=== PATIENT | female | born 1985 | race Caucasian/White ===

== ENCOUNTER 2020-03-18 08:54 | Outpatient (CLI) | payer BC, MEDICAID, SELFPAY ==
--- NOTE | 2020-03-18 09:03 | XR_ITS ---
WS: [id number] LATERAL CERVICAL SPINE: 3 view. Lateral radiographs are performed in upright neutral, flexion and extension to the patient's toleranc e. HISTORY: SPONDYLOLISTHESIS CERVICAL REGION COMPARISON: None available. Slight increase in the focal lordosis centered at the C2-3 level. Disc spaces and vertebral body heig hts are normal. There is marked mobility or flexion and extension. 2 mm retrolisthesis of C2, C3 and C4 is probably due to the marked mobility. No significant instability. XR/XR cervical spine fl/ex [id number] IMPRESSION: 1. There is marked increased mobility during flexion and extension of the cerv ical spine. 2. C2, C3 and C4 2 millimeters retrolisthesis during extension.
== END 2020-03-18 08:55 | disposition home or self-care (01) ==
LOC: RADWPI 09:02
PROVIDERS: PCP Internal Medicine; Visit Provider Nurse Practitioner
DX: M43.12 Spondylolisthesis, cervical region (principal)
CPT/HCPCS: 72040

== ENCOUNTER 2020-03-18 10:40 | Outpatient (RCR) | payer BC, MEDICAID, SELFPAY | END 2020-03-23 23:59 | disposition home or self-care (01) | LOC: SPT 10:40 | PROVIDERS: PCP Internal Medicine; Referring Provider Anesthesiology Pain Medicine; Visit Provider Anesthesiology Pain Medicine | DX: G89.4 Chronic pain syndrome (principal); M54.2 Cervicalgia | CPT/HCPCS: 97161 ==

== ENCOUNTER 2020-09-18 10:07 | Emergency (ER) | payer BC, MEDICAID, SELFPAY ==
[2020-09-18] VITALS (7 sets, daily range): BP systolic 120–141; BP diastolic 82–97; PULSE 84–94; RESP 14–18; TEMP 36.6; O2SAT 92–100; BMI 25.3
[2020-09-18 12:29] LABS: Basophils % 0.5 %; Eosinophils # 0.1 10^3/uL (0.0-0.8); Eosinophils % 1.5 %; Hematocrit 45.1 % (37.0-47.0); Hemoglobin 14.6 g/dL (11.5-15.3); Lymphocytes # 1.7 10^3/uL (0.8-4.8); Lymphocytes % 41.4 %; Mean Corpuscular HGB Conc 32.4 g/dL (30.0-36.0); Mean Corpuscular Hemoglobin 31.2 pg (28.0-34.0); Mean Corpuscular Volume 96.4 fL (81-99); Mean Platelet Volume 9.7 fL (7.4-10.4); Monocytes # 0.4 10^3/uL (0.2-0.9); Monocytes % 9.8 %; Neutrophils # 1.89 10^3/uL (1.8-7.7); Neutrophils % 46.3 %; Nucleated Red Blood Cells % 0 %; Platelet Count 204 10^3/cmm (130-400); Red Blood Count 4.68 10^6/uL (4.1-5.3); White Blood Count 4.1 10^3/uL (4.0-10.0)
[2020-09-18 12:42] LABS: HCG, Serum Qual Negative (Negative)
[2020-09-18 12:46] LABS: Alanine Aminotransferase 10 U/L (0-33); Albumin Level 4.4 g/dL (3.5-5.2); Alkaline Phosphatase 75 IU/L (35-105); Anion Gap 13.5 (5-19); Aspartate Amino Transferase 14 U/L (0-32); Blood Urea Nitrogen 13 mg/dL (6-20); Calcium 9.5 mg/dL (8.5-10.5); Carbon Dioxide 31 mmol/L (22-29); Chloride 98 mmol/L (98-107); Globulin 2.8 g/dL (1.3-4.6); Glomerular Filtration Rate 138.8 mL/min (90-130); Glucose 82 mg/dL (65-115); Lipase 22 U/L (13-60); Osmolality Calculated 285 mOsm/kg (285-295); Potassium 4.5 mmol/L (3.5-5.1); Sodium 138 mmol/L (136-145); Total Bilirubin 0.2 mg/dL (0.15-1.2); Total Protein 7.2 g/dL (6.6-8.7)
--- NOTE | 2020-09-18 12:47 | CTR_ITS ---
PROCEDURE INFORMATION: Exam: CT Chest Without Contrast; Diagnostic Exam date and time: 09/18/2020 12:47 PM Age: 35 years old Clinical indication: Abdominal pain; Generalized; Other: Heartburn; Prior surgery; Surgery type: Double mastectomy; Patient HX: Breast cancer, lymphoma; Additional info: Dyspnea. H/o breast cancer, abd pain TECHNIQUE: Imaging protocol: Diagnostic computed tomography of the chest without contrast. Radiation optimization: All CT scans at this facility use at least one of these dose optimization techniques: automated exposure control; mA and/or kV adjustment per patient size (includes targeted exams where dose is matched to clinical indication); or iterative reconstruction. COMPARISON: No relevant prior studies available. RADIATION DOSE METRICS: Total DLP (mGy-cm): 1173.59 FINDINGS: Lungs: Mild biapical scarring is noted. The lungs are otherwise clear. No airspace consolidation or mass is detected. Pleural spaces: Unremarkable. No pneumothorax. No pleural effusion. Heart: The heart is normal in size. Aorta: Unremarkable. No aortic aneurysm. Lymph nodes: Unremarkable. No enlarged lymph nodes. Bones/joints: Tiny 6 mm calcific focus in the T1 vertebral body may be a bone island. No skeletal mass or acute fracture is detected. Soft tissues: Bilateral breast implants are noted. Right axillary dissection clips are appreciated. IMPRESSION: No acute cardiopulmonary abnormality. Mild biapical scarring is noted. PROCEDURE INFORMATION: Exam: CT Abdomen And Pelvis Without Contrast Exam date and time: 09/18/2020 12:47 PM Age: 35 years old Clinical indication: Abdominal pain; Generalized; Other: Heartburn; Prior surgery; Surgery type: Double mastectomy; Patient HX: Breast cancer, lymphoma; Additional info: Dyspnea. H/o breast cancer, abd pain TECHNIQUE: Imaging protocol: Computed tomography of the abdomen and pelvis without contrast. Radiation optimization: All CT scans at this facility use at least one of these dose optimization techniques: automated exposure control; mA and/or kV adjustment per patient size (includes targeted exams where dose is matched to clinical indication); or iterative reconstruction. COMPARISON: No relevant prior studies available. RADIATION DOSE METRICS: Total DLP (mGy-cm): 1173.59 FINDINGS: Liver: Normal. No mass. Gallbladder and bile ducts: Normal. No calcified stones. No ductal dilation. Pancreas: Normal. No ductal dilation. Spleen: Normal. No splenomegaly. Adrenal glands: Normal. No mass. Kidneys and ureters: Normal. No renal stone or hydronephrosis. Stomach and bowel: No intestinal obstruction. A large amount of stool is present in the colon. Appendix: The appendix is normal. Intraperitoneal space: Unremarkable. No free air. No significant fluid collection. Vasculature: Unremarkable. No abdominal aortic aneurysm. Lymph nodes: Unremarkable. No enlarged lymph nodes. Urinary bladder: Unremarkable as visualized. Reproductive: The uterus and ovaries appear normal. Bones/joints: Unremarkable. No acute fracture. Soft tissues: Unremarkable. CT/CT chest abd pel wo con IMPRESSION: 1. No acute abnormality is seen in the abdomen or pelvis. 2. Constipation. Radiation Dose CTDIVOL = (mGy): DLP = 1173.59~1173.59 (mGy-cm)
--- NOTE | 2020-09-18 12:54 | W.ED.ABDPA2 ---
HPI - Abdominal Pain General: Chief Complaint: Abdominal Pain Stated Complaint: ABD GETTING BIGGER DAILY Time Seen by Provider: 09/18/20 12:32 History of Present Illness: HPI narrative: The patient is a 35-year-old female with past medical history migraines and chronic pain who comes to the ER complaining of abdominal fullness. She notes she has been gaining 2 pounds a week with no change in her dietary habits for the past several months and her belly is becoming tender and it is making her short of breath. She had a history of breast cancer and has been clear since 2019. She also says she is constipated. She complains of intermittent shortness of breath as well. She also says she has vaginal spotting blood which is unusual for her. I asked why she thought this was unusual and she says her periods are irregular. I asked if this could be a normal menstrual period for her and she says it is unusual that she is bleeding. She used to be on hormone control several months ago but was taken off it for bleeding. Associated Symptoms: Reports other (Abdominal swelling); Denies GI cramping and diarrhea Related Data: Date of Last Menstrual Period: 09/18/20 Review of Systems General: Reports: 10 or more systems reviewed and unremarkable except in HPI and below Const: Denies: fatigue Eyes: Denies: change in vision, blurry vision or eye redness ENMT: Denies: throat pain, swelling of lips/tongue, ear or mastoid pain or nasal congestion Card: Denies: chest pain, palpitations, irregular heart rhythm, edema, dyspnea on exertion or orthopnea Resp: Denies: dyspnea, productive cough or non-productive cough GI: Reports: abdominal pain and other (Abdominal swelling); Denies: diarrhea or GI cramping : Reports: vaginal bleeding; Denies: flank pain, difficulty voiding, urinary frequency or urinary urgency Musc: Denies: neck pain, back pain, extremity pain, joint pain, joint redness, limited range of motion or muscle weakness Skin/Breast: Denies: rash, pruritus, erythema, skin pain or skin tenderness Neuro: Denies: headache(s), numbness in extremities, weakness in extremities, sensory changes, difficulty walking, dizziness, confusion or Slurred speech present Psych: Denies: anxiety or depression Endo: Denies: polyuria All/Imm: Denies: urticaria, throat swelling or tongue swelling [facility] Female Reproductive History: Date of last menstrual period: 09/18/20 : 1 Physical Exam Const: COMMON NORMALS: no acute distress, average body habitus, patient oriented x3, no limitations, healthy appearing, alert and well nourished GENERAL APPEARANCE: cooperative, comfortable, well kempt and well developed ORIENTATION/CONSCIOUSNESS: Yes awake, Yes oriented to person, Yes oriented to place and Yes oriented to time HENMT: COMMON NORMALS: normocephalic, external ears normal and Normal external nose present HEAD & SCALP: normal to inspection and normocephalic NOSE: Normal external nose present EXTERNAL EAR: Yes external ears normal MOUTH: Normal oral and palatal mucosa present THROAT: posterior oropharynx normal Eye: COMMON NORMALS: Equal, round and reactive pupils present and EOMs intact bilaterally GENERAL EYE: appearance normal, both eyes and all related structures PUPIL: Yes Equal, round and reactive pupils present Neck/C-Spine: COMMON NORMALS: full ROM, no lymphadenopathy, no meningeal signs and no JVD GENERAL: Yes normal visual inspection Lymph: LYMPHATIC: no lymphadenopathy noted Chest: COMMONS NORMALS: normal inspection of the chest and normal palpation of entire chest wall Resp: COMMON NORMALS: normal respiratory effort, No retractions, No use of accessory muscles, clear to auscultation bilaterally and percussion normal EFFORT & INSPECTION: Yes able to speak in complete sentences AUSCULTATION: clear to auscultation bilaterally PERCUSSION: percussion normal Cardio: COMMON NORMALS: no JVD, regular rate, regular rhythm, S1 normal heart sound present, S2 normal heart sound present and Peripheral pulses 2+ throughout RATE: regular rate RHYTHM: regular rhythm HEART SOUNDS: S1 normal heart sound present and S2 normal heart sound present PERIPHERAL PULSES: Peripheral pulses 2+ throughout GI: COMMON NORMALS: Normal to inspection, nondistended, normoactive bowel sounds present, Soft to palpation, non-tender and no masses INSPECTION: Yes normal to inspection PALPATION: Yes Soft to palpation : COMMON NORMALS: Yes no CVA tenderness BLADDER/KIDNEY EXAM: Yes no CVA tenderness Back/Pelvis: COMMON NORMALS: no CVA tenderness, thoracic and lumbar spine normal to inspection, no thoracic nor lumbar tenderness and thoraco-lumbar ROM normal Extremity: COMMON NORMALS: normal to inspection, full ROM, capillary refill normal, no joint enlargement and no pedal edema GENERAL: Yes normal exam except as noted Neuro: COMMON NORMALS: patient oriented x3, CN's II-XII intact bilaterally, moves all extremities, no focal motor deficits, no sensory deficits noted and gait normal SENSORIUM/ORIENTATION: Yes alert, Yes oriented to person, Yes oriented to place and Yes oriented to time MENINGEAL SIGNS: Yes no meningeal signs Psych: COMMON NORMALS: mental status grossly normal, Normal thought process present, cooperative, normal affect and speech normal APPEARANCE: Yes well kempt ATTITUDE: Yes calm SPEECH: Yes normal speech MOOD & AFFECT: Yes anxious THOUGHT PROCESS: Normal thought process present Skin: COMMON NORMALS: no rashes or lesions noted GENERAL SKIN EXAM: no rashes or lesions noted Course Vital Signs: Vital signs: Vital Signs Temperature 97.9 F 09/18/20 11:57 Pulse Rate 87 09/18/20 17:00 Respiratory Rate 18 09/18/20 17:00 Blood Pressure 135/97 09/18/20 15:56 Pulse Oximetry 100 09/18/20 17:00 MDM - Abdominal Pain MDM Narrative: Medical decision making narrative: The patient comes to the ER complaining of abdominal swelling. Labs were mostly normal however she does have a concerning history of previous breast cancer. She did pass a bowel movement in the ER and says her abdominal swelling is greatly reduced but she is worried that she could have some kind of liver failure causing her belly to swell or other pathology. CT chest abdomen pelvis was negative for anything acute except possibly constipation. I discussed this with the patient and she says she will try to take a stool softener to help with her symptoms. I also recommended she follow-up with her primary care physician next week and set up with GI specialist as she has been trying to do as an outpatient. Return to the ER at anytime with worsening symptoms. Lab Data: Labs: Lab Results 09/18/20 09/18/20 09/18/20 Range/Units 12:21 12:21 12:21 WBC 4.1 (4.0-10.0) 10^3/ uL RBC 4.68 (4.1-5.3) 10^6/u L Hgb 14.6 (11.5-15.3) g/dL Hct 45.1 (37.0-47.0) % MCV 96.4 (81-99) fL MCH 31.2 (28.0-34.0) pg MCHC 32.4 (30.0-36.0) g/dL RDW 13.0 (12.1-15.1) % Plt Count 204 (130-400) 10^3/c mm MPV 9.7 (7.4-10.4) fL Neut % (Auto) 46.3 % Lymph % (Auto) 41.4 % [place] % (Auto) 9.8 % Eos % (Auto) 1.5 % Baso % (Auto) 0.5 % Neut # (Auto) 1.89 (1.8-7.7) 10^3/u L Lymph # (Auto) 1.7 (0.8-4.8) 10^3/u L [place] # (Auto) 0.4 (0.2-0.9) 10^3/u L Eos # (Auto) 0.1 (0.0-0.8) 10^3/u L Baso # (Auto) 0.0 (0.0-0.1) 10^3/u L Nucleated RBC % (a uto) 0 % Nucleated RBCs # 0.0 /100WBC Sodium 138 (136-145) mmol/L Potassium 4.5 (3.5-5.1) mmol/L Chloride 98 (98-107) mmol/L Carbon Dioxide 31 H (22-29) mmol/L Anion Gap 13.5 (5-19) BUN 13 (6-20) mg/dL Creatinine 0.5 (0.5-0.9) mg/dL GFR Calculation 138.8 H (90-130) mL/min Glucose 82 (65-115) mg/dL Calculated Osmolal ity 285 (285-295) mOsm/k g Calcium 9.5 (8.5-10.5) mg/dL Total Bilirubin 0.2 (0.15-1.2) mg/dL AST 14 (0-32) U/L ALT 10 (0-33) U/L Alkaline Phosphata se 75 (35-105) IU/L Total Protein 7.2 (6.6-8.7) g/dL Albumin 4.4 (3.5-5.2) g/dL Globulin 2.8 (1.3-4.6) g/dL Lipase 22 (13-60) U/L HCG, Qual Negative (Negative) Blood Type Rho(D) Type 09/18/20 Range/Units 12:21 WBC (4.0-10.0) 10^3/ uL RBC (4.1-5.3) 10^6/u L Hgb (11.5-15.3) g/dL Hct (37.0-47.0) % MCV (81-99) fL MCH (28.0-34.0) pg MCHC (30.0-36.0) g/dL RDW (12.1-15.1) % Plt Count (130-400) 10^3/c mm MPV (7.4-10.4) fL Neut % (Auto) % Lymph % (Auto) % [place] % (Auto) % Eos % (Auto) % Baso % (Auto) % Neut # (Auto) (1.8-7.7) 10^3/u L Lymph # (Auto) (0.8-4.8) 10^3/u L [place] # (Auto) (0.2-0.9) 10^3/u L Eos # (Auto) (0.0-0.8) 10^3/u L Baso # (Auto) (0.0-0.1) 10^3/u L Nucleated RBC % (a uto) % Nucleated RBCs # /100WBC Sodium (136-145) mmol/L Potassium (3.5-5.1) mmol/L Chloride (98-107) mmol/L Carbon Dioxide (22-29) mmol/L Anion Gap (5-19) BUN (6-20) mg/dL Creatinine (0.5-0.9) mg/dL GFR Calculation (90-130) mL/min Glucose (65-115) mg/dL Calculated Osmolal ity (285-295) mOsm/k g Calcium (8.5-10.5) mg/dL Total Bilirubin (0.15-1.2) mg/dL AST (0-32) U/L ALT (0-33) U/L Alkaline Phosphata se (35-105) IU/L Total Protein (6.6-8.7) g/dL Albumin (3.5-5.2) g/dL Globulin (1.3-4.6) g/dL Lipase (13-60) U/L HCG, Qual (Negative) Blood Type B Positive Rho(D) Type Positive / 4+ Discharge Plan Discharge Patient Disposition: Home Clinical Impression: Constipation Condition: Stable Prescriptions: No Action divalproex 250 mg tablet,delayed release (DR/EC) 500 mg PO BEDTIME RF: 0 doxepin 10 mg capsule 20 mg PO BEDTIME RF: 0 Aspir-81 81 mg Tablet,Delayed Release (Dr/Ec) 81 mg PO PRN RF: 0 levothyroxine 75 mcg tablet 75 mcg PO QAM RF: 0 iron 325 mg (65 mg iron) Tablet 325 mg PO BEDTIME RF: 0 gabapentin 300 mg capsule 300 mg PO TID RF: 0 Claritin 10 mg Tablet 10 mg PO DAILY RF: 0 spironolactone 50 mg tablet 50 mg PO QAM RF: 0 minocycline 50 mg tablet 50 mg PO DAILY RF: 0 cholecalciferol (vitamin D3) 1,250 mcg (50,000 unit) capsule 50,000 unit PO Q7D RF: 0 fluoxetine 60 mg tablet 60 mg PO QAM PRN (Reason: Anxiety) RF: 0 Multivitamin Gummies 200 mcg Tablet,Chewable 1 tab PO QAM RF: 0 Metamucil 3.4 gram/5.4 gram Powder 1 tbsp PO DAILY RF: 0 Discharge Orders: Discharge ED (Routine); Ordered 09/18/20 Ordered By: Cheng Villalta Referrals: Vandana Victoria [Primary Care Provider] - Discharge Diet: Advance as tolerated Discharge Activity: Resume usual activity Patient Instructions: Constipation (ED), Opioid Safety Activity Restrictions/Additional Instructions: Your belly pain is most likely caused by constipation. Please take stool softeners to help keep your bowels regular and return to the ER with worsening symptoms at any time otherwise drink lots of fluids and follow-up with your primary care physician next week to discuss further and follow-up with the GI specialist you had planned already. Coding Level of Care Code ED [employer] In[employer] for Nancie Guzman
[2020-09-18] MEDS: acetaminophen 325 mg Tablet 650 MG PO (13:16)
[2020-09-18] MEDS: alum-mag-hydroxide-sime 30 mL UDC PO (13:18)
[2020-09-18] MEDS: morphine 4 mg/mL SDV 1 mL 2 MG IVP (16:04)
[2020-09-18 18:16] LABS: Add Urine Microscopic? NO; Charge for UA Resulting for Rev
[2020-09-18 18:39] LABS: Bilirubin Urine Neg (Negative); Blood Urine Neg (Negative); Glucose Urine UA Norm (Normal); Ketones Urine Negative (Negative); Leukocyte Esterase Urine Negative (Negative); Nitrate Urine Negative (Negative); Protein Urine Neg (Negative); Sulfosalicylic Acid Urine Negative (Negative); Urine Appearance Clear (CLEAR); Urine Color Straw (Yellow); Urobilinogen Urine Norm (Negative); pH Urine 8 (5-7)
== END 2020-09-18 18:25 | disposition home or self-care (01) ==
PROVIDERS: Physician Assistant; Emergency Provider Family Medicine; PCP Internal Medicine
DX: K59.00 Constipation, unspecified (principal)
CPT/HCPCS: 36415; 71250; 74176; 80053; 81003; 83690; 84703; 85025; 86900; 96374; 99284; J2270

== ENCOUNTER → 2020-10-28 13:32 | Outpatient (BNVA) | payer BC, MEDICAID, SELFPAY | PROVIDERS: PCP Internal Medicine; Visit Provider Psychiatry & Neurology Psychiatry | DX: Z79.899 Other long term (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 (principal); Z03.89 Encounter for observation for other suspected diseases and conditions ruled out; F31.81 Bipolar II disorder; Z87.898 Personal history of other specified conditions | CPT/HCPCS: 90792 ==

== ENCOUNTER → 2020-11-04 08:55 | Outpatient (BNVA) | payer BC, SELFPAY | PROVIDERS: PCP Internal Medicine; Visit Provider Psychiatry & Neurology Psychiatry | DX: Z79.899 Other long term (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 (principal) | CPT/HCPCS: 80053; 80061; 80164; 83036; 84443; 85025 ==

== ENCOUNTER 2020-11-14 13:54 | Outpatient (CLI) | payer BC, MEDICAID, SELFPAY ==
--- NOTE | 2020-11-14 14:27 | MR_ITS ---
WS: [id number] MRI LUMBAR SPINE NONCONTRAST HISTORY: LOW BACK PAIN COMPARISON: None available. TECHNIQUE: Sagittal and axial multisequence imaging is submitted. T2 hemangioma. Normal lumbar alignment with no compression fractures or marrow edema. Minimal disc desiccation at L5-S1 without disc space narrowing. Conus terminates normally at L1. L1-L2: Normal. L2-L3: Normal. L3-L4: Very mild annular disc bulging with mild ligamentum flavum hypertrophy and facet arthritis. No stenosis. L4-L5: Diffuse annular disc bulging and osteophytic ridging. Very slight encroachment into the latera l recesses bilaterally but the disc bulging. No significant stenosis. L5-S1: Mild annular disc bulge with a central disc protrusion and annular fissures. Disc abuts but do es not displace the S1 nerve roots bilaterally. Paravertebral soft tissues are normal. MR/MR lumbar spine wo con* [id number] IMPRESSION: 1. No high-grade central or foraminal stenosis. 2. Central disc protrusion with annular fissure L5-S1 abutting but not displac ing the S1 nerve roots. 3. Minimal encroachment into the lateral recesses at L4-5. Disc contacts but d oes not displace the traversing L5 nerve roots.
--- NOTE | 2020-11-14 14:30 | XR_ITS ---
WS: [id number] LATERAL LUMBAR SPINE: 3 view. Lateral radiographs are performed in upright neutral, flexion and extension to the patient's toleranc e. HISTORY: LOW BACK PAIN COMPARISON: None available. Slight increase in lumbar lordosis. Posterior alignment is normal. Disc spaces and vertebral body hei ghts are normal. Very minimal narrowing of the L4-5 and L5-S1 facet joints. No instability. XR/XR lumbar spine f/e only [id number] IMPRESSION: No lumbar spine instability. Very minimal facet joint arthritis at L4-5 and L5-S1.
== END 2020-11-14 13:55 | disposition home or self-care (01) ==
PROVIDERS: PCP Internal Medicine; Visit Provider Anesthesiology Pain Medicine
DX: M51.27 Other intervertebral disc displacement, lumbosacral region (principal)
CPT/HCPCS: 72120; 72148

== ENCOUNTER → 2020-12-09 08:45 | Outpatient (BNVA) | payer BC, MEDICAID, SELFPAY | PROVIDERS: PCP Internal Medicine; Visit Provider Psychiatry & Neurology Psychiatry | DX: F31.81 Bipolar II disorder (principal); Z87.898 Personal history of other specified conditions | CPT/HCPCS: 99214 ==

== ENCOUNTER → 2021-01-20 10:40 | Outpatient (BNVA) | payer BC, MEDICAID, SELFPAY | PROVIDERS: PCP Internal Medicine; Visit Provider Psychiatry & Neurology Psychiatry | DX: F31.81 Bipolar II disorder (principal); Z87.898 Personal history of other specified conditions | CPT/HCPCS: 99214 ==

== ENCOUNTER → 2021-03-24 08:54 | Outpatient (BNVA) | payer BC, MEDICAID, SELFPAY | PROVIDERS: PCP Internal Medicine; Visit Provider Psychiatry & Neurology Psychiatry | DX: Z79.899 Other long term (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 (principal); Z87.898 Personal history of other specified conditions; F31.81 Bipolar II disorder | CPT/HCPCS: 80164; 99214 ==

== ENCOUNTER 2021-05-26 15:59 | Emergency (ER) | payer BC, MEDICAID, SELFPAY ==
[2021-05-26 16:13] VITALS: BP 132/91; PULSE 85; RESP 16; TEMP 36.6; O2SAT 98; BMI 26.2
--- NOTE | 2021-05-26 16:18 | XRR_ITS ---
PROCEDURE INFORMATION: Exam: XR Abdomen Exam date and time: 05/26/2021 5:06 PM Age: 35 years old Clinical indication: Abdominal pain; Acute; Additional info: Constipation TECHNIQUE: Imaging protocol: XR of the abdomen. Views: Frontal supine view of the abdomen. 1 View. COMPARISON: CT chest abd pel wo con 09/18/2020 5:11 PM FINDINGS: Gastrointestinal tract: Constipation without bowel dilation to indicate obstruction. Bones/joints: Unremarkable. XR/XR KUB portable [id number] IMPRESSION: Constipation without bowel dilation to indicate obstruction.
--- NOTE | 2021-05-26 16:35 | ED_ITS ---
HPI - Abdominal Pain General: Chief Complaint: Abdominal Pain Stated Complaint: severe abd pain/constipation Time Seen by Provider: 05/26/21 16:16 Source: patient Mode of arrival: ambulatory Limitations: no limitations History of Present Illness: 35-year-old female who comes in with complaints of abdominal pain and cramping decreased appetite. Patient has history of problems with chronic constipation. She recently did which she called a bowel cleanse which involved suppositories GoLYTELY mag citrate and MiraLAX essentially multiple medications and attempted to precipitate relief of her constipation. She felt like she had significant resolved but now is having a lot of cramping. She not had any hematochezia or melena she not had any vomiting or diarrhea. Abdominal pain is relieved by flexing at the waist and exacerbated by standing upright or laying completely flat supine. She denies any dysuria urgency or frequency no fever sweats or chills MD elicited complaint: abdominal pain Pertinent past history: none Onset (ago): minute(s) Pain Consistency: constant Location: None Severity: mild Quality: cramping Radiation: none Exacerbating factors: eating and movement Relieving factors: nothing Associated Symptoms: Reports constipation and GI cramping; Denies anorexia, belching, bloating, change in bowel habits, change in stool character, chills, coffee ground emesis, diarrhea, dyspepsia, dysuria, excessive flatus, fever(s), heartburn, hematochezia, hematuria, hematemesis, fecal incontinence, loose stools, melena, nausea, poor appetite, syncope and vomiting Related Data: Date of Last Menstrual Period: 03/28/21 Review of Systems Const: Denies: fever(s) or chills ENMT: Denies: throat pain, ear or mastoid pain, nasal discharge or nasal congestion Card: Denies: syncope Resp: Denies: dyspnea, productive cough or non-productive cough GI: Reports: abdominal pain, constipation and GI cramping; Denies: nausea, vomiting, hematemesis, coffee ground emesis, heartburn, diarrhea, bloating, belching, excessive flatus, fecal incontinence, change in bowel habits, change in stool character, hematochezia or melena : Denies: flank pain, difficulty voiding, dysuria, urinary frequency, urinary urgency or hematuria Skin/Breast: Denies: rash or pruritus PFSH ED PFSH: Medical History Bipolar 2 disorder History of substance use 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 Psychiatric care Social History Smoking and tobacco status: former smoker Female Reproductive History: Date of last menstrual period: 03/28/21 Physical Exam Const: COMMON NORMALS: no acute distress GENERAL APPEARANCE: cooperative and comfortable ORIENTATION/CONSCIOUSNESS: Yes awake, Yes oriented to person, Yes oriented to place and Yes oriented to time HENMT: COMMON NORMALS: normocephalic, atraumatic and hearing grossly normal bilaterally HEAD & SCALP: normocephalic and atraumatic Neck/C-Spine: COMMON NORMALS: no JVD Resp: COMMON NORMALS: normal respiratory effort, No retractions, No use of accessory muscles and clear to auscultation bilaterally AUSCULTATION: clear to auscultation bilaterally Cardio: COMMON NORMALS: no JVD, regular rate, regular rhythm and No murmurs present (Cardio) RATE: regular rate RHYTHM: regular rhythm GI: COMMON NORMALS: Soft to palpation and No hepatosplenomegaly present AUSCULTATION: Yes normoactive bowel sounds PALPATION: Yes Soft to palpation, No Tenderness to palpation present (GI), No Guarding due to palpation present (GI) and Yes No hepatosplenomegaly present PERCUSSION: tympanic to percussion Extremity: COMMON NORMALS: normal to inspection, capillary refill normal, no clubbing, cyanosis or edema, no calf tenderness and no pedal edema Neuro: SENSORIUM/ORIENTATION: Yes oriented to person, Yes oriented to place and Yes oriented to time Skin: COMMON NORMALS: no rashes or lesions noted GENERAL SKIN EXAM: no rashes or lesions noted Course Vital Signs: Vital signs: Vital Signs Temperature 97.9 F 05/26/21 16:13 Pulse Rate 80 05/26/21 17:56 Respiratory Rate 16 05/26/21 17:56 Blood Pressure 136/88 05/26/21 16:39 Pulse Oximetry 99 05/26/21 17:56 MDM - Abdominal Pain Medical Decision Making Large amount of retained stool with some air in the colon as well consistent with exam. She does have good bowel sounds. Think she had some relief of her constipation with the various [id number] medicine she took however now it seems to be stimulating her colon without precipitating a bowel movement. She has had no acute distress does not appear to septic. Recommend that she try enemas or suppositories to stimulate GI tract distally. She has a follow-up appointment for evaluation with a superintendent construction because is been a longstanding issue. Also in reviewing her medicine list she is on several medications that could precipitate constipation including iron supplementation fluoxetine gabapentin olanzapine and topiramate. Encouraged her to discuss these at her GI consultation. Continue to use MiraLAX regularly. Recommend that she consider stopping the fiber as that just adds bulk to her stools at this point and probably may add to her problem. Return if she has worsening pain develops fever or signs of GI blood loss. Medical Records I reviewed the patient's medical records. Lab Data I reviewed the patient's lab results. : 05/26/21 16:38 05/26/21 16:38 Labs/Radiology: Radiology Impressions KUB X-Ray 05/26/21 16:18 IMPRESSION: Constipation without bowel dilation to indicate obstruction. Laboratory Results WBC 5.4 10^3/uL (4.0-10.0) 05/26/21 16:38 RBC 4.18 10^6/uL (4.1-5.3) 05/26/21 16:38 Hgb 13.8 g/dL (11.5-15.3) 05/26/21 16:38 Hct 41.3 % (37.0-47.0) 05/26/21 16:38 MCV 98.8 fl (81-99) 05/26/21 16:38 MCH 33.0 pg (28.0-34.0) 05/26/21 16:38 MCHC 33.4 g/dL (30.0-36.0) 05/26/21 16:38 RDW 12.2 % (12.1-15.1) 05/26/21 16:38 Plt Count 225 10^3/cmm (130-400) 05/26/21 16:38 MPV 9.7 fL (7.4-10.4) 05/26/21 16:38 Neut % (Auto) 54.0 % 05/26/21 16:38 Lymph % (Auto) 37.9 % 05/26/21 16:38 [place] % (Auto) 6.9 % 05/26/21 16:38 Eos % (Auto) 0.6 % 05/26/21 16:38 Baso % (Auto) 0.4 % 05/26/21 16:38 Neut # (Auto) 2.91 10^3/uL (1.8-7.7) 05/26/21 16:38 Lymph # (Auto) 2.0 10^3/uL (0.8-4.8) 05/26/21 16:38 [place] # (Auto) 0.4 10^3/uL (0.2-0.9) 05/26/21 16:38 Eos # (Auto) 0.0 10^3/uL (0.0-0.8) 05/26/21 16:38 Baso # (Auto) 0.0 10^3/uL (0.0-0.1) 05/26/21 16:38 Nucleated RBC % (auto) 0 % 05/26/21 16:38 Nucleated RBCs # 0.0 /100WBC 05/26/21 16:38 Sodium 136 mmol/L (136-145) 05/26/21 16:38 Potassium 4.2 mmol/L (3.5-5.1) 05/26/21 16:38 Chloride 105 mmol/L (98-107) 05/26/21 16:38 Carbon Dioxide 19 mmol/L (22-29) L 05/26/21 16:38 Anion Gap 16.2 (5-19) 05/26/21 16:38 BUN 24 mg/dL (6-20) H 05/26/21 16:38 Creatinine 0.6 mg/dL (0.5-0.9) 05/26/21 16:38 GFR Calculation 112.5 mL/min (90-130) 05/26/21 16:38 Glucose 115 mg/dL (65-115) 05/26/21 16:38 Calculated Osmolality 287 mOsm/kg (285-295) 05/26/21 16:38 Calcium 9.3 mg/dL (8.5-10.5) 05/26/21 16:38 Total Bilirubin 0.2 mg/dL (0.15-1.2) 05/26/21 16:38 AST 13 U/L (0-32) 05/26/21 16:38 ALT 13 U/L (0-33) 05/26/21 16:38 Alkaline Phosphatase 109 IU/L (35-105) H 05/26/21 16:38 Total Protein 6.6 g/dL (6.6-8.7) 05/26/21 16:38 Albumin 4.4 g/dL (3.5-5.2) 05/26/21 16:38 Globulin 2.2 g/dL (1.3-4.6) 05/26/21 16:38 Discharge Plan Discharge Patient Disposition: Home Clinical Impression: Constipation Condition: Stable Prescriptions: No Action topiramate 100 mg tablet See Rx Instructions .ROUTE .COMPLEX 0RF Rx Instructions: 100mg q am and 200mg q HS cholecalciferol (vitamin D3) [Vitamin D3] 25 mcg (1,000 unit) capsule 3,000 unit PO DAILY 0RF polyethylene glycol 3350 [Miralax] 17 gram/dose powder 17 g PO EVERY OTHER DAY 0RF pantoprazole 20 mg tablet,delayed release (DR/EC) 20 mg PO QAM 0RF (DME) Custom molded orthotics See Rx Instructions .Route .MEDSUPPLY Qty: 1 0RF Rx Instructions: As directed aspirin [Aspir-81] 81 mg Tablet,Delayed Release (Dr/Ec) 81 mg PO DAILY PRN (Reason: Headache) 0RF ferrous sulfate [iron] 325 mg (65 mg iron) Tablet 325 mg PO QAM 0RF spironolactone 50 mg tablet 50 mg PO QAM 0RF minocycline 50 mg tablet 50 mg PO BEDTIME 0RF Multivitamin Gummies 200 mcg Tablet,Chewable 1 tab PO QAM 0RF levothyroxine 100 mcg Tablet 100 mcg PO QAM 0RF gabapentin 300 mg Capsule 600 mg PO BID 0RF fiber Tablet 5 tab PO TID 0RF Trulance 3 mg Tablet 3 mg PO QAM 0RF Daily Enzyme 1 tab PO DAILY 0RF Probiotic 1 cap PO DAILY 0RF olanzapine 10 mg tablet 10 mg PO BEDTIME 0RF fluoxetine 60 mg tablet 60 mg PO QAM 0RF Discharge Orders: Discharge ED (Routine); Ordered 05/26/21 Ordered By: Mario Chamberlain Referrals: Vandana Victoria [Primary Care Provider] - Patient Instructions: Opioid Safety Activity Restrictions/Additional Instructions: Use duccosate suppositories and enemas as needed to achieve adequate bowel movement. 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
[2021-05-26 16:39] VITALS: BP 136/88; PULSE 82; RESP 16; O2SAT 98
[2021-05-26 16:48] LABS: Basophils % 0.4 %; Eosinophils % 0.6 %; Hematocrit 41.3 % (37.0-47.0); Hemoglobin 13.8 g/dL (11.5-15.3); Lymphocytes % 37.9 %; Mean Corpuscular HGB Conc 33.4 g/dL (30.0-36.0); Mean Corpuscular Volume 98.8 fl (81-99); Mean Platelet Volume 9.7 fL (7.4-10.4); Monocytes # 0.4 10^3/uL (0.2-0.9); Monocytes % 6.9 %; Neutrophils # 2.91 10^3/uL (1.8-7.7); Nucleated Red Blood Cells % 0 %; Platelet Count 225 10^3/cmm (130-400); Red Blood Count 4.18 10^6/uL (4.1-5.3); Red Cell Distribution Width 12.2 % (12.1-15.1); White Blood Count 5.4 10^3/uL (4.0-10.0)
--- NOTE | 2021-05-26 16:57 | PC.PHAR ---
pt states she takes care of her own medications-pt states she is still taking minocycline 50mg hs rx last filled jan 2021 30d/s with no refills-pt states she hasnt taken depakote dr 500mg 1000mg hs for months rx last filled 04/18/21 and picked up on 04/22/21-notes are made in the pharmacy comments
[2021-05-26 17:14] LABS: Alanine Aminotransferase 13 U/L (0-33); Albumin Level 4.4 g/dL (3.5-5.2); Alkaline Phosphatase 109 IU/L (35-105); Anion Gap 16.2 (5-19); Aspartate Amino Transferase 13 U/L (0-32); Blood Urea Nitrogen 24 mg/dL (6-20); Calcium 9.3 mg/dL (8.5-10.5); Carbon Dioxide 19 mmol/L (22-29); Chloride 105 mmol/L (98-107); Globulin 2.2 g/dL (1.3-4.6); Glomerular Filtration Rate 112.5 mL/min (90-130); Glucose 115 mg/dL (65-115); Osmolality Calculated 287 mOsm/kg (285-295); Potassium 4.2 mmol/L (3.5-5.1); Sodium 136 mmol/L (136-145); Total Bilirubin 0.2 mg/dL (0.15-1.2); Total Protein 6.6 g/dL (6.6-8.7)
[2021-05-26 17:56] VITALS: PULSE 80; RESP 16; O2SAT 99
== END 2021-05-26 17:56 | disposition home or self-care (01) ==
PROVIDERS: Emergency Provider Family Medicine; PCP Internal Medicine
DX: K59.00 Constipation, unspecified (principal)
CPT/HCPCS: 74018; 80053; 85025; 99282

== ENCOUNTER → 2021-07-17 09:02 | Outpatient (BNVA) | payer BC, MEDICAID, SELFPAY | PROVIDERS: PCP Internal Medicine; Visit Provider Psychiatry & Neurology Psychiatry | DX: Z87.898 Personal history of other specified conditions (principal); F31.81 Bipolar II disorder; Z79.899 Other long term (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 | CPT/HCPCS: 99214 ==

== ENCOUNTER → 2021-07-29 08:00 | Outpatient (BNVA) | payer BC, MEDICAID, SELFPAY | PROVIDERS: PCP Internal Medicine; Visit Provider Podiatrist Foot & Ankle Surgery | DX: L84 Corns and callosities (principal); M21.629 Bunionette of unspecified foot; F31.81 Bipolar II disorder; Z79.899 Other long term (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; Z87.898 Personal history of other specified conditions | CPT/HCPCS: 11056 ==

== ENCOUNTER 2021-09-08 07:28 | Inpatient (IN) | payer BC, SELFPAY ==
[2021-09-08] VITALS (29 sets, daily range): BP systolic 98–186; BP diastolic 64–102; PULSE 82–119; RESP 11–22; TEMP 36.3–37; O2SAT 92–100; BMI 23.6
--- NOTE | 2021-09-08 07:50 | CT_ITS ---
WS: [id number] CT ABDOMEN PELVIS TECHNIQUE: Noncontrast CT of the abdomen and pelvis with coronal and sagittal reformatted images. CLINICAL INFORMATION: RLQ ab pain; distal ureter stone/appy/ovarian etiology? COMPARISON: None. DLP: 1067.[address] scans at [facility] use at least one of these dose optimization techniques: automated e xposure control; mA and/or kV adjustment per patient size (includes targeted exams where dose is matc hed to clinical indication); or iterative reconstruction. FINDINGS: Enhancing distended appendix in the RIGHT lower quadrant with proximal appendicolith measuring 6 mm. Distended fluid-filled appendix with inflammatory stranding and edema in the RIGHT lower quadrant and surrounding fluid. Appendix measures 14 mm in maximum dimension compatible with acute appendicitis. Tortuous appendix extends towards the midline distally. No drainable abscess or fluid collection. No extraluminal air. Postoperative changes bilateral breast prosthesis. Lung bases are well aerated. Noncontrast liver is normal. Normal noncontrast spleen. Adrenal glands are normal. No hydronephrosis in the kidney. Hydrop ic fluid distended gallbladder. No gallbladder wall thickening or pericholecystic fluid. Small small amount of free fluid in the pelvis. 16 mm RIGHT ovarian cyst. Low-lying transverse colon. No evidence of small bowel obstruction. CT/CT kidney stone [id number] IMPRESSION: 1. Above-described findings compatible with acute appendicitis with proximal a ppendicolith. Fluid and edema in the RIGHT lower quadrant. No abscess or draina ble fluid collection. No extraluminal or free air. 2. No hydronephrosis in either kidney. 3. Fluid distended hydropic gallbladder. No gallbladder wall thickening or per icholecystic fluid. This is likely incidental. 4. Small amount of free fluid in the pelvis. 5. Physiologic RIGHT ovarian cyst measuring 16 mm. Notified JOSEFA Aguilar at 09/08/2021 9:00 AM.
--- NOTE | 2021-09-08 07:51 | W.ED.ABDPA2 ---
Documented by User: JOSEFA Aguilar 09/08/21 09:57 HPI - Abdominal Pain General: Chief Complaint: Abdominal Pain Stated Complaint: av suero Time Seen by Provider: 09/08/21 07:30 Source: patient and family Mode of arrival: ambulatory Limitations: no limitations History of Present Illness: Patient is a 36-year-old female who presents to ED today with a complaint of right lower abdominal pain that began yesterday morning and has steadily and progressively worsened since onset. She is complaining of nausea and vomiting secondary to the pain. Bowel movements have been normal. She has not been running fevers. She does state urination seems to make her pain worse. Overall she feels like she cannot get comfortable. Patient does not complain of hematuria, frequency, urgency. She does have a history of kidney/ureter stones. Patient still has her appendix and ovaries. She has no history of ovarian cysts. PMH is significant for chronic constipation, hypothyroidism, migraines, depression, bipolar, herpes simplex. MD elicited complaint: abdominal pain Pertinent past history: constipation Onset (ago): day(s) (yesterday) Pain Consistency: constant Location: RLQ Severity: severe Quality: sharp Radiation: none Migration to: no migration Exacerbating factors: movement Relieving factors: nothing Associated Symptoms: Reports nausea and vomiting; Denies change in bowel habits, chills, diarrhea, dysuria, fever(s), hematochezia, hematemesis and melena Related Data: Date of Last Menstrual Period: 03/28/21 Patient : No Review of Systems Const: Denies: fever(s), chills, body aches, fatigue or malaise Card: Denies: chest pain Resp: Denies: dyspnea GI: Reports: abdominal pain, nausea and vomiting; Denies: hematemesis, diarrhea, change in bowel habits, hematochezia or melena : Denies: flank pain, difficulty voiding, dysuria, urinary frequency, urinary urgency, urinary hesitancy, vaginal bleeding or vaginal discharge Musc: Denies: neck pain, back pain, extremity pain or joint pain Skin/Breast: Denies: rash Neuro: Denies: headache(s), numbness in extremities, weakness in extremities or sensory changes PFS ED PFSH: Medical History Bipolar 2 disorder History of substance use 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 Psychiatric care Social History Smoking and tobacco status: former smoker Female Reproductive History: Date of last menstrual period: 03/28/21 Physical Exam Const: COMMON NORMALS: patient oriented x3, no limitations, alert and well nourished GENERAL APPEARANCE: cooperative and in distress (appears significantly uncomfortable) HENMT: COMMON NORMALS: normocephalic and atraumatic HEAD & SCALP: normal to inspection, normocephalic and atraumatic Resp: COMMON NORMALS: normal respiratory effort and clear to auscultation bilaterally AUSCULTATION: clear to auscultation bilaterally Cardio: COMMON NORMALS: regular rhythm RATE: tachycardic RHYTHM: regular rhythm GI: COMMON NORMALS: Normal to inspection, nondistended, normoactive bowel sounds present, Soft to palpation, No hepatosplenomegaly present and no masses INSPECTION: Yes normal to inspection AUSCULTATION: Yes normoactive bowel sounds PALPATION: Yes Soft to palpation, Yes Tenderness to palpation present (GI) (R pelvis/RLQ) Details: RLQ, Yes Guarding due to palpation present (GI), No Rigid due to palpation and Yes No hepatosplenomegaly present OTHER: exam difficult as patient is unable to tolerate much of an exam : COMMON NORMALS: Yes no CVA tenderness BLADDER/KIDNEY EXAM: Yes no CVA tenderness Back/Pelvis: COMMON NORMALS: no CVA tenderness, thoracic and lumbar spine normal to inspection, no thoracic nor lumbar tenderness and thoraco-lumbar ROM normal Extremity: COMMON NORMALS: normal to inspection GENERAL: Yes normal exam except as noted Neuro: PEDRO COMA SCALE: document GCS findings Collins coma scale eye opening: Spontaneous Pedro coma scale verbal response: Orientated Collins coma scale motor response: Obey commands Pedro coma scale total score: 15 COMMON NORMALS: patient oriented x3, moves all extremities, no focal motor deficits and no sensory deficits noted SENSORIUM/ORIENTATION: Yes alert Skin: COMMON NORMALS: no rashes or lesions noted GENERAL SKIN EXAM: no rashes or lesions noted Course Consultations: Consultation #1: Dr. Cruz-accepts admission Vital Signs: Vital signs: Vital Signs Temperature 97.4 F L 09/08/21 15:04 Pulse Rate 100 09/08/21 15:48 Respiratory Rate 16 09/08/21 16:03 Blood Pressure 122/82 09/08/21 15:48 Pulse Oximetry 96 09/08/21 16:03 MDM - Abdominal Pain Medical Decision Making Patient is a 36-year-old female here for right lower quadrant pain starting yesterday morning. Pain has progressively worsened since onset. She is having nausea and vomiting. On exam she is exquisitely tender to her right lower quadrant/pelvis. She is tachycardic upon arrival. White count is 17.5. She has a normal lactate. CT scan compatible with an acute appendicitis with proximal appendicolith. No abscess or drainable fluid collection. No free air. I spoke to Dr. Cruz who will admit patient. Lab Data : 09/08/21 08:10 09/08/21 08:10 Labs/Radiology: Radiology Impressions Abdomen/Pelvis CT 09/08/21 07:50 IMPRESSION: 1. Above-described findings compatible with acute appendicitis with proximal appendicolith. Fluid and edema in the RIGHT lower quadrant. No abscess or drainable fluid collection. No extraluminal or free air. 2. No hydronephrosis in either kidney. 3. Fluid distended hydropic gallbladder. No gallbladder wall thickening or pericholecystic fluid. This is likely incidental. 4. Small amount of free fluid in the pelvis. 5. Physiologic RIGHT ovarian cyst measuring 16 mm. Notified JOSEFA Aguilar at 09/08/2021 9:00 AM. Laboratory Results WBC 17.5 10^3/uL (4.0-10.0) H 09/08/21 08:10 RBC 4.61 10^6/uL (4.1-5.3) 09/08/21 08:10 Hgb 14.2 g/dL (11.5-15.3) 09/08/21 08:10 Hct 41.6 % (37.0-47.0) 09/08/21 08:10 MCV 90.2 fl (81-99) 09/08/21 08:10 MCH 30.8 pg (28.0-34.0) 09/08/21 08:10 MCHC 34.1 g/dL (30.0-36.0) 09/08/21 08:10 RDW 12.5 % (12.1-15.1) 09/08/21 08:10 Plt Count 241 10^3/cmm (130-400) 09/08/21 08:10 MPV 9.5 fL (7.4-10.4) 09/08/21 08:10 Neut % (Auto) 87.3 % 09/08/21 08:10 Lymph % (Auto) 5.1 % 09/08/21 08:10 [place] % (Auto) 6.7 % 09/08/21 08:10 Eos % (Auto) 0.1 % 09/08/21 08:10 Baso % (Auto) 0.2 % 09/08/21 08:10 Neut # (Auto) 15.28 10^3/uL (1.8-7.7) H 09/08/21 08:10 Lymph # (Auto) 0.9 10^3/uL (0.8-4.8) 09/08/21 08:10 [place] # (Auto) 1.2 10^3/uL (0.2-0.9) H 09/08/21 08:10 Eos # (Auto) 0.0 10^3/uL (0.0-0.8) 09/08/21 08:10 Baso # (Auto) 0.0 10^3/uL (0.0-0.1) 09/08/21 08:10 Nucleated RBC % (auto) 0 % 09/08/21 08:10 Nucleated RBCs # 0.0 /100WBC 09/08/21 08:10 Sodium 136 mmol/L (136-145) 09/08/21 08:10 Potassium 3.8 mmol/L (3.5-5.1) 09/08/21 08:10 Chloride 98 mmol/L (98-107) 09/08/21 08:10 Carbon Dioxide 24 mmol/L (22-29) 09/08/21 08:10 Anion Gap 17.8 (5-19) 09/08/21 08:10 BUN 18 mg/dL (6-20) 09/08/21 08:10 Creatinine 0.5 mg/dL (0.5-0.9) 09/08/21 08:10 GFR Calculation 138.1 mL/min (90-130) H 09/08/21 08:10 Glucose 158 mg/dL (65-115) H 09/08/21 08:10 Calculated Osmolality 287 mOsm/kg (285-295) 09/08/21 08:10 Lactic Acid 2.1 mmol/L (0.5-2.2) 09/08/21 08:43 Lactic Acid (Sepsis) 0.8 mmol/L (0.5-2.2) 09/08/21 12:02 Calcium 8.9 mg/dL (8.5-10.5) 09/08/21 08:10 Total Bilirubin 0.6 mg/dL (0.15-1.2) 09/08/21 08:10 AST 13 U/L (0-32) 09/08/21 08:10 ALT 11 U/L (0-33) 09/08/21 08:10 Alkaline Phosphatase 128 IU/L (35-105) H 09/08/21 08:10 Total Protein 7.1 g/dL (6.6-8.7) 09/08/21 08:10 Albumin 4.3 g/dL (3.5-5.2) 09/08/21 08:10 Globulin 2.8 g/dL (1.3-4.6) 09/08/21 08:10 Lipase 12 U/L (13-60) L 09/08/21 08:10 HCG, Qual Negative (Negative) 09/08/21 08:10 Discharge Plan Discharge Patient Disposition: Admitted As Inpatient Admit Provider: Richard Cruz Clinical Impression: Acute appendicitis Qualifiers: Acute appendicitis type: with localized peritonitis Appendicitis gangrene presence: without gangrene Appendicitis perforation presence: without perforation Appendicitis abscess presence: without abscess Qualified Code(s): K35.30 - Acute appendicitis with localized peritonitis, without perforation or gangrene Condition: Stable Coding Level of Care Code ED Front End Application Developer for Chg Fwd Exam Comprehensive Documented by User: Mario Chamberlain DO 09/08/21 16:12 HPI - Abdominal Pain General: Chief Complaint: Abdominal Pain Stated Complaint: abd pian Time Seen by Provider: 09/08/21 07:30 [facility] ED PFSH: Medical History Bipolar 2 disorder History of substance use 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 Pain has progressively worsened since onset. She is having nausea and vomiting. On exam she is exquisitely tender to her right lower quadrant/pelvis. She is tachycardic upon arrival. White count is 17.5. She has a normal lactate. CT scan compatible with an acute appendicitis with proximal appendicolith. No abscess or drainable fluid collection. No free air. I spoke to Dr. Cruz who will admit patient. Chart reviewed and patient discussed with midlevel. Agree with assessment and plan. Lab Data : 09/08/21 08:10 09/08/21 08:10 Labs/Radiology: Radiology Impressions Abdomen/Pelvis CT 09/08/21 07:50
[2021-09-08] MEDS: sodium chloride 0.9% 1,000 ML 999 ML IV (08:15)
[2021-09-08] MEDS: metoclopramide 5 mg/mL SDV 2 mL 10 MG IVP (08:17)
[2021-09-08] MEDS: morphine 4 mg/mL SDV 1 mL IVP ×3 (08:17→21:33)
[2021-09-08 08:25] LABS: Basophils % 0.2 %; Eosinophils % 0.1 %; Hematocrit 41.6 % (37.0-47.0); Hemoglobin 14.2 g/dL (11.5-15.3); Lymphocytes # 0.9 10^3/uL (0.8-4.8); Lymphocytes % 5.1 %; Mean Corpuscular HGB Conc 34.1 g/dL (30.0-36.0); Mean Corpuscular Hemoglobin 30.8 pg (28.0-34.0); Mean Corpuscular Volume 90.2 fl (81-99); Mean Platelet Volume 9.5 fL (7.4-10.4); Monocytes # 1.2 10^3/uL (0.2-0.9); Monocytes % 6.7 %; Neutrophils # 15.28 10^3/uL (1.8-7.7); Neutrophils % 87.3 %; Nucleated Red Blood Cells % 0 %; Platelet Count 241 10^3/cmm (130-400); Red Blood Count 4.61 10^6/uL (4.1-5.3); Red Cell Distribution Width 12.5 % (12.1-15.1); White Blood Count 17.5 10^3/uL (4.0-10.0)
[2021-09-08 08:39] LABS: HCG, Serum Qual Negative (Negative)
[2021-09-08 08:55] LABS: Alanine Aminotransferase 11 U/L (0-33); Albumin Level 4.3 g/dL (3.5-5.2); Alkaline Phosphatase 128 IU/L (35-105); Blood Urea Nitrogen 18 mg/dL (6-20); Calcium 8.9 mg/dL (8.5-10.5); Carbon Dioxide 24 mmol/L (22-29); Chloride 98 mmol/L (98-107); Globulin 2.8 g/dL (1.3-4.6); Glomerular Filtration Rate 138.1 mL/min (90-130); Glucose 158 mg/dL (65-115); Lipase 12 U/L (13-60); Osmolality Calculated 287 mOsm/kg (285-295); Sodium 136 mmol/L (136-145); Total Bilirubin 0.6 mg/dL (0.15-1.2); Total Protein 7.1 g/dL (6.6-8.7)
[2021-09-08] MEDS: HYDROmorphone 1 mg/mL INJ 1 mL IVP (09:01)
[2021-09-08 09:02] LABS: Anion Gap 17.8 (5-19); Potassium 3.8 mmol/L (3.5-5.1)
[2021-09-08 09:03] LABS: Aspartate Amino Transferase 13 U/L (0-32)
[2021-09-08 09:11] LABS: Lactic Sepsis W/Reflex 2.1 mmol/L (0.5-2.2)
[2021-09-08] MEDS: piperacillin-tazobactam 3.375 GM in sodium chloride 0.9% (plus) 50 ML IV ×3 (09:39→23:31)
[2021-09-08 10:32] LABS: Reflex Lactate Order REFLEX LACTIC ORDERD
--- NOTE | 2021-09-08 10:37 | P.HP_ITS ---
Providers/Chief Complaint Primary Care Provider: Vandana Victoria Chief Complaint: av suero History of Present Illness Viki Roach is a 36 year old female who presents to the hospital with 1 day history of right lower quadrant abdominal pain. She reports that her pain began yesterday and is sharp and severe, located in the right lower quadrant. The pain does not radiate. Palpation makes pain worse. Narcotics make the pain better. She does report bilious emesis. Denies hematemesis. Denies fever or chills. Denies diarrhea or constipation. Her last oral intake was last night. Review of Systems General: Reports: 10 or more systems reviewed and unremarkable except in HPI and below Medications/Allergies Home Medications Medication Instructions Recorded Confirmed Last Taken Type aspirin 81 mg tablet,delayed 81 mg PO DAILY PRN 09/18/20 09/08/21 Unknown History release ferrous sulfate 325 mg (65 mg 325 mg PO .THREE TIMES A WEEK 09/18/20 09/08/21 05/26/21 History iron) tablet (iron) minocycline 50 mg tablet 50 mg PO BEDTIME 09/18/20 09/08/21 09/07/21 History multivitamin with minerals-folic 1 tab PO QAM 09/18/20 09/08/21 09/17/20 History acid 200 mcg chewable tablet (Multivitamin Gummies) spironolactone 50 mg tablet 50 mg PO QAM 09/18/20 09/08/21 09/08/21 06:30 History cholecalciferol (vitamin D3) 25 3,000 unit PO DAILY 10/28/20 09/08/21 Unknown History mcg (1,000 unit) capsule (Vitamin D3) pantoprazole 20 mg tablet,delayed 20 mg PO QAM 10/28/20 09/08/21 09/08/21 History release Custom molded orthotics #1 ea 02/02/21 09/08/21 Unknown Rx topiramate 100 mg tablet See Rx Instructions .ROUTE .COMPLEX 03/24/21 09/08/21 09/08/21 06:30 History 100 mg Daily Enzyme 1 tab PO QAM 05/26/21 09/08/21 09/08/21 History levothyroxine 100 mcg tablet 100 mcg PO QAM 05/26/21 09/08/21 09/08/21 History olanzapine 10 mg tablet 10 mg PO BEDTIME 30 Days #30 tab 07/17/21 09/08/21 09/07/21 Rx L.acidophil-L.casei-B.bifid-B.longum-FOS 1 cap PO DAILY 09/08/21 09/08/21 Unknown History 2 billion cell-50 mg capsule (Probiotic Blend) cetirizine 10 mg tablet (Zyrtec) 10 mg PO QAM 09/08/21 09/08/21 09/08/21 History fluoxetine 60 mg tablet 60 mg PO QAM 09/08/21 09/08/21 09/08/21 History magnesium citrate 100 mg capsule 200 mg PO BEDTIME 09/08/21 09/08/21 Unknown History metoclopramide HCl 10 mg tablet 10 mg PO Q8H PRN 09/08/21 09/08/21 Unknown History prucalopride 1 mg tablet 1 mg PO QAM 09/08/21 09/08/21 09/08/21 History (Motegrity) valacyclovir 500 mg tablet See Rx Instructions .ROUTE .COMPLEX 09/08/21 09/08/21 Unknown History Allergies Allergy/AdvReac Type Severity Reaction Status Date / Time onabotulinumtoxinA Allergy Severe botulism Verified 07/17/21 09:29 [From Botox] diphenhydramine Allergy ADR-Anxiety Verified 07/17/21 09:29 hydroxyzine [From Vistaril] Allergy ADR-Anxiety Verified 07/17/21 09:29 ondansetron [From Zofran] Allergy ADR-Anxiety Verified 07/17/21 09:29 promethazine [From Phenergan] Allergy ADR-Anxiety Verified 07/17/21 09:29 SCHELLAC Allergy Unknown Uncoded 07/17/21 09:29 PFSH Acute PFSH: Medical History Bipolar 2 disorder History of substance use Other [facility] (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 Ears : Pinnae and external canal are normal. Hearing is normal. Eyes : PERRLA, Sclera and injection are normal. No conjunctival discharge. Nose : Mucous membranes are without erythema. Throat : buccal mucosa is normal, gums are without significant recession or hypertrophy. Lungs : Equal chest rise bilaterally, no use of accessory muscles, trachea is midline. Cor : Rate and rhythm are normal. Abdomen : Soft, ND, tender to palpation right lower quadrant, negative Rovsing's no g/r/m Extremities : No edema, no cyanosis or clubbing, dorsalis pedis pulses are pres ent bilaterally, non-tender to palpation of calves. Upper extremities are normal bilaterally. Back : non-tender to palpation, no CVA tenderness. Neuro : CN II - XII intact, Upper and lower extremities have equal and full strength Data : 09/08/21 08:10 09/08/21 08:10 Micro: Microbiology 09/08/21 09:39 Blood Culture - Preliminary Blood SPECIMEN COLLECTED 09/08/21 09:35 Blood Culture - Preliminary Blood SPECIMEN COLLECTED A&P Assessment and plan (1) Acute appendicitis: Status: Acute Qualifiers: Acute appendicitis type: with localized peritonitis Appendicitis abscess presence: without abscess Appendicitis gangrene presence: without gangrene Appendicitis perforation presence: without perforation Qualified Code(s): K35.30 - Acute appendicitis with localized peritonitis, without perforation or gangrene Plan Laparoscopic Appendectomy The risks and benefits of the procedure, including but not limited to, bleeding, infection, scar, numbness, pain, damage to surrounding structures, conversion to an open procedure, were explained to the patient. He is understanding of the risks and wishes to proceed. 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
[2021-09-08] MEDS: sodium chloride 0.9% 1,000 ML 30 ML IV (12:21)
[2021-09-08 12:28] LABS: Lactic Acid level (Lactate) 0.8 mmol/L (0.5-2.2)
[2021-09-08] MEDS: scopolamine 1.5 Patch 1 PATCH TRANSDERMA (13:21)
[2021-09-08] MEDS: HYDROmorphone 1 mg/mL INJ 1 mL 0.5 MG IVP ×3 (13:28→16:03)
--- NOTE | 2021-09-08 14:39 | ANES.PREANE2 ---
Pre-Anesthetic Assessment Height/Weight: Height 1.75 m Weight 72.575 kg Temp Pulse Resp BP Pulse Ox 98.6 F 99 18 138/93 96 09/08/21 12:18 09/08/21 12:18 09/08/21 12:18 09/08/21 12:18 09/08/21 12:18 Operation Date: 09/08/21 12:35 Proposed Procedures p Laparoscopic Appendectomy(Not Applicable) - Richard Cruz DO Familial anesthetic complications: none Was Beta Guy taken within 24 hours: N/A Was Clonidine taken within 24 hours: N/A Last intake: Intake Last Liquid Date 09/08/21 Last Liquid Time 06:45 Last Solid Date 09/06/21 Last Solid Time 18:50 Social No alcohol and No tobacco Exam alert, oriented x 3, clear to auscultation bilaterally and regular rate & rhythm Airway Submandibular: within normal limits Cervical ROM: within normal limits Mallampati: Class II Dentition: full CV/HEM Anemia GI Gastroesophageal Reflux Disease Metabolic Thyroid Disease Neuropsych Bipolar and Neuropathy Schizoaffective Anesthetic Plan ASA status: 2 Anesthesia: General Medications/Allergies Home Medications Medication Instructions Recorded Confirmed Last Taken Type aspirin 81 mg tablet,delayed 81 mg PO DAILY PRN 09/18/20 09/08/21 Unknown History release ferrous sulfate 325 mg (65 mg 325 mg PO .THREE TIMES A WEEK 09/18/20 09/08/21 05/26/21 History iron) tablet (iron) minocycline 50 mg tablet 50 mg PO BEDTIME 09/18/20 09/08/21 09/07/21 History multivitamin with minerals-folic 1 tab PO QAM 09/18/20 09/08/21 09/17/20 History acid 200 mcg chewable tablet (Multivitamin Gummies) spironolactone 50 mg tablet 50 mg PO QAM 09/18/20 09/08/21 09/08/21 06:30 History cholecalciferol (vitamin D3) 25 3,000 unit PO DAILY 10/28/20 09/08/21 Unknown History mcg (1,000 unit) capsule (Vitamin D3) pantoprazole 20 mg tablet,delayed 20 mg PO QAM 10/28/20 09/08/21 09/08/21 History release Custom molded orthotics #1 ea 02/02/21 09/08/21 Unknown Rx topiramate 100 mg tablet See Rx Instructions .ROUTE .COMPLEX 03/24/21 09/08/21 09/08/21 06:30 History 100 mg Daily Enzyme 1 tab PO QAM 05/26/21 09/08/21 09/08/21 History levothyroxine 100 mcg tablet 100 mcg PO QAM 05/26/21 09/08/21 09/08/21 History olanzapine 10 mg tablet 10 mg PO BEDTIME 30 Days #30 tab 07/17/21 09/08/21 09/07/21 Rx L.acidophil-L.casei-B.bifid-B.longum-FOS 1 cap PO DAILY 09/08/21 09/08/21 Unknown History 2 billion cell-50 mg capsule (Probiotic Blend) cetirizine 10 mg tablet (Zyrtec) 10 mg PO QAM 09/08/21 09/08/21 09/08/21 History fluoxetine 60 mg tablet 60 mg PO QAM 09/08/21 09/08/21 09/08/21 History magnesium citrate 100 mg capsule 200 mg PO BEDTIME 09/08/21 09/08/21 Unknown History metoclopramide HCl 10 mg tablet 10 mg PO Q8H PRN 09/08/21 09/08/21 Unknown History prucalopride 1 mg tablet 1 mg PO QAM 09/08/21 09/08/21 09/08/21 History (Motegrity) valacyclovir 500 mg tablet See Rx Instructions .ROUTE .COMPLEX 09/08/21 09/08/21 Unknown History Allergies Allergy/AdvReac Type Severity Reaction Status Date / Time onabotulinumtoxinA Allergy Severe botulism Verified 07/17/21 09:29 [From Botox] diphenhydramine Allergy ADR-Anxiety Verified 07/17/21 09:29 hydroxyzine [From Vistaril] Allergy ADR-Anxiety Verified 07/17/21 09:29 ondansetron [From Zofran] Allergy ADR-Anxiety Verified 07/17/21 09:29 promethazine [From Phenergan] Allergy ADR-Anxiety Verified 07/17/21 09:29 SCHELLAC Allergy Unknown Uncoded 07/17/21 09:29 Current Medications Generic Name Dose Route Start Last Admin Trade Name Freq PRN Reason Stop Dose Admin Sodium Chloride 1,000 mls @ 30 mls/hr 09/08/21 12:15 09/08/21 12:21 Sodium Chloride 0.9% IV 09/09/21 12:14 30 mls/hr .Q24H LAKISHA Administration PFSH Anesthesia Medical History Bipolar 2 disorder History of substance use 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 Other [facility] (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 Psychiatric care Social History Smoking and tobacco status: former smoker Female Reproductive History Date of last menstrual period: 03/28/21 Data Anesthesia : 09/08/21 08:10 09/08/21 08:10 Short CBC 09/08/21 Range/Units 08:10 WBC 17.5 H (4.0-10.0) 10^3/uL Hgb 14.2 (11.5-15.3) g/dL Hct 41.6 (37.0-47.0) % MCV 90.2 (81-99) fl Plt Count 241 (130-400) 10^3/cmm Neut % (Auto) 87.3 % Neut # (Auto) 15.28 H (1.8-7.7) 10^3/uL BMP 09/08/21 08:10 Sodium 136 Potassium 3.8 Chloride 98 Carbon Dioxide 24 BUN 18 Creatinine 0.5 Glucose 158 H Calcium 8.9 Liver Function 09/08/21 Range/Units 08:10 Total Bilirubin 0.6 (0.15-1.2) mg/dL AST 13 (0-32) U/L ALT 11 (0-33) U/L Alkaline Phosphatase 128 H (35-105) IU/L Albumin 4.3 (3.5-5.2) g/dL Microbiology 09/08/21 09:39 Blood Culture - Preliminary Blood SPECIMEN COLLECTED 09/08/21 09:35 Blood Culture - Preliminary Blood SPECIMEN COLLECTED Cardiac Studies: No Data to Display
--- NOTE | 2021-09-08 14:53 | P.OP_ITS ---
Operative Report Date of procedure: September 08, 2021 Pre-op diagnosis: Acute appendicitis Post-op diagnosis: other Post-op diagnosis: Perforated appendicitis Procedure done: Laparoscopic appendectomy Specimens removed/disposition: Appendix Surgeon: Dr. Richard Cruz DO Anesthesia: General Complications: None apparent Brief History: Patient with abdominal pain was diagnosed with acute appendicitis. Laparoscopic appendectomy was indicated. The risks and benefits were explained and documented. Procedure: Patient was wheeled into the operative room and placed on the OR table in a supine position. Abdomen was inspected prepped and draped in usual sterile fashion. Time-out was performed and all present were in agreement. A 15 blade scalp was used to make a stab incision in the left upper quadrant and intra- abdominal insufflation was achieved using a Veress needle. After localizing the tissue incisions were made and a 12 millimeter trocar was placed into the umbilicus as well as a 5mm in the right lower quadrant and a 5 mm in the left lower quadrant . The appendix was identified and was very inflamed and perforated at the base. Stool and purulence were leaking from the base. I used the Voyant to ligate the mesoappendix at the base. I then used 2 PDS endo-loops to snare the base of the appendix. I then used the Voyant to ligate the appendix distally. The appendix was removed from the abdomen using an Endo- Catch bag through the umbilical incision. I examined the abdomen and no further pathology was identified. Hemostasis was noted. A 19 [place] Fort[place] drain was put into the right colic gutter going into the pelvis and coming out of the right lower quadrant. The drain was sutured in place with 3-0 nylon. I then closed the umbilical site with a Rene-Tono and 0 Vicryl suture in a figure of 8 fashion. All ports removed. Skin was washed and dried. Incisions were closed with 3-0 nylon in a simple interrupted fashion. Sterile bandages were applied. Patient tolerated the procedure well.
[2021-09-08] MEDS: fentaNYL 50 mcg/mL INJ 2mL IVP ×2 (15:20→15:35)
--- NOTE | 2021-09-08 16:26 | ANE.PACU2 ---
Inpatient post-anesthesia follow up: Airway intact: Yes Vital signs: Temperature 98.3 F Pulse Rate 95 Respiratory Rate 18 Blood Pressure 120/86 Pulse Oximetry 97 Oxygen Delivery Me thod Nasal Cannula Oxygen Flow Rate 2 Fraction of Inspir ed Oxygen Hydration adequate: Yes Nausea and vomiting: No Pain level: 3 Mental status: Baseline
[2021-09-08] MEDS: pantoprazole 40 mg SDV IVP (16:44)
[2021-09-08] MEDS: lactated ringers 1,000 ML 125 ML IV ×2 (16:44→23:31)
[2021-09-08] MEDS: heparin 5,000 unit/mL INJ 1 mL 5000 UNIT SUBCUT ×2 (16:45→23:31)
[2021-09-08] MEDS: ondansetron 2 mg/ML SDV 2 mL 4 MG IVP (17:33)
[2021-09-08] MEDS: HYDROcodone-acetaminophen 5-325 mg Tablet 1 TAB PO ×2 (19:47→23:32)
[2021-09-08] MEDS: OLANZapine 10 mg TABLET PO (19:47)
[2021-09-09] VITALS (15 sets, daily range): BP systolic 104–118; BP diastolic 66–78; PULSE 81–98; RESP 14–18; TEMP 36.1–36.9; O2SAT 91–98
[2021-09-09] MEDS: morphine 4 mg/mL SDV 1 mL IVP ×4 (01:44→21:56)
[2021-09-09] MEDS: HYDROcodone-acetaminophen 5-325 mg Tablet 1 TAB PO ×5 (03:05→21:05)
[2021-09-09 04:41] LABS: Basophils % 0.1 %; Hematocrit 36.6 % (37.0-47.0); Hemoglobin 11.4 g/dL (11.5-15.3); Lymphocytes # 0.4 10^3/uL (0.8-4.8); Lymphocytes % 2.3 %; Mean Corpuscular HGB Conc 31.1 g/dL (30.0-36.0); Mean Corpuscular Hemoglobin 31.1 pg (28.0-34.0); Mean Corpuscular Volume 99.7 fl (81-99); Mean Platelet Volume 9.7 fL (7.4-10.4); Monocytes # 0.7 10^3/uL (0.2-0.9); Monocytes % 4.6 %; Neutrophils # 14.42 10^3/uL (1.8-7.7); Neutrophils % 92.5 %; Nucleated Red Blood Cells % 0 %; Platelet Count 173 10^3/cmm (130-400); Red Blood Count 3.67 10^6/uL (4.1-5.3); White Blood Count 15.6 10^3/uL (4.0-10.0)
[2021-09-09 05:00] LABS: Anion Gap 12.8 (5-19); Blood Urea Nitrogen 11 mg/dL (6-20); Carbon Dioxide 24 mmol/L (22-29); Chloride 105 mmol/L (98-107); Glomerular Filtration Rate 178.6 mL/min (90-130); Glucose 221 mg/dL (65-115); Magnesium 2.1 mg/dL (1.7-2.3); Osmolality Calculated 292 mOsm/kg (285-295); Phosphorus 2.3 mg/dL (2.5-4.5); Potassium 3.8 mmol/L (3.5-5.1); Sodium 138 mmol/L (136-145)
[2021-09-09] MEDS: spironolactone 25 mg Tablet 50 MG PO (05:39)
[2021-09-09] MEDS: fluoxetine 20 mg Capsule 60 MG PO (05:39)
[2021-09-09] MEDS: levothyroxine 100 mcg Tablet PO (05:39)
[2021-09-09] MEDS: heparin 5,000 unit/mL INJ 1 mL 5000 UNIT SUBCUT ×2 (07:44→16:27)
[2021-09-09] MEDS: piperacillin-tazobactam 3.375 GM in sodium chloride 0.9% (plus) 50 ML IV ×2 (07:45→16:27)
[2021-09-09] MEDS: lactated ringers 1,000 ML 125 ML IV ×2 (07:45→16:27)
--- NOTE | 2021-09-09 07:54 | PM.PN ---
Subjective Subjective: Late entry: This is a progress note for 09/09/2021. Patient was seen and examined on that date. She is still reporting significant pain. Denies any nausea or vomiting Vitals/I&O/Wt Last Vital Signs Temp 98.9 F 09/11/21 17:31 Pulse 97 09/11/21 17:31 Resp 18 09/11/21 17:31 BP 119/81 09/11/21 16:00 Pulse Ox 98 09/11/21 17:31 O2 Del Method 09/11/21 04:00 O2 Flow Rate 1 09/11/21 04:00 Physical Exam Narrative: General: No acute distress, awake alert and oriented x3 Abdomen: Soft, mild distention, appropriately tender to palpation, no guarding rebound or masses Incisions intact without erythema or exudate Drain serosanguineous Data : 09/11/21 01:33 09/11/21 01:33 A&P Assessment and plan (1) Acute appendicitis: Status: Resolved Qualifiers: Acute appendicitis type: with localized peritonitis Appendicitis abscess presence: without abscess Appendicitis gangrene presence: without gangrene Appendicitis perforation presence: with perforation Qualified Code(s): K35.32 - Acute appendicitis with perforation and localized peritonitis, without abscess (2) Sepsis: Status: Acute Plan s/p lap appy patient remains tachycardic with leukocytosis IV abx IVF Regular diet likely DC home in the next couple of days on abx Attestations Medical Necessity Statement*: Patient requires at least 1-2 more nights in the hospital for IV antibiotics and IV fluids to treat her ongoing sepsis after laparoscopic appendectomy for perforated appendicitis Other Attestations: Late entry: This is a progress note for 09/09/2021. Patient was seen and examined on that date. 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
[2021-09-09] MEDS: pantoprazole 40 mg SDV IVP (16:27)
[2021-09-09] MEDS: OLANZapine 10 mg TABLET PO (21:06)
[2021-09-10] VITALS (12 sets, daily range): BP systolic 109–131; BP diastolic 68–83; PULSE 71–106; RESP 12–20; TEMP 36.3–37.2; O2SAT 84–96
[2021-09-10] MEDS: lactated ringers 1,000 ML 125 ML IV ×3 (02:07→21:51)
[2021-09-10] MEDS: piperacillin-tazobactam 3.375 GM in sodium chloride 0.9% (plus) 50 ML IV ×4 (02:08→23:49)
[2021-09-10] MEDS: heparin 5,000 unit/mL INJ 1 mL 5000 UNIT SUBCUT ×4 (02:09→23:49)
[2021-09-10] MEDS: HYDROcodone-acetaminophen 5-325 mg Tablet 1 TAB PO ×5 (02:10→21:59)
[2021-09-10] MEDS: morphine 4 mg/mL SDV 1 mL IVP ×2 (03:39→13:41)
[2021-09-10] MEDS: fluoxetine 20 mg Capsule 60 MG PO (05:27)
[2021-09-10] MEDS: levothyroxine 100 mcg Tablet PO (05:27)
[2021-09-10] MEDS: spironolactone 25 mg Tablet 50 MG PO (05:27)
[2021-09-10 05:59] LABS: Basophils % 0.2 %; Eosinophils # 0.1 10^3/uL (0.0-0.8); Eosinophils % 0.6 %; Hematocrit 36.1 % (37.0-47.0); Hemoglobin 11.1 g/dL (11.5-15.3); Lymphocytes # 1.3 10^3/uL (0.8-4.8); Lymphocytes % 12.2 %; Mean Corpuscular HGB Conc 30.7 g/dL (30.0-36.0); Mean Corpuscular Hemoglobin 30.8 pg (28.0-34.0); Mean Corpuscular Volume 100.3 fl (81-99); Mean Platelet Volume 10.2 fL (7.4-10.4); Monocytes # 0.6 10^3/uL (0.2-0.9); Monocytes % 5.1 %; Neutrophils # 8.81 10^3/uL (1.8-7.7); Neutrophils % 81.6 %; Nucleated Red Blood Cells % 0 %; Platelet Count 191 10^3/cmm (130-400); Red Cell Distribution Width 13.2 % (12.1-15.1); White Blood Count 10.8 10^3/uL (4.0-10.0)
[2021-09-10 06:26] LABS: Anion Gap 9.2 (5-19); Blood Urea Nitrogen 9 mg/dL (6-20); Calcium 8.2 mg/dL (8.5-10.5); Carbon Dioxide 27 mmol/L (22-29); Chloride 105 mmol/L (98-107); Glomerular Filtration Rate 178.6 mL/min (90-130); Glucose 91 mg/dL (65-115); Magnesium 1.9 mg/dL (1.7-2.3); Osmolality Calculated 284 mOsm/kg (285-295); Phosphorus 1.4 mg/dL (2.5-4.5); Potassium 3.2 mmol/L (3.5-5.1); Sodium 138 mmol/L (136-145)
[2021-09-10] MEDS: pantoprazole 40 mg SDV IVP (15:58)
[2021-09-10] MEDS: OLANZapine 10 mg TABLET PO (21:51)
[2021-09-10] MEDS: metoclopramide 10 mg Tablet PO (21:51)
--- NOTE | 2021-09-10 22:36 | P.PN_ITS ---
Subjective Subjective: Pain controlled. Tolerating diet. No new complaints Vitals/I&O/Wt Last Vital Signs Temp 97.3 F L 09/10/21 20:00 Pulse 91 09/10/21 20:00 Resp 12 09/10/21 20:00 BP 120/79 09/10/21 20:00 Pulse Ox 84 L 09/10/21 20:00 09/10/21 09/10/21 09/10/21 06:59 14:59 22:59 Intake Total 1050 / 3630 1290 / 1290 1290 / 2580 Output Total 45 / 45 Balance 1005 / 3585 1275 / 1275 1275 / 2550 Physical Exam Narrative: Gen: NAD, AAOx3 Abd: S, mild D, appropriate TTP, no g/r/m Incisions intact without erythema/exudate Drain: SS Data : 09/10/21 05:25 09/10/21 05:25 A&P Assessment and plan (1) Acute appendicitis: Status: Acute Qualifiers: Acute appendicitis type: with localized peritonitis Appendicitis abscess presence: without abscess Appendicitis gangrene presence: without gangrene Appendicitis perforation presence: without perforation Qualified Code(s): K35.30 - Acute appendicitis with localized peritonitis, without perforation or gangrene Plan s/p lap appy patient remains tachycardic with leukocytosis IV abx Regular diet likely DC home tomorrow on abx Attestations Medical Necessity Statement*: Needs at least one more night of IV abx after perforated appendicitis before discharge home Coding Level of Care Code 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
[2021-09-11] VITALS (9 sets, daily range): BP systolic 118–134; BP diastolic 78–88; PULSE 83–97; RESP 12–20; TEMP 36.8–37.6; O2SAT 90–98
[2021-09-11 02:34] LABS: Basophils % 0.2 %; Eosinophils # 0.1 10^3/uL (0.0-0.8); Eosinophils % 1.2 %; Hematocrit 33.1 % (37.0-47.0); Hemoglobin 10.7 g/dL (11.5-15.3); Lymphocytes # 1.1 10^3/uL (0.8-4.8); Mean Corpuscular HGB Conc 32.3 g/dL (30.0-36.0); Mean Corpuscular Hemoglobin 31.5 pg (28.0-34.0); Mean Corpuscular Volume 97.4 fl (81-99); Mean Platelet Volume 10.5 fL (7.4-10.4); Monocytes # 0.6 10^3/uL (0.2-0.9); Monocytes % 5.9 %; Neutrophils # 7.66 10^3/uL (1.8-7.7); Neutrophils % 80.3 %; Nucleated Red Blood Cells % 0 %; Platelet Count 205 10^3/cmm (130-400); Red Cell Distribution Width 13.2 % (12.1-15.1); White Blood Count 9.5 10^3/uL (4.0-10.0)
[2021-09-11 02:58] LABS: Blood Urea Nitrogen 9 mg/dL (6-20); Calcium 8.6 mg/dL (8.5-10.5); Carbon Dioxide 28 mmol/L (22-29); Chloride 104 mmol/L (98-107); Glomerular Filtration Rate 178.6 mL/min (90-130); Glucose 106 mg/dL (65-115); Magnesium 1.6 mg/dL (1.7-2.3); Osmolality Calculated 287 mOsm/kg (285-295); Phosphorus 2.2 mg/dL (2.5-4.5); Sodium 139 mmol/L (136-145)
[2021-09-11 03:15] LABS: Anion Gap 10.6 (5-19); Potassium 3.6 mmol/L (3.5-5.1)
[2021-09-11] MEDS: HYDROcodone-acetaminophen 5-325 mg Tablet 1 TAB PO ×3 (04:13→16:02)
[2021-09-11] MEDS: lactated ringers 1,000 ML 125 ML IV (04:13)
[2021-09-11] MEDS: fluoxetine 20 mg Capsule 60 MG PO (04:57)
[2021-09-11] MEDS: spironolactone 25 mg Tablet 50 MG PO (04:58)
[2021-09-11] MEDS: levothyroxine 100 mcg Tablet PO (04:58)
[2021-09-11] MEDS: morphine 4 mg/mL SDV 1 mL IVP ×2 (06:04→16:14)
--- NOTE | 2021-09-11 10:18 | P.DS_ITS ---
Discharge Providers Date of Admission: 09/08/21 16:02 Date of Discharge: September 11, 2021 Attending Provider at Admission: Richard Cruz DO Attending Provider at Discharge: Richard Cruz DO Primary Care Provider: Vandana Victoria Diagnoses at Discharge Discharge Diagnosis (1) Acute appendicitis: Status: Acute Qualifiers: Acute appendicitis type: with localized peritonitis Appendicitis abscess presence: without abscess Appendicitis gangrene presence: without gangrene Appendicitis perforation presence: without perforation Qualified Code(s): K35.30 - Acute appendicitis with localized peritonitis, without perforation or gangrene Reason for Visit Reason for Visit: [facility] Hospital Course This is a 36-year-old female who came in with diagnosis of acute mastitis. She underwent laparoscopic appendectomy and was found to be perforated with some sto ol in her. A AMBER drain was left. She stayed in the hospital for 3 days for IV antibiotics. She is discharged home with antibiotics and follow-up, in good condition Physical Exam Narrative: General : Patient is well developed , no acute distress, oriented x3 Head : Normal cephalic, a-traumatic. Ears : Pinnae and external canal are normal. Hearing is normal. Eyes : PERRLA, Sclera and injection are normal. No conjunctival discharge. Nose : Mucous membranes are without erythema. Throat : buccal mucosa is normal, gums are without significant recession or hypertrophy. Lungs : Equal chest rise bilaterally, no use of accessory muscles, trachea is midline. Cor : Rate and rhythm are normal. Abdomen : Soft, ND, appropriately tender to palpation, no g/r/m Incisions intact without erythema or exudate Drain serosanguineous Extremities : No edema, no cyanosis or clubbing, dorsalis pedis pulses are p resent bilaterally, non-tender to palpation of calves. Upper extremities are normal bilaterally. Back : non-tender to palpation, no CVA tenderness. Neuro : CN II - XII intact, Upper and lower extremities have equal and full strength Discharge Data Studies Completed and Pending Completed Studies During Hospitalization Category Date Time Status CT abdomen renal stone [CT kidney stone [id number]] Urgent Cat Scan 09/08/21 07:50 Completed Pathology: Surgical [PTH] Routine Pth 09/08/21 14:43 Completed Pending at discharge Category Date Time Status Blood Culture Stat Lab 09/08/21 09:39 Results Urinalysis Stat Lab 09/08/21 08:57 Ordered Radiology Impressions Abdomen/Pelvis CT 09/08/21 07:50 IMPRESSION: 1. Above-described findings compatible with acute appendicitis with proximal appendicolith. Fluid and edema in the RIGHT lower quadrant. No abscess or drainable fluid collection. No extraluminal or free air. 2. No hydronephrosis in either kidney. 3. Fluid distended hydropic gallbladder. No gallbladder wall thickening or pericholecystic fluid. This is likely incidental. 4. Small amount of free fluid in the pelvis. 5. Physiologic RIGHT ovarian cyst measuring 16 mm. Notified JOSEFA Aguilar at 09/08/2021 9:00 AM. Laboratory Results WBC 9.5 10^3/uL (4.0-10.0) 09/11/21 01:33 RBC 3.40 10^6/uL (4.1-5.3) L 09/11/21 01:33 Hgb 10.7 g/dL (11.5-15.3) L 09/11/21 01:33 Hct 33.1 % (37.0-47.0) L 09/11/21 01:33 MCV 97.4 fl (81-99) 09/11/21 01:33 MCH 31.5 pg (28.0-34.0) 09/11/21 01:33 MCHC 32.3 g/dL (30.0-36.0) D 09/11/21 01:33 RDW 13.2 % (12.1-15.1) 09/11/21 01:33 Plt Count 205 10^3/cmm (130-400) 09/11/21 01:33 MPV 10.5 fL (7.4-10.4) H 09/11/21 01:33 Neut % (Auto) 80.3 % 09/11/21 01:33 Lymph % (Auto) 12.0 % 09/11/21 01:33 [place] % (Auto) 5.9 % 09/11/21 01:33 Eos % (Auto) 1.2 % 09/11/21 01:33 Baso % (Auto) 0.2 % 09/11/21 01:33 Neut # (Auto) 7.66 10^3/uL (1.8-7.7) 09/11/21 01:33 Lymph # (Auto) 1.1 10^3/uL (0.8-4.8) 09/11/21 01:33 [place] # (Auto) 0.6 10^3/uL (0.2-0.9) 09/11/21 01:33 Eos # (Auto) 0.1 10^3/uL (0.0-0.8) 09/11/21 01:33 Baso # (Auto) 0.0 10^3/uL (0.0-0.1) 09/11/21 01:33 Nucleated RBC % (auto) 0 % 09/11/21 01:33 Nucleated RBCs # 0.0 /100WBC 09/11/21 01:33 Sodium 139 mmol/L (136-145) 09/11/21 01:33 Potassium 3.6 mmol/L (3.5-5.1) 09/11/21 01:33 Chloride 104 mmol/L (98-107) 09/11/21 01:33 Carbon Dioxide 28 mmol/L (22-29) 09/11/21 01:33 Anion Gap 10.6 (5-19) 09/11/21 01:33 BUN 9 mg/dL (6-20) 09/11/21 01:33 Creatinine 0.4 mg/dL (0.5-0.9) L 09/11/21 01:33 GFR Calculation 178.6 mL/min (90-130) H 09/11/21 01:33 Glucose 106 mg/dL (65-115) 09/11/21 01:33 Calculated Osmolality 287 mOsm/kg (285-295) 09/11/21 01:33 Lactic Acid 2.1 mmol/L (0.5-2.2) 09/08/21 08:43 Lactic Acid (Sepsis) 0.8 mmol/L (0.5-2.2) 09/08/21 12:02 Calcium 8.6 mg/dL (8.5-10.5) 09/11/21 01:33 Phosphorus 2.2 mg/dL (2.5-4.5) L D 09/11/21 01:33 Magnesium 1.6 mg/dL (1.7-2.3) L 09/11/21 01:33 Total Bilirubin 0.6 mg/dL (0.15-1.2) 09/08/21 08:10 AST 13 U/L (0-32) 09/08/21 08:10 ALT 11 U/L (0-33) 09/08/21 08:10 Alkaline Phosphatase 128 IU/L (35-105) H 09/08/21 08:10 Total Protein 7.1 g/dL (6.6-8.7) 09/08/21 08:10 Albumin 4.3 g/dL (3.5-5.2) 09/08/21 08:10 Globulin 2.8 g/dL (1.3-4.6) 09/08/21 08:10 Lipase 12 U/L (13-60) L 09/08/21 08:10 HCG, Qual Negative (Negative) 09/08/21 08:10 Procedures Performed Laparoscopic appendectomy Vitals Last Vital Signs Temp 98.3 F 09/11/21 08:00 Pulse 89 09/11/21 08:00 Resp 16 09/11/21 08:00 BP 132/88 09/11/21 08:00 Pulse Ox 97 09/11/21 08:00 Discharge Plan Discharge Patient Disposition: Home Condition: Stable Prescriptions: New amoxicillin-pot clavulanate 875-125 mg tablet 1 tab PO Q12H 10 Days Qty: 20 0RF hydrocodone-acetaminophen 5-325 mg tablet 1 tab PO Q4H PRN (Reason: pain) Qty: 30 0RF Continued topiramate 100 mg tablet See Rx Instructions .ROUTE .COMPLEX 0RF Rx Instructions: 100mg q am and 200mg q pm olanzapine 10 mg tablet 10 mg PO BEDTIME 30 Days Qty: 30 3RF cholecalciferol (vitamin D3) [Vitamin D3] 25 mcg (1,000 unit) capsule 3,000 unit PO DAILY 0RF pantoprazole 20 mg tablet,delayed release (DR/EC) 20 mg PO QAM 0RF (DME) Custom molded orthotics See Rx Instructions .Route .MEDSUPPLY Qty: 1 0RF Rx Instructions: As directed aspirin 81 mg Tablet,Delayed Release (Dr/Ec) 81 mg PO DAILY PRN (Reason: Headache) 0RF ferrous sulfate [iron] 325 mg (65 mg iron) Tablet 325 mg PO .THREE TIMES A WEEK 0RF spironolactone 50 mg tablet 50 mg PO QAM 0RF minocycline 50 mg tablet 50 mg PO BEDTIME 0RF Multivitamin Gummies 200 mcg Tablet,Chewable 1 tab PO QAM 0RF Zyrtec 10 mg Tablet 10 mg PO QAM 0RF valacyclovir 500 mg tablet See Rx Instructions .ROUTE .COMPLEX 0RF Rx Instructions: FOR OUTBREAKS TAKE ONE TAB EVERY 12 HOURS FOR 3 DAYS FOR MAINTENACNE TAKE ONE TAB DAILY metoclopramide HCl 10 mg tablet 10 mg PO Q8H PRN (Reason: with baby aspirin as need for migrainee headache) 0RF Probiotic Blend 2 billion cell-50 mg Capsule 1 cap PO DAILY 0RF Rx Instructions: give with meal/snack Motegrity 1 mg Tablet 1 mg PO QAM 0RF magnesium citrate 100 mg Capsule 200 mg PO BEDTIME 0RF fluoxetine 60 mg tablet 60 mg PO QAM 0RF levothyroxine 100 mcg Tablet 100 mcg PO QAM 0RF Daily Enzyme 1 tab PO QAM 0RF Discharge Orders: Discharge Order (Routine); Ordered 09/11/21 Ordered By: Richard Cruz Referrals: Richard Cruz DO [Physician] - 2 weeks Vandana Victoria [Primary Care Provider] - Discharge Diet: Advance as tolerated Discharge Activity: Resume usual activity Patient Instructions: Opioid Safety Activity Restrictions/Additional Instructions: Do not soak incisions underwater for 2 weeks. May shower daily. No activity restrictions. Discharge Attestations Time Spent in Discharge Care*: less than 30 min Quality Metrics Clinical Quality Measures [ No reported AMI, CVA or VTE this stay] Coding Level of Care Code Acute g FW DC note Diagnoses Acute appendicitis K35.30 Acute appendicitis type: with localized peritonitis Appendicitis abscess presence: without abscess Appendicitis gangrene presence: without gangrene Appendicitis perforation presence: without perforation
[2021-09-11] MEDS: piperacillin-tazobactam 3.375 GM in sodium chloride 0.9% (plus) 50 ML IV (10:43)
[2021-09-11] MEDS: heparin 5,000 unit/mL INJ 1 mL 5000 UNIT SUBCUT (10:47)
--- NOTE | 2021-09-11 17:32 | PC.NURSE ---
AMBER Drain pulled. Dressing applied. Patient given pain medication for toleration of pain and ride home. IV Discontinued. Intact.
== END 2021-09-11 16:30 | disposition home or self-care (01) | DRG 339 ==
LOC: ER 10:16 → OPS 10:56 → MEDSURG 09-09 10:19
PROVIDERS: Admitting Provider Surgery; Emergency Provider Physician Assistant; PCP Internal Medicine; Visit Provider Surgery
PROC: 0DTJ4ZZ Resection of Appendix, Percutaneous Endoscopic Approach (ICD-10-PCS; CPT 44970; principal; 2021-09-08 12:35)
DX: K35.32 Acute appendicitis with perforation, localized peritonitis, and gangrene, without abscess (principal); F31.81 Bipolar II disorder; K59.09 Other constipation; E03.9 Hypothyroidism, unspecified; Z79.82 Long term (current) use of aspirin
CPT/HCPCS: 36415; 74176; 80048; 80053; 83605; 83690; 83735; 84100; 84703; 85025; 87040; 88304; 94760; 96365; 96372; 96375; 99285; C9113; G0378; J1100; J1170; J1644; J2250; J2270; J2405; J2543; J2704; J2710; J2765; J3010; J3490; J7030; J8597

== ENCOUNTER 2021-09-19 17:44 | Observation (INO) | payer BC, MEDICAID, SELFPAY ==
[2021-09-19 17:58] VITALS: BP 139/85; PULSE 98; RESP 18; TEMP 36.2; O2SAT 96; BMI 23.6
--- NOTE | 2021-09-19 19:20 | ED_ITS ---
HPI - Skin/Abscess/Foreign Bdy 2 General: Chief complaint: Skin/Abscess/Foreign Body Stated complaint: post surgery/inflammed Time Seen by Provider: 09/19/21 19:20 History of Present Illness: Ms. Roach is a 36-year-old lady who presents to the emergency department due to concern over postoperative infection. She underwent laparoscopic appendectomy on 09/08 and was discharged on the . She had been doing fair in the postoperative setting and was at decreased p.o. intake. 3 days ago she noticed increased redness discomfort and induration around the umbilical port site and today she had purulent drainage which she thought was foul-smelling. Aside from the generalized malaise she has not had specific infectious symptoms. She is having bowel movements. She is currently on Augmentin. Pain is moderate in intensity and worse with palpation and movement. No other specific changes in health, exacerbating, or alleviating factors identified. Onset (ago): day(s) Tetanus up to date: yes Severity: moderate Pain Consistency: constant Exacerbating factors: palpation and movement Context: other Associated symptoms: Reports other Review of Systems 2 General: Reports: 10 or more systems reviewed and unremarkable except in HPI and below PFSH ED 2 PFSH: Medical History Bipolar 2 disorder History of substance use Other detention (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 Other detention (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 Psychiatric care Surgical History H/O mastectomy History of appendectomy S/P cholecystectomy Social History Smoking and tobacco status: never smoked Alcohol intake: never Female Reproductive History: Date of last menstrual period: 08/20/21 Physical Exam 2 Const: COMMON NORMALS: alert GENERAL APPEARANCE: cooperative, well developed and ill appearing (somewhat) HENMT: COMMON NORMALS: normocephalic and atraumatic HEAD & SCALP: n ormocephalic and atraumatic THROAT: posterior oropharynx normal Eye: COMMON NORMALS: conjunctivae normal CONJUNCTIVA: Yes conjunctivae normal SCLERA: sclerae normal Neck/C-Spine: COMMON NORMALS: supple GENERAL: Yes trachea midline Resp: COMMON NORMALS: normal respiratory effort EFFORT & INSPECTION: Yes able to speak in complete sentences Cardio: COMMON NORMALS: regular rate and regular rhythm RATE: regular rate RHYTHM: regular rhythm GI: COMMON NORMALS: Soft to palpation PALPATION: Yes Soft to palpation, Yes Tenderness to palpation present (GI), No Guarding due to palpation present (GI) and No Rigid due to palpation OTHER: ttp and drainage/induration/redness from umbilical port site Extremity: GENERAL: Yes normal exam except as noted and No edema Neuro: COMMON NORMALS: moves all extremities SENSORIUM/ORIENTATION: Yes alert and No Orientation impaired Psych: COMMON NORMALS: mental status grossly normal and Normal thought process present THOUGHT PROCESS: Normal thought process present Course 2 ED course: - Patient was seen and evaluated by me at bedside - Patient placed on cardiac monitors, IV access obtained - Initial evaluation notable for exam as above. Concerning for postoperative infection. Patient is on antibiotics. - Labs and xrays personally interpreted by me. - Fluids, analgesia given - Labs notable for mild leukocytosis, normal hemoglobin. Metabolic panel with some evidence of metabolic stress/dehydration. D-dimer elevated. - Imaging notable for no PE, groundglass opacities, need for CT follow-up discussed with patient. CT abdomen pelvis notable for small abscess adjacent to the cecum with inflammatory signs as well as subcutaneous soft tissue and abdominal inflammatory response with small abscess. -Discussed with general surgery and antibiotics ordered. Patient to be admitted to general surgery service under Dr. Cruz. - Upon serial reexamination after treatment the patient was improved with repeat pain medication - Based on patient history, evaluation, and testing as interpreted the most likely cause of the patient's condition is postoperative infection with intra- abdominal and skin fluid collections. - The results of ED evaluation were discussed with the patient including plan for admission due to requirement for level of care not available if discharged to prevent significant worsening/deterioration. - Patient was admitted without further deterioration or significant events. Note: Click bubbles or prepopulated maurer in note writing are used for assistance with data collection and billing and are inherently more limited than narrative and other text portions of this note. Please use narrative for additional clinical history and defer to narrative/free test for any case of contradictory information. If information appears in only free text or click bubble it should be considered present or absent as reported. Please contact note ghost writer for clarifications of clinical information or contradictory information. MDM is a brief summary, contradictory or erroneous seeming information should be clarified and full note should be reviewed. Vital Signs: Vital signs: Vital Signs Temperature 97.6 F 09/21/21 16:00 Pulse Rate 91 09/21/21 16:00 Respiratory Rate 18 09/21/21 16:00 Blood Pressure 103/69 09/21/21 16:00 Pulse Oximetry 95 09/21/21 16:00 Oxygen Delivery Me thod Room Air 09/21/21 16:00 Oxygen Flow Rate 2 09/21/21 08:00 MDM - Skin/Abscess/Foreign Bdy Medicial Decision Making 36-year-old lady with complicated appendicitis presenting postoperatively for wound concern. Patient mildly tachycardic with mild leukocytosis though nontoxic in appearance. Found to have postoperative infection and admitted for definitive management with IV antibiotics. Medical Records I reviewed the patient's medical records. Lab Data I reviewed the patient's lab results. 09/21/21 05:10 09/21/21 05:10 Radiology Impressions Chest/Abdomen/Pelvis CT 09/19/21 20:56 IMPRESSION: 1. No acute PE. 2. New trace right pleural effusion with minimal adjacent compressive atelectasis. 3. Ill-defined small subcentimeter patchy ground-glass opacity in the right upper lobe as described measuring 7-8 mm. Otherwise no acute lung consolidation, large ground-glass opacities or suspicious solid nodule. Given clinical history of malignancy, interval imaging follow-up may be considered. IMPRESSION: 1. Recent appendectomy. 2. Small abscess adjacent to the cecum with surrounding inflammatory response as described above. No bowel obstruction. 3. Subcutaneous soft tissue and abdominal wall inflammatory response in the infraumbilical region with a small abscess along the medial margin of left rectus abdominus muscle as described above. A tiny focus of extraluminal air is noted near the abdominal wall abscess which may be related to recent surgery. However clinical correlation should be obtained. No other suspicious bowel wall thickening or bowel obstruction. 4. Gallbladder findings as above. COMMENTS: Consistent with the [employer]'s Incidental Findings Committee white paper (J Am Javed Radiol 2018): Any incidental renal lesion less than 1 cm or classified as too small to characterize, or any incidental cystic renal lesion characterized as simple-appearing, is likely benign. No follow-up imaging is recommended for these lesions per consensus recommendations based on imaging criteria. Laboratory Results WBC 11.2 10^3/uL (4.0-10.0) H 09/19/21: RBC 4.74 10^6/uL (4.1-5.3) 09/19/21: Hgb 14.4 g/dL (11.5-15.3) 09/19/21: Hct 45.9 % (37.0-47.0) 09/19/21: MCV 96.8 fl (81-99) 09/19/21: MCH 30.4 pg (28.0-34.0) 09/19/21: MCHC 31.4 g/dL (30.0-36.0) 09/19/21: RDW 12.9 % (12.1-15.1) 09/19/21: Plt Count 483 10^3/cmm (130-400) H 09/19/21: MPV 9.1 fL (7.4-10.4) 09/19/21: Neut % (Auto) 74.8 % 09/19/21: Lymph % (Auto) 17.0 % 09/19/21: [place] % (Auto) 5.3 % 09/19/21: Eos % (Auto) 0.4 % 09/19/21: Baso % (Auto) 0.5 % 09/19/21: Neut # (Auto) 8.40 10^3/uL (1.8-7.7) H 09/19/21: Lymph # (Auto) 1.9 10^3/uL (0.8-4.8) 09/19/21: [place] # (Auto) 0.6 10^3/uL (0.2-0.9) 09/19/21: Eos # (Auto) 0.1 10^3/uL (0.0-0.8) 09/19/21: Baso # (Auto) 0.1 10^3/uL (0.0-0.1) 09/19/21: Nucleated RBC % (auto) 0 % 09/19/21: Nucleated RBCs # 0.0 /100WBC 07/30/22 20:27 D-Dimer 3.52 ug/mIFEU (0-0.59) H 09/19/21 20:27 Sodium 134 mmol/L (136-145) L 09/19/21 20: Potassium 4.1 mmol/L (3.5-5.1) 09/19/21 20:27 Chloride 100 mmol/L (98-107) 09/19/21 20:27 Carbon Dioxide 18 mmol/L (22-29) L 09/19/21 20: Anion Gap 20.1 (5-19) H 09/19/21 20:27 BUN 19 mg/dL (6-20) 09/19/21 20: Creatinine 0.5 mg/dL (0.5-0.9) 09/19/21 20: GFR Calculation 138.1 mL/min (90-130) H 09/19/21 20:27 Glucose 84 mg/dL (65-115) 09/19/21 20: Calculated Osmolality 279 mOsm/kg (285-295) L 09/19/21 20: Lactate 1.2 mmol/L (0.5-2.2) 09/19/21 20: Calcium 9.5 mg/dL (8.5-10.5) 09/19/21 20: Total Bilirubin 0.3 mg/dL (0.15-1.2) 09/19/21 20: AST 13 U/L (0-32) 09/19/21 20:27 ALT 11 U/L (0-33) 09/19/21 20: Alkaline Phosphatase 133 IU/L (35-105) H 09/19/21 20:27 Total Protein 8.1 g/dL (6.6-8.7) 09/19/21 20: Albumin 3.8 g/dL (3.5-5.2) 09/19/21 20: Globulin 4.3 g/dL (1.3-4.6) 09/19/21 20:27 Discharge Plan Discharge Patient Disposition: Admitted As Inpatient Admit Provider: Richard Cruz Clinical Impression: Cellulitis, Abscess of skin or subcutaneous tissue, Pericecal abscess Condition: Stable Discharge Diet: Advance as tolerated Discharge Activity: Resume usual activity Coding Level of Care Code ED Jacquard Loom Card Changer for Chg Thomas
[2021-09-19 20:25] VITALS: RESP 16
[2021-09-19] MEDS: sodium chloride 0.9% 1,000 ML 999 ML IV (20:25)
[2021-09-19] MEDS: morphine 4 mg/mL SDV 1 mL IVP (20:25)
[2021-09-19 20:38] LABS: Basophils # 0.1 10^3/uL (0.0-0.1); Basophils % 0.5 %; Eosinophils # 0.1 10^3/uL (0.0-0.8); Eosinophils % 0.4 %; Hematocrit 45.9 % (37.0-47.0); Hemoglobin 14.4 g/dL (11.5-15.3); Lymphocytes # 1.9 10^3/uL (0.8-4.8); Mean Corpuscular HGB Conc 31.4 g/dL (30.0-36.0); Mean Corpuscular Hemoglobin 30.4 pg (28.0-34.0); Mean Corpuscular Volume 96.8 fl (81-99); Mean Platelet Volume 9.1 fL (7.4-10.4); Monocytes # 0.6 10^3/uL (0.2-0.9); Monocytes % 5.3 %; Neutrophils % 74.8 %; Nucleated Red Blood Cells % 0 %; Platelet Count 483 10^3/cmm (130-400); Red Blood Count 4.74 10^6/uL (4.1-5.3); Red Cell Distribution Width 12.9 % (12.1-15.1); White Blood Count 11.2 10^3/uL (4.0-10.0)
[2021-09-19 20:51] LABS: D Dimer 3.52 ug/mIFEU (0-0.59)
[2021-09-19 20:55] LABS: Lactate (Lactic Acid level) 1.2 mmol/L (0.5-2.2)
--- NOTE | 2021-09-19 20:56 | CTR_ITS ---
PROCEDURE INFORMATION: Exam: CTA Chest With Contrast Exam date and time: 09/19/2021 10:40 PM Age: 36 years old Clinical indication: Other: Wound drainage with redness at the site; Fever; Prior surgery; Surgery date: 1-6 months; Surgery type: Appx; Patient HX: Bilateral mastectomy; Additional info: Rl chest pain, elevated ddimer, post op drainage umbilical TECHNIQUE: Imaging protocol: Computed tomographic angiography of the chest with contrast. 3D rendering (Not supervised by radiologist): MIP and/or 3D reconstructed images were created by the technologist. Radiation optimization: All CT scans at this facility use at least one of these dose optimization techniques: automated exposure control; mA and/or kV adjustment per patient size (includes targeted exams where dose is matched to clinical indication); or iterative reconstruction. Contrast material: OMNIPAQUE 350; Contrast volume: 95 ml; Contrast route: INTRAVENOUS (IV); COMPARISON: [place] [id number] 09/18/2020 5:11 PM RADIATION DOSE METRICS: Total DLP (mGy-cm): 951.82 FINDINGS: Pulmonary arteries: There is no pulmonary embolism in the central-proximal segmental branches. Assessment of the peripheral subsegmental small branches is limited. Aorta: No aortic aneurysm. No aortic dissection. Lungs: Biapical pleuroparenchymal scarring. Ill-defined patchy ground-glass opacity in the lateral right upper lobe adjacent the fissure, measuring about 7-8 mm, series 4, image 34. Otherwise no lung consolidation or large round ground-glass opacity. No suspicious solid nodules otherwise. Pleural spaces: New trace right pleural effusion with minimal adjacent compressive atelectasis. Heart: No cardiomegaly. No pericardial effusion. Lymph nodes: Unremarkable. No enlarged lymph nodes. Bones/joints: No acute fracture. Soft tissues: Bilateral breast implants are noted. PROCEDURE INFORMATION: Exam: CT Abdomen And Pelvis With Contrast Exam date and time: 09/19/2021 10:40 PM Age: 36 years old Clinical indication: Other: Wound drainage with redness at the site; Fever; Prior surgery; Surgery date: 1-6 months; Surgery type: Appx; Patient HX: Bilateral mastectomy; Additional info: Rl chest pain, elevated ddimer, post op drainage umbilical TECHNIQUE: Imaging protocol: Computed tomography of the abdomen and pelvis with contrast. Radiation optimization: All CT scans at this facility use at least one of these dose optimization techniques: automated exposure control; mA and/or kV adjustment per patient size (includes targeted exams where dose is matched to clinical indication); or iterative reconstruction. Contrast material: OMNIPAQUE 350; Contrast volume: 95 ml; Contrast route: INTRAVENOUS (IV); COMPARISON: 1. CT kidney stone [id number] 09/08/2021 8:[address] [place] [id number] 09/18/2020 5:11 PM RADIATION DOSE METRICS: Total DLP (mGy-cm): 951.82 FINDINGS: Liver: Normal. No mass. Gallbladder and bile ducts: Gallbladder is somewhat distended which may be related to prolonged fasting versus cholestasis. No obvious imaging signs of acute cholecystitis or bile duct dilatation. Clinical correlation should be obtained. Sonographic follow-up may also be considered if clinically indicated. Pancreas: Normal. No ductal dilation. Spleen: Normal. No splenomegaly. Adrenal glands: Normal. No mass. Kidneys and ureters: Right lower pole simple renal cyst measuring 6 mm. No suspicious mass or hydronephrosis. Stomach and bowel: Moderate stool burden with no bowel obstruction, pneumatosis or suspicious bowel wall thickening. There is another discrete low-density collection with enhancing rim and surrounding soft tissue stranding along the lateral aspect of the cecum, measuring 12 x 11 mm, series 6, image 61 and coronal series 15, image 18 consistent with a small peritoneal/pericolic abscess. It does not appears to be related to acute diverticulitis. Appendix: No evidence of appendicitis. Intraperitoneal space: See Stomach and bowel finding. Vasculature: No abdominal aortic aneurysm. Lymph nodes: No enlarged lymph nodes. Urinary bladder: Unremarkable as visualized. Reproductive: Unremarkable as visualized. Bones/joints: No acute fracture. Soft tissues: Ill-defined area of subcutaneous soft tissue stranding and skin thickening in the infraumbilical region suggesting nonspecific edema/cellulitis. An ill-defined low-density collection with partially enhancing rim is also noted in the left paramedian infraumbilical aspect along the medial margin of left rectus abdominus muscle, measuring about 15 by 17 by 34 mm, best seen on sagittal series 16, image 33 and may represent a small soft tissue abscess. A tiny focus of extraluminal air is noted in the anterior aspect just below the described abdominal wall abscess which could be related to recent surgical procedure. CT/CT angio chest w abd pel w con IMPRESSION: 1. No acute PE. 2. New trace right pleural effusion with minimal adjacent compressive atelectasis. 3. Ill-defined small subcentimeter patchy ground-glass opacity in the right upper lobe as described measuring 7-8 mm. Otherwise no acute lung consolidation, large ground-glass opacities or suspicious solid nodule. Given clinical history of malignancy, interval imaging follow-up may be considered. IMPRESSION: 1. Recent appendectomy. 2. Small abscess adjacent to the cecum with surrounding inflammatory response as described above. No bowel obstruction. 3. Subcutaneous soft tissue and abdominal wall inflammatory response in the infraumbilical region with a small abscess along the medial margin of left rectus abdominus muscle as described above. A tiny focus of extraluminal air is noted near the abdominal wall abscess which may be related to recent surgery. However clinical correlation should be obtained. No other suspicious bowel wall thickening or bowel obstruction. 4. Gallbladder findings as above. COMMENTS: Consistent with the [employer]'s Incidental Findings Committee white paper (J Am Javed Radiol 2018): Any incidental renal lesion less than 1 cm or classified as too small to characterize, or any incidental cystic renal lesion characterized as simple-appearing, is likely benign. No follow-up imaging is recommended for these lesions per consensus recommendations based on imaging criteria.
[2021-09-19 21:01] LABS: Alanine Aminotransferase 11 U/L (0-33); Albumin Level 3.8 g/dL (3.5-5.2); Alkaline Phosphatase 133 IU/L (35-105); Blood Urea Nitrogen 19 mg/dL (6-20); Calcium 9.5 mg/dL (8.5-10.5); Carbon Dioxide 18 mmol/L (22-29); Chloride 100 mmol/L (98-107); Globulin 4.3 g/dL (1.3-4.6); Glomerular Filtration Rate 138.1 mL/min (90-130); Glucose 84 mg/dL (65-115); Osmolality Calculated 279 mOsm/kg (285-295); Sodium 134 mmol/L (136-145); Total Bilirubin 0.3 mg/dL (0.15-1.2); Total Protein 8.1 g/dL (6.6-8.7)
[2021-09-19 21:02] LABS: Anion Gap 20.1 (5-19); Potassium 4.1 mmol/L (3.5-5.1)
[2021-09-19 21:03] LABS: Aspartate Amino Transferase 13 U/L (0-32)
[2021-09-19 21:30] VITALS: RESP 17
[2021-09-19] MEDS: fentaNYL 50 mcg/mL INJ 2mL IVP (21:30)
[2021-09-19 22:05] VITALS: BP 123/83; PULSE 86; RESP 16; O2SAT 98
[2021-09-19] MEDS: iohexol 350 mg/mL 100 mL Btl IV (23:23)
[2021-09-20] VITALS (12 sets, daily range): BP systolic 94–113; BP diastolic 62–78; PULSE 62–86; RESP 14–20; TEMP 36.4–36.8; O2SAT 96–98
[2021-09-20] MEDS: fentaNYL 50 mcg/mL INJ 2mL IVP (00:50)
[2021-09-20] MEDS: sodium chloride 0.9% 1,000 ML 125 ML IV ×3 (00:51→16:44)
[2021-09-20] MEDS: acetaminophen 1,000 MG/100 ML PIGGYBACK 400 MG IV (00:52)
[2021-09-20] MEDS: piperacillin-tazobactam 4.5 GM in sodium chloride 0.9% (plus) 50 ML IV ×3 (00:52→17:50)
--- NOTE | 2021-09-20 02:23 | PC.NURSE ---
Called and spoke with Dr Cruz regarding patients admission. ordered to keep on clear liquid diet until he see her, order for prn Tylenol for pain or fever. Made Dr Cruz aware that patient was receiving IV fentynal in ED for pain and was sent to floor with a PRN fentynal order but nursing can not give fentynal on med surg floor. Dr Cruz d/c fentanyl order and ordered PRN Dilaudid for sever pain.
[2021-09-20] MEDS: HYDROmorphone 1 mg/mL INJ 1 mL IVP ×4 (08:38→20:27)
[2021-09-20] MEDS: vancomycin 1,000 MG in sodium chloride 0.9% 250 ML 250 MG IV ×2 (08:51→16:39)
--- NOTE | 2021-09-20 13:09 | P.HP_ITS ---
Providers/Chief Complaint Admitting Physician: Richard Cruz DO Primary Care Provider: Vandana Victoria Chief Complaint: post surgery/inflammed History of Present Illness Viki Roach is a 36 year old female who underwent laparoscopic appendectomy for a perforated appendicitis on 09/08/2021. Yesterday she began having increased abdominal pain and some drainage from her umbilicus. She had 1 day left of her Augmentin. Denies any fever or chills. Denies any diarrhea or constipation Review of Systems General: Reports: 10 or more systems reviewed and unremarkable except in HPI and below Medications/Allergies Home Medications Medication Instructions Recorded Confirmed Last Taken Type aspirin 81 mg tablet,delayed 81 mg PO DAILY PRN Headache 09/18/20 09/20/21 Unknown History release ferrous sulfate 325 mg (65 mg 325 mg PO .THREE TIMES A WEEK 09/18/20 09/20/21 05/26/21 History iron) tablet (iron) minocycline 50 mg tablet 50 mg PO BEDTIME 09/18/20 09/20/21 09/07/21 History multivitamin with minerals-folic 1 tab PO QAM 09/18/20 09/20/21 09/17/20 History acid 200 mcg chewable tablet (Multivitamin Gummies) spironolactone 50 mg tablet 50 mg PO QAM 09/18/20 09/20/21 09/08/21 06:30 History cholecalciferol (vitamin D3) 25 3,000 unit PO DAILY 10/28/20 09/20/21 Unknown History mcg (1,000 unit) capsule (Vitamin D3) pantoprazole 20 mg tablet,delayed 20 mg PO QAM 10/28/20 09/20/21 09/08/21 History release Custom molded orthotics #1 ea 02/02/21 09/20/21 Unknown Rx topiramate 100 mg tablet See Rx Instructions .Route .COMPLEX 03/24/21 09/20/21 09/08/21 06:30 History 100 mg levothyroxine 100 mcg tablet 100 mcg PO QAM 05/26/21 09/20/21 09/08/21 History L.acidophil-L.casei-B.bifid-B.longum-FOS 1 cap PO DAILY 09/08/21 09/20/21 Unknown History 2 billion cell-50 mg capsule (Probiotic Blend) cetirizine 10 mg tablet (Zyrtec) 10 mg PO QAM 09/08/21 09/20/21 09/08/21 History magnesium citrate 100 mg capsule 200 mg PO BEDTIME 09/08/21 09/20/21 Unknown History metoclopramide HCl 10 mg tablet 10 mg PO Q8H PRN with baby aspirin 09/08/21 09/20/21 Unknown History as need for migrainee headache valacyclovir 500 mg tablet See Rx Instructions .Route .COMPLEX 09/08/21 09/20/21 Unknown History amoxicillin 875 mg-potassium 1 tab PO Q12H 10 days #20 tabs 09/11/21 09/20/21 Unknown Rx clavulanate 125 mg tablet fluoxetine 60 mg tablet 60 mg PO DAILY 30 days #30 tabs 09/14/21 09/20/21 Unknown Rx olanzapine 10 mg tablet 10 mg PO BEDTIME 30 days #30 tabs 09/14/21 09/20/21 Unknown Rx Allergies Allergy/AdvReac Type Severity Reaction Status Date / Time onabotulinumtoxinA Allergy Severe botulism Verified 07/17/21 09:29 [From Botox] diphenhydramine Allergy ADR-Anxiety Verified 07/17/21 09:29 hydroxyzine [From Vistaril] Allergy ADR-Anxiety Verified 07/17/21 09:29 ondansetron [From Zofran] Allergy ADR-Anxiety Verified 07/17/21 09:29 promethazine [From Phenergan] Allergy ADR-Anxiety Verified 07/17/21 09:29 SCHELLAC Allergy Unknown Uncoded 07/17/21 09:29 PFSH Acute PFSH: Medical History Bipolar 2 disorder History of substance use Other assisted (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 Psychiatric care Social History Smoking and tobacco status: former smoker Female Reproductive History: Date of last menstrual period: 08/20/21 Vitals/I&O/Wt Last Vital Signs Temp 98.3 F 09/20/21 11:43 Pulse 62 09/20/21 11:43 Resp 18 09/20/21 12:40 BP 100/62 09/20/21 11:43 Pulse Ox 97 09/20/21 11:43 O2 Del Method 09/20/21 11:43 09/19/21 09/20/21 09/20/21 22:59 06:59 14:59 Intake Total 1000 / 1000 600 / 1600 1510.833 / 1510.833 Output Total 0 / 0 Balance 1000 / 1000 600 / 1600 1510.833 / 1510.833 Weight last 48 hrs Weight 160 lb Physical Exam Narrative: General : Patient is well developed , no acute distress, oriented x3 Head : Normal cephalic, a-traumatic. Ears : Pinnae and external canal are normal. Hearing is normal. Eyes : PERRLA, Sclera and injection are normal. No conjunctival discharge. Nose : Mucous membranes are without erythema. Throat : buccal mucosa is normal, gums are without significant recession or hypertrophy. Lungs : Equal chest rise bilaterally, no use of accessory muscles, trachea is midline. Cor : Rate and rhythm are normal. Abdomen : Soft, ND mild periumbilical tenderness with some erythema. I remove the 2 sutures at the umbilicus and a hematoma was drained, no g/r/m Extremities : No edema, no cyanosis or clubbing, dorsalis pedis pulses are present bilaterally, non-tender to palpation of calves. Upper extremities are normal bilaterally. Back : non-tender to palpation, no CVA tenderness. Neuro : CN II - XII intact, Upper and lower extremities have equal and full strength Data : 09/19/21 20:27 09/19/21 20:27 Micro: Microbiology 09/19/21 20:20 Blood Culture - Preliminary Blood SPECIMEN COLLECTED 09/19/21 20:27 Blood Culture - Preliminary Blood SPECIMEN COLLECTED A&P Assessment and plan (1) Pericecal abscess: Status: Acute Plan Patient is status post laparoscopic appendectomy for perforated appendicitis on 09/08/2021. She now has a very small pericecal abscess, which is not unexpected given that there was stool in the area. I opened her umbilical incision and drained a hematoma. No purulence was seen. Wound is packed. Continue IV antibiotics. Daily labs. Likely home tomorrow or the next day Attestations Medical Necessity Statement*: Patient requires at least 1 night in the hospital for IV antibiotics for her intra-abdominal abscess Coding Level of Care Code Acute Press Catcher for Nancie Guzman Diagnoses Pericecal abscess K35.33
[2021-09-20] MEDS: HYDROcodone-acetaminophen 7.5-325 mg Tablet 1 TAB PO (15:27)
[2021-09-20] MEDS: topiramate 100 mg Tablet 200 MG PO (20:27)
[2021-09-20] MEDS: OLANZapine 10 mg TABLET PO (20:27)
[2021-09-21] VITALS (9 sets, daily range): BP systolic 99–118; BP diastolic 67–79; PULSE 90–91; RESP 14–18; TEMP 36.1–36.6; O2SAT 95–97
[2021-09-21] MEDS: piperacillin-tazobactam 4.5 GM in sodium chloride 0.9% (plus) 50 ML IV ×2 (00:15→08:54)
[2021-09-21] MEDS: HYDROmorphone 1 mg/mL INJ 1 mL IVP ×4 (00:18→12:32)
[2021-09-21] MEDS: sodium chloride 0.9% 1,000 ML 125 ML IV ×2 (00:18→10:43)
[2021-09-21] MEDS: vancomycin 1,000 MG in sodium chloride 0.9% 250 ML 250 MG IV (01:28)
[2021-09-21] MEDS: levothyroxine 100 mcg Tablet PO (04:48)
[2021-09-21 05:28] LABS: Basophils % 0.3 %; Eosinophils # 0.2 10^3/uL (0.0-0.8); Eosinophils % 2.9 %; Hematocrit 37.5 % (37.0-47.0); Hemoglobin 12.4 g/dL (11.5-15.3); Lymphocytes # 1.8 10^3/uL (0.8-4.8); Lymphocytes % 28.3 %; Mean Corpuscular HGB Conc 33.1 g/dL (30.0-36.0); Mean Corpuscular Hemoglobin 30.7 pg (28.0-34.0); Mean Corpuscular Volume 92.8 fl (81-99); Mean Platelet Volume 9.1 fL (7.4-10.4); Monocytes # 0.4 10^3/uL (0.2-0.9); Neutrophils # 3.77 10^3/uL (1.8-7.7); Neutrophils % 60.1 %; Nucleated Red Blood Cells % 0 %; Platelet Count 403 10^3/cmm (130-400); Red Blood Count 4.04 10^6/uL (4.1-5.3); Red Cell Distribution Width 13.2 % (12.1-15.1); White Blood Count 6.3 10^3/uL (4.0-10.0)
[2021-09-21 05:52] LABS: Anion Gap 11.7 (5-19); Blood Urea Nitrogen 7 mg/dL (6-20); Carbon Dioxide 20 mmol/L (22-29); Chloride 113 mmol/L (98-107); Glomerular Filtration Rate 138.1 mL/min (90-130); Glucose 82 mg/dL (65-115); Osmolality Calculated 289 mOsm/kg (285-295); Potassium 3.7 mmol/L (3.5-5.1); Sodium 141 mmol/L (136-145)
[2021-09-21] MEDS: HYDROcodone-acetaminophen 7.5-325 mg Tablet 1 TAB PO ×3 (06:18→14:36)
[2021-09-21 08:33] LABS: Vancomycin Trough 23.2 ug/mL (10-15)
[2021-09-21] MEDS: fluoxetine 20 mg Capsule 60 MG PO (08:48)
[2021-09-21] MEDS: spironolactone 25 mg Tablet 50 MG PO (08:48)
[2021-09-21] MEDS: cholecalciferol (vitamin D3) 1,000 unit Tablet 3000 UNIT PO (08:48)
[2021-09-21] MEDS: pantoprazole DR 40 mg Tablet PO (08:48)
[2021-09-21] MEDS: topiramate 100 mg Tablet PO (08:49)
--- NOTE | 2021-09-21 14:58 | PM.DCS ---
Discharge Providers Date of Admission: 09/20/21 00:20 Date of Discharge: September 21, 2021 Attending Provider at Admission: Richard Cruz DO Attending Provider at Discharge: Richard Cruz DO Primary Care Provider: Vandana Victoria Diagnoses at Discharge Discharge Diagnosis (1) Pericecal abscess: Status: Acute Reason for Visit Reason for Visit: post surgery/inflammed Hospital Course Hospital Course This very pleasant 36-year-old female who comes in following laparoscopic appendectomy for perforated appendicitis. There was a tiny pericecal abscess seen as well as a subcutaneous hematoma. The hematoma was drained by opening her sutures. She was treated with IV antibiotics. Her white count normalized and she was discharged home in good condition Physical Exam Narrative: General : Patient is well developed , no acute distress, oriented x3 Head : Normal cephalic, a-traumatic. Ears : Pinnae and external canal are normal. Hearing is normal. Eyes : PERRLA, Sclera and injection are normal. No conjunctival discharge. Nose : Mucous membranes are without erythema. Throat : buccal mucosa is normal, gums are without significant recession or hypertrophy. Lungs : Equal chest rise bilaterally, no use of accessory muscles, trachea is midline. Cor : Rate and rhythm are normal. Abdomen : Soft, ND, mild tenderness to palpation along right abdomen, no g/r/m. Umbilical incision open and draining hematoma. Sutures were removed Extremities : No edema, no cyanosis or clubbing, dorsalis pedis pulses are present bilaterally, non-tender to palpation of calves. Upper extremities are normal bilaterally. Back : non-tender to palpation, no CVA tenderness. Neuro : CN II - XII intact, Upper and lower extremities have equal and full strength Discharge Data Studies Completed and Pending Completed Studies During Hospitalization Category Date Time Status CTA chest CT abdomen pelvis [CT angio chest w abd pel w Cat Scan 09/19/21 20:56 Completed con] Stat Pending at discharge Category Date Time Status Blood Culture Stat Lab 09/19/21 20:20 Results Radiology Impressions Chest/Abdomen/Pelvis CT 09/19/21 20:56 IMPRESSION: 1. No acute PE. 2. New trace right pleural effusion with minimal adjacent compressive atelectasis. 3. Ill-defined small subcentimeter patchy ground-glass opacity in the right upper lobe as described measuring 7-8 mm. Otherwise no acute lung consolidation, large ground-glass opacities or suspicious solid nodule. Given clinical history of malignancy, interval imaging follow-up may be considered. IMPRESSION: 1. Recent appendectomy. 2. Small abscess adjacent to the cecum with surrounding inflammatory response as described above. No bowel obstruction. 3. Subcutaneous soft tissue and abdominal wall inflammatory response in the infraumbilical region with a small abscess along the medial margin of left rectus abdominus muscle as described above. A tiny focus of extraluminal air is noted near the abdominal wall abscess which may be related to recent surgery. However clinical correlation should be obtained. No other suspicious bowel wall thickening or bowel obstruction. 4. Gallbladder findings as above. COMMENTS: Consistent with the [employer]'s Incidental Findings Committee white paper (J Am Javed Radiol 2018): Any incidental renal lesion less than 1 cm or classified as too small to characterize, or any incidental cystic renal lesion characterized as simple-appearing, is likely benign. No follow-up imaging is recommended for these lesions per consensus recommendations based on imaging criteria. Laboratory Results WBC 6.3 10^3/uL (4.0-10.0) 09/21/21 05:10 RBC 4.04 10^6/uL (4.1-5.3) L 09/21/21 05:10 Hgb 12.4 g/dL (11.5-15.3) 09/21/21 05:10 Hct 37.5 % (37.0-47.0) 09/21/21 05:10 MCV 92.8 fl (81-99) 09/21/21 05:10 MCH 30.7 pg (28.0-34.0) 09/21/21 05:10 MCHC 33.1 g/dL (30.0-36.0) 09/21/21 05:10 RDW 13.2 % (12.1-15.1) 09/21/21 05:10 Plt Count 403 10^3/cmm (130-400) H 09/21/21 05:10 MPV 9.1 fL (7.4-10.4) 09/21/21 05:10 Neut % (Auto) 60.1 % 09/21/21 05:10 Lymph % (Auto) 28.3 % 09/21/21 05:10 Peach % (Auto) 7.0 % 09/21/21 05:10 Eos % (Auto) 2.9 % 09/21/21 05:10 Baso % (Auto) 0.3 % 09/21/21 05:10 Neut # (Auto) 3.77 10^3/uL (1.8-7.7) 09/21/21 05:10 Lymph # (Auto) 1.8 10^3/uL (0.8-4.8) 09/21/21 05:10 Peach # (Auto) 0.4 10^3/uL (0.2-0.9) 09/21/21 05:10 Eos # (Auto) 0.2 10^3/uL (0.0-0.8) 09/21/21 05:10 Baso # (Auto) 0.0 10^3/uL (0.0-0.1) 09/21/21 05:10 Nucleated RBC % (auto) 0 % 09/21/21 05:10 Nucleated RBCs # 0.0 /100WBC 09/21/21 05:10 D-Dimer 3.52 ug/mIFEU (0-0.59) H 09/19/21 20:27 Sodium 141 mmol/L (136-145) 09/21/21 05:10 Potassium 3.7 mmol/L (3.5-5.1) 09/21/21 05:10 Chloride 113 mmol/L (98-107) H 09/21/21 05:10 Carbon Dioxide 20 mmol/L (22-29) L 09/21/21 05:10 Anion Gap 11.7 (5-19) 09/21/21 05:10 BUN 7 mg/dL (6-20) 09/21/21 05:10 Creatinine 0.5 mg/dL (0.5-0.9) 09/21/21 05:10 GFR Calculation 138.1 mL/min (90-130) H 09/21/21 05:10 Glucose 82 mg/dL (65-115) 09/21/21 05:10 Calculated Osmolality 289 mOsm/kg (285-295) 09/21/21 05:10 Lactate 1.2 mmol/L (0.5-2.2) 09/19/21 20:27 Calcium 8.0 mg/dL (8.5-10.5) L 09/21/21 05:10 Total Bilirubin 0.3 mg/dL (0.15-1.2) 09/19/21 20:27 AST 13 U/L (0-32) 09/19/21 20:27 ALT 11 U/L (0-33) 09/19/21 20:27 Alkaline Phosphatase 133 IU/L (35-105) H 09/19/21 20:27 Total Protein 8.1 g/dL (6.6-8.7) 09/19/21 20:27 Albumin 3.8 g/dL (3.5-5.2) 09/19/21 20:27 Globulin 4.3 g/dL (1.3-4.6) 09/19/21 20:27 Vancomycin Trough 23.2 ug/mL (10-15) H 09/21/21 07:57 Vitals Last Vital Signs Temp 97.6 F 09/21/21 12:00 Pulse 91 09/21/21 12:00 Resp 18 09/21/21 12:32 BP 118/79 09/21/21 12:00 Pulse Ox 97 09/21/21 12:00 O2 Del Method 09/21/21 08:00 O2 Flow Rate 2 09/21/21 08:00 Discharge Plan Discharge Patient Disposition: Home Condition: Stable Prescriptions: New amoxicillin-pot clavulanate 875-125 mg tablet 1 tab PO Q12H 7 Days Qty: 14 0RF Continued topiramate 100 mg tablet See Rx Instructions .ROUTE .COMPLEX Rx Instructions: 100mg po in the morning and 200mg po in the evening cholecalciferol (vitamin D3) [Vitamin D3] 25 mcg (1,000 unit) capsule 3,000 unit PO DAILY pantoprazole 20 mg tablet,delayed release (DR/EC) 20 mg PO QAM (DME) Custom molded orthotics See Rx Instructions .Route .MEDSUPPLY Qty: 1 0RF Rx Instructions: As directed fluoxetine 60 mg tablet 60 mg PO DAILY 30 Days Qty: 30 3RF olanzapine 10 mg tablet 10 mg PO BEDTIME 30 Days Qty: 30 3RF aspirin 81 mg Tablet,Delayed Release (Dr/Ec) 81 mg PO DAILY PRN (Reason: Headache) ferrous sulfate [iron] 325 mg (65 mg iron) Tablet 325 mg PO .THREE TIMES A WEEK spironolactone 50 mg tablet 50 mg PO QAM minocycline 50 mg tablet 50 mg PO BEDTIME Multivitamin Gummies 200 mcg Tablet,Chewable 1 tab PO QAM cetirizine [Zyrtec] 10 mg Tablet 10 mg PO QAM valacyclovir 500 mg tablet See Rx Instructions .ROUTE .COMPLEX Rx Instructions: FOR OUTBREAKS TAKE ONE TAB EVERY 12 HOURS FOR 3 DAYS FOR MAINTENACNE TAKE ONE TAB DAILY metoclopramide HCl 10 mg tablet 10 mg PO Q8H PRN (Reason: with baby aspirin as need for migrainee headache) Probiotic Blend 2 billion cell-50 mg Capsule 1 cap PO DAILY Rx Instructions: give with meal/snack magnesium citrate 100 mg Capsule 200 mg PO BEDTIME levothyroxine 100 mcg Tablet 100 mcg PO QAM Discontinued amoxicillin-pot clavulanate 875-125 mg tablet 1 tab PO Q12H 10 Days Qty: 20 0RF Discharge Orders: Discharge Order (Routine); Ordered 09/21/21 Ordered By: Richard Cruz Referrals: Vandana Victoria [Primary Care Provider] - 4-7 days Discharge Diet: Advance as tolerated Discharge Activity: Resume usual activity Patient Instructions: Opioid Safety Activity Restrictions/Additional Instructions: Pack wound lightly with packing gauze once a day and cover with 4 x 4 gauze and tape until healed Discharge Attestations Time Spent in Discharge Care*: less than 30 min Quality Metrics Clinical Quality Measures [ No reported AMI, CVA or VTE this stay] Coding Level of Care Code Acute g FW DC note Diagnoses Pericecal abscess K35.33
== END 2021-09-21 16:40 | disposition home or self-care (01) ==
LOC: ER 09-20 00:16 → MEDSURG 09-20 13:17
PROVIDERS: Admitting Provider Surgery; Emergency Provider Emergency Medicine; PCP Internal Medicine; Visit Provider Surgery
DX: K35.33 Acute appendicitis with perforation, localized peritonitis, and gangrene, with abscess (principal); Z87.891 Personal history of nicotine dependence
CPT/HCPCS: 36415; 71275; 74177; 80048; 80053; 80202; 83605; 85025; 85378; 87040; 96365; 96366; 96367; 96375; 96376; 99285; G0378; J1170; J2270; J2543; J3010; J3370; J7030; J7050; Q9967

== ENCOUNTER 2021-09-28 13:12 | Emergency (ER) | payer BC, MEDICAID, SELFPAY ==
[2021-09-28 13:45] VITALS: BP 107/74; PULSE 91; RESP 15; TEMP 36.6; O2SAT 97; BMI 24.7
--- NOTE | 2021-09-28 14:57 | ED_ITS ---
Documented by User: Mario Chamberlain DO 10/10/21 14:03 HPI - Abdominal Pain General: Chief Complaint: Abdominal Pain Stated Complaint: ABD pains Time Seen by Provider: 09/28/21 14:48 Source: patient Mode of arrival: ambulatory Limitations: no limitations History of Present Illness: 36-year-old female presents emergency room for lateral lower quadrant pain for the last 2 days progressively worsening. Patient had a appendectomy on 09/08/2021 did have to have a drain because of abscess at the stump of the appendectomy. She is reporting continued pain and discomfort no fever no vomiting MD elicited complaint: abdominal pain Pertinent past history: other (Recent appendectomy) Onset (ago): day(s) (2) Pain Consistency: constant Location: RLQ Severity: moderate Quality: cramping Radiation: none Migration to: no migration Exacerbating factors: rest Relieving factors: nothing Associated Symptoms: Reports bloating, GI cramping, nausea and poor appetite; Denies anorexia, belching, change in bowel habits, change in stool character, ch ills, coffee ground emesis, constipation, diarrhea, dyspepsia, dysuria, excessive flatus, fever(s), heartburn, hematochezia, hematuria, fecal incontinence, loose stools, melena, syncope and vomiting Related Data: Date of Last Menstrual Period: 08/20/21 Review of Systems Const: Denies: fever(s), chills, fatigue or malaise ENMT: Denies: throat pain, ear or mastoid pain, nasal discharge or nasal congestion Card: Denies: syncope Resp: Denies: dyspnea, productive cough or non-productive cough GI: Reports: abdominal pain, nausea, bloating and GI cramping; Denies: vomiting, coffee ground emesis, heartburn, diarrhea, constipation, belching, excessive flatus, fecal incontinence, change in bowel habits, change in stool character, hematochezia or melena : Denies: flank pain, difficulty voiding, dysuria, urinary frequency, urinary urgency or hematuria Musc: Denies: back pain Skin/Breast: Denies: rash or pruritus PFSH ED PFSH: Medical History Bipolar 2 disorder History of substance use Other long term care phlebotomist (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 Other long term care phlebotomist (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 Psychiatric care Surgical History History of appendectomy Social History Smoking and tobacco status: former smoker Alcohol intake: never Female Reproductive History: Date of last menstrual period: 08/20/21 Physical Exam Const: COMMON NORMALS: no acute distress GENERAL APPEARANCE: cooperative and comfortable ORIENTATION/CONSCIOUSNESS: Yes awake, Yes oriented to person, Yes oriented to place and Yes oriented to time HENMT: COMMON NORMALS: normocephalic, atraumatic and hearing grossly normal bilaterally HEAD & SCALP: normocephalic and atraumatic Resp: COMMON NORMALS: normal respiratory effort, No retractions, No use of accessory muscles and clear to auscultation bilaterally AUSCULTATION: clear to auscultation bilaterally Cardio: COMMON NORMALS: regular rate, regular rhythm and No murmurs present (Cardio) RATE: regular rate RHYTHM: regular rhythm GI: COMMON NORMALS: No hepatosplenomegaly present AUSCULTATION: Yes normoactive bowel sounds PALPATION: Yes Tenderness to palpation present (GI) Details: RLQ (Moderate tenderness no guarding no peritoneal signs), No Guarding due to palpation present (GI) and Yes No hepatosplenomegaly present Extremity: COMMON NORMALS: normal to inspection, capillary refill normal, no clubbing, cyanosis or edema, no calf tenderness and no pedal edema Neuro: SENSORIUM/ORIENTATION: Yes oriented to person, Yes oriented to place and Yes oriented to time Skin: COMMON NORMALS: no rashes or lesions noted GENERAL SKIN EXAM: no rashes or lesions noted Course Vital Signs: Vital signs: Vital Signs Temperature 98.4 F 09/28/21 22:06 Pulse Rate 76 09/28/21 22:06 Respiratory Rate 14 09/28/21 22:06 Blood Pressure 130/94 09/28/21 22:06 Pulse Oximetry 100 09/28/21 22:06 Oxygen Delivery Me thod 09/28/21 18:31 MDM - Abdominal Pain Medical Decision Making Care signed out to Dr. Manzano at change of shift. See final notes for diagnosis and disposition. Patient care handoff received from Dr. Chamberlain pending completion of ED evaluation including CT scan. No leukocytosis, metabolic panel with perhaps mild evidence of dehydration. CT without evidence of acute pathology to explain symptoms, gallbladder is fluid-filled and enlarged. I discussed results of ED evaluation with the patient, she provides a somewhat challenging clinical history which may include right upper quadrant tenderness and right upper quadrant is tenderness on exam though negative Cross. Given these findings I do feel that ultrasound is warranted. Ultrasound without evidence of cholecystitis, common bile duct upper limits of normal, 2 gallstones present without evidence of obstruction on either imaging or laboratory studies. Patient improved with pain control and satisfactory for outpatient management. I will message case management for follow-up with general surgery. Patient agreeable with plan. Harpreet Manzano MD Emergency Medicine Lab Data : 09/28/21 15:22 09/28/21 16:21 Labs/Radiology: Radiology Impressions Abdomen/Pelvis CT 09/28/21 15:55 IMPRESSION: 1. Interval minimal biliary ductal dilatation. Continued gallbladder distension but no calcified gallstones. No acute finding elsewhere in the peritoneal cavity. 2. Interval decrease in size of the small left infraumbilical anterior abdominal wall mass and disappearance of the gas bubbles from within it. Interval disappearance of the right pleural fluid and right lower lobe atelectasis. Other findings detailed above. COMMENTS: Consistent with the [employer]'s Incidental Findings Committee white paper (J Am Javed Radiol 2018): Any incidental renal lesion less than 1 cm or classified as too small to characterize, or any incidental cystic renal lesion characterized as simple-appearing, is likely benign. No follow-up imaging is recommended for these lesions per consensus recommendations based on imaging criteria. Abdomen Ultrasound 09/28/21 19:28 IMPRESSION: 1. Cholelithiasis. Positive sonographic Cross's sign, but no wall thickening to suggest acute cholecystitis. CBD at the upper limits of normal. 2. Other visualized structures within normal limits. Laboratory Results WBC 5.4 10^3/uL (4.0-10.0) 09/28/21 15:22 RBC 4.57 10^6/uL (4.1-5.3) 09/28/21 15:22 Hgb 14.3 g/dL (11.5-15.3) 09/28/21 15:22 Hct 42.3 % (37.0-47.0) 09/28/21 15:22 MCV 92.6 fl (81-99) 09/28/21 15:22 MCH 31.3 pg (28.0-34.0) 09/28/21 15: MCHC 33.8 g/dL (30.0-36.0) 09/28/21 15: RDW 13.1 % (12.1-15.1) 09/28/21 15:22 Plt Count 264 10^3/cmm (130-400) 09/28/21 15:22 MPV 10.0 fL (7.4-10.4) 09/28/21 15: Neut % (Auto) 51.7 % 09/28/21 15:22 Lymph % (Auto) 35.6 % 09/28/21 15:22 Walsh % (Auto) 8.4 % 09/28/21 15: Eos % (Auto) 1.9 % 09/28/21 15: Baso % (Auto) 0.7 % 09/28/21 15: Neut # (Auto) 2.77 10^3/uL (1.8-7.7) 09/28/21 15: Lymph # (Auto) 1.9 10^3/uL (0.8-4.8) 09/28/21 15:22 Walsh # (Auto) 0.5 10^3/uL (0.2-0.9) 09/28/21 15:22 Eos # (Auto) 0.1 10^3/uL (0.0-0.8) 09/28/21 15:22 Baso # (Auto) 0.0 10^3/uL (0.0-0.1) 09/28/21 15: Nucleated RBC % (auto) 0 % 09/28/21 15: Nucleated RBCs # 0.0 /100WBC 09/28/21 15:22 Sodium 136 mmol/L (136-145) 09/28/21 16:21 Potassium 3.9 mmol/L (3.5-5.1) 09/28/21 16:21 Chloride 103 mmol/L (98-107) 09/28/21 16:21 Carbon Dioxide 20 mmol/L (22-29) L 09/28/21 16:21 Anion Gap 16.9 (5-19) 09/28/21 16:21 BUN 13 mg/dL (6-20) 09/28/21 16:21 Creatinine 0.5 mg/dL (0.5-0.9) 09/28/21 16:21 GFR Calculation 138.1 mL/min (90-130) H 09/28/21 16:21 Glucose 85 mg/dL (65-115) 09/28/21 16:21 Calculated Osmolality 281 mOsm/kg (285-295) L 09/28/21 16:21 Calcium 9.3 mg/dL (8.5-10.5) 09/28/21 16:21 Total Bilirubin 0.3 mg/dL (0.15-1.2) 09/28/21 16:21 AST 12 U/L (0-32) 09/28/21 16:21 ALT 10 U/L (0-33) 09/28/21 16:21 Alkaline Phosphatase 108 IU/L (35-105) H 09/28/21 16:21 Total Protein 7.1 g/dL (6.6-8.7) 09/28/21 16:21 Albumin 4.2 g/dL (3.5-5.2) 09/28/21 16:21 Globulin 2.9 g/dL (1.3-4.6) 09/28/21 16:21 Lipase 22 U/L (13-60) 09/28/21 16:21 Urine Color Yellow (Yellow) 09/28/21 15:40 Urine Appearance Clear (CLEAR) 09/28/21 15:40 Urine pH 7 (5-7) 09/28/21 15:40 Ur Specific Magnolia 1.010 (1.005-1.030) 09/28/21 15:40 Urine Protein Neg (Negative) 09/28/21 15:40 Urine Glucose (UA) Norm (Normal) 09/28/21 15:40 Urine Ketones Negative (Negative) 09/28/21 15:40 Urine Blood Neg (Negative) 09/28/21 15:40 Urine Nitrate Negative (Negative) 09/28/21 15:40 Urine Bilirubin Neg (Negative) 09/28/21 15:40 Urine Urobilinogen Norm mg/dL (Negative) 09/28/21 15:40 Ur Leukocyte Esterase Negative (Negative) 09/28/21 15:40 Urine HCG, Qual Negative (Negative) 09/28/21 15:40 Discharge Plan Discharge Patient Disposition: Home Clinical Impression: Abdominal pain, Constipation, Gallstones Condition: Stable Prescriptions: New oxycodone 5 mg tablet 5 mg PO Q6H PRN (Reason: pain) Qty: 10 0RF No Action topiramate 100 mg tablet See Rx Instructions .ROUTE .COMPLEX Rx Instructions: 100mg po in the morning and 200mg po in the evening cholecalciferol (vitamin D3) [Vitamin D3] 25 mcg (1,000 unit) capsule 3,000 unit PO DAILY pantoprazole 20 mg tablet,delayed release (DR/EC) 20 mg PO QAM (DME) Custom molded orthotics See Rx Instructions .Route .MEDSUPPLY Qty: 1 0RF Rx Instructions: As directed fluoxetine 60 mg tablet 60 mg PO DAILY 30 Days Qty: 30 3RF olanzapine 10 mg tablet 10 mg PO BEDTIME 30 Days Qty: 30 3RF aspirin 81 mg Tablet,Delayed Release (Dr/Ec) 81 mg PO DAILY PRN (Reason: Headache) ferrous sulfate [iron] 325 mg (65 mg iron) Tablet 325 mg PO .THREE TIMES A WEEK spironolactone 50 mg tablet 50 mg PO QAM minocycline 50 mg tablet 50 mg PO BEDTIME Multivitamin Gummies 200 mcg Tablet,Chewable 1 tab PO QAM cetirizine [Zyrtec] 10 mg Tablet 10 mg PO QAM valacyclovir 500 mg tablet See Rx Instructions .ROUTE .COMPLEX Rx Instructions: FOR OUTBREAKS TAKE ONE TAB EVERY 12 HOURS FOR 3 DAYS FOR MAINTENACNE TAKE ONE TAB DAILY metoclopramide HCl 10 mg tablet 10 mg PO Q8H PRN (Reason: with baby aspirin as need for migrainee headache) Probiotic Blend 2 billion cell-50 mg Capsule 1 cap PO DAILY Rx Instructions: give with meal/snack magnesium citrate 100 mg Capsule 200 mg PO BEDTIME levothyroxine 100 mcg Tablet 100 mcg PO QAM Percocet 5-325 mg tablet 1 tab PO Q8H PRN (Reason: abdominal pain) Qty: 9 0RF Discharge Orders: Discharge ED (Routine); Ordered 09/28/21 Ordered By: Harpreet Manzano Referrals: Vandana Victoria [Primary Care Provider] - Discharge Diet: Advance as tolerated and Clear Liquid Discharge Activity: Increase activity as tolerated Patient Instructions: Constipation (ED), Gallstones (ED), Abdominal Pain (ED), Opioid Safety Activity Restrictions/Additional Instructions: Thank you for visiting the emergency department. You were seen and evaluated f or abdominal pain. The exact cause of your symptoms is unclear though may be related to normal postoperative pain, constipation, or other causes. This does not require hospitalization at this time. Please follow-up with your operating surgeon. You do have constipation and I recommend [id number] stool softeners. You may use your typical regimen or MiraLAX 3 times per day with goals of having multiple soft stools per day. As discussed you do have fluid in your gallbladder as well as to gallstones though no evidence of infection of your gallbladder. Please return to the emergency department for uncontrolled pain, fevers, recurrent nausea vomiting, severe right upper quadrant pain, or anything else that you are concerned about a feel needs emergency department evaluation. Sign Out Sign Out Data: Patient Sign Out occurred on 09/28/21 at 18:20. Patient's care was discussed, and care was transferred from to Harpreet Manzano MD. Coding Level of Care Code ED Tool Room Gear Machine Operator for Chg Fwd Exam Detailed Documented by User: Harpreet Manzano MD 10/13/21 21:33 HPI - Abdominal Pain General: Chief Complaint: Abdominal Pain Stated Complaint: ABD pains Time Seen by Provider: 09/28/21 14:48 [facility] ED PFSH: Medical History Bipolar 2 disorder History of substance use Other long term care phlebotomist (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 Other long term care phlebotomist (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 Psychiatric care Surgical History History of appendectomy Social History Smoking and tobacco status: former smoker Alcohol intake: never Course Vital Signs: Vital signs: Vital Signs Temperature 98.4 F 09/28/21 22:06 Pulse Rate 76 09/28/21 22:06 Respiratory Rate 14 09/28/21 22:06 Blood Pressure 130/94 09/28/21 22:06 Pulse Oximetry 100 09/28/21 22:06 Oxygen Delivery Me thod 09/28/21 18:31 MDM - Abdominal Pain Medical Decision Making Patient care handoff received from Dr. Chamberlain pending completion of ED evaluation including CT scan. No leukocytosis, metabolic panel with perhaps mild evidence of dehydration. CT without evidence of acute pathology to explain symptoms, gallbladder is fluid-filled and enlarged. I discussed results of ED evaluation with the patient, she provides a somewhat challenging clinical history which may include right upper quadrant tenderness and right upper quadrant is tenderness on exam though negative Cross. Given these findings I do feel that ultrasound is warranted. Ultrasound without evidence of cholecystitis, common bile duct upper limits of normal, 2 gallstones present without evidence of obstruction on either imaging or laboratory studies. Patient improved with pain control and satisfactory for outpatient management. I will message case management for follow-up with general surgery. Patient agreeable with plan. Harpreet Manzano MD Emergency Medicine Lab Data : 09/28/21 15:22 09/28/21 16:21 Labs/Radiology: Radiology Impressions Abdomen/Pelvis CT 09/28/21 15:55 IMPRESSION: 1. Interval minimal biliary ductal dilatation. Continued gallbladder distension but no calcified gallstones. No acute finding elsewhere in the peritoneal cavity. 2. Interval decrease in size of the small left infraumbilical anterior abdominal wall mass and disappearance of the gas bubbles from within it. Interval disappearance of the right pleural fluid and right lower lobe atelectasis. Other findings detailed above. COMMENTS: Consistent with the [employer]'s Incidental Findings Committee white paper (J Am Javed Radiol 2018): Any incidental renal lesion less than 1 cm or classified as too small to characterize, or any incidental cystic renal lesion characterized as simple-appearing, is likely benign. No follow-up imaging is recommended for these lesions per consensus recommendations based on imaging criteria. Abdomen Ultrasound 09/28/21 19:28 IMPRESSION: 1. Cholelithiasis. Positive sonographic Cross's sign, but no wall thickening to suggest acute cholecystitis. CBD at the upper limits of normal. 2. Other visualized structures within normal limits. Laboratory Results WBC 5.4 10^3/uL (4.0-10.0) 09/28/21 15:22 RBC 4.57 10^6/uL (4.1-5.3) 09/28/21 15:22 Hgb 14.3 g/dL (11.5-15.3) 09/28/21 15:22 Hct 42.3 % (37.0-47.0) 09/28/21 15: MCV 92.6 fl (81-99) 09/28/21 15:22 MCH 31.3 pg (28.0-34.0) 09/28/21 15: MCHC 33.8 g/dL (30.0-36.0) 09/28/21 15: RDW 13.1 % (12.1-15.1) 09/28/21 15:22 Plt Count 264 10^3/cmm (130-400) 09/28/21 15: MPV 10.0 fL (7.4-10.4) 09/28/21 15: Neut % (Auto) 51.7 % 09/28/21 15:22 Lymph % (Auto) 35.6 % 09/28/21 15: Walsh % (Auto) 8.4 % 09/28/21 15:22 Eos % (Auto) 1.9 % 09/28/21 15:22 Baso % (Auto) 0.7 % 09/28/21 15: Neut # (Auto) 2.77 10^3/uL (1.8-7.7) 09/28/21 15: Lymph # (Auto) 1.9 10^3/uL (0.8-4.8) 09/28/21 15:22 Walsh # (Auto) 0.5 10^3/uL (0.2-0.9) 09/28/21 15: Eos # (Auto) 0.1 10^3/uL (0.0-0.8) 09/28/21 15:22 Baso # (Auto) 0.0 10^3/uL (0.0-0.1) 09/28/21: Nucleated RBC % (auto) 0 % 09/28/21: Nucleated RBCs # 0.0 /100WBC 09/28/21 15:22 Sodium 136 mmol/L (136-145) 09/28/21 16:21 Potassium 3.9 mmol/L (3.5-5.1) 09/28/21 16:21 Chloride 103 mmol/L (98-107) 09/28/21 16:21 Carbon Dioxide 20 mmol/L (22-29) L 09/28/21 16:21 Anion Gap 16.9 (5-19) 09/28/21 16:21 BUN 13 mg/dL (6-20) 09/28/21 16:21 Creatinine 0.5 mg/dL (0.5-0.9) 09/28/21 16:21 GFR Calculation 138.1 mL/min (90-130) H 09/28/21 16:21 Glucose 85 mg/dL (65-115) 09/28/21 16:21 Calculated Osmolality 281 mOsm/kg (285-295) L 09/28/21 16:21 Calcium 9.3 mg/dL (8.5-10.5) 09/28/21 16:21 Total Bilirubin 0.3 mg/dL (0.15-1.2) 09/28/21 16:21 AST 12 U/L (0-32) 09/28/21 16:21 ALT 10 U/L (0-33) 09/28/21 16:21 Alkaline Phosphatase 108 IU/L (35-105) H 09/28/21 16:21 Total Protein 7.1 g/dL (6.6-8.7) 09/28/21 16:21 Albumin 4.2 g/dL (3.5-5.2) 09/28/21 16:21 Globulin 2.9 g/dL (1.3-4.6) 09/28/21 16:21 Lipase 22 U/L (13-60) 09/28/21 16:21 Urine Color Yellow (Yellow) 09/28/21 15:40 Urine Appearance Clear (CLEAR) 09/28/21 15:40 Urine pH 7 (5-7) 09/28/21 15:40 Ur Specific Magnolia 1.010 (1.005-1.030) 09/28/21 15:40 Urine Protein Neg (Negative) 09/28/21 15:40 Urine Glucose (UA) Norm (Normal) 09/28/21 15:40 Urine Ketones Negative (Negative) 09/28/21 15:40 Urine Blood Neg (Negative) 09/28/21 15:40 Urine Nitrate Negative (Negative) 09/28/21 15:40 Urine Bilirubin Neg (Negative) 09/28/21 15:40 Urine Urobilinogen Norm mg/dL (Negative) 09/28/21 15:40 Ur Leukocyte Esterase Negative (Negative) 09/28/21 15:40 Urine HCG, Qual Negative (Negative) 09/28/21 15:40 Discharge Plan Discharge Patient Disposition: Home Clinical Impression: Abdominal pain, Constipation, Gallstones Condition: Stable Prescriptions: New oxycodone 5 mg tablet 5 mg PO Q6H PRN (Reason: pain) Qty: 10 0RF No Action topiramate 100 mg tablet See Rx Instructions .ROUTE .COMPLEX Rx Instructions: 100mg po in the morning and 200mg po in the evening cholecalciferol (vitamin D3) [Vitamin D3] 25 mcg (1,000 unit) capsule 3,000 unit PO DAILY pantoprazole 20 mg tablet,delayed release (DR/EC) 20 mg PO QAM (DME) Custom molded orthotics See Rx Instructions .Route .MEDSUPPLY Qty: 1 0RF Rx Instructions: As directed fluoxetine 60 mg tablet 60 mg PO DAILY 30 Days Qty: 30 3RF olanzapine 10 mg tablet 10 mg PO BEDTIME 30 Days Qty: 30 3RF aspirin 81 mg Tablet,Delayed Release (Dr/Ec) 81 mg PO DAILY PRN (Reason: Headache) ferrous sulfate [iron] 325 mg (65 mg iron) Tablet 325 mg PO .THREE TIMES A WEEK spironolactone 50 mg tablet 50 mg PO QAM minocycline 50 mg tablet 50 mg PO BEDTIME Multivitamin Gummies 200 mcg Tablet,Chewable 1 tab PO QAM cetirizine [Zyrtec] 10 mg Tablet 10 mg PO QAM valacyclovir 500 mg tablet See Rx Instructions .ROUTE .COMPLEX Rx Instructions: FOR OUTBREAKS TAKE ONE TAB EVERY 12 HOURS FOR 3 DAYS FOR MAINTENACNE TAKE ONE TAB DAILY metoclopramide HCl 10 mg tablet 10 mg PO Q8H PRN (Reason: with baby aspirin as need for migrainee headache) Probiotic Blend 2 billion cell-50 mg Capsule 1 cap PO DAILY Rx Instructions: give with meal/snack magnesium citrate 100 mg Capsule 200 mg PO BEDTIME levothyroxine 100 mcg Tablet 100 mcg PO QAM Percocet 5-325 mg tablet 1 tab PO Q8H PRN (Reason: abdominal pain) Qty: 9 0RF Discharge Orders: Discharge ED (Routine); Ordered 09/28/21 Ordered By: Harpreet Manzano Referrals: Vandana Victoria [Primary Care Provider] - Discharge Diet: Advance as tolerated and Clear Liquid Discharge Activity: Increase activity as tolerated Patient Instructions: Constipation (ED), Gallstones (ED), Abdominal Pain (ED), Opioid Safety Activity Restrictions/Additional Instructions: Thank you for visiting the emergency department. You were seen and evaluated for abdominal pain. The exact cause of your symptoms is unclear though may be related to normal postoperative pain, constipation, or other causes. This does not require hospitalization at this time. Please follow-up with your operating surgeon. You do have constipation and I recommend [id number] stool softeners. You may use your typical regimen or MiraLAX 3 times per day with goals of having multiple soft stools per day. As discussed you do have fluid in your gallbladder as well as to gallstones though no evidence of infection of your gallbladder. Please return to the emergency department for uncontrolled pain, fevers, recurrent nausea vomiting, severe right upper quadrant pain, or anything else that you are concerned about a feel needs emergency department evaluation. Sign Out Sign Out Data: Patient Sign Out occurred on 09/28/21 at 18:20. Patient's care was discussed, and care was transferred from to Harpreet Manzano MD. Coding Level of Care Code ED Tool Room Gear Machine Operator for Chg Fwd Exam Detailed
[2021-09-28 15:44] LABS: Basophils % 0.7 %; Eosinophils # 0.1 10^3/uL (0.0-0.8); Eosinophils % 1.9 %; Hematocrit 42.3 % (37.0-47.0); Hemoglobin 14.3 g/dL (11.5-15.3); Lymphocytes # 1.9 10^3/uL (0.8-4.8); Lymphocytes % 35.6 %; Mean Corpuscular HGB Conc 33.8 g/dL (30.0-36.0); Mean Corpuscular Hemoglobin 31.3 pg (28.0-34.0); Mean Corpuscular Volume 92.6 fl (81-99); Monocytes # 0.5 10^3/uL (0.2-0.9); Monocytes % 8.4 %; Neutrophils # 2.77 10^3/uL (1.8-7.7); Neutrophils % 51.7 %; Nucleated Red Blood Cells % 0 %; Platelet Count 264 10^3/cmm (130-400); Red Blood Count 4.57 10^6/uL (4.1-5.3); Red Cell Distribution Width 13.1 % (12.1-15.1); White Blood Count 5.4 10^3/uL (4.0-10.0)
[2021-09-28 15:50] VITALS: RESP 15
[2021-09-28] MEDS: morphine 4 mg/mL SDV 1 mL IVP (15:50)
--- NOTE | 2021-09-28 15:55 | CTR_ITS ---
PROCEDURE INFORMATION: Exam: CT Abdomen And Pelvis With Contrast Exam date and time: 09/28/2021 6:05 PM Age: 36 years old Clinical indication: Abdominal pain; Localized; Right lower quadrant (rlq); Prior surgery; Surgery date: 1-6 months; Patient HX: Patient stated that 2 days ago she started having rlq pain and has got worse since. Patient reported that on 09-08-21 she had her appendix removed and later was treated due to an infection of surgical site. ; Additional info: Abd pain TECHNIQUE: Imaging protocol: Computed tomography of the abdomen and pelvis with contrast. Radiation optimization: All CT scans at this facility use at least one of these dose optimization techniques: automated exposure control; mA and/or kV adjustment per patient size (includes targeted exams where dose is matched to clinical indication); or iterative reconstruction. Contrast material: OMNIPAQUE 350; Contrast volume: 90 ml; Contrast route: INTRAVENOUS (IV); COMPARISON: CT angio chest w abd pel w con 09/19/2021 10:40 PM RADIATION DOSE METRICS: Total DLP (mGy-cm): 594.06 FINDINGS: Lungs: Interval disappearance of the right lower lobe atelectasis. Pleural spaces: Interval disappearance of the minimal right pleural fluid. Liver: Liver still unremarkable. Gallbladder and bile ducts: Continued gallbladder distension with a Phrygian cap configuration. Still no calcified gallstones. Interval minimal biliary ductal dilatation. Pancreas: Pancreas still unremarkable. Spleen: Still no splenomegaly. Adrenal glands: Still no adrenal mass. Kidneys and ureters: Continued 8 mm intracortical mass in the lower right kidney, too small to characterize. Still no hydronephrosis. Stomach and bowel: Medium-sized diverticulum of the 3rd portion of the duodenum still likely. Still no gastric distension. Still no bowel obstruction. Continued mild elongation of the sigmoid colon and elongation of the transverse colon into the pelvis. Appendix: History of an appendectomy. Intraperitoneal space: Still no free air. No suggestion of an intra-abdominal abscess. Vasculature: Still unremarkable. No abdominal aortic aneurysm. Lymph nodes: No interval suspicious lymph nodes. Urinary bladder: Unremarkable as visualized. Reproductive: Unremarkable as visualized. Bones/joints: Unremarkable. No acute fracture. Soft tissues: Bilateral breast implants again evident. Interval decrease in size of the small mass in the left parasagittal infraumbilical anterior abdominal wall and disappearance of the gas bubbles from within it. Interval clearance of the haziness from the subcutaneous fat in this area and around the umbilicus, also. Continued suggestion of prior injections in the anterior abdominal wall. CT/CT abdomen pelvis w con* [id number] IMPRESSION: 1. Interval minimal biliary ductal dilatation. Continued gallbladder distension but no calcified gallstones. No acute finding elsewhere in the peritoneal cavity. 2. Interval decrease in size of the small left infraumbilical anterior abdominal wall mass and disappearance of the gas bubbles from within it. Interval disappearance of the right pleural fluid and right lower lobe atelectasis. Other findings detailed above. COMMENTS: Consistent with the [employer]'s Incidental Findings Committee white paper (J Am Javed Radiol 2018): Any incidental renal lesion less than 1 cm or classified as too small to characterize, or any incidental cystic renal lesion characterized as simple-appearing, is likely benign. No follow-up imaging is recommended for these lesions per consensus recommendations based on imaging criteria.
[2021-09-28 15:57] LABS: Add Urine Microscopic? NO; Charge for UA Resulting for Rev
[2021-09-28 16:27] LABS: Bilirubin Urine Neg (Negative); Blood Urine Neg (Negative); Glucose Urine UA Norm (Normal); Ketones Urine Negative (Negative); Leukocyte Esterase Urine Negative (Negative); Nitrate Urine Negative (Negative); Protein Urine Neg (Negative); Urine Appearance Clear (CLEAR); Urine Color Yellow (Yellow); Urobilinogen Urine Norm (Negative); pH Urine 7 (5-7)
[2021-09-28 16:56] LABS: Alanine Aminotransferase 10 U/L (0-33); Albumin Level 4.2 g/dL (3.5-5.2); Alkaline Phosphatase 108 IU/L (35-105); Aspartate Amino Transferase 12 U/L (0-32); Blood Urea Nitrogen 13 mg/dL (6-20); Calcium 9.3 mg/dL (8.5-10.5); Carbon Dioxide 20 mmol/L (22-29); Chloride 103 mmol/L (98-107); Globulin 2.9 g/dL (1.3-4.6); Glomerular Filtration Rate 138.1 mL/min (90-130); Glucose 85 mg/dL (65-115); Lipase 22 U/L (13-60); Osmolality Calculated 281 mOsm/kg (285-295); Sodium 136 mmol/L (136-145); Total Bilirubin 0.3 mg/dL (0.15-1.2); Total Protein 7.1 g/dL (6.6-8.7)
[2021-09-28 16:58] LABS: Anion Gap 16.9 (5-19); Potassium 3.9 mmol/L (3.5-5.1)
[2021-09-28] MEDS: iohexol 350 mg/mL 100 mL Btl IV (18:16)
[2021-09-28] MEDS: sodium chloride 0.9% 1,000 ML 999 ML IV (18:27)
[2021-09-28] MEDS: ketorolac 30 mg/mL INJ IVP (18:28)
[2021-09-28 18:31] VITALS: BP 130/94; PULSE 76; RESP 14; TEMP 36.9; O2SAT 100
--- NOTE | 2021-09-28 19:28 | USR_ITS ---
PROCEDURE INFORMATION: Exam: US Abdomen, Limited; Right Upper Quadrant Exam date and time: 09/28/2021 7:40 PM Age: 36 years old Clinical indication: Abdominal pain; Other: RT flank, ruq, rlq; Prior surgery; Surgery date: <1 month; Patient HX: Aleksander 09/08/21; Additional info: Ruq, enlarged gb and cbd TECHNIQUE: Imaging protocol: Real time ultrasound of the abdomen with image documentation. Limited exam focused on the right upper quadrant. COMPARISON: CT abdomen pelvis w con* [id number] 09/28/2021 6:05 PM FINDINGS: Liver: No liver enlargement or apparent mass. Normal blood flow in the main portal vein. Unremarkable hepatic veins. Gallbladder: Mobility of the 2 shadowing stones in the folded and distended gallbladder, 1 measuring about 1.4 cm and the other about 1.3 cm in maximal diameter. Anterior gallbladder wall thickness about 2.2 mm. Positive sonographic Cross's sign. Biliary ducts: Proximal CBD 6.2 mm. Middle to distal CBD 5.9 mm. Distal end of the CBD not visible due to bowel gas. Pancreas: Normal size and echogenicity of the pancreatic neck and adjacent head and body. Obscuration of the rest of the pancreas by bowel gas. Right kidney: Right kidney approximately 9.2 x 4.3 x 5.7 cm with no hydronephrosis or apparent mass or shadowing stone. Aorta: No aortic aneurysm. Intraperitoneal space: No apparent free fluid. US/US abdomen limited [id number] IMPRESSION: 1. Cholelithiasis. Positive sonographic Cross's sign, but no wall thickening to suggest acute cholecystitis. CBD at the upper limits of normal. 2. Other visualized structures within normal limits.
[2021-09-28] MEDS: fentaNYL 50 mcg/mL INJ 2mL IVP ×2 (19:41→21:13)
[2021-09-28 22:06] VITALS: BP 130/94; PULSE 76; RESP 14; TEMP 36.9; O2SAT 100
--- NOTE | 2021-09-30 14:11 | DCPLANNER ---
Addendum entered by Janine Mcallister 10/16/21 16:28: Patient had a follow up appointment scheduled with general surgery - patient did attend appointment. Addendum entered by Janine Mcallister 10/01/21 13:51: Patient has a follow up appointment scheduled for Saturday, October 09, 2021 at 8:[address] Cruz at general surgery. Clinic will call patient with appointment information. Original Note: manager call center had message to schedule a follow up appointment for patient with general surgery. manager call center sent patients information to the front office staff at general surgery. Patients information will be printed and reviewed. Clinic will call patient with appointment information.
== END 2021-09-28 21:30 | disposition home or self-care (01) ==
PROVIDERS: Emergency Medicine; Family Medicine; Emergency Provider Emergency Medicine; PCP Internal Medicine
DX: K59.00 Constipation, unspecified (principal); K80.80 Other cholelithiasis without obstruction; Z79.82 Long term (current) use of aspirin; Z87.891 Personal history of nicotine dependence
CPT/HCPCS: 36415; 74177; 76705; 80053; 81003; 81025; 83690; 85025; 96361; 96374; 96375; 96376; 99285; J1885; J2270; J3010; J7030; Q9967

== ENCOUNTER 2021-10-08 19:38 | Emergency (ER) | payer BC, MEDICAID, SELFPAY ==
--- NOTE | 2021-10-08 19:44 | USR_ITS ---
PROCEDURE INFORMATION: Exam: US Abdomen, Limited; Right Upper Quadrant Exam date and time: 10/08/2021 8:25 PM Age: 36 years old Clinical indication: Abdominal pain; Other: Rlq; Prior surgery; Surgery date: <1 month; Surgery type: Patient had appendicitis in August 2021, appendectomy September 08, 2021, subsequent abscess in area of appendectomy. ; Additional info: Abd pain TECHNIQUE: Imaging protocol: Real time ultrasound of the abdomen with image documentation. Limited exam focused on the right upper quadrant. COMPARISON: US abdomen limited [id number] 09/28/2021 7:40 PM FINDINGS: Liver: Unremarkable. Gallbladder: Contracted (patient not NPO) with stones. No gallbladder wall thickening or pericholecystic fluid. Negative sonographic Cross's sign, as per the performing vp information technology. Biliary ducts: Normal. No stones. No dilation. Pancreas: Unremarkable as visualized. Right kidney: No mass. No definite stones. No hydronephrosis. US/US gall bladder [id number] IMPRESSION: Cholelithiasis without gallbladder wall thickening or pericholecystic fluid. Negative sonographic Cross's sign, as per the vp information technology.
[2021-10-08 19:46] VITALS: BMI 25.4
[2021-10-08 19:50] VITALS: BP 126/72; PULSE 97; RESP 16; TEMP 36.8; O2SAT 98
[2021-10-08 20:15] VITALS: RESP 16; O2SAT 99
[2021-10-08] MEDS: morphine 4 mg/mL SDV 1 mL IVP (20:15)
[2021-10-08] MEDS: sodium chloride 0.9% 1,000 ML 999 ML IV (20:16)
[2021-10-08 20:19] LABS: Add Urine Microscopic? NO; Charge for UA Resulting for Rev
[2021-10-08 20:20] LABS: Basophils % 0.4 %; Eosinophils # 0.1 10^3/uL (0.0-0.8); Eosinophils % 1.8 %; Hematocrit 40.8 % (37.0-47.0); Hemoglobin 13.4 g/dL (11.5-15.3); Lymphocytes # 2.4 10^3/uL (0.8-4.8); Mean Corpuscular HGB Conc 32.8 g/dL (30.0-36.0); Mean Corpuscular Hemoglobin 31.2 pg (28.0-34.0); Mean Corpuscular Volume 95.1 fl (81-99); Mean Platelet Volume 10.2 fL (7.4-10.4); Monocytes # 0.6 10^3/uL (0.2-0.9); Monocytes % 10.1 %; Neutrophils # 2.39 10^3/uL (1.8-7.7); Neutrophils % 43.3 %; Nucleated Red Blood Cells % 0 %; Platelet Count 192 10^3/cmm (130-400); Red Blood Count 4.29 10^6/uL (4.1-5.3); Red Cell Distribution Width 13.4 % (12.1-15.1); White Blood Count 5.5 10^3/uL (4.0-10.0)
--- NOTE | 2021-10-08 20:25 | ED_ITS ---
HPI - General Adult General: Chief complaint: Abdominal Pain Stated complaint: gallbladder attack Time Seen by Provider: 10/08/21 19:43 History of Present Illness: Patient is a 36-year-old female with with a history of cholelithiasis, recent laparoscopic appendectomy complicated by cecum abscess presenting to the emergency with complaints of right-sided abdominal pain. Patient tells me on 09/08/2021, patient underwent laparoscopic appendectomy with Dr. Cruz. Shortly after undergoing appendectomy, patient has had right lower quadrant abdominal pain. On 08/23/2021, patient was diagnosed with cecal abscess. Patient was admitted to hospital for IV antibiotics. Patient was seen again on 09/28/2021 with improvement of lesion. Patient then presents the emergency room today with complaints of right sided abdominal pain. Patient complains of right lower quadrant and right flank abdominal pain. Patient tells me that she has not been able to tolerate anything by mouth. Sondra ent reports nausea but denies vomiting. Patient denies any fever or chills, diarrhea/melena/hematochezia. Patient has no prior history renal colic. Denies any any urinary complaints. Patient has no new vaginal discharge. Patient denies any cough, runny nose, sore throat, chest pain or shortness of breath Onset: today Duration:ongoing Location:home Severity:moderate Associated symptoms: Reports nausea; Deny chest pain, dyspnea, rash, palpitations or vomiting Review of Systems Const: Denies: fever(s) or chills Eyes: Denies: change in vision ENMT: Denies: mouth pain Card: Denies: chest pain or palpitations Resp: Denies: dyspnea or non-productive cough GI: Reports: abdominal pain (+R sided abdominal pain) and nausea; Denies: vomiting or diarrhea : Denies: dysuria Musc: Denies: extremity pain Skin/Breast: Denies: rash or new lesions Neuro: Denies: weakness in extremities Psych: Reports: other (Normal mood) Abraham/Lymph: Denies: easy bruising PFSH ED PFSH: Medical History Bipolar 2 disorder History of substance use Other supervisor intermediates (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 Other shelter (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 Psychiatric care Surgical History History of appendectomy Social History (Updated 10/08/21 @ 20:53 by Prakash Milan MD) Smoking and tobacco status: former smoker Alcohol intake: never Substance/Drug Use: never Female Reproductive History: Date of last menstrual period: 08/20/21 Physical Exam Const: COMMON NORMALS: alert HENMT: COMMON NORMALS: atraumatic HEAD & SCALP: atraumatic MOUTH: moist mucous membranes not abnormal Eye: COMMON NORMALS: EOMs intact bilaterally and conjunctivae normal CONJUNCTIVA: Yes conjunctivae normal Neck/C-Spine: COMMON NORMALS: full ROM and supple Resp: COMMON NORMALS: normal respiratory effort and clear to auscultation bilaterally AUSCULTATION: clear to auscultation bilaterally Cardio: COMMON NORMALS: regular rate RATE: regular rate GI: COMMON NORMALS: Soft to palpation PALPATION: Yes Soft to palpation OTHER: +Moderate RLQ/R flank TTP. NO guarding rebound, guarding, rigidity. No CVA tenderness to percussion. Neg Cross/Neg McBurney's point tenderness, no suprabupic tenderness to palpation. Extremity: COMMON NORMALS: full ROM Neuro: SENSORIUM/ORIENTATION: Yes alert MOTOR EXAM: No Abnormal motor strength present and Other motor observations present (no focal motor deficits) Psych: COMMON NORMALS: speech normal SPEECH: Yes normal speech MOOD & AFFECT: Yes euthymic mood Course Vital Signs: Vital signs: Vital Signs Temperature 98.2 F 10/08/21 19:50 Pulse Rate 87 10/08/21 21:34 Respiratory Rate 16 10/08/21 21:34 Blood Pressure 117/82 10/08/21 21:34 Pulse Oximetry 99 10/08/21 21:34 Oxygen Delivery Me thod 10/08/21 21:34 MDM - General Adult Medical Decision Making 36-year-old female with a history of cholelithiasis recent laparoscopic appendectomy complicated by cecal abscess presenting to the emergency with complaints of new onset of right lower quadrant abdominal pain since earlier today. Exam, patient is hemodynamically stable. Patient is in moderate distress with moderate amount of tenderness palpation of right lower quadrant. Patient has no guarding or rebound tenderness. Patient has no Cross sign. Lab work-up showed white count 5.5 today. Patient received NS/morphine and Dilaudid with improvement of pain. Presented not showing signs of pericholecystic changes to suggest cholecystitis. CT showed no focal findings. Patient reports pain improved today after IVF and pain medication. No suspicion for other acute intra-abdominal pathology including SBO, biliary pathology, appendicitis, diverticulitis, or other emergent condition requiring surgery. I have given patient follow up with our leather case finisher to be seen by our outpatient by Dr. Campoverde as patient requests for a different surgeon. Patient aware of a call from our leather case finisher to schedule for appointment(s) and verb alizes understanding of the importance of following up. Rx tylenol PRN abd pain, maalox/pepcid PRN dyspepsia, and zofran PRN nausea/vomiting, percocet PRN pain Disposition: Discharge. Patient counseled regarding diagnostic impression, treatment plan. Patient given ED strict return precautions to return for continuation, worsening, or development of new symptoms. Instructed to f/u w/ Dr. Campoverde regarding symptoms today. Patient verbalized understanding. Lab Data : 10/08/21 20:10 10/08/21 20:10 Radiology Impressions Gallbladder Ultrasound 10/08/21 19:44 IMPRESSION: Cholelithiasis without gallbladder wall thickening or pericholecystic fluid. Negative sonographic Cross's sign, as per the carriage feeder. Abdomen/Pelvis CT 10/08/21 20:[address]: [address] evidence of acute intra-abdominal or pelvic pathology. 2. Additional findings, as above. COMMENTS: Consistent with the [employer] [place] [employer]'s Incidental Findings Committee white paper (J Am Javed Radiol 2018): Any incidental renal lesion less than 1 cm or classified as too small to characterize, or any incidental cystic renal lesion characterized as simple-appearing, is likely benign. No follow-up imaging is recommended for these lesions per consensus recommendations based on imaging criteria. Laboratory Results WBC 5.5 10^3/uL (4.0-10.0) 10/08/21 20:10 RBC 4.29 10^6/uL (4.1-5.3) 10/08/21 20:10 Hgb 13.4 g/dL (11.5-15.3) 10/08/21 20:10 Hct 40.8 % (37.0-47.0) 10/08/21 20:10 MCV 95.1 fl (81-99) 10/08/21 20:10 MCH 31.2 pg (28.0-34.0) 10/08/21 20:10 MCHC 32.8 g/dL (30.0-36.0) 10/08/21 20:10 RDW 13.4 % (12.1-15.1) 10/08/21 20:10 Plt Count 192 10^3/cmm (130-400) 10/08/21 20:10 MPV 10.2 fL (7.4-10.4) 10/08/21 20:10 Neut % (Auto) 43.3 % 10/08/21 20:10 Lymph % (Auto) 44.0 % 10/08/21 20:10 Wheeler % (Auto) 10.1 % 10/08/21 20:10 Eos % (Auto) 1.8 % 10/08/21 20:10 Baso % (Auto) 0.4 % 10/08/21 20:10 Neut # (Auto) 2.39 10^3/uL (1.8-7.7) 10/08/21 20:10 Lymph # (Auto) 2.4 10^3/uL (0.8-4.8) 10/08/21 20:10 Wheeler # (Auto) 0.6 10^3/uL (0.2-0.9) 10/08/21 20:10 Eos # (Auto) 0.1 10^3/uL (0.0-0.8) 10/08/21 20:10 Baso # (Auto) 0.0 10^3/uL (0.0-0.1) 10/08/21 20:10 Nucleated RBC % (auto) 0 % 10/08/21 20:10 Nucleated RBCs # 0.0 /100WBC 10/08/21 20:10 Sodium 139 mmol/L (136-145) 10/08/21 20:10 Potassium 4.0 mmol/L (3.5-5.1) 10/08/21 20:10 Chloride 104 mmol/L (98-107) 10/08/21 20:10 Carbon Dioxide 21 mmol/L (22-29) L 10/08/21 20:10 Anion Gap 18.0 (5-19) 10/08/21 20:10 BUN 17 mg/dL (6-20) 10/08/21 20:10 Creatinine 0.6 mg/dL (0.5-0.9) 10/08/21 20:10 GFR Calculation 111.9 mL/min (90-130) 10/08/21 20:10 Glucose 90 mg/dL (65-115) 10/08/21 20:10 Calculated Osmolality 289 mOsm/kg (285-295) 10/08/21 20:10 Calcium 9.2 mg/dL (8.5-10.5) 10/08/21 20:10 Total Bilirubin 0.2 mg/dL (0.15-1.2) 10/08/21 20:10 AST 15 U/L (0-32) 10/08/21 20:10 ALT 16 U/L (0-33) 10/08/21 20:10 Alkaline Phosphatase 123 U/L (35-105) H 10/08/21 20:10 Total Protein 7.1 g/dL (6.6-8.7) 10/08/21 20:10 Albumin 4.4 g/dL (3.5-5.2) 10/08/21 20:10 Globulin 2.7 g/dL (1.3-4.6) 10/08/21 20:10 Lipase 30 U/L (13-60) 10/08/21 20:10 Urine Color Yellow (Yellow) 10/08/21 20:10 Urine Appearance Cloudy (CLEAR) 10/08/21 20:10 Urine pH 7 (5-7) 10/08/21 20:10 Ur Specific [place] 1.010 (1.005-1.030) 10/08/21 20:10 Urine Protein Neg (Negative) 10/08/21 20:10 Urine Glucose (UA) Norm (Normal) 10/08/21 20:10 Urine Ketones Negative (Negative) 10/08/21 20:10 Urine Blood Neg (Negative) 10/08/21 20:10 Urine Nitrate Negative (Negative) 10/08/21 20:10 Urine Bilirubin Neg (Negative) 10/08/21 20:10 Urine Urobilinogen Norm mg/dL (Negative) 10/08/21 20:10 Ur Leukocyte Esterase Negative (Negative) 10/08/21 20:10 Urine HCG, Qual Negative (Negative) 10/08/21 20:10 Imaging Data Other Imaging: Radiologist's impression: [address] [address] [address] Scan Report Signed Patient: Viki Roach Unit #: [id number] : 1985 Age/Sex: 36 / F ADM Date: 10/08/21 Loc: ER Room/Bed: Attending Dr: Ordering Provider/Ordering MD: Prakash Milan MD Date of Service: 10/08/21 Procedure(s): CT abdomen pelvis w con* [id number] Accession Number(s): [id number] Report Number: [id number] PROCEDURE INFORMATION: Exam: CT Abdomen And Pelvis With Contrast Exam date and time: 10/08/2021 9:05 PM Age: 36 years old Clinical indication: Abdominal pain; Localized; Right; Prior surgery; Surgery type: Appy. Breast Patient HX: C/O RT sided abd pain. TECHNIQUE: Imaging protocol: Computed tomography of the abdomen and pelvis with contrast. Axial, coronal and sagittal reformatted images were created and reviewed. Radiation optimization: All CT scans at this facility use at least one of these dose optimization techniques: automated exposure control; mA and/or kV adjustment per patient size (includes targeted exams where dose is matched to clinical indication); or iterative reconstruction. Contrast material: OMNI 350; Contrast volume: 80 ml; Contrast route: INTRAVENOUS (IV);? COMPARISON: CT abdomen pelvis w con* [id number] 09/28/2021 6:05 PM RADIATION DOSE METRICS: Total DLP (mGy-cm): 618.88 FINDINGS: Liver: Unremarkable. Gallbladder and bile ducts: No radiodense gallstones. No biliary ductal dilatation. Pancreas: Unremarkable. Spleen: Unremarkable. Adrenal glands: Normal. No mass. Kidneys and ureters: 7 mm low-density right renal lesion, too small to characterize. Stomach and bowel: Moderate amount of retained stool in the colon. No obstruction. No bowel wall thickening. No pneumatosis. Appendix: Status post appendectomy by history. Intraperitoneal space: No free fluid. No organized fluid collection. No free air. Vasculature: Unremarkable. No aneurysm. Lymph nodes: No pathologically enlarged lymph nodes. Urinary bladder: Unremarkable as visualized. Reproductive: Right ovarian follicles. Bones/joints: No acute osseous abnormality. Soft tissues: Breast implants in place. CT/CT abdomen pelvis w con* [id number]: 1[address] No CT evidence of acute intra-abdominal or pelvic pathology. 2. Additional findings, as above. ? COMMENTS: Consistent with the [employer] [place] [employer]'s Incidental Findings Committee white paper (J Am Javed Radiol 2018): Any incidental renal lesion less than 1 cm or classified as too small to characterize, or any incidental cystic renal lesion characterized as simple-appearing, is likely benign. No follow-up imaging is recommended for these lesions per consensus recommendations based on imaging criteria. ? Dictated By: Ron Matamoros MD Signed By: Ron Matamoros MD Signed Date/Time: 10/08/212154 DD/ 04 [employer] [address] Ultrasound Report Signed Patient: Viki Roach Unit #: [id number] : 1985 Age/Sex: 36 / F ADM Date: 10/08/21 Loc: ER Room/Bed: Attending Dr: Ordering Provider/Ordering MD: Prakash Milan MD Date of Service: 10/08/21 Procedure(s): US gall bladder [id number] Accession Number(s): [id number] Report Number: [id number] PROCEDURE INFORMATION: Exam: US Abdomen, Limited; Right Upper Quadrant Exam date and time: 10/08/2021 8:25 PM Age: 36 years old Clinical indication: Abdominal pain; Other: Rlq; Prior surgery; Surgery date: <1 month; Surgery type: Patient had appendicitis in August 2021, appendectomy September 08, 2021, subsequent abscess in area of appendectomy. ; Additional info: Abd pain TECHNIQUE: Imaging protocol: Real time ultrasound of the abdomen with image documentation. Limited exam focused on the right upper quadrant. COMPARISON: US abdomen limited [id number] 09/28/2021 7:40 PM FINDINGS: Liver: Unremarkable. Gallbladder:? Contracted (patient not NPO) with stones. No gallbladder wall thickening or pericholecystic fluid. Negative sonographic Cross's sign, as per the performing carriage feeder. Biliary ducts: Normal. No stones. No dilation. Pancreas: Unremarkable as visualized. Right kidney: No mass. No definite stones. No hydronephrosis. US/US gall bladder [id number] IMPRESSION: Cholelithiasis without gallbladder wall thickening or pericholecystic fluid. ?Negative sonographic Cross's sign, as per the carriage feeder. ? Dictated By: Ron Matamoros MD Signed By: Ron Matamoros MD Signed Date/Time: 10/08/212147 DD/ 24 Discharge Plan Discharge Patient Disposition: Home Clinical Impression: Abdominal pain Condition: Stable Prescriptions: New Percocet 5-325 mg tablet 1 tab PO Q8H PRN (Reason: abdominal pain) Qty: 9 0RF No Action topiramate 100 mg tablet See Rx Instructions .ROUTE .COMPLEX Rx Instructions: 100mg po in the morning and 200mg po in the evening cholecalciferol (vitamin D3) [Vitamin D3] 25 mcg (1,000 unit) capsule 3,000 unit PO DAILY pantoprazole 20 mg tablet,delayed release (DR/EC) 20 mg PO QAM (DME) Custom molded orthotics See Rx Instructions .Route .MEDSUPPLY Qty: 1 0RF Rx Instructions: As directed fluoxetine 60 mg tablet 60 mg PO DAILY 30 Days Qty: 30 3RF olanzapine 10 mg tablet 10 mg PO BEDTIME 30 Days Qty: 30 3RF aspirin 81 mg Tablet,Delayed Release (Dr/Ec) 81 mg PO DAILY PRN (Reason: Headache) ferrous sulfate [iron] 325 mg (65 mg iron) Tablet 325 mg PO .THREE TIMES A WEEK spironolactone 50 mg tablet 50 mg PO QAM minocycline 50 mg tablet 50 mg PO BEDTIME Multivitamin Gummies 200 mcg Tablet,Chewable 1 tab PO QAM cetirizine [Zyrtec] 10 mg Tablet 10 mg PO QAM valacyclovir 500 mg tablet See Rx Instructions .ROUTE .COMPLEX Rx Instructions: FOR OUTBREAKS TAKE ONE TAB EVERY 12 HOURS FOR 3 DAYS FOR MAINTENACNE TAKE ONE TAB DAILY metoclopramide HCl 10 mg tablet 10 mg PO Q8H PRN (Reason: with baby aspirin as need for migrainee headache) Probiotic Blend 2 billion cell-50 mg Capsule 1 cap PO DAILY Rx Instructions: give with meal/snack magnesium citrate 100 mg Capsule 200 mg PO BEDTIME oxycodone 5 mg tablet 5 mg PO Q6H PRN (Reason: pain) Qty: 10 0RF levothyroxine 100 mcg Tablet 100 mcg PO QAM Discharge Orders: Discharge ED (Routine); Ordered 10/08/21 Ordered By: Prakash Milan Referrals: Vandana Victoria [Primary Care Provider] - Discharge Diet: Advance as tolerated Discharge Activity: Increase activity as tolerated Patient Instructions: Abdominal Pain (ED) Activity Restrictions/Additional Instructions: Our leather case finisher will have you follow-up with Dr. Campoverde in the next few days. You would be expected to have a phone call with our leather case finisher who will put you on the schedule. You can expect a call from us in the next 2-3 days. If you don't hear from us, call us back in the emergency room at [phone]. Please come back if you have any worsening abdominal pain, fever or chills, nausea or vomiting, diarrhea, blood in the stool, inability hold down liquid or solids, or any new concerning complaints. Stand Alone Forms: Work/School Release Coding Level of Care Code ED Rolling Machine Tender for Anag Fwd Exam Comprehensive
[2021-10-08 20:35] LABS: Bilirubin Urine Neg (Negative); Blood Urine Neg (Negative); Glucose Urine UA Norm (Normal); Ketones Urine Negative (Negative); Leukocyte Esterase Urine Negative (Negative); Nitrate Urine Negative (Negative); Protein Urine Neg (Negative); Urine Appearance Cloudy (CLEAR); Urine Color Yellow (Yellow); Urobilinogen Urine Norm (Negative); pH Urine 7 (5-7)
[2021-10-08 20:42] LABS: Alanine Aminotransferase 16 U/L (0-33); Albumin Level 4.4 g/dL (3.5-5.2); Alkaline Phosphatase 123 U/L (35-105); Aspartate Amino Transferase 15 U/L (0-32); Blood Urea Nitrogen 17 mg/dL (6-20); Calcium 9.2 mg/dL (8.5-10.5); Carbon Dioxide 21 mmol/L (22-29); Chloride 104 mmol/L (98-107); Globulin 2.7 g/dL (1.3-4.6); Glomerular Filtration Rate 111.9 mL/min (90-130); Glucose 90 mg/dL (65-115); Lipase 30 U/L (13-60); Osmolality Calculated 289 mOsm/kg (285-295); Sodium 139 mmol/L (136-145); Total Bilirubin 0.2 mg/dL (0.15-1.2); Total Protein 7.1 g/dL (6.6-8.7)
--- NOTE | 2021-10-08 20:48 | CTR_ITS ---
PROCEDURE INFORMATION: Exam: CT Abdomen And Pelvis With Contrast Exam date and time: 10/08/2021 9:05 PM Age: 36 years old Clinical indication: Abdominal pain; Localized; Right; Prior surgery; Surgery type: Appy. Breast aug. Patient HX: C/O RT sided abd pain. TECHNIQUE: Imaging protocol: Computed tomography of the abdomen and pelvis with contrast. Axial, coronal and sagittal reformatted images were created and reviewed. Radiation optimization: All CT scans at this facility use at least one of these dose optimization techniques: automated exposure control; mA and/or kV adjustment per patient size (includes targeted exams where dose is matched to clinical indication); or iterative reconstruction. Contrast material: OMNI 350; Contrast volume: 80 ml; Contrast route: INTRAVENOUS (IV); COMPARISON: CT abdomen pelvis w con* [id number] 09/28/2021 6:05 PM RADIATION DOSE METRICS: Total DLP (mGy-cm): 618.88 FINDINGS: Liver: Unremarkable. Gallbladder and bile ducts: No radiodense gallstones. No biliary ductal dilatation. Pancreas: Unremarkable. Spleen: Unremarkable. Adrenal glands: Normal. No mass. Kidneys and ureters: 7 mm low-density right renal lesion, too small to characterize. Stomach and bowel: Moderate amount of retained stool in the colon. No obstruction. No bowel wall thickening. No pneumatosis. Appendix: Status post appendectomy by history. Intraperitoneal space: No free fluid. No organized fluid collection. No free air. Vasculature: Unremarkable. No aneurysm. Lymph nodes: No pathologically enlarged lymph nodes. Urinary bladder: Unremarkable as visualized. Reproductive: Right ovarian follicles. Bones/joints: No acute osseous abnormality. Soft tissues: Breast implants in place. CT/CT abdomen pelvis w con* [id number]: 1. No CT evidence of acute intra-abdominal or pelvic pathology. 2. Additional findings, as above. COMMENTS: Consistent with the [place] [employer]'s Incidental Findings Committee white paper (J Am Javed Radiol 2018): Any incidental renal lesion less than 1 cm or classified as too small to characterize, or any incidental cystic renal lesion characterized as simple-appearing, is likely benign. No follow-up imaging is recommended for these lesions per consensus recommendations based on imaging criteria.
[2021-10-08 21:01] VITALS: RESP 16; O2SAT 97
[2021-10-08] MEDS: HYDROmorphone 1 mg/mL INJ 1 mL 0.5 MG IVP (21:01)
[2021-10-08] MEDS: iohexol 350 mg/mL 100 mL Btl IV (21:06)
[2021-10-08 21:34] VITALS: BP 117/82; PULSE 87; RESP 16; O2SAT 99
[2021-10-08 22:41] VITALS: RESP 14; O2SAT 98
[2021-10-08] MEDS: oxyCODONE-APAP 5-325 mg Tablet 1 TAB PO (22:41)
[2021-10-08 22:43] VITALS: PULSE 94; RESP 16; O2SAT 97
== END 2021-10-08 22:45 | disposition home or self-care (01) ==
PROVIDERS: Emergency Provider Emergency Medicine; PCP Internal Medicine
DX: R10.9 Unspecified abdominal pain (principal); Z79.82 Long term (current) use of aspirin; Z87.891 Personal history of nicotine dependence
CPT/HCPCS: 74177; 76705; 80053; 81003; 81025; 83690; 85025; 96361; 96374; 96375; 99285; J1170; J2270; J7030; Q9967

== ENCOUNTER → 2021-10-12 08:19 | Outpatient (BNVA) | payer BC, MEDICAID, SELFPAY | PROVIDERS: PCP Internal Medicine; Visit Provider Surgery | DX: R10.9 Unspecified abdominal pain (principal); K80.20 Calculus of gallbladder without cholecystitis without obstruction | CPT/HCPCS: 99213 ==

== ENCOUNTER 2021-10-18 16:07 | Emergency (ER) | payer BC, MEDICAID, SELFPAY ==
[2021-10-18 16:18] VITALS: BP 119/83; PULSE 100; RESP 18; TEMP 36.6; O2SAT 98; BMI 23.6
--- NOTE | 2021-10-18 18:13 | ED_ITS ---
HPI - Abdominal Pain General: Chief Complaint: Abdominal Pain Stated Complaint: abd pains Time Seen by Provider: 10/18/21 18:13 Source: patient Mode of arrival: ambulatory Limitations: no limitations History of Present Illness: Patient is a nice 36-year-old female presents to ED today with complaint of right upper quadrant abdominal pain. Patient tells me she was told she has cholelithiasis and is scheduled for cholecystectomy November 02. She states her pain had been fairly well controlled with diet however earlier today she had chicken strips, irish fries, ice cream, and a soda and states since then her pain has been severe and she has had some diarrhea. No fevers. MD elicited complaint: abdominal pain Onset (ago): hour(s) Pain Consistency: constant Location: RUQ Severity: severe Quality: sharp Radiation: none Migration to: no migration Exacerbating factors: eating Relieving factors: nothing Associated Symptoms: Reports diarrhea; Denies chills, dysuria, fever(s), hematuria, nausea and vomiting Related Data: Date of Last Menstrual Period: 10/18/21 Patient : No Review of Systems Const: Denies: fever(s), chills, body aches, fatigue or malaise Card: Denies: chest pain Resp: Denies: dyspnea GI: Reports: abdominal pain and diarrhea; Denies: nausea or vomiting : Denies: flank pain, dysuria or hematuria Musc: Denies: neck pain, back pain, extremity pain or joint pain Skin/Breast: Denies: rash Neuro: Denies: headache(s), numbness in extremities, weakness in extremities or sensory changes [facility] ED PFSH: Medical History Bipolar 2 disorder History of substance use 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 Other nursing home (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 Psychiatric care Surgical History History of appendectomy Social History Smoking and tobacco status: former smoker Alcohol intake: never Female Reproductive History: Date of last menstrual period: 10/18/21 Physical Exam Const: COMMON NORMALS: no acute distress, average body habitus, patient orie nted x3, no limitations, healthy appearing, alert and well nourished GENERAL APPEARANCE: cooperative ORIENTATION/CONSCIOUSNESS: Yes awake, Yes oriented to person, Yes oriented to place and Yes oriented to time HENMT: COMMON NORMALS: normocephalic and atraumatic HEAD & SCALP: normal to inspection, normocephalic and atraumatic Resp: COMMON NORMALS: normal respiratory effort and clear to auscultation bilaterally AUSCULTATION: clear to auscultation bilaterally Cardio: COMMON NORMALS: regular rate and regular rhythm RATE: regular rate RHYTHM: regular rhythm GI: COMMON NORMALS: Normal to inspection, nondistended, normoactive bowel sounds present, Soft to palpation, No hepatosplenomegaly present and no masses INSPECTION: Yes normal to inspection AUSCULTATION: Yes normoactive bowel sounds PALPATION: Yes Soft to palpation, Yes Tenderness to palpation present (GI) Details: RUQ, No Guarding due to palpation present (GI), No Rigid due to p alpation and Yes No hepatosplenomegaly present : COMMON NORMALS: Yes no CVA tenderness BLADDER/KIDNEY EXAM: Yes no CVA tenderness Back/Pelvis: COMMON NORMALS: no CVA tenderness Extremity: COMMON NORMALS: normal to inspection GENERAL: Yes normal exam except as noted Neuro: PEDRO COMA SCALE: document GCS findings [place] coma scale eye opening: Spontaneous [place] coma scale verbal response: Orientated [place] coma scale motor response: Obey commands [place] coma scale total score: 15 COMMON NORMALS: patient oriented x3 SENSORIUM/ORIENTATION: Yes alert, Yes oriented t o person, Yes oriented to place and Yes oriented to time Skin: COMMON NORMALS: no rashes or lesions noted GENERAL SKIN EXAM: no rashes or lesions noted Course Vital Signs: Vital signs: Vital Signs Temperature 97.8 F 10/18/21 16:18 Pulse Rate 82 10/18/21 18:40 Respiratory Rate 19 H 10/18/21 20:52 Blood Pressure 124/81 10/18/21 18:40 Pulse Oximetry 98 10/18/21 19:27 Oxygen Delivery Me thod 10/18/21 18:40 MDM - Abdominal Pain Medical Decision Making Patient here with RUQ abdominal pain following eating chicken strips, irish fries, ice cream, and a soda. Patient states she has known cholecystitis and is scheduled for an elective cholecystectomy with Dr. Cruz on 11/02. Patient's vital signs are normal. Blood work shows a normal white count. AST/ALT and total bili are normal. She has a normal lipase. Ultrasound showing choleli thiasis with no evidence for cholecystitis. At this time I do not see any indication for emergent cholecystectomy. We will prescribe a small amount of pain/nausea medications and recommend she follow-up with Dr. Cruz (possibly sooner than scheduled if pain persists). Return to ED precautions given. Lab Data : 10/18/21 18:19 10/18/21 18:19 Labs/Radiology: Radiology Impressions Gallbladder Ultrasound 10/18/21 18:30 IMPRESSION: 1. Cholelithiasis, negative for definite ultrasonographic evidence of cholecystitis. Nuclear medicine HIDA scan could be performed if concern for cholecystitis remains. 2. Common bile duct is somewhat prominent at 5.8 mm without obstructing lesion, MRCP could potentially further evaluate this. Laboratory Results WBC 5.9 10^3/uL (4.0-10.0) 10/18/21 18:19 RBC 4.52 10^6/uL (4.1-5.3) 10/18/21 18:19 Hgb 13.8 g/dL (11.5-15.3) 10/18/21 18:19 Hct 43.6 % (37.0-47.0) 10/18/21 18:19 MCV 96.5 fl (81-99) 10/18/21 18:19 MCH 30.5 pg (28.0-34.0) 10/18/21 18:19 MCHC 31.7 g/dL (30.0-36.0) 10/18/21 18:19 RDW 13.5 % (12.1-15.1) 10/18/21 18:19 Plt Count 213 10^3/cmm (130-400) 10/18/21 18:19 MPV 10.0 fL (7.4-10.4) 10/18/21 18:19 Neut % (Auto) 55.9 % 10/18/21 18:19 Lymph % (Auto) 35.4 % 10/18/21 18:19 [place] % (Auto) 7.1 % 10/18/21 18:19 Eos % (Auto) 1.2 % 10/18/21 18:19 Baso % (Auto) 0.2 % 10/18/21 18:19 Neut # (Auto) 3.32 10^3/uL (1.8-7.7) 10/18/21 18:19 Lymph # (Auto) 2.1 10^3/uL (0.8-4.8) 10/18/21 18:19 [place] # (Auto) 0.4 10^3/uL (0.2-0.9) 10/18/21 18:19 Eos # (Auto) 0.1 10^3/uL (0.0-0.8) 10/18/21 18:19 Baso # (Auto) 0.0 10^3/uL (0.0-0.1) 10/18/21 18:19 Nucleated RBC % (auto) 0 % 10/18/21 18:19 Nucleated RBCs # 0.0 /100WBC 10/18/21 18:19 Sodium 137 mmol/L (136-145) 10/18/21 18:19 Potassium 4.3 mmol/L (3.5-5.1) 10/18/21 18:19 Chloride 107 mmol/L (98-107) 10/18/21 18:19 Carbon Dioxide 20 mmol/L (22-29) L 10/18/21 18:19 Anion Gap 14.3 (5-19) 10/18/21 18:19 BUN 16 mg/dL (6-20) 10/18/21 18:19 Creatinine 0.5 mg/dL (0.5-0.9) 10/18/21 18:19 GFR Calculation 138.1 mL/min (90-130) H 10/18/21 18:19 Glucose 81 mg/dL (65-115) 10/18/21 18:19 Calculated Osmolality 284 mOsm/kg (285-295) L 10/18/21 18:19 Lactic Acid 1.1 mmol/L (0.5-2.2) 10/18/21 19:02 Calcium 9.0 mg/dL (8.5-10.5) 10/18/21 18:19 Total Bilirubin 0.2 mg/dL (0.15-1.2) 10/18/21 18:19 AST 17 U/L (0-32) 10/18/21 18:19 ALT 14 U/L (0-33) 10/18/21 18:19 Alkaline Phosphatase 118 U/L (35-105) H 10/18/21 18:19 Total Protein 7.6 g/dL (6.6-8.7) 10/18/21 18:19 Albumin 4.7 g/dL (3.5-5.2) 10/18/21 18:19 Globulin 2.9 g/dL (1.3-4.6) 10/18/21 18:19 Lipase 30 U/L (13-60) 10/18/21 18:19 Discharge Plan Discharge Patient Disposition: Home Clinical Impression: Cholelithiasis Qualifiers: Cholelithiasis location: gallbladder Cholecystitis presence: without cholecystitis Biliary obstruction: without biliary obstruction Qualified Code(s): K80.20 - Calculus of gallbladder without cholecystitis without obstruction Condition: Stable Prescriptions: New hydrocodone-acetaminophen 5-325 mg tablet 1 tab PO Q6H PRN (Reason: pain) Qty: 10 0RF Reglan 10 mg tablet 10 mg PO Q6H PRN (Reason: nausea and vomiting) Qty: 10 0RF Discontinued metoclopramide HCl 10 mg tablet 10 mg PO Q8H PRN (Reason: with baby aspirin as need for migrainee headache) oxycodone 5 mg tablet 5 mg PO Q6H PRN (Reason: pain) Qty: 10 0RF oxycodone-acetaminophen [Percocet] 5-325 mg tablet 1 tab PO Q8H PRN (Reason: abdominal pain) Qty: 9 0RF No Action topiramate 100 mg tablet See Rx Instructions .ROUTE .COMPLEX Rx Instructions: 100mg po in the morning and 200mg po in the evening cholecalciferol (vitamin D3) [Vitamin D3] 25 mcg (1,000 unit) capsule 3,000 unit PO DAILY pantoprazole 20 mg tablet,delayed release (DR/EC) 20 mg PO QAM (DME) Custom molded orthotics See Rx Instructions .Route .MEDSUPPLY Qty: 1 0RF Rx Instructions: As directed fluoxetine 60 mg tablet 60 mg PO DAILY 30 Days Qty: 30 3RF olanzapine 10 mg tablet 10 mg PO BEDTIME 30 Days Qty: 30 3RF aspirin 81 mg Tablet,Delayed Release (Dr/Ec) 81 mg PO DAILY PRN (Reason: Headache) ferrous sulfate [iron] 325 mg (65 mg iron) Tablet 325 mg PO .THREE TIMES A WEEK spironolactone 50 mg tablet 50 mg PO QAM minocycline 50 mg tablet 50 mg PO BEDTIME Multivitamin Gummies 200 mcg Tablet,Chewable 1 tab PO QAM cetirizine [Zyrtec] 10 mg Tablet 10 mg PO QAM valacyclovir 500 mg tablet See Rx Instructions .ROUTE .COMPLEX Rx Instructions: FOR OUTBREAKS TAKE ONE TAB EVERY 12 HOURS FOR 3 DAYS FOR MAINTENACNE TAKE ONE TAB DAILY Probiotic Blend 2 billion cell-50 mg Capsule 1 cap PO DAILY Rx Instructions: give with meal/snack magnesium citrate 100 mg Capsule 200 mg PO BEDTIME levothyroxine 100 mcg Tablet 100 mcg PO QAM Discharge Orders: Discharge ED (Routine); Ordered 10/18/21 Ordered By: Jena Montelongo Referrals: Vandana Victoria [Primary Care Provider] - Coding Level of Care Code ED Rail Switch Operator for Chg Fwd Exam Comprehensive
[2021-10-18 18:30] LABS: Basophils % 0.2 %; Eosinophils # 0.1 10^3/uL (0.0-0.8); Eosinophils % 1.2 %; Hematocrit 43.6 % (37.0-47.0); Hemoglobin 13.8 g/dL (11.5-15.3); Lymphocytes # 2.1 10^3/uL (0.8-4.8); Lymphocytes % 35.4 %; Mean Corpuscular HGB Conc 31.7 g/dL (30.0-36.0); Mean Corpuscular Hemoglobin 30.5 pg (28.0-34.0); Mean Corpuscular Volume 96.5 fl (81-99); Monocytes # 0.4 10^3/uL (0.2-0.9); Monocytes % 7.1 %; Neutrophils # 3.32 10^3/uL (1.8-7.7); Neutrophils % 55.9 %; Nucleated Red Blood Cells % 0 %; Platelet Count 213 10^3/cmm (130-400); Red Blood Count 4.52 10^6/uL (4.1-5.3); Red Cell Distribution Width 13.5 % (12.1-15.1); White Blood Count 5.9 10^3/uL (4.0-10.0)
--- NOTE | 2021-10-18 18:30 | USR_ITS ---
PROCEDURE INFORMATION: Exam: US Abdomen, Limited; Right Upper Quadrant Exam date and time: 10/18/2021 7:27 PM Age: 36 years old Clinical indication: Abdominal pain; Additional info: Ruq pain; Known cholelithiasis, patient asked to wait for pain meds @1911 TECHNIQUE: Imaging protocol: Real time ultrasound of the abdomen with image documentation. Limited exam focused on the right upper quadrant. COMPARISON: US gall bladder [id number] 10/08/2021 8:25 PM FINDINGS: Liver: Normal. No masses. Gallbladder: Cholelithiasis, negative for definite ultrasonographic evidence of cholecystitis. Nuclear medicine HIDA scan could be performed if concern for cholecystitis remains. Biliary ducts: Common bile duct is somewhat prominent at 5.8 mm without obstructing lesion, MRCP could potentially further evaluate this. Pancreas: Visualized pancreas is unremarkable. Right kidney: Normal. No mass. No hydronephrosis. US/US gall bladder [id number] IMPRESSION: 1. Cholelithiasis, negative for definite ultrasonographic evidence of cholecystitis. Nuclear medicine HIDA scan could be performed if concern for cholecystitis remains. 2. Common bile duct is somewhat prominent at 5.8 mm without obstructing lesion, MRCP could potentially further evaluate this.
[2021-10-18] MEDS: metoclopramide 5 mg/mL SDV 2 mL IVP (18:37)
[2021-10-18 18:38] VITALS: RESP 14
[2021-10-18] MEDS: HYDROmorphone 1 mg/mL INJ 1 mL IVP (18:38)
[2021-10-18 18:40] VITALS: BP 124/81; PULSE 82; RESP 14; O2SAT 99
[2021-10-18 18:52] LABS: Alanine Aminotransferase 14 U/L (0-33); Albumin Level 4.7 g/dL (3.5-5.2); Alkaline Phosphatase 118 U/L (35-105); Blood Urea Nitrogen 16 mg/dL (6-20); Carbon Dioxide 20 mmol/L (22-29); Chloride 107 mmol/L (98-107); Globulin 2.9 g/dL (1.3-4.6); Glomerular Filtration Rate 138.1 mL/min (90-130); Glucose 81 mg/dL (65-115); Lipase 30 U/L (13-60); Osmolality Calculated 284 mOsm/kg (285-295); Sodium 137 mmol/L (136-145); Total Bilirubin 0.2 mg/dL (0.15-1.2); Total Protein 7.6 g/dL (6.6-8.7)
[2021-10-18 18:56] LABS: Anion Gap 14.3 (5-19); Aspartate Amino Transferase 17 U/L (0-32); Potassium 4.3 mmol/L (3.5-5.1)
[2021-10-18 19:27] VITALS: RESP 18; O2SAT 98
[2021-10-18] MEDS: fentaNYL 50 mcg/mL INJ 2mL IVP (19:27)
[2021-10-18 19:42] LABS: Lactic Sepsis W/Reflex 1.1 mmol/L (0.5-2.2)
[2021-10-18 20:52] VITALS: RESP 19
[2021-10-18] MEDS: oxyCODONE-APAP 5-325 mg Tablet 1 TAB PO (20:52)
[2021-10-18 20:58] LABS: Add Urine Microscopic? YES; Bilirubin Urine Neg (Negative); Blood Urine Trace (Negative); Glucose Urine UA Norm (Normal); Ketones Urine Negative (Negative); Leukocyte Esterase Urine Trace (Negative); Nitrate Urine Negative (Negative); Protein Urine Neg (Negative); Specific Gravity, Urine 1.005 (1.005-1.030); Urine Appearance Cloudy (CLEAR); Urine Color Yellow (Yellow); Urobilinogen Urine Norm (Negative); pH Urine 7 (5-7)
[2021-10-18 20:59] LABS: Bacteria Urine 1+ /hpf; RBC Urine 0-4 /hpf (0-2); Squamous Epithelial Cell Urine 25-40 /hpf (0-5)
[2021-10-18 21:00] LABS: Add Urine Culture? No; Amorphous Sediment Urine 2+ /hpf
--- NOTE | 2021-10-19 15:52 | DCPLANNER ---
Addendum entered by Janine Mcallister 10/21/21 15:06: Patient had a follow up appointment scheduled for 10.21.21 at general surgery - patient did attend appointment. Original Note: district manager in training had message to schedule a follow up appointment for patient with general surgery. district manager in training sent patients information to the front office staff at general surgery. Patients information will be printed and reviewed. Clinic will call patient with appointment information.
== END 2021-10-18 20:52 | disposition home or self-care (01) ==
PROVIDERS: Physician Assistant; Emergency Provider Physician Assistant; PCP Internal Medicine
DX: K80.20 Calculus of gallbladder without cholecystitis without obstruction (principal); Z79.82 Long term (current) use of aspirin; Z87.891 Personal history of nicotine dependence
CPT/HCPCS: 76705; 80053; 81001; 83605; 83690; 85025; 96374; 96375; 99285; J1170; J2765; J3010

== ENCOUNTER → 2021-10-21 14:10 | Outpatient (BNVA) | payer BC, MEDICAID, SELFPAY | PROVIDERS: PCP Internal Medicine; Visit Provider Surgery | DX: K80.20 Calculus of gallbladder without cholecystitis without obstruction (principal) | CPT/HCPCS: 99213 ==

== ENCOUNTER 2021-10-31 17:49 | Emergency (ER) | payer BC, MEDICAID, SELFPAY ==
[2021-10-31 18:00] VITALS: BP 130/81; PULSE 105; RESP 18; TEMP 37.1; O2SAT 97; BMI 25.0
[2021-10-31 19:18] VITALS: RESP 18
[2021-10-31] MEDS: ketorolac 30 mg/mL INJ 15 MG IVP (19:18)
[2021-10-31] MEDS: HYDROmorphone 1 mg/mL INJ 1 mL IVP (19:18)
[2021-10-31] MEDS: sodium chloride 0.9% 1,000 ML 999 ML IV (19:20)
[2021-10-31 19:51] LABS: Basophils % 0.2 %; Eosinophils % 0.7 %; Hematocrit 30.6 % (37.0-47.0); Hemoglobin 9.9 g/dL (11.5-15.3); Lymphocytes # 1.4 10^3/uL (0.8-4.8); Lymphocytes % 31.3 %; Mean Corpuscular HGB Conc 32.4 g/dL (30.0-36.0); Mean Corpuscular Hemoglobin 31.3 pg (28.0-34.0); Mean Corpuscular Volume 96.8 fl (81-99); Mean Platelet Volume 9.7 fL (7.4-10.4); Monocytes # 0.4 10^3/uL (0.2-0.9); Monocytes % 9.5 %; Neutrophils # 2.62 10^3/uL (1.8-7.7); Neutrophils % 57.9 %; Nucleated Red Blood Cells % 0 %; Platelet Count 154 10^3/cmm (130-400); Red Blood Count 3.16 10^6/uL (4.1-5.3); Red Cell Distribution Width 12.9 % (12.1-15.1); White Blood Count 4.5 10^3/uL (4.0-10.0)
[2021-10-31 20:06] LABS: Alanine Aminotransferase 11 U/L (0-33); Albumin Level 3.1 g/dL (3.5-5.2); Alkaline Phosphatase 80 U/L (35-105); Aspartate Amino Transferase 10 U/L (0-32); Blood Urea Nitrogen 15 mg/dL (6-20); Calcium 6.6 mg/dL (8.5-10.5); Carbon Dioxide 15 mmol/L (22-29); Chloride 114 mmol/L (98-107); Globulin 2.2 g/dL (1.3-4.6); Glomerular Filtration Rate 178.6 mL/min (90-130); Glucose 78 mg/dL (65-115); Lipase 20 U/L (13-60); Osmolality Calculated 288 mOsm/kg (285-295); Sodium 139 mmol/L (136-145); Total Bilirubin 0.2 mg/dL (0.15-1.2); Total Protein 5.3 g/dL (6.6-8.7)
--- NOTE | 2021-10-31 20:50 | W.ED.ABDPA2 ---
HPI - Abdominal Pain General: Chief Complaint: Abdominal Pain Stated Complaint: abdomen pain Time Seen by Provider: 10/31/21 18:43 Source: patient History of Present Illness: 36-year-old female with a history of multiple visits for abdominal pain. She has cholelithiasis, and is supposed to get her gallbladder out on Tuesday. She ate spaghetti this evening, as well as a bowl of cucumbers, and noticed her pain was much worse. She is nauseated. She has not vomited. She does not have fever. She has had some diarrhea. MD elicited complaint: abdominal pain Pertinent past history: other Onset (ago): hour(s) Pain Consistency: constant Location: Epigastric and RUQ Quality: stabbing Migration to: no migration Exacerbating factors: nothing Associated Symptoms: Reports diarrhea, fever(s) and nausea; Denies fecal incontinence and vomiting Related Data: Date of Last Menstrual Period: 10/11/21 Review of Systems Const: Reports: fever(s) Card: Denies: chest pain or palpitations Resp: Denies: dyspnea or productive cough GI: Reports: nausea and diarrhea; Denies: vomiting or fecal incontinence Neuro: Denies: headache(s) PFSH ED PFSH: Medical History Bipolar 2 disorder History of substance use 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 Psychiatric care Surgical History History of appendectomy Social History Smoking and tobacco status: never smoked Alcohol intake: never Female Reproductive History: Date of last menstrual period: 10/11/21 Physical Exam Const: COMMON NORMALS: no acute distress GENERAL APPEARANCE: cooperative; not ill appearing and not frail appearing HENMT: COMMON NORMALS: normocephalic, atraumatic and Normal external nose present HEAD & SCALP: normocephalic and atraumatic NOSE: Normal external nose present Eye: COMMON NORMALS: Equal, round and reactive pupils present, EOMs intact bilaterally, conjunctivae normal and no scleral icterus CONJUNCTIVA: Yes conjunctivae normal PUPIL: Yes Equal, round and reactive pupils present Chest: CHEST: Yes Symmetrical chest wall rise Resp: COMMON NORMALS: normal respiratory effort, No use of accessory muscles and clear to auscultation bilaterally AUSCULTATION: clear to auscultation bilaterally Cardio: COMMON NORMALS: regular rate and regular rhythm RATE: regular rate RHYTHM: regular rhythm GI: COMMON NORMALS: Soft to palpation INSPECTION: Yes abdominal distension PALPATION: Yes Soft to palpation and Yes Tenderness to palpation present (GI) (Epigastric) Details: RUQ : BLADDER/KIDNEY EXAM: Yes CVA tenderness on the right Back/Pelvis: GENERAL BACK: Yes CVA tenderness Extremity: COMMON NORMALS: normal to inspection Neuro: A[place] COMA SCALE: document GCS findings [place] coma scale eye opening: Spontaneous [place] coma scale verbal response: Orientated [place] coma scale motor response: Obey commands [place] coma scale total score: 15 Course Vital Signs: Vital signs: Vital Signs Temperature 98.8 F 10/31/21 18:00 Pulse Rate 92 10/31/21 21:20 Respiratory Rate 16 10/31/21 21:20 Blood Pressure 140/92 10/31/21 21:20 Pulse Oximetry 99 10/31/21 21:20 Oxygen Delivery Me thod 10/31/21 18:00 MDM - Abdominal Pain Medical Decision Making Hemoglobin is 10. White blood cell count is 4.5. Potassium is 3. Bicarbonate is 15 CRP is only 3. Liver enzymes are normal. She will be allowed discharged to continue with the plan of cholecystectomy on Tuesday. She is given fluid, pain medication, and antiemetic here. Lab Data : 10/31/21 19:40 10/31/21 19:40 Labs/Radiology: Laboratory Results WBC 4.5 10^3/uL (4.0-10.0) 10/31/21 19:40 RBC 3.16 10^6/uL (4.1-5.3) L 10/31/21 19:40 Hgb 9.9 g/dL (11.5-15.3) L 10/31/21 19:40 Hct 30.6 % (37.0-47.0) L 10/31/21 19:40 MCV 96.8 fl (81-99) 10/31/21 19:40 MCH 31.3 pg (28.0-34.0) 10/31/21 19:40 MCHC 32.4 g/dL (30.0-36.0) 10/31/21 19:40 RDW 12.9 % (12.1-15.1) 10/31/21 19:40 Plt Count 154 10^3/cmm (130-400) 10/31/21 19:40 MPV 9.7 fL (7.4-10.4) 10/31/21 19:40 Neut % (Auto) 57.9 % 10/31/21 19:40 Lymph % (Auto) 31.3 % 10/31/21 19:40 [place] % (Auto) 9.5 % 10/31/21 19:40 Eos % (Auto) 0.7 % 10/31/21 19:40 Baso % (Auto) 0.2 % 10/31/21 19:40 Neut # (Auto) 2.62 10^3/uL (1.8-7.7) 10/31/21 19:40 Lymph # (Auto) 1.4 10^3/uL (0.8-4.8) 10/31/21 19:40 [place] # (Auto) 0.4 10^3/uL (0.2-0.9) 10/31/21 19:40 Eos # (Auto) 0.0 10^3/uL (0.0-0.8) 10/31/21 19:40 Baso # (Auto) 0.0 10^3/uL (0.0-0.1) 10/31/21 19:40 Nucleated RBC % (auto) 0 % 10/31/21 19:40 Nucleated RBCs # 0.0 /100WBC 10/31/21 19:40 Sodium 139 mmol/L (136-145) 10/31/21 19:40 Potassium 3.0 mmol/L (3.5-5.1) L 10/31/21 19:40 Chloride 114 mmol/L (98-107) H 10/31/21 19:40 Carbon Dioxide 15 mmol/L (22-29) L 10/31/21 19:40 Anion Gap 13.0 (5-19) 10/31/21 19:40 BUN 15 mg/dL (6-20) 10/31/21 19:40 Creatinine 0.4 mg/dL (0.5-0.9) L 10/31/21 19:40 GFR Calculation 178.6 mL/min (90-130) H 10/31/21 19:40 Glucose 78 mg/dL (65-115) 10/31/21 19:40 Calculated Osmolality 288 mOsm/kg (285-295) 10/31/21 19:40 Calcium 6.6 mg/dL (8.5-10.5) L 10/31/21 19:40 Total Bilirubin 0.2 mg/dL (0.15-1.2) 10/31/21 19:40 AST 10 U/L (0-32) 10/31/21 19:40 ALT 11 U/L (0-33) 10/31/21 19:40 Alkaline Phosphatase 80 U/L (35-105) 10/31/21 19:40 C-Reactive Protein 3.0 mg/L (0.0-4.9) 10/31/21:40 Total Protein 5.3 g/dL (6.6-8.7) L 10/31/21 19:40 Albumin 3.1 g/dL (3.5-5.2) L 10/31/21:40 Globulin 2.2 g/dL (1.3-4.6) 10/31/21 19:40 Lipase 20 U/L (13-60) 10/31/21 19:40 Discharge Plan Discharge Patient Disposition: Home Clinical Impression: Symptomatic cholelithiasis, Hypokalemia Condition: Stable Prescriptions: No Action topiramate 100 mg tablet See Rx Instructions .ROUTE .COMPLEX Rx Instructions: 100mg po in the morning and 200mg po in the evening cholecalciferol (vitamin D3) [Vitamin D3] 25 mcg (1,000 unit) capsule 3,000 unit PO DAILY pantoprazole 20 mg tablet,delayed release (DR/EC) 20 mg PO QAM (DME) Custom molded orthotics See Rx Instructions .Route .MEDSUPPLY Qty: 1 0RF Rx Instructions: As directed fluoxetine 60 mg tablet 60 mg PO DAILY 30 Days Qty: 30 3RF olanzapine 10 mg tablet 10 mg PO BEDTIME 30 Days Qty: 30 3RF aspirin 81 mg Tablet,Delayed Release (Dr/Ec) 81 mg PO DAILY PRN (Reason: Headache) spironolactone 50 mg tablet 50 mg PO QAM minocycline 50 mg tablet 50 mg PO BEDTIME Multivitamin Gummies 200 mcg Tablet,Chewable 1 tab PO QAM cetirizine [Zyrtec] 10 mg Tablet 10 mg PO QAM valacyclovir 500 mg tablet See Rx Instructions .ROUTE .COMPLEX PRN (Reason: fever blister) Rx Instructions: FOR OUTBREAKS TAKE ONE TAB EVERY 12 HOURS FOR 3 DAYS FOR MAINTENACNE TAKE ONE TAB DAILY Probiotic Blend 2 billion cell-50 mg Capsule 1 cap PO DAILY Rx Instructions: give with meal/snack magnesium citrate 100 mg Capsule 200 mg PO BEDTIME metoclopramide HCl [Reglan] 10 mg tablet 10 mg PO Q6H PRN (Reason: Migraine Headache) levothyroxine 100 mcg Tablet 100 mcg PO QAM Discharge Orders: Discharge ED (Routine); Ordered 10/31/21 Ordered By: Rahul Poe Referrals: Vandana Victoria [Primary Care Provider] - Activity Restrictions/Additional Instructions: Proceed with your scheduled cholecystectomy on Tuesday. Your blood count was mildly low here, and required repeat blood count early next week. See your doctor regarding this if it is not performed prior to your surgery. Return for vomiting liquids, fever greater than 100, other concerning symptoms. Your potassium was mildly low as well. This should be checked as well Coding Level of Care Code ED Drafter Directional Survey for Chg Fwd Exam Comprehensive
[2021-10-31] MEDS: potassium chloride ER 20 mEq Tablet 40 MEQ PO (20:51)
[2021-10-31 20:52] VITALS: RESP 18
[2021-10-31] MEDS: morphine 4 mg/mL SDV 1 mL IVP (20:52)
[2021-10-31 21:20] VITALS: BP 140/92; PULSE 92; RESP 16; O2SAT 99
== END 2021-10-31 21:23 | disposition home or self-care (01) ==
PROVIDERS: Emergency Provider Emergency Medicine; PCP Internal Medicine
DX: K80.20 Calculus of gallbladder without cholecystitis without obstruction (principal); E87.6 Hypokalemia; Z79.82 Long term (current) use of aspirin; Z79.899 Other long term (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
CPT/HCPCS: 36415; 80053; 83690; 85025; 86140; 96361; 96374; 96375; 99285; J1170; J1885; J2270; J7030

== ENCOUNTER 2021-11-02 07:57 | Day surgery (SDC) | payer BC, MEDICAID, SELFPAY ==
[2021-10-30 13:43] VITALS: BMI 24.6
[2021-11-02] VITALS (12 sets, daily range): BP systolic 117–130; BP diastolic 77–99; PULSE 80–90; RESP 12–19; TEMP 36.3–36.7; O2SAT 94–100
--- NOTE | 2021-11-02 08:14 | P.ANESASSM_ITS ---
Pre-Anesthetic Assessment Height/Weight: Height 1.73 m Weight 75.75 kg Preop Diagnosis: symptomatic choleltihiasis Operation Date: 11/02/21 09:50 Proposed Procedures p Laparoscopic Cholecystectomy 409903,R10.9(Not Applicable) - Richard Cruz DO Familial anesthetic complications: None Was Beta Guy taken within 24 hours: N/A Was Clonidine taken within 24 hours: N/A Last intake: 11/01/21 Social No alcohol and No tobacco Exam alert, oriented x 3, clear to auscultation bilaterally and regular rate & rhythm Airway Submandibular: within normal limits Cervical ROM: within normal limits Mallampati: Class I Dentition: full History/ROS No significant complaints Pulmonary None reported CV/HEM Anemia METS > 4 Hypokalemia Hepatic None reported GI Cholelithiasis Metabolic None reported Musc/skel None reported Neuropsych Bipolar and Neuropathy Anesthetic Plan ASA status: 2 Anesthesia: Anesthesia Evaluation and General Other: We discussed risk and benefits of general anesthesia including PONV, sore throat (sometimes severe), corneal abrasion, positioning and peripheral nerve injuries, life threatening allergic reaction, post operative ICU admission requiring prolonged intubation, stroke, heart attack, , and rare incidences of recall. Patient consents to proceed with general anesthesia. Risk of > 500 ml blood loss (7ml/kg in children): No Medications/Allergies Home Medications Medication Instructions Recorded Confirmed Last Taken Type aspirin 81 mg tablet,delayed 81 mg PO DAILY PRN Headache 09/18/20 10/30/21 Unknown History release minocycline 50 mg tablet 50 mg PO BEDTIME 09/18/20 10/30/21 09/07/21 History multivitamin with minerals-folic 1 tab PO QAM 09/18/20 10/30/21 09/17/20 History acid 200 mcg chewable tablet (Multivitamin Gummies) spironolactone 50 mg tablet 50 mg PO QAM 09/18/20 10/30/21 09/08/21 06:30 History cholecalciferol (vitamin D3) 25 3,000 unit PO DAILY 10/28/20 10/30/21 Unknown History mcg (1,000 unit) capsule (Vitamin D3) pantoprazole 20 mg tablet,delayed 20 mg PO QAM 10/28/20 10/30/21 09/08/21 History release Custom molded orthotics #1 ea 02/02/21 10/21/21 Unknown Rx topiramate 100 mg tablet See Rx Instructions .Route .COMPLEX 03/24/21 10/30/21 09/08/21 06:30 History 100 mg levothyroxine 100 mcg tablet 100 mcg PO QAM 05/26/21 10/30/21 09/08/21 History L.acidophil-L.casei-B.bifid-B.longum-FOS 1 cap PO DAILY 09/08/21 10/30/21 Unknown History 2 billion cell-50 mg capsule (Probiotic Blend) cetirizine 10 mg tablet (Zyrtec) 10 mg PO QAM 09/08/21 10/30/21 09/08/21 History magnesium citrate 100 mg capsule 200 mg PO BEDTIME 09/08/21 10/30/21 Unknown History valacyclovir 500 mg tablet See Rx Instructions .Route 09/08/21 10/30/21 Unknown History .COMPLEX PRN fever blister fluoxetine 60 mg tablet 60 mg PO DAILY 30 days #30 tabs 09/14/21 10/30/21 Unknown Rx olanzapine 10 mg tablet 10 mg PO BEDTIME 30 days #30 tabs 09/14/21 10/30/21 Unknown Rx metoclopramide HCl 10 mg tablet 10 mg PO Q6H PRN Migraine Headache 10/30/21 10/30/21 Unknown History (Reglan) Allergies Allergy/AdvReac Type Severity Reaction Status Date / Time onabotulinumtoxinA Allergy Severe botulism Verified 10/30/21 13:23 [From Botox] diphenhydramine Allergy ADR-Anxiety Verified 10/30/21 13:23 hydroxyzine [From Vistaril] Allergy ADR-Anxiety Verified 10/30/21 13:23 ondansetron [From Zofran] Allergy ADR-Anxiety Verified 10/30/21 13:23 promethazine [From Phenergan] Allergy ADR-Anxiety Verified 10/30/21 13:23 SCHELLAC Allergy Unknown Uncoded 10/30/21 13:23 [facility] Anesthesia Medical History Bipolar 2 disorder History of substance use Other [facility] (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 Other [facility] (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 Psychiatric care Surgical History History of appendectomy Social History Smoking and tobacco status: never smoked Alcohol intake: never Female Reproductive History Date of last menstrual period: 10/11/21 Data Anesthesia : 11/02/21 08:29 Cardiac Studies: No Data to Display
[2021-11-02 08:17] LABS: OR HCG Qualitative Urine Negative (Negative)
--- NOTE | 2021-11-02 08:23 | W.PM.OPSUD ---
Surgery/Procedure H&P Update DATE OF PROCEDURE: November 02, 2021 DATE H&P PERFORMED: 10/21/21 PREOP DIAGNOSIS: symptomatic choleltihiasis PLANNED PROCEDURE: Operation Date: 11/02/21 09:50 Proposed Procedures p Laparoscopic Cholecystectomy [id number],R10.9(Not Applicable) - Richard Cruz DO
[2021-11-02] MEDS: sodium chloride 0.9% 1,000 ML 30 ML IV (08:42)
[2021-11-02] MEDS: scopolamine 1.5 Patch 1 PATCH TRANSDERMA (08:42)
[2021-11-02] MEDS: metoclopramide 5 mg/mL SDV 2 mL 10 MG IVP (08:47)
[2021-11-02] MEDS: ceFAZolin 2,000 MG in sodium chloride 0.9% (plus) 50 ML 100 MG IV (09:17)
--- NOTE | 2021-11-02 09:59 | P.OP_ITS ---
Operative Report Date of procedure: November 02, 2021 Pre-op diagnosis: Preop Diagnosis symptomatic choleltihiasis Post-op diagnosis: same Procedure done: Laparoscopic cholecystectomy Implants: Surgicel Specimens removed/disposition: Gallbladder Surgeon: Dr. Richard Cruz DO Anesthesia: General Estimated blood loss (mL): 20 Complications: None apparent Brief History: Is a very pleasant 36-year-old female who had symptomatic cholelithiasis. Laparoscopic cholecystectomy was indicated. The risks and benefits of the procedure were explained and documented Procedure: Patient was wheeled into the operative room and placed on the OR table in a supine position. Abdomen was inspected prepped and draped in usual sterile fashion. Time-out was performed and all present were in agreement. A 15 blade scalp was used to make a stab incision in the left upper quadrant and intra- abdominal insufflation was achieved using a Veress needle. After localizing the tissue incisions were made and a 5 millimeter trocar was placed into the umbilicus as well as 2 in the right upper quadrant. A 12 millimeter trocar was placed in the epigastrium. Gallbladder was grasped and elevated. The triangle of Calot was carefully dissected using blunt dissection and electrocautery until the triangle of Calot clearly identified. The cystic duct was clipped proximally and double clipped distally. The duct was then ligated proximally. The cystic artery was doubly clipped and ligated. The gallbladder was then removed from the liver bed using electrocautery. The gallbladder was removed from the abdomen using an Endo-Catch bag through the epigastric incision. The liver bed was inspected and bleeding from the liver bed was stopped with electrocautery and a piece of Surgicel. The abdomen was irrigated and suctioned. All ports removed. Skin was washed and dried. Incisions were closed with 3-0 and 4-O Vicryl in a subcuticular interrupted fashion. Skin glue was applied. Patient tolerated the procedure well.
[2021-11-02] MEDS: fentaNYL 50 mcg/mL INJ 2mL IVP (10:28)
[2021-11-02 10:39] LABS: Blood Urea Nitrogen 17 mg/dL (6-20); Calcium 7.8 mg/dL (8.5-10.5); Carbon Dioxide 19 mmol/L (22-29); Chloride 112 mmol/L (98-107); Glomerular Filtration Rate 138.1 mL/min (90-130); Glucose 145 mg/dL (65-115); Osmolality Calculated 292 mOsm/kg (285-295); Sodium 139 mmol/L (136-145)
[2021-11-02 10:41] LABS: Anion Gap 12.3 (5-19); Potassium 4.3 mmol/L (3.5-5.1)
[2021-11-02] MEDS: HYDROcodone-acetaminophen 7.5-325 mg Tablet 1 TAB PO (11:04)
[2021-11-02] MEDS: HYDROmorphone 1 mg/mL INJ 1 mL 0.5 MG IVP (11:41)
--- NOTE | 2021-11-02 11:46 | SUR.PHASEII ---
patient given pain pill at 1104. on reassessment patient states her pain is still at a 9 and requests something in the IV for pain. Patient medicated with IV dilaudid. patient smiling and talking with family at bedside.
--- NOTE | 2021-11-02 12:11 | SUR.PHASEII ---
1207 patient states ready to go home
--- NOTE | 2021-11-02 12:40 | ANE.PACU2 ---
Inpatient post-anesthesia follow up: Airway intact: Yes Vital signs: Temperature 97.4 F Pulse Rate 86 Respiratory Rate 18 Blood Pressure 123/79 Pulse Oximetry 98 Oxygen Delivery Me thod Room Air Oxygen Flow Rate 5 Fraction of Inspir ed Oxygen Hydration adequate: Yes Nausea and vomiting: No Pain level: 7 (Patient wishes discharge despite pain level) Mental status: Baseline
== END 2021-11-02 12:11 | disposition home or self-care (01) ==
PROVIDERS: Anesthesiology; PCP Internal Medicine; Visit Provider Surgery
PROC: 0FT44ZZ Resection of Gallbladder, Percutaneous Endoscopic Approach (ICD-10-PCS; CPT 47562; principal; 2021-11-02 09:40)
DX: K80.10 Calculus of gallbladder with chronic cholecystitis without obstruction (principal); D64.9 Anemia, unspecified; E87.6 Hypokalemia; Z79.82 Long term (current) use of aspirin
CPT/HCPCS: 47562; 36415; 80048; 81025; 84703; 88304; J1100; J1170; J1885; J2250; J2370; J2405; J2704; J2710; J2765; J3010; J3490; J7030

== ENCOUNTER → 2022-09-08 13:36 | Outpatient (BNVA) | payer BC, SELFPAY | PROVIDERS: PCP Nurse Practitioner; Visit Provider Nurse Practitioner | DX: R55 Syncope and collapse (principal) | CPT/HCPCS: 71046 ==

== ENCOUNTER 2022-09-08 14:59 | Outpatient (CLI) | payer BC, SELFPAY ==
[2022-09-08 15:41] LABS: Basophils % 0.6 %; Eosinophils # 0.1 10^3/uL (0.0-0.8); Eosinophils % 1.3 %; Hematocrit 40.6 % (37.0-47.0); Hemoglobin 13.5 g/dL (11.5-15.3); Lymphocytes # 1.7 10^3/uL (0.8-4.8); Lymphocytes % 30.8 %; Mean Corpuscular HGB Conc 33.3 g/dL (30.0-36.0); Mean Corpuscular Hemoglobin 31.8 pg (28.0-34.0); Mean Corpuscular Volume 95.5 fl (81-99); Mean Platelet Volume 9.8 fL (7.4-10.4); Monocytes # 0.4 10^3/uL (0.2-0.9); Monocytes % 6.9 %; Neutrophils # 3.17 10^3/uL (1.8-7.7); Neutrophils % 59.3 %; Nucleated Red Blood Cells % 0 %; Platelet Count 244 10^3/cmm (130-400); Red Blood Count 4.25 10^6/uL (4.1-5.3); Red Cell Distribution Width 12.5 % (12.1-15.1); White Blood Count 5.4 10^3/uL (4.0-10.0)
[2022-09-08 15:56] LABS: Alanine Aminotransferase 15 U/L (0-33); Alkaline Phosphatase 92 U/L (35-105); Anion Gap 14.4 (5-19); Aspartate Amino Transferase 13 U/L (0-32); Blood Urea Nitrogen 15 mg/dL (6-20); Calcium 8.8 mg/dL (8.5-10.5); Carbon Dioxide 24 mmol/L (22-29); Chloride 104 mmol/L (98-107); Free T4 Free Thyroxine 0.85 ng/dL (0.82-1.77); Globulin 2.8 g/dL (1.3-4.6); Glomerular Filtration Rate 93.2 mL/min (90-130); Glucose 138 mg/dL (65-115); Osmolality Calculated 289 mOsm/kg (285-295); Potassium 4.4 mmol/L (3.5-5.1); Sodium 138 mmol/L (136-145); Total Bilirubin 0.2 mg/dL (0.15-1.2); Total Protein 6.8 g/dL (6.6-8.7)
== END 2022-09-08 15:00 | disposition home or self-care (01) ==
PROVIDERS: PCP Nurse Practitioner; Visit Provider Nurse Practitioner
DX: R55 Syncope and collapse (principal)
CPT/HCPCS: 80053; 84439; 84443; 85025

== ENCOUNTER 2022-09-23 09:55 | Outpatient (CLI) | payer BC, SELFPAY ==
--- NOTE | 2022-09-23 10:10 | MR_ITS ---
WS: [id number] MRI HEAD WITHOUT CONTRAST TECHNIQUE: Sagittal T1, T2 axial, T2 axial FLAIR, axial and coronal T1 images, axial susceptibility w eighted imaging, axial diffusion weighted images, and coronal T2 images were obtained. CLINICAL INFORMATION: SYNCOPE/HX OF HODGKIN'S LYMPHOMA/HX OF BREAST CA COMPARISON: None. FINDINGS: No evidence of restricted diffusion to suggest acute ischemia. Ventricular system and basal cisterns are patent. Normal posterior fossa. Normal vascular flow voids at the skull base. No extra-axial flui d collections. No evidence of mass or mass effect. Paranasal sinuses and mastoid air cells are well a erated. No hemosiderin on susceptibly weighted images. Normal optic chiasm and pituitary infundibulum. Temporal lobes and hippocampal formations are normal in appearance. MR/MR head wo con* [id number] IMPRESSION: 1. No evidence of restricted diffusion to suggest acute ischemia. 2. No suspicious intracranial signal abnormalities. 3. No hydrocephalus. No evidence of mass or mass effect. 4. No hemosiderin on the susceptibility weighted images. 5. No suspicious findings.
== END 2022-09-23 09:56 | disposition home or self-care (01) ==
PROVIDERS: PCP Nurse Practitioner; Visit Provider Nurse Practitioner
DX: R55 Syncope and collapse (principal); Z85.72 Personal history of non-Hodgkin lymphomas; Z85.3 Personal history of malignant neoplasm of breast
CPT/HCPCS: 70551

== ENCOUNTER → 2022-10-06 11:43 | Outpatient (BNVA) | payer BC, MEDICAID, SELFPAY | PROVIDERS: PCP Nurse Practitioner; Visit Provider Psychiatry & Neurology Psychiatry | DX: Z79.899 Other long term (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 (principal) | CPT/HCPCS: 80053; 80061; 80306; 83036; 84443; 85025 ==

== ENCOUNTER 2022-10-18 11:05 | Emergency (ER) | payer BC, MEDICAID, SELFPAY ==
[2022-10-18 11:50] VITALS: PULSE 98; RESP 16; TEMP 36.8; O2SAT 98; BMI 30.4
--- NOTE | 2022-10-18 12:39 | XR_ITS ---
WS: [id number] Exam: XR chest 1V portable [id number] Date/Time of Exam: 10/18/2022 12:43 PM Reason For Exam: swelling Comparison 09/08/2022. The lungs are fully expanded and clear. Normal cardiomediastinal silhouette. Postoperative changes no fabio along the heart and both axilla. Bony structures are intact. IMPRESSION: 1. No acute cardiopulmonary finding.
--- NOTE | 2022-10-18 13:20 | US_ITS ---
WS: [id number] RIGHT UPPER QUADRANT ULTRASOUND HISTORY: unexplained LE edema, COMPARISON: 10/18/2021 Liver: 15.5 cm in length. Normal size liver and echogenicity. No bile duct dilatation or mass. Portal Vein: Normal hepatopetal flow with monophasic waveform. Gallbladder: Prior cholecystectomy. CBD: 0.4 cm Pancreas: Normal size and echogenicity. Right kidney: 9.9 cm in length. Normal size and echogenicity. No hydronephrosis or mass. Aorta and IVC: Unremarkable abdominal aorta and IVC. No ascites. IMPRESSION: Prior cholecystectomy. Otherwise normal.
--- NOTE | 2022-10-18 13:22 | ED_ITS ---
HPI - Extremity Problem General: Chief complaint: Extremity Problem,Nontraumatic Stated complaint: swelling in feet and face Time Seen by Provider: 10/18/22 12:47 History of Present Illness: 37-year-old female presents to the emergency department for bilateral lower extremity swelling for several months. She reports it does not seem to improve with anything. She does endorse excessive thirst. She has seen her doctor back on 06 October and had blood work drawn. Her TSH was in the normal limits and she did not seem to have any significant liver dysfunction or electrolyte or gl ycemic abnormalities. She is not known to have any congestive heart failure. No known DVT or PE. The cause of her swelling was unclear. She does have a history of lymphoma as well as breast cancer in the past. She finished treatment in 2019. Patient reports the only new medication she started is Linzess for IBS with constipation. Denies using alcohol. Not complaining of dyspnea/orthopnea. Her mother says her face looked a little puffy. Based on patient's memory, she's gained about 30 lbs this summer. LMP one month ago. BP 168/88 shortly after my interview with her. Associated symptoms: Deny chest pain or fever(s) Review of Systems General: Reports: 10 or more systems reviewed and unremarkable except in HPI and below Narrative: Patient does explain that she has chronic intermittent folliculitis. She gets small little wounds on her extremities chronically. Const: Denies: fever(s), chills or body aches Eyes: Denies: change in vision ENMT: Denies: throat pain Card: Denies: chest pain, edema or syncope Resp: Denies: dyspnea or productive cough GI: Denies: abdominal pain, nausea, vomiting or diarrhea : Denies: flank pain, dysuria or urinary frequency Musc: Denies: neck pain or back pain Neuro: Denies: headache(s), numbness in extremities, weakness in extremities, lack of coordination or difficulty walking PFSH ED PFSH: Medical History Bipolar 2 disorder Bipolar 2 disorder, major depressive episode History of substance use Other fdc (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 engineer (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 Psychiatric care Surgical History H/O mastectomy History of appendectomy S/P cholecystectomy Social History (Updated 10/14/22 @ 21:57 by Colleen Izaguirre MD) Smoking and tobacco status: current some day smoker Alcohol intake: never Substance/Drug Use: current Substance/Drug use frequency: few times a month Female Reproductive History: Date of last menstrual period: 09/13/22 Physical Exam Narrative: EXAM NARRATIVE: Speech is slightly slurred Const: COMMON NORMALS: no limitations, alert and well nourished EXAM LIMITATIONS: no altered mental status GENERAL APPEARANCE: cooperative, well kempt and well developed ORIENTATION/CONSCIOUSNESS: Yes awake; not confused HENMT: COMMON NORMALS: normocephalic, atraumatic, external ears normal and Normal external nose present HEAD & SCALP: normal to inspection, normocephalic and atraumatic FACE & SINUS: face symmetric NOSE: Normal external nose present EXTERNAL EAR: Yes external ears normal MOUTH: lip normal; no muffled voice Eye: COMMON NORMALS: EOMs intact bilaterally OTHER: Mild bilateral conjunctival injection Neck/C-Spine: COMMON NORMALS: no JVD GENERAL: Yes normal visual inspection and Yes trachea midline Resp: COMMON NORMALS: normal respiratory effort, No use of accessory muscles and clear to auscultation bilaterally EFFORT & INSPECTION: Yes able to speak in complete sentences and Yes symmetric chest movement AUSCULTATION: clear to auscultation bilaterally Cardio: COMMON NORMALS: no JVD, regular rate and regular rhythm RATE: regular rate RHYTHM: regular rhythm PERIPHERAL PULSES: radial pulses present GI: COMMON NORMALS: Soft to palpation INSPECTION: Yes normal to inspection PALPATION: Yes Soft to palpation, No Tenderness to palpation present (GI) and No Guarding due to palpation present (GI) Back/Pelvis: COMMON NORMALS: thoraco-lumbar ROM normal Extremity: COMMON NORMALS: full ROM, capillary refill normal, no joint enlargement and no calf tenderness NARRATIVE EXTREMITY EXAM: Bilateral lower extremity edema through the foot ankles and lower legs below the knees. Mild pitting. Bilateral upper extremities unremarkable. Patient does have small erythematous macules some of which are scabbed. Neuro: COMMON NORMALS: moves all extremities, no focal motor deficits and no sensory deficits noted SENSORIUM/ORIENTATION: Yes alert OTHER: Neurovascularly intact. As noted above her speech is slightly slurred. Psych: COMMON NORMALS: mental status grossly normal, Normal thought process present, cooperative, normal affect and speech normal APPEARANCE: Yes well kempt SPEECH: Yes normal speech THOUGHT PROCESS: Normal thought process present Skin: COMMON NORMALS: no rashes or lesions noted, turgor normal and no jaundice GENERAL SKIN EXAM: no rashes or lesions noted and turgor normal Course Vital Signs: Vital signs: Vital Signs Temperature 98.2 F 10/18/22 11:50 Pulse Rate 98 10/18/22 11:50 Respiratory Rate 16 10/18/22 11:50 Pulse Oximetry 98 10/18/22 11:50 Oxygen Delivery Me thod Room Air 10/18/22 11:50 MDM - Extremity (Nontraumatic) Medical Decision Making Differential diagnosis includes venous insufficiency, portal venous hypertension, cirrhosis, low albumin, dependent edema, CHF, portal vein thrombosis, fluid overload, preeclampsia (we will check hCG),autoimmune disease, other TSH recently normal.. I do not see any swelling to the neck face or upper extremities. This does not appear consistent with superior vena cava syndrome. Patient explains that the lower extremity swelling is chronic for months; given its chronicity and the fact that it is bilateral, it is less likely to be a DVT. Update No signs of cirrhosis, portal venous thrombosis, ascites, renal failure, low albumin, low hemoglobin. The BNP is mildly elevated. There is no cardiomegaly on chest x-ray. This appears to be a subacute problem but with an elevated BNP I have advised low-salt diet, lower extremity elevation, compression stockings, follow-up with PCP for an echocardiogram. With a history of drug abuse in the past that it would not be unreasonable to have nonischemic cardiomyopathy. I am going to trial her on 5 days of Lasix. She does take spironolactone so I am not going to add any potassium. She is going to record her weight each day for the next 5 days and also record the degree of her lower extremity swelling. We will see if diuretics are helpful or not. Lab Data 10/18/22 14:15 10/18/22 14:15 Laboratory Results WBC 6.77 10^3/uL (3.29-11.43) 10/18/22 14:15 RBC 4.26 10^6/uL (3.85-5.65) 10/18/22 14:15 Hgb 13.40 g/dL (11.27-16.99) 10/18/22 14:15 Hct 41.4 % (36-47) 10/18/22 14:15 MCV 97.2 fl (85-98) 10/18/22 14:15 MCH 31.5 pg (27-33) 10/18/22 14:15 MCHC 32.4 g/dL (30-55) 10/18/22 14:15 RDW 13.4 % (12.1-15.1) 10/18/22 14:15 Plt Count 216 10^3/cmm (157-399) 10/18/22 14:15 MPV 10.1 fL (7.4-10.4) 10/18/22 14:15 Neut % (Auto) 59.8 % 10/18/22 14:15 Lymph % (Auto) 30.3 % 10/18/22 14:15 [place] % (Auto) 7.1 % 10/18/22 14:15 Eos % (Auto) 2.1 % 10/18/22 14:15 Baso % (Auto) 0.3 % 10/18/22 14:15 Neut # (Auto) 4.05 10^3/uL (1.8-7.7) 10/18/22 14:15 Lymph # (Auto) 2.1 10^3/uL (0.8-4.8) 10/18/22 14:15 [place] # (Auto) 0.5 10^3/uL (0.2-0.9) 10/18/22 14:15 Eos # (Auto) 0.1 10^3/uL (0.0-0.8) 10/18/22 14:15 Baso # (Auto) 0.0 10^3/uL (0.0-0.1) 10/18/22 14:15 Nucleated RBC % (auto) 0 % 10/18/22 14:15 Nucleated RBCs # 0.0 /100WBC 10/18/22 14:15 Sodium 139 mmol/L (136-145) 10/18/22 14:15 Potassium 4.0 mmol/L (3.5-5.1) 10/18/22 14:15 Chloride 105 mmol/L (98-107) 10/18/22 14:15 Carbon Dioxide 25 mmol/L (22-29) 10/18/22 14:15 Anion Gap 13.0 (5-19) 10/18/22 14:15 BUN 19 mg/dL (6-20) 10/18/22 14:15 Creatinine 0.7 mg/dL (0.5-0.9) 10/18/22 14:15 GFR Calculation 93.2 mL/min (90-130) 10/18/22 14:15 Glucose 82 mg/dL (65-115) 10/18/22 14:15 Calculated Osmolality 289 mOsm/kg (285-295) 10/18/22 14:15 Calcium 8.5 mg/dL (8.5-10.5) 10/18/22 14:15 Total Bilirubin 0.2 mg/dL (0.15-1.2) 10/18/22 14:15 AST 14 U/L (0-32) 10/18/22 14:15 ALT 11 U/L (0-33) 10/18/22 14:15 Alkaline Phosphatase 101 U/L (35-105) 10/18/22 14:15 NT-Pro-B Natriuret Pep 774 pg/mL (0-125) H 10/18/22 14:15 Total Protein 7.0 g/dL (6.6-8.7) 10/18/22 14:15 Albumin 4.2 g/dL (3.5-5.2) 10/18/22 14:15 Globulin 2.8 g/dL (1.3-4.6) 10/18/22 14:15 HCG, Qual Negative (Negative) 10/18/22 14:15 Ethyl Alcohol < 10 mg/dL (0-10) 10/18/22 14:15 Discharge Plan Discharge Patient Disposition: Home Clinical Impression: Lower extremity edema, Elevated brain natriuretic peptide (BNP) level Condition: Stable Prescriptions: New furosemide 20 mg tablet 20 mg PO DAILY Qty: 5 0RF No Action topiramate 100 mg tablet See Rx Instructions .ROUTE .COMPLEX Rx Instructions: 100mg po in the morning and 200mg po in the evening cholecalciferol (vitamin D3) [Vitamin D3] 25 mcg (1,000 unit) capsule 3,000 unit PO DAILY (DME) Custom molded orthotics See Rx Instructions .Route .MEDSUPPLY Qty: 1 0RF Rx Instructions: As directed Linzess 290 mcg capsule 290 mcg PO QAM olanzapine 15 mg tablet 15 mg PO BEDTIME 30 Days Qty: 30 3RF clonazepam 0.5 mg tablet 0.5 mg PO BID 30 Days Qty: 60 1RF aspirin 81 mg Tablet,Delayed Release (Dr/Ec) 81 mg PO DAILY PRN (Reason: Headache) spironolactone 50 mg tablet 50 mg PO QAM minocycline 50 mg tablet 50 mg PO BEDTIME Multivitamin Gummies 200 mcg Tablet,Chewable 1 tab PO DAILY PRN (Reason: unknown) cetirizine [Zyrtec] 10 mg Tablet 10 mg PO QAM valacyclovir 500 mg tablet See Rx Instructions .ROUTE .COMPLEX PRN (Reason: fever blister) Rx Instructions: FOR OUTBREAKS TAKE ONE TAB EVERY 12 HOURS FOR 3 DAYS FOR MAINTENACNE TAKE ONE TAB DAILY magnesium citrate 100 mg Capsule 200 mg PO BEDTIME metoclopramide HCl [Reglan] 10 mg tablet 10 mg PO Q6H PRN (Reason: Migraine Headache) escitalopram oxalate 20 mg tablet 20 mg PO BEDTIME Caplyta 10.5 mg capsule 10.5 mg PO BEDTIME pantoprazole 40 mg tablet,delayed release (DR/EC) 40 mg PO BEDTIME pregabalin 75 mg capsule 75 mg PO BID levothyroxine 100 mcg Tablet 100 mcg PO QAM Discharge Orders: Discharge ED (Routine); Ordered 10/18/22 Ordered By: Ivan Elizabeth Referrals: Tereza Dolan, SEISMIC PROSPECTING SUPERVISOR [Primary Care Provider] - 4-7 days (Consider echocardiogram. Follow-up trial of 5 days of lasix and b/l LE edema) Discharge Diet: Low Salt Discharge Activity: Increase activity as tolerated Patient Instructions: Edema (ED), Pain Management Activity Restrictions/Additional Instructions: You did not have any signs of liver dysfunction or any blood clot in the portal vein. He did not have low albumin protein levels, low hemoglobin, renal dysfunction, or other common causes of bilateral lower extremity swelling. You did have an elevated BNP. This is called a brain natruretic peptide . Yours was mildly elevated which can be a sign of some congestive heart failure. This is a preliminary finding and needs follow-up with an echocardiogram, which is an ultrasound of your heart. In the meantime, wear compression stockings, elevate your feet for 20 minutes at least 4 times a day above the level of the heart, and eat a low-salt diet. Take your furosemide diuretic in the morning for the next 5 days. Record your weight and the degree of your lower extremity swelling each day. Follow-up with your primary care provider in approximately 5 to 7 days. Coding Level of Care Code ED Water Plumber for Nancie Guzman
[2022-10-18 14:37] LABS: Basophils % 0.3 %; Eosinophils # 0.1 10^3/uL (0.0-0.8); Eosinophils % 2.1 %; Hematocrit 41.4 % (36-47); Lymphocytes # 2.1 10^3/uL (0.8-4.8); Lymphocytes % 30.3 %; Mean Corpuscular HGB Conc 32.4 g/dL (30-55); Mean Corpuscular Hemoglobin 31.5 pg (27-33); Mean Corpuscular Volume 97.2 fl (85-98); Mean Platelet Volume 10.1 fL (7.4-10.4); Monocytes # 0.5 10^3/uL (0.2-0.9); Monocytes % 7.1 %; Neutrophils # 4.05 10^3/uL (1.8-7.7); Neutrophils % 59.8 %; Nucleated Red Blood Cells % 0 %; Platelet Count 216 10^3/cmm (157-399); Red Blood Count 4.26 10^6/uL (3.85-5.65); Red Cell Distribution Width 13.4 % (12.1-15.1); White Blood Count 6.77 10^3/uL (3.29-11.43)
[2022-10-18 14:46] LABS: HCG, Serum Qual Negative (Negative)
[2022-10-18] MEDS: acetaminophen 500 mg Tablet 1000 MG PO (14:57)
[2022-10-18] MEDS: FUROsemide 40 mg Tablet PO (14:57)
[2022-10-18 15:03] LABS: Alanine Aminotransferase 11 U/L (0-33); Albumin Level 4.2 g/dL (3.5-5.2); Alkaline Phosphatase 101 U/L (35-105); Aspartate Amino Transferase 14 U/L (0-32); Blood Urea Nitrogen 19 mg/dL (6-20); Calcium 8.5 mg/dL (8.5-10.5); Carbon Dioxide 25 mmol/L (22-29); Chloride 105 mmol/L (98-107); Globulin 2.8 g/dL (1.3-4.6); Glomerular Filtration Rate 93.2 mL/min (90-130); Glucose 82 mg/dL (65-115); NT Pro B Type Natriuretic Pept 774 pg/mL (0-125); Osmolality Calculated 289 mOsm/kg (285-295); Sodium 139 mmol/L (136-145); Total Bilirubin 0.2 mg/dL (0.15-1.2)
[2022-10-18 15:04] LABS: Alcohol Level < 10 mg/dL (0-10)
--- NOTE | 2022-10-19 11:34 | DCPLANNER ---
Addendum entered by Janine Mcallister 10/20/22 11:41: Patient has an outpatient echo cardiogram scheduled for October at 12:00 Original Note: development manager had message to schedule an outpatient echocardiogram for patient. development manager faxed signed order to centralized scheduling who will call patient with appointment information.
--- NOTE | 2022-10-19 11:38 | DCPLANNER ---
Addendum entered by Janine Mcallister 10/21/22 13:10: Patient has a follow up appointment scheduled for October at 2;15 with Yumiko Lopez at [facility]. Addendum entered by Janine Mcallister 10/20/22 11:40: applications project manager received the following message from the [facility] regarding follow up appointment: Attempted to call patient, lvm On Tue 3:01p Oct 19, 2022 Calista Farmer (Covering For: [facility]) Wrote To: [facility] Attempted to call patient, lvm Original Note: applications project manager was asked to schedule a follow up appointment for patient with cardiology. applications project manager sent patients information to the front office staff at [facility]. Patients information will be printed and reviewed. Clinic will call patient with appointment information.
== END 2022-10-18 15:44 | disposition home or self-care (01) ==
PROVIDERS: Emergency Provider Emergency Medicine; PCP Nurse Practitioner
DX: R60.0 Localized edema (principal); R79.89 Other specified abnormal findings of blood chemistry; Z79.82 Long term (current) use of aspirin; F17.210 Nicotine dependence, cigarettes, uncomplicated
CPT/HCPCS: 36415; 71045; 76705; 80053; 80307; 83880; 84703; 85025; 99285

== ENCOUNTER → 2022-11-11 14:43 | Outpatient (BNVA) | payer BC, MEDICAID, SELFPAY | PROVIDERS: PCP Nurse Practitioner; Visit Provider Nurse Practitioner Family | DX: R60.0 Localized edema (principal) | CPT/HCPCS: 36415; 80048; 83880 ==

== ENCOUNTER 2022-11-15 09:10 | Emergency (ER) | payer BC, MEDICAID, SELFPAY ==
--- NOTE | 2022-11-15 09:13 | XRR_ITS ---
PROCEDURE INFORMATION: Exam: XR Right Knee Exam date and time: 11/15/2022 9:24 AM Age: 37 years old Clinical indication: Injury or trauma; Blunt trauma; Right; Patient HX: RT knee pain/bruising post fall; Swelling; Limited rom; Additional info: Pain/injury TECHNIQUE: Imaging protocol: Radiologic exam of the right knee. Views: 3 views. COMPARISON: No relevant prior studies available. FINDINGS: Bones/joints: No acute fracture or dislocation. Mineralization is normal. Joint spacing and alignment are maintained. No joint effusion. Soft tissues: Prepatellar soft tissue swelling. XR/XR knee RT 3V* [id number] IMPRESSION: Prepatellar soft tissue swelling without acute fracture or dislocation.
[2022-11-15 09:51] VITALS: BP 110/74; PULSE 102; RESP 16; TEMP 36.4; O2SAT 96; BMI 30.9
--- NOTE | 2022-11-15 10:49 | W.ED.LOWEXIN ---
HPI - Extremity Injury (Lower) General: Chief Complaint: Extremity Injury, Lower Stated Complaint: rt knee inj Time Seen by Provider: 11/15/22 09:13 Source: patient Mode of arrival: ambulatory (crutches) Limitations: no limitations History of Present Illness: Patient is a 37-year-old female presents to ED today with a complaint of a right knee injury. [place] and states she fell directly onto the knee. She states her patella dislocated. She states it did reduce spontaneously but states since then she has noticed ecchymosis, pain, and swelling. She states she is not able to bear weight on the knee. She has been using crutches to help her ambulate. No other injuries or complaints at this time. MD complaint: knee injury Onset (ago): day(s) Injury: Right: knee Type of Injury: blunt Place: street/outdoors (river) Severity: severe Relieving factors: immobilization Exacerbating factors: weight bearing, movement and palpation Context: fall and direct blow Associated symptoms: Reports inability to bear weight Other symptoms: none Treatments prior to arrival: bandage (knee sleeve) Review of Systems Card: Denies: chest pain Resp: Denies: dyspnea Musc: Reports: joint pain (R knee) and joint swelling (R knee); Denies: neck pain, back pain, extremity pain or extremity swelling Neuro: Denies: numbness in extremities, weakness in extremities or sensory changes [facility] ED PFSH: Medical History Bipolar 2 disorder Bipolar 2 disorder, major depressive episode History of substance use Other retirement (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 Other retirement (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 Psychiatric care Surgical History H/O mastectomy History of appendectomy S/P cholecystectomy Social History Smoking and tobacco status: current some day smoker Alcohol intake: never Substance/Drug Use: current Substance/Drug use frequency: few times a month Physical Exam Const: COMMON NORMALS: no acute distress, patient oriented x3, no limitations, alert and well nourished Extremity: COMMON NORMALS: capillary refill normal and no calf tenderness GENERAL: Yes normal exam except as noted RIGHT LOWER EXTREMITY: Yes knee joint (effusion/swelling and ecchymosis noted) Right knee: Yes ROM (limited due to pain/swelling), Yes neurovascular exam (normal) and Yes other (no bony abnormality noted; no patellar dislocation) Neuro: COMMON NORMALS: patient oriented x3, moves all extremities, no focal motor deficits and no sensory deficits noted SENSORIUM/ORIENTATION: Yes alert Course Vital Signs: Vital signs: Vital Signs Temperature 97.5 F L 11/15/22 09:51 Pulse Rate 102 H 11/15/22 09:51 Respiratory Rate 16 11/15/22 09:51 Blood Pressure 110/74 11/15/22 09:51 Pulse Oximetry 96 11/15/22 09:51 Oxygen Delivery Me thod Room Air 11/15/22 09:51 MDM - Extremity Injury (Lower) Medical Decision Making XR showing no fracture/dislocation. At this time recommend she continue her knee sleeve, crutches for weightbearing as tolerated, ice/elevation. She is requesting something for pain. We will place referral to get her set up with orthopedics. Lab Data Radiology Impressions Knee X-Ray 11/15/22 09:13 IMPRESSION: Prepatellar soft tissue swelling without acute fracture or dislocation. All radiology interpretation(s) finalized by discharge Discharge Plan Discharge Patient Disposition: Home Clinical Impression: Dislocation of right patella Qualifiers: Encounter type: initial encounter Qualified Code(s): S83.004A - Unspecified dislocation of right patella, initial encounter Condition: Stable Prescriptions: New tramadol 50 mg tablet 50 mg PO Q6H PRN (Reason: pain) Qty: 10 0RF No Action topiramate 100 mg tablet See Rx Instructions .ROUTE .COMPLEX Rx Instructions: 100mg po in the morning and 200mg po in the evening cholecalciferol (vitamin D3) [Vitamin D3] 25 mcg (1,000 unit) capsule 3,000 unit PO DAILY (DME) Custom molded orthotics See Rx Instructions .Route .MEDSUPPLY Qty: 1 0RF Rx Instructions: As directed Linzess 290 mcg capsule 290 mcg PO QAM olanzapine 15 mg tablet 15 mg PO BEDTIME 30 Days Qty: 30 3RF clonazepam 0.5 mg tablet 0.5 mg PO BID 30 Days Qty: 60 1RF aspirin 81 mg Tablet,Delayed Release (Dr/Ec) 81 mg PO DAILY PRN (Reason: Headache) spironolactone 50 mg tablet 50 mg PO QAM minocycline 50 mg tablet 50 mg PO BEDTIME Rx Instructions: MAY INCREASE TO TWICE DAILY FOR FLARE UPS Multivitamin Gummies 200 mcg Tablet,Chewable 1 tab PO DAILY cetirizine [Zyrtec] 10 mg Tablet 10 mg PO QAM valacyclovir 500 mg tablet See Rx Instructions .ROUTE .COMPLEX PRN (Reason: fever blister) Rx Instructions: FOR OUTBREAKS TAKE ONE TAB EVERY 12 HOURS FOR 3 DAYS FOR MAINTENACNE TAKE ONE TAB DAILY magnesium citrate 100 mg Capsule 200 mg PO BEDTIME metoclopramide HCl [Reglan] 10 mg tablet 10 mg PO Q6H PRN (Reason: Migraine Headache) escitalopram oxalate 20 mg tablet 20 mg PO BEDTIME Caplyta 10.5 mg capsule 10.5 mg PO BEDTIME pantoprazole 40 mg tablet,delayed release (DR/EC) 40 mg PO BEDTIME pregabalin 75 mg capsule 75 mg PO BID levothyroxine 112 mcg tablet 112 mcg PO DAILY Discharge Orders: Discharge ED (Routine); Ordered 11/15/22 Ordered By: Jena Montelongo Referrals: Tereza Dolan FNP [Primary Care Provider] - Patient Instructions: Opioid Safety, Pain Management Activity Restrictions/Additional Instructions: As we discussed you need to continue wearing your tight fitting knee sleeve. You need to ice and elevate the knee as much as possible to help with swelling. You have crutches to be weightbearing as tolerated. Case management should reach out to you shortly to help set you up with your follow-up orthopedic appointment. Coding Level of Care Code ED Adjunct Mathematics Instructor for Nancie Guzman
--- NOTE | 2022-11-15 11:22 | PC.SOCIAL ---
Ortho Referral Referral message to clinic at this time. Clinic to contact patient with appt date/time.
== END 2022-11-15 11:24 | disposition home or self-care (01) ==
PROVIDERS: Emergency Provider Physician Assistant; PCP Nurse Practitioner
DX: S83.004A Unspecified dislocation of right patella, initial encounter (principal); Z79.82 Long term (current) use of aspirin; F17.210 Nicotine dependence, cigarettes, uncomplicated; W01.0XXA Fall on same level from slipping, tripping and stumbling without subsequent striking against object, initial encounter; Y92.828 Other wilderness area as the place of occurrence of the external cause
CPT/HCPCS: 73562; 99283

== ENCOUNTER → 2022-11-19 07:56 | Outpatient (BNVA) | payer BC, MEDICAID, SELFPAY | PROVIDERS: PCP Nurse Practitioner; Referring Provider Physician Assistant; Visit Provider Student in an Organized Health Care Education/Training Program | DX: S89.91XA Unspecified injury of right lower leg, initial encounter; W01.0XXA Fall on same level from slipping, tripping and stumbling without subsequent striking against object, initial encounter; Y92.828 Other wilderness area as the place of occurrence of the external cause | CPT/HCPCS: 73560; 73565 ==

== ENCOUNTER 2022-11-22 07:46 | Outpatient (CLI) | payer BC, MEDICAID, SELFPAY ==
--- NOTE | 2022-11-22 08:00 | USCV_ITS ---
Viki Roach Age: 37 Gender: F : 1985 Exam Date: 11/22/2022 08:09 Ordering Phys: Yumiko Lopez Technologist: Ofelia Alba [place] [facility] [place] Indication: MIGUEL BP: 110 / 74 HR: 95 Rhythm: Sinus Technical Quality: Technically difficult study MEASUREMENTS (Male / Female) Normal Values 2D ECHO LV Diastolic Diameter PLAX 3.9 cm 4.2 - 5.9 / 3.9 - 5.3 cm LV Systolic Diameter PLAX 3.0 cm IVS Diastolic Thickness 0.8 cm 0.6 - 1.0 / 0.6 - 0.9 cm IVS Systolic Thickness 1.1 cm LVPW Diastolic Thickness 1.2 cm 0.6 - 1.0 / 0.6 - 0.9 cm LVPW Systolic Thickness 1.3 cm LVOT Diameter 2.0 cm LV Ejection Fraction 2D Teich 47.7 % LA Diameter 2.0 cm Aorta at Sinotubular Diameter 3.0 cm IVC Diameter 1.0 cm M-MODE Aortic Annulus Diameter 2.7 cm LA Ao Ratio MM 0.8 MV E Point Septal Separation 1.0 cm DOPPLER TR Peak Velocity 57.0 cm/s TR Peak Gradient 1.3 mmHg Right Atrial Pressure 5.0 mmHg Pulmonary Artery Systolic Pressu 6.3 mmHg PV Peak Velocity 110.0 cm/s RV Acceleration Time 0.1 s RV Ejection Time 0.2 s RV AcT/ET 0.5 FINDINGS Left Ventricle Mild diffuse hypokinesis of the septum and the anteroseptal segments. LV ejection fraction of 48%. No apical windows due to breast implant. Study is of suboptimal quality Right Ventricle Possibly of normal size and ejection fraction Right Atrium Right atrium not well visualized. Left Atrium Possibly of normal size Mitral Valve Thickened anterior mitral leaflet Aortic Valve No gross abnormalities noted Tricuspid Valve Could not be visualized Pulmonic Valve Moderate pulmonic regurgitation. 2 pulmonic regurgitant jets Pericardium No pericardial effusion. Aorta Normal aortic annulus size. IVC Not visualized well CONCLUSIONS Study is a suboptimal quality. No apical windows because of breast implant. Possibly normal LV size with an ejection fraction of 48%. Mild diffuse hypokinesia of the septum and the anteroseptal segments. Possibly normal RV size and ejection fraction Moderate pulmonary regurgitation with the 2 pulmonic regurgitatant jets. Normal left atrial size. Right atrium could not visualized well. Thickened anterior mitral leaflet There is no pericardial effusion. Technically limited study Dr Colleen Izaguirre MD [facility] (Electronically Signed) Final Date: 25 November 2022 08:52 S
== END 2022-11-22 07:47 | disposition home or self-care (01) ==
PROVIDERS: PCP Nurse Practitioner; Visit Provider Internal Medicine Cardiovascular Disease
DX: R55 Syncope and collapse (principal); R06.00 Dyspnea, unspecified; I37.1 Nonrheumatic pulmonary valve insufficiency
CPT/HCPCS: 93306

== ENCOUNTER 2022-12-21 06:41 | Outpatient (CLI) | payer OTHER, BC, MEDICAID, SELFPAY ==
--- NOTE | 2022-12-21 07:15 | MR_ITS ---
WS: [id number] MRI RIGHT KNEE HISTORY: right knee dislocation COMPARISON: Radiographs 11/19/2022 and 11/15/2022 Anterior cruciate ligament: Intact. Small amount of fluid within the bands of the ACL but no tear. Posterior cruciate ligament: Intact. Medial collateral ligament: Intact. Posterior lateral corner structures: Intact. Medial menisci: There is a small amount of increased T2 signal and soft tissue thickening involving t he posterior horn of the medial meniscus. This is towards the meniscal root of the meniscus. Anterior horn is normal. Lateral meniscus: Intact. Normal signal, size and shape. Extensor mechanism: Distal quadriceps tendon and patellar tendons are intact. Fluid and soft tissue: No significant joint effusion. There is a very small amount of prepatellar tabitha ma. No Prabhakar's cyst. Osseous and articular structures: Patellofemoral compartment: Normal position of the patella. No marrow edema. Patellar retinaculum are normal. Cartilage remains normal. Medial compartment: Negative. Lateral compartment: Negative Well rounded nodule measuring 7 mm adjacent to the lateral femoral condyle surrounded by small amount of fluid. This is probably a loose body. This is not within the joint space and the donor site is no t evident. IMPRESSION: 1. No marrow edema or acute fractures. 2. Very mild thickening and increased T2 signal involving the posterior horn of the medial meniscus t owards the meniscal root. Thickening involves the superior articular surface. Suspicious for tear. 3. No significant joint effusion. 4. Suspicious for 7 mm loose body adjacent to the lateral femoral condyle. The donor site is not evid ent.
== END 2022-12-21 06:42 | disposition home or self-care (01) ==
LOC: RAD 06:43
PROVIDERS: PCP Nurse Practitioner; Visit Provider Student in an Organized Health Care Education/Training Program
DX: S83.004A Unspecified dislocation of right patella, initial encounter (principal); X58.XXXA Exposure to other specified factors, initial encounter; R93.6 Abnormal findings on diagnostic imaging of limbs
CPT/HCPCS: 73721

== ENCOUNTER 2022-12-21 09:37 | Emergency (ER) | payer OTHER, BC, MEDICAID, SELFPAY ==
[2022-12-21 09:43] VITALS: BP 127/94; PULSE 103; TEMP 36.7; O2SAT 98; BMI 31.3
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
[2022-12-21 10:23] VITALS: BP 127/94; RESP 18; O2SAT 100
[2022-12-21 10:28] VITALS: RESP 18
[2022-12-21] MEDS: morphine 4 mg/mL SDV 1 mL IVP (10:28)
[2022-12-21 10:30] VITALS: BP 128/88
[2022-12-21 11:25] LABS: Add Urine Microscopic? YES; Bilirubin Urine Neg (Negative); Blood Urine Neg (Negative); Glucose Urine UA Norm (Normal); Ketones Urine Negative (Negative); Leukocyte Esterase Urine Negative (Negative); Nitrate Urine Negative (Negative); Protein Urine Neg (Negative); Sulfosalicylic Acid Urine Negative (Negative); Urine Appearance SL Hazy (CLEAR); Urine Color Yellow (Yellow); Urobilinogen Urine Norm (Negative); pH Urine 8 (5-7)
[2022-12-21 11:29] LABS: Bacteria Urine TRACE /hpf; Mucus Urine 1+ /hpf; RBC Urine RARE /hpf (0-2); WBC Urine RARE /hpf (0-5)
[2022-12-21 11:30] LABS: Add Urine Culture? No; Amorphous Sediment Urine 1+ /hpf
[2022-12-21] MEDS: iohexol 350 mg/mL 500 mL Btl (per mL) IV (11:50)
[2022-12-21] MEDS: ketorolac 30 mg/mL INJ IVP (11:51)
[2022-12-21 12:11] VITALS: BP 106/80; PULSE 80; RESP 12; TEMP 36.6; O2SAT 100
[2022-12-21] MEDS: HYDROmorphone 1 mg/mL INJ 1 mL 0.5 MG IVP (12:20)
--- NOTE | 2022-12-21 12:50 | DCPLANNER ---
Sent message to Ortho for Follow up on a thoracic vertebrae fracture
== END 2022-12-21 12:25 | disposition home or self-care (01) ==
PROVIDERS: Emergency Provider Physician Assistant; PCP Nurse Practitioner
DX: S22.039A Unspecified fracture of third thoracic vertebra, initial encounter for closed fracture (principal); Z79.82 Long term (current) use of aspirin; Z72.0 Tobacco use; V53.5XXA Driver of pick-up truck or van injured in collision with car, pick-up truck or van in traffic accident, initial encounter
CPT/HCPCS: 70450; 71260; 72125; 74177; 81001; 99285; J1170; J1885; J2270; Q9967

== ENCOUNTER 2023-01-19 10:47 | Emergency (ER) | payer BC, MEDICAID, SELFPAY ==
[2023-01-19 10:53] VITALS: BP 138/83; PULSE 108; RESP 17; TEMP 36.8; O2SAT 99; BMI 30.9
--- NOTE | 2023-01-19 11:37 | PC.PHAR ---
PT STATES SHE TAKES CARE OF HER OWN MEDICATIONS-PT STATES SHE HASNT BEEN TAKING HER MEDICATIONS EVERYDAY LIKE SHE SHOULD-PT STATES SHE LAST TOOK HER MEDS AROUND 5 DAYS AGO-PT STATES SHE RAN OUT OF HER LEVOTHYROXINE 112MCG DAILY SO STARTED TAKING 100MCG OF AN OLD RX LYNDA VICENTE STATES 112MCG FILLED 01/18/23 NOT PICKED UP YET ALSO FILLED 12/07/22 30D/S AND PICKED UP 12/20/22 30D/S-PT STATES THE DCED HER ZYPREXA 15MG HS EXT SHOWS LAST FILLED 12/06/22 30D/S-PT STATES SHE IS STILL TAKING SPIRONOLACTONE 50MG QAM EXT SHOWS LAST FILLED 09/29/22 30D/S-PT STATES THE DECREASED TOPAMAX TO 200MG HS EXT SHOWS LAST FILLED 12/20/22 30D/S 100MG QAM AND 200MG HS-
--- NOTE | 2023-01-19 12:12 | XRR_ITS ---
PROCEDURE INFORMATION: Exam: XR Chest Exam date and time: 01/19/2023 12:25 PM Age: 37 years old Clinical indication: Cough; Additional info: Psychiatric issues, hypothyroidism, mdd, bipolar, smoker TECHNIQUE: Imaging protocol: Radiologic exam of the chest. Views: 1 view. COMPARISON: CT chest abdpel w/*[id number] 12/21/2022 11:02 AM FINDINGS: Lungs: Unremarkable. No consolidation. Pleural spaces: Unremarkable. No pleural effusion. No pneumothorax. Heart/Mediastinum: Unremarkable. No cardiomegaly. Bones/joints: Unremarkable. Soft tissues: Surgical clips near the right axilla. XR/XR chest 1V portable [id number] IMPRESSION: No acute findings.
--- NOTE | 2023-01-19 12:12 | ECG_ITS ---
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 Measurements Intervals [place] Rate: 101 P: 73 RI: 137 QRS: 57 QRSD: 88 T: 0 QT: 326 QTc: 424 Interpretive Statements SINUS TACHYCARDIA MODERATE T-WAVE ABNORMALITY, CONSIDER ANTEROLATERAL ISCHEMIA [-0.1+ mV T-WAVE IN V3-V6] MODERATE T-WAVE ABNORMALITY, CONSIDER INFERIOR ISCHEMIA [-0.1+ mV T-WAVE IN II/aVF] No previous ECG available for comparison Electronically Signed On 01-20-2023 16:41:59 BUSINESS DEVELOPMENT REPRESENTATIVE by Zully Garces M.D. [id number]
[2023-01-19 13:04] LABS: Basophils % 0.3 %; Eosinophils % 0.3 %; Hematocrit 46.1 % (36-47); Lymphocytes # 1.8 10^3/uL (0.8-4.8); Mean Corpuscular HGB Conc 33.4 g/dL (30-55); Mean Corpuscular Hemoglobin 30.8 pg (27-33); Mean Corpuscular Volume 92.2 fl (85-98); Mean Platelet Volume 9.6 fL (7.4-10.4); Monocytes # 0.5 10^3/uL (0.2-0.9); Monocytes % 7.9 %; Neutrophils # 4.16 10^3/uL (1.8-7.7); Neutrophils % 64.2 %; Nucleated Red Blood Cells % 0 %; Platelet Count 247 10^3/cmm (157-399); Red Cell Distribution Width 13.1 % (12.1-15.1); White Blood Count 6.48 10^3/uL (3.29-11.43)
--- NOTE | 2023-01-19 13:25 | ED.C_ITS ---
HPI - Psych 2 General: Chief Complaint: Psychiatric Symptoms Stated Complaint: MHE/med check Time Seen by Provider: 01/19/23 12:00 History of Present Illness: Patient presents to the ER with complaints of being at her wits end and about to lose her mind. Patient denies being suicidal or homicidal however patient keeps focusing on the fact that she rolled over on her daughter trying to get up out of bed and stayed on her daughter a little bit longer than she should have. She would not clarify if this was a intentional act of harm or homicidal act. She normally sees a psychiatrist in [place] who she says told her to come in to be evaluated for inpatient treatment. Patient says that she is willing to stay here or go anywhere to receive immediate further treatment. Patient does states she has not been taking her medicine as directed. Review of Systems 2 General: Reports: 10 or more systems reviewed and unremarkable except in HPI and below PFSH ED 2 PFSH: Medical History Bipolar 2 disorder, major depressive episode Other [facility] (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 Psychiatric care History of substance use Bipolar 2 disorder Other [facility] (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 Surgical History S/P cholecystectomy H/O mastectomy History of appendectomy Social History Smoking and tobacco/nicotine status: current some day tobacco/nicotine user Alcohol intake: never Substance/Drug Use: current Substance/Drug use frequency: few times a month Physical Exam 2 Const: COMMON NORMALS: no acute distress, average body habitus, patient oriented x3, no limitations, healthy appearing, alert and well nourished HENMT: COMMON NORMALS: normocephalic, atraumatic, hearing grossly normal bilaterally, external ears normal, Normal external nose present, moist oral mucous membranes and oropharynx normal HEAD & SCALP: normocephalic and atraumatic NOSE: Normal external nose present EXTERNAL EAR: Yes external ears normal Eye: COMMON NORMALS: Equal, round and reactive pupils present, EOMs intact bilaterally, conjunctivae normal and no scleral icterus CONJUNCTIVA: Yes conjunctivae normal PUPIL: Yes Equal, round and reactive pupils present Neck/C-Spine: COMMON NORMALS: full ROM, no lymphadenopathy, supple, no meningeal signs, no JVD and Thyroid normal THYROID: Thyroid normal Chest: COMMONS NORMALS: normal inspection of the chest and normal palpation of entire chest wall Resp: COMMON NORMALS: normal respiratory effort, No retractions, No use of accessory muscles and clear to auscultation bilaterally AUSCULTATION: clear to auscultation bilaterally Cardio: COMMON NORMALS: no JVD, regular rate, regular rhythm, S1 normal heart sound present, S2 normal heart sound present, No gallops present (Cardio), No clicks present (Cardio), No murmurs present (Cardio) and No rub (Cardio) R ATE: regular rate RHYTHM: regular rhythm HEART SOUNDS: S1 normal heart sound present and S2 normal heart sound present GI: COMMON NORMALS: Normal to inspection, nondistended, normoactive bowel sounds present, Soft to palpation, non-tender, No hepatosplenomegaly present and no masses PALPATION: Yes Soft to palpation and Yes No hepatosplenomegaly present Neuro: COMMON NORMALS: patient oriented x3 SENSORIUM/ORIENTATION: Yes alert MENINGEAL SIGNS: Yes no meningeal signs Course 2 Vital Signs: Vital signs: Vital Signs Temperature 98.2 F 01/19/23 10:53 Pulse Rate 90 01/20/23 07:43 Respiratory Rate 18 01/20/23 06:08 Blood Pressure 114/78 01/20/23 07:43 Pulse Oximetry 98 01/20/23 07:43 Oxygen Delivery Me thod Room Air 01/20/23 07:43 MDM - Psych Medical Decision Making Patient was worked up in a standard psychiatric fashion. With labs chest x-ray urine urine drug screen. She was deemed medically stable. Patient be transferred to the appropriate psychiatric facility once an accepting facility is found. Differential Diagnosis Likely bipolar disorder and depression; Unlikely acute psychosis, chronic schizophrenia, suicidal ideation or drug-induced psychotic disorder Medical Records I reviewed the patient's medical records. Lab Data I reviewed the patient's lab results. 01/19/23 12:58 01/19/23 12:58 Radiology Impressions Chest X-Ray 01/19/23 12:12 IMPRESSION: No acute findings. Laboratory Results WBC 6.48 10^3/uL (3.29-11.43) 01/19/23 12:58 RBC 5.00 10^6/uL (3.85-5.65) 01/19/23 12:58 Hgb 15.40 g/dL (11.27-16.99) 01/19/23 12:58 Hct 46.1 % (36-47) 01/19/23 12:58 MCV 92.2 fl (85-98) 01/19/23 12:58 MCH 30.8 pg (27-33) 01/19/23 12:58 MCHC 33.4 g/dL (30-55) 01/19/23 12:58 RDW 13.1 % (12.1-15.1) 01/19/23 12:58 Plt Count 247 10^3/cmm (157-399) 01/19/23 12:58 MPV 9.6 fL (7.4-10.4) 01/19/23 12:58 Neut % (Auto) 64.2 % 01/19/23 12:58 Lymph % (Auto) 27.0 % 01/19/23 12:58 Reynolds % (Auto) 7.9 % 01/19/23 12:58 Eos % (Auto) 0.3 % 01/19/23 12:58 Baso % (Auto) 0.3 % 01/19/23 12:58 Neut # (Auto) 4.16 10^3/uL (1.8-7.7) 01/19/23 12:58 Lymph # (Auto) 1.8 10^3/uL (0.8-4.8) 01/19/23 12:58 Reynolds # (Auto) 0.5 10^3/uL (0.2-0.9) 01/19/23 12:58 Eos # (Auto) 0.0 10^3/uL (0.0-0.8) 01/19/23 12:58 Baso # (Auto) 0.0 10^3/uL (0.0-0.1) 01/19/23 12:58 Nucleated RBC % (auto) 0 % 01/19/23 12:58 Nucleated RBCs # 0.0 /100WBC 01/19/23 12:58 Sodium 137 mmol/L (136-145) 01/19/23 12:58 Potassium 3.7 mmol/L (3.5-5.1) 01/19/23 12:58 Chloride 101 mmol/L (98-107) 01/19/23 12:58 Carbon Dioxide 22 mmol/L (22-29) 01/19/23 12:58 Anion Gap 17.7 (5-19) 01/19/23 12:58 BUN 17 mg/dL (6-20) 01/19/23 12:58 Creatinine 0.7 mg/dL (0.5-0.9) 01/19/23 12:58 GFR Calculation 93.2 mL/min (90-130) 01/19/23 12:58 Glucose 115 mg/dL (65-115) 01/19/23 12:58 Calculated Osmolality 286 mOsm/kg (285-295) 01/19/23 12:58 Calcium 9.6 mg/dL (8.5-10.5) 01/19/23 12:58 Total Bilirubin 0.6 mg/dL (0.15-1.2) 01/19/23 12:58 AST 19 U/L (0-32) 01/19/23 12:58 ALT 17 U/L (0-33) 01/19/23 12:58 Alkaline Phosphatase 133 U/L (35-105) H 01/19/23 12:58 Total Protein 7.8 g/dL (6.6-8.7) 01/19/23 12:58 Albumin 4.6 g/dL (3.5-5.2) 01/19/23 12:58 Globulin 3.2 g/dL (1.3-4.6) 01/19/23 12:58 TSH 9.04 uIU/mL (0.27-4.20) H 01/19/23 12:58 HCG, Qual Negative (Negative) 01/19/23 14:24 Urine Color Dark yellow (Yellow) 01/19/23 14:24 Urine Appearance Hazy (CLEAR) A 01/19/23 14:24 Urine pH 5 (5-7) 01/19/23 14:24 Ur Specific [place] 1.025 (1.005-1.030) 01/19/23 14:24 Urine Protein Trace (Negative) 01/19/23 14:24 Urine Glucose (UA) Norm (Normal) 01/19/23 14:24 Urine Ketones 2+ (Negative) H 01/19/23 14:24 Urine Blood Trace (Negative) H 01/19/23 14:24 Urine Nitrate Negative (Negative) 01/19/23 14:24 Urine Bilirubin 1+ (Negative) H 01/19/23 14:24 Urine Urobilinogen 4 mg/dL (Negative) H 01/19/23 14:24 Ur Leukocyte Esterase Negative (Negative) 01/19/23 14:24 Urine RBC 0-4 /hpf (0-2) H 01/19/23 14:24 Urine WBC 0-4 /hpf (0-5) H 01/19/23 14:24 Ur Squamous Epith Cells 0-4 /hpf (0-5) H 01/19/23 14:24 Amorphous Sediment 3+ /hpf 01/19/23 14:24 Urine Bacteria Trace /hpf (NONE) 01/19/23 14:24 Urine Mucus 1+ /hpf 01/19/23 14:24 Salicylates 0.5 mg/dL (3-10) L 01/19/23 12:58 Urine Opiates Screen Negative ng/mL (Negative) 01/19/23 14:24 Acetaminophen < 5.0 ug/mL (10-30) L 01/19/23 12:58 Ur Barbiturates Screen Negative ng/mL (Negative) 01/19/23 14:24 Ur Phencyclidine Scrn Negative ng/mL (Negative) 01/19/23 14:24 Ur Amphetamines Screen Positive ng/mL (Negative) H 01/19/23 14:24 U Benzodiazepines Scrn Negative ng/mL (Negative) 01/19/23 14:24 Urine Cocaine Screen Negative ng/mL (Negative) 01/19/23 14:24 U Marijuana (THC) Screen Positive ng/mL (Negative) H 01/19/23 14:24 Ethyl Alcohol < 10 mg/dL (0-10) 01/19/23 12:58 Influenza Type A Ag negative (Negative) 01/19/23 13:33 Influenza Type B Ag negative (Negative) 01/19/23 13:33 SARS-CoV-2 Ag (Rapid) negative (Negative) 01/19/23 13:33 XR interpretation done by ED provider, pending radiology final review EKG Data EKG 1: I personally reviewed and interpreted this EKG as follows: EKG interpretation date: 01/19/23 EKG interpretation time: 12:57 Prior EKG tracings: not available for review Interpretation: EKG shows ventricular rate 101 bpm, WA interval 137, QRS duration 88, QTc 384, sinus tachycardia, moderate T wave abnormality consider anterolateral, inferior ischemia, Discharge Plan Discharge Patient Disposition: Xfer Psychiatric Hosp Clinical Impression: Acute anxiety, Amphetamine abuse Bipolar disorder Qualifiers: Active/Remission status: currently active Current bipolar episode type: d epressed Current episode severity: severe Psychotic features: without psychotic features Qualified Code(s): F31.4 - Bipolar disorder, current episode depressed, severe, without psychotic features Condition: Stable Referrals: Tereza Dolan FNP [Primary Care Provider] - Coding Level of Care Code ED Toilet And Laundry Soap Supervisor for Nancie Guzman
[2023-01-19 13:31] LABS: Acetaminophen < 5.0 ug/mL (10-30); Alanine Aminotransferase 17 U/L (0-33); Albumin Level 4.6 g/dL (3.5-5.2); Alcohol Level < 10 mg/dL (0-10); Alkaline Phosphatase 133 U/L (35-105); Anion Gap 17.7 (5-19); Aspartate Amino Transferase 19 U/L (0-32); Blood Urea Nitrogen 17 mg/dL (6-20); Calcium 9.6 mg/dL (8.5-10.5); Carbon Dioxide 22 mmol/L (22-29); Chloride 101 mmol/L (98-107); Globulin 3.2 g/dL (1.3-4.6); Glomerular Filtration Rate 93.2 mL/min (90-130); Glucose 115 mg/dL (65-115); Osmolality Calculated 286 mOsm/kg (285-295); Potassium 3.7 mmol/L (3.5-5.1); Salicylate 0.5 mg/dL (3-10); Sodium 137 mmol/L (136-145); Thyroid Stimulating Hormone 9.04 uIU/mL (0.27-4.20); Total Bilirubin 0.6 mg/dL (0.15-1.2); Total Protein 7.8 g/dL (6.6-8.7)
[2023-01-19] MEDS: LORazepam 1 mg Tablet PO (13:52)
[2023-01-19 14:29] LABS: SARS Covid-2 Antigen negative (Negative)
[2023-01-19 14:30] LABS: Influenza A by IFA negative (Negative); Influenza B by IFA negative (Negative)
[2023-01-19 14:41] LABS: HCG Qualitative Urine. Negative (Negative)
[2023-01-19 15:37] LABS: Glucose Urine UA Norm (Normal); Ketones Urine 2+ (Negative); Protein Urine Trace (Negative); Specific Gravity, Urine 1.025 (1.005-1.030); Urine Appearance Hazy (CLEAR); Urine Color Dark Yellow (Yellow); pH Urine 5 (5-7)
[2023-01-19 15:38] LABS: Add Urine Microscopic? YES; Bilirubin Urine 1+ (Negative); Blood Urine Trace (Negative); Leukocyte Esterase Urine Negative (Negative); Nitrate Urine Negative (Negative); Urobilinogen Urine 4 mg/dL (Negative)
[2023-01-19] MEDS: nicotine 21 mg Patch 1 PATCH TRANSDERMA (16:20)
[2023-01-19 16:22] LABS: Amphetamines Screen Urine Positive (Negative); Barbiturates Screen Urine Negative (Negative); Benzodiazepines Screen Urine Negative (Negative); Cocaine Screen Urine Negative (Negative); Opiate Screen Urine Negative (Negative); PCP Screen Urine Negative (Negative); THC Screen Urine Positive (Negative)
[2023-01-19 16:27] LABS: Add Urine Culture? No; Amorphous Sediment Urine 3+ /hpf; Bacteria Urine TRACE /hpf; Mucus Urine 1+ /hpf; RBC Urine 0-4 /hpf (0-2); Squamous Epithelial Cell Urine 0-4 /hpf (0-5); WBC Urine 0-4 /hpf (0-5)
[2023-01-19] MEDS: haloperidol inj 5 mg/mL INJ 1 mL IM (16:54)
--- NOTE | 2023-01-19 22:54 | PC.NURSE ---
Clemencia from [facility] said they could not accept the pt as the WATER RESOURCES PROJECT MANAGER said they were unable to meet her needs right now.
[2023-01-20 06:08] VITALS: BP 133/83; PULSE 104; RESP 18; O2SAT 99
--- NOTE | 2023-01-20 06:43 | PC.NURSE ---
Report called to [facility], Akila Monsivais RN verbalized understanding and denies questions.
[2023-01-20 07:43] VITALS: BP 114/78; PULSE 90; O2SAT 98
[2023-01-20 13:34] VITALS: BP 110/75; PULSE 108; O2SAT 97
== END 2023-01-20 15:41 ==
PROVIDERS: Emergency Medicine; Emergency Provider Emergency Medicine; PCP Nurse Practitioner
DX: F41.9 Anxiety disorder, unspecified (principal); F31.4 Bipolar disorder, current episode depressed, severe, without psychotic features; F15.10 Other stimulant abuse, uncomplicated; Z11.52 Encounter for screening for COVID-19; F17.210 Nicotine dependence, cigarettes, uncomplicated
CPT/HCPCS: 36415; 71045; 80053; 80306; 80307; 81001; 81025; 84443; 85025; 87426; 87804; 93005; 96372; 99285; J1630

== ENCOUNTER 2023-02-11 06:35 | Outpatient (CLI) | payer BC, MEDICAID, SELFPAY ==
--- NOTE | 2023-02-11 | ECG_ITS ---
[facility] Test Date: 2023-02-11 Pat Name: Viki Roach Department: Room: Gender: Female Multimedia Designer: Mercedes Smith : 1985 Requested By: Yumiko Lopez Order Number: [id number] Blayne MD: Colleen Izaguirre M.D. Interpretive Statements NAME OF STUDY: LEXISCAN SESTAMIBI STRESS TEST INDICATION: Chest Pain, Decreased EF, SOB, PROCEDURE: At the baseline, the EKG revealed normal sinus rhythm with nonspecific T wave changes in the precordial leads. The baseline heart was 96 bpm with a blood pressue of 101/69 mm of Hg Lexiscan was infused over a period of 20 seconds. A total of 0.4 milligrams of Lexiscan was infused. The stress phase was continued for a total of 5 minutes. Heart rate at the end of the stress phase was 100 bpm with a blood pressure 94/63 mm of Hg. The EKG at the peak infusion revealed no significant changes. Sestamibi was injected 20 seconds after the Lexiscan infusion. Heart rate at the end of the recovery phase was 99 bpm with a blood pressure of 93/62 mm of Hg. CONCLUSION: 1. No significant EKG changes with the LexiScan infusion 2. No LexiScan induced chest pain or cardiac arrhythmia 3. Normal blood pressure and heart rate response 4. Sestamibi/sestamibi perfusion scan pending; see separate report. Electronically Signed On 02-21-2023 17:41:43 PLASTIC TILE LAYER by Colleen Izaguirre M.D. [email or web address]
[2023-02-11 06:55] VITALS: BMI 30.4
--- NOTE | 2023-02-11 06:56 | NMCV_ITS ---
NM colin perf SPECT r/s* [id number] Viki Roach Age: 37 Gender: F : 1985 Exam Date: 02/11/2023 07:11 Ordering Phys: Yumiko Lopez Technologist: SHASTA Green Exam Location: [facility] Indications: SYNCOPE AND COLAPSE, CHF, LOCALIZED EDEMA STRESS TEST Please [facility] for full findings IMAGE PROTOCOL Rest/Stress 1 Lexiscan Day Radiopharmaceutical Dose (mCi) Administration Site Administered by Rest: Tc-99m 10.7 IV SHASTA Wyatt Sestamibi Stress:Tc-99m 33.0 IV SHASTA Green Sestamibi Rest: 11-Feb-2023 60 Discovery 630 Stress: 11-Feb-2023 30 Discovery 630 0.4mg Lexiscan. Images obtained in supine and prone position. SPECT RESULTS Technical Quality: Excellent Raw Data Analysis: Normal Image Corrections: No attenuation or motion correction applied Summed Stress Score: 2 Summed Rest Score: 1 Summed Difference Score: 1 PERFUSION FINDINGS Small area of moderately decreased aseptic was noted in the apical septal region. Some reversibility was noted in this area. FUNCTIONAL RESULTS (calculated via Gated SPECT) Stress Image LV EF (%): 73 Stress EDV (mL):79 TID: 0.92 Stress ESV (mL):21 FUNCTIONAL FINDINGS: Segmental wall motion analysis revealing no gross wall motion abnormalities IMPRESSIONS 1. Myocardial perfusion imaging revealing a small area moderately decreased tracer uptake with some reversibility in the apical septal region, suggestive of myocardial scarring with ischemia in the distribution of the distal left anterior descending artery. 2. Normal LV ejection fraction of 73% 3. LV wall motion analysis revealing no gross wall motion abnormalities. 4. Normal LV volume No similar previous studies are available for comparison Dr Colleen Izaguirre MD FAC (Electronically Signed) Final Date: 12 February 2023 10:27 S
[2023-02-11] MEDS: regadenoson 0.4 Mg/5 ml Syringe IVP (08:08)
[2023-02-11 08:20] VITALS: BP 93/62; PULSE 99
== END 2023-02-11 06:36 | disposition home or self-care (01) ==
PROVIDERS: PCP Nurse Practitioner; Visit Provider Nurse Practitioner Family
DX: I50.22 Chronic systolic (congestive) heart failure (principal); R55 Syncope and collapse; I50.9 Heart failure, unspecified; R60.9 Edema, unspecified; R94.39 Abnormal result of other cardiovascular function study; R07.9 Chest pain, unspecified; R06.02 Shortness of breath
CPT/HCPCS: 36415; 78452; 93017; 96374; A9500; J2785

== ENCOUNTER → 2023-03-17 10:44 | Outpatient (BNVA) | payer BC, MEDICAID, SELFPAY | PROVIDERS: Visit Provider Orthopaedic Surgery | DX: M54.50 Low back pain, unspecified (principal); M54.2 Cervicalgia; S22.039A Unspecified fracture of third thoracic vertebra, initial encounter for closed fracture; S22.049A Unspecified fracture of fourth thoracic vertebra, initial encounter for closed fracture; V49.9XXA Car occupant (driver) (passenger) injured in unspecified traffic accident, initial encounter | CPT/HCPCS: 72050; 72070; 72110 ==

== ENCOUNTER 2023-05-19 08:51 | Emergency (ER) | payer BC, MEDICAID, SELFPAY ==
[2023-05-19 09:19] VITALS: BP 128/89; PULSE 103; RESP 20; TEMP 36.5; O2SAT 99; BMI 27.3
--- NOTE | 2023-05-19 09:27 | XR_ITS ---
WS: [id number] Exam: XR chest 1V [id number] Date/Time of Exam: 05/19/2023 9:27 AM Reason For Exam: confusion Comparison 01/19/2023. Lungs are fully expanded and clear. Normal cardiomediastinal silhouette. Regional bony elements are i ntact. Surgical clips along the bilateral axilla. IMPRESSION: 1. No acute cardiopulmonary finding.
--- NOTE | 2023-05-19 09:27 | CT_ITS ---
WS: [id number] CT HEAD TECHNIQUE: Noncontrast CT of the head obtained from the skullbase to the vertex. CLINICAL INFORMATION: Encephalopathy, altered mental status COMPARISON: 12/21/2022 DLP: 1052.[address] scans at [facility] use at least one of these dose optimization techniques: automated e xposure control; mA and/or kV adjustment per patient size (includes targeted exams where dose is matc hed to clinical indication); or iterative reconstruction. FINDINGS: No evidence of intracranial hemorrhage or mass effect. Ventricular system and basal cisterns are munguia nt. No extra-axial fluid collections. No evidence of mass or mass effect. Normal alvarado-white different iation. Paranasal sinuses and mastoid air cells are well aerated. .Normal visualized soft tissues. IMPRESSION: 1. No evidence of intracranial hemorrhage or mass effect. 2. No acute intracranial findings.
--- NOTE | 2023-05-19 09:30 | ED_ITS ---
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 Family says she has been this way for at least couple of days. She was supposed to go to an appointment and did not know what it was or where. She has no focal motor deficits. She appears to be in pain and is moaning, when I ask her where she hurts she says everywhere. Most of the history is obtained from family member. No known fevers. No vomiting. She has no abdominal pain on exam. Review of Systems 2 Narrative: Constitutional symptoms: Negative except as documented in HPI. Skin symptoms: Negative except as documented in HPI. Eye symptoms: Negative except as documented in HPI. ENMT symptoms: Negative except as documented in HPI. Respiratory symptoms: Negative except as documented in HPI. Cardiovascular symptoms: Negative except as documented in HPI. Gastrointestinal symptoms: Negative except as documented in HPI. Genitourinary symptoms: Negative except as documented in HPI. Musculoskeletal symptoms: Negative except as documented in HPI. Neurologic symptoms: Negative except as documented in HPI. Psychiatric symptoms: Negative except as documented in HPI. Endocrine symptoms: Negative except as documented in HPI. 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 Skin: Warm, dry. Head: Normocephalic, atraumatic. Neck: Supple, trachea midline. Eye: Extraocular movements are intact. Ears, nose, mouth and throat: mucosa moist. Cardiovascular: Regular, Normal peripheral perfusion. Respiratory: Lungs are clear to auscultation, respirations are non-labored, breath sounds are equal, Symmetrical chest wall expansion. Gastrointestinal: Soft, Nontender, Non distended, Normal bowel sounds. Musculoskeletal: Normal ROM, no deformity. Neurological: Patient is somnolent but arousable, No focal neurological deficit observed. Psychiatric: Patient has a very odd affect, she seems somewhat somnolent, she talks very slow.. Course 2 Vital Signs: Vital signs: Vital Signs Temperature 97.7 F 05/19/23 09:19 Pulse Rate 77 05/19/23 11:01 Respiratory Rate 20 H 05/19/23 09:19 Blood Pressure 164/117 05/19/23 11:01 Pulse Oximetry 98 05/19/23 11:01 MDM - Altered Mental Status Medical Decision Making Medical decision making: Differential diagnosis including but not limited to and based on the above HPI, review of systems and physical exam: Very unclear history. Patient is nonfocal but does appear confused. Will be concern for brain mass or hemorrhage so CT was ordered. Infection such as pneumonia or UTI so urinalysis and chest x-ray were ordered basic lab work was ordered as renal failure could cause an encephalopathic picture. Also drug screens, salicylate, Tylenol, alcohol levels were ordered. Orders placed to evaluate differential diagnosis based on the above differential, HPI and physical exam Lab Review: Laboratory results were reviewed and interpreted by myself the emergency room physician. White count is 5.9. Hemoglobin is 16.9. Sodium is 138. Potassium is 4. BUN is 24 and creatinine is 0.6. Salicylates, acetaminophen and blood alcohol were negative. Patient's urine drug screen is positive for marijuana and amphetamines. CT head: No acute intracranial process. no intracranial hemorrhage, no evidence of infarct. no evidence of acute fracture.This was reviewed and interpreted by myself the ER physician. Chest x-ray: No acute process. No infiltrate. No pneumothorax. No cardiomegaly. This was reviewed and interpreted by myself the ER physician. EKG: Time 10:05 AM rate 95 normal sinus rhythm, No ST-T changes, no ectopy, normal CO & QRS intervals, This was reviewed and interpreted by myself the ER physician at 10:10 AM.. Reexamination: Patient is little more talkative than initially. Still with no focal motor deficits. No increased work of breathing. She says she does smoke marijuana but she is unsure about amphetamines. Unclear etiology of her confusion and somnolence. An extremely extensive workup ruled out any infection or stroke or cancer in her brain. She does seem a bit dehydrated so some fluids are being given. She also is positive for methamphetamine and marijuana. The amphetamine confirmation is not back yet and she says she does not know of having used any amphetamines or methamphetamines. Lab Data 05/19/23 09:41 05/19/23 09:41 Laboratory Results WBC 5.89 10^3/uL (3.29-11.43) 05/19/23 09:41 RBC 5.44 10^6/uL (3.85-5.65) 05/19/23 09:41 Hgb 16.90 g/dL (11.27-16.99) 05/19/23 09:41 Hct 50.4 % (36-47) H 05/19/23 09:41 MCV 92.6 fl (85-98) 05/19/23 09:41 MCH 31.1 pg (27-33) 05/19/23 09:41 MCHC 33.5 g/dL (30-55) 05/19/23 09:41 RDW 13.1 % (12.1-15.1) 05/19/23 09:41 Plt Count 205 10^3/cmm (157-399) 05/19/23 09:41 MPV 10.0 fL (7.4-10.4) 05/19/23 09:41 Neut % (Auto) 64.8 % 05/19/23 09:41 Lymph % (Auto) 22.1 % 05/19/23 09:41 [place] % (Auto) 12.6 % 05/19/23 09:41 Eos % (Auto) 0.0 % 05/19/23 09:41 Baso % (Auto) 0.2 % 05/19/23 09:41 Neut # (Auto) 3.82 10^3/uL (1.8-7.7) 05/19/23 09:41 Lymph # (Auto) 1.3 10^3/uL (0.8-4.8) 05/19/23 09:41 [place] # (Auto) 0.7 10^3/uL (0.2-0.9) 05/19/23 09:41 Eos # (Auto) 0.0 10^3/uL (0.0-0.8) 05/19/23 09:41 Baso # (Auto) 0.0 10^3/uL (0.0-0.1) 05/19/23 09:41 Nucleated RBC % (auto) 0 % 05/19/23 09:41 Nucleated RBCs # 0.0 /100WBC 05/19/23 09:41 Specimen Type Arterial 05/19/23 12:45 Sample Site Radial, left 05/19/23 12:45 ABG pH 7.38 (7.35-7.45) 05/19/23 12:45 ABG pCO2 34.7 mmHg (35-45) L 05/19/23 12:45 ABG pO2 94.9 mmHg (80.0-100.0) 05/19/23 12:45 ABG PO2/FiO2 Ratio 0 05/19/23 12:45 ABG HCO3 20.4 mmol/L (22-26) L 05/19/23 12:45 ABG O2 Saturation 97.9 05/19/23 12:45 ABG Base Excess -4.0 mmol/L (-2.0-2.0) L 05/19/23 12:45 Philip Test Pos 05/19/23 12:45 A-a O2 Gradient 1.5 mmHg (5-10) L 05/19/23 12:45 Hematocrit 49.7 % (37-47) H 05/19/23 12:45 Hgb O2 Saturation 97.5 % (95-100) 05/19/23 12:45 Carboxyhemoglobin 0.4 %THgb (0.4-20.1) 05/19/23 12:45 Methemoglobin 0.0 % (0.4-1.5) L 05/19/23 12:45 Total Hemoglobin 16.2 g/dL (12-16) H 05/19/23 12:45 Sodium 142.0 mmol/L (131-143) 05/19/23 12:45 Potassium 3.5 mmol/L (3.5-5.0) 05/19/23 12:45 Glucose 117.0 mg/dL (70-115) H 05/19/23 12:45 Ionized Calcium 1.2 mmol/L (1.1-1.4) 05/19/23 12:45 O2 Delivery Device Room air 05/19/23 12:45 FiO2 21.0 % 05/19/23 12:45 Personalization Specialist ID Cak 05/19/23 12:45 Sodium 138 mmol/L (136-145) 05/19/23 09:41 Potassium 4.0 mmol/L (3.5-5.1) 05/19/23 09:41 Chloride 101 mmol/L (98-107) 05/19/23 09:41 Carbon Dioxide 21 mmol/L (22-29) L 05/19/23 09:41 Anion Gap 20.0 (5-19) H 05/19/23 09:41 BUN 24 mg/dL (6-20) H 05/19/23 09:41 Creatinine 0.6 mg/dL (0.5-0.9) 05/19/23 09:41 GFR Calculation 111.3 mL/min (90-130) 05/19/23 09:41 Glucose 127 mg/dL (65-115) H 05/19/23 09:41 Calculated Osmolality 292 mOsm/kg (285-295) 05/19/23 09:41 Lactic Acid 3.2 mmol/L (0.5-2.2) H 05/19/23 09:41 Calcium 9.7 mg/dL (8.5-10.5) 05/19/23 09:41 Total Bilirubin 0.4 mg/dL (0.15-1.2) 05/19/23 09:41 AST 16 U/L (0-32) 05/19/23 09:41 ALT 21 U/L (0-33) 05/19/23 09:41 Alkaline Phosphatase 114 U/L (35-105) H 05/19/23 09:41 C-Reactive Protein 12.4 mg/L (0.0-4.9) H 05/19/23 09:41 Total Protein 8.2 g/dL (6.6-8.7) 05/19/23 09:41 Albumin 4.6 g/dL (3.5-5.2) 05/19/23 09:41 Globulin 3.6 g/dL (1.3-4.6) 05/19/23 09:41 Urine Color Dark yellow (Yellow) 05/19/23 10:17 Urine Appearance Clear (CLEAR) 05/19/23 10:17 Urine pH 6 (5-7) 05/19/23 10:17 Ur Specific [place] 1.025 (1.005-1.030) 05/19/23 10:17 Urine Protein Neg (Negative) 05/19/23 10:17 Urine Glucose (UA) Norm (Normal) 05/19/23 10:17 Urine Ketones 1+ (Negative) H 05/19/23 10:17 Urine Blood Neg (Negative) 05/19/23 10:17 Urine Nitrate Negative (Negative) 05/19/23 10:17 Urine Bilirubin 1+ (Negative) H 05/19/23 10:17 Urine Urobilinogen 4 mg/dL (Negative) H 05/19/23 10:17 Ur Leukocyte Esterase Negative (Negative) 05/19/23 10:17 Urine RBC None /hpf (0-2) 05/19/23 10:17 Urine WBC Rare /hpf (0-5) 05/19/23 10:17 Ur Squamous Epith Cells 5-10 /hpf (0-5) H 05/19/23 10:17 Amorphous Sediment Not Reportable 05/19/23 10:17 Urine Bacteria Trace /hpf (NONE) 05/19/23 10:17 Hyaline Casts 0-4 /lpf H 05/19/23 10:17 Urine Mucus Trace /hpf 05/19/23 10:17 Salicylates < 0.3 mg/dL (3-10) L 05/19/23 09:41 Urine Opiates Screen Negative ng/mL (Negative) 05/19/23 10:17 Acetaminophen < 5.0 ug/mL (10-30) L 05/19/23 09:41 Ur Barbiturates Screen Negative ng/mL (Negative) 05/19/23 10:17 Ur Phencyclidine Scrn Negative ng/mL (Negative) 05/19/23 10:17 Ur Amphetamines Screen Positive ng/mL (Negative) H 05/19/23 10:17 U Benzodiazepines Scrn Negative ng/mL (Negative) 05/19/23 10:17 Urine Cocaine Screen Negative ng/mL (Negative) 05/19/23 10:17 U Marijuana (THC) Screen Positive ng/mL (Negative) H 05/19/23 10:17 Ethyl Alcohol < 10 mg/dL (0-10) 05/19/23 09:41 Serum Ketones Negative (Negative) 05/19/23 09:41 Coronavirus 229E (PCR) Not detected (NOT DETECT) 05/19/23 10:17 Influenza Type A Ag negative (Negative) 05/19/23 10:17 Influenza Type B Ag negative (Negative) 05/19/23 10:17 SARS-CoV-2 (PCR) Not detected (NOT DETECT) 05/19/23 10:17 All radiology interpretation(s) finalized by discharge Discharge Plan Discharge Patient Disposition: Home Clinical Impression: Confusion, Dehydration, Marijuana use Condition: Stable Prescriptions: No Action topiramate 100 mg tablet 200 mg PO BEDTIME cholecalciferol (vitamin D3) [Vitamin D3] 25 mcg (1,000 unit) capsule 3,000 unit PO DAILY Linzess 290 mcg capsule 290 mcg PO QAM clonazepam 0.5 mg tablet 0.5 mg PO BID 30 Days Qty: 60 3RF propranolol 10 mg tablet 10 mg PO TID PRN (Reason: anxiety) 30 Days Qty: 90 3RF tramadol 50 mg tablet 50 mg PO TID PRN (Reason: pain) Qty: 7 0RF isosorbide mononitrate 60 mg tablet extended release 24 hr 60 mg PO DAILY Qty: 90 3RF aspirin 81 mg Tablet,Delayed Release (Dr/Ec) 81 mg PO DAILY PRN (Reason: Headache) cetirizine [Zyrtec] 10 mg Tablet 10 mg PO QAM valacyclovir 500 mg tablet See Rx Instructions .ROUTE .COMPLEX PRN (Reason: fever blister) Rx Instructions: FOR OUTBREAKS TAKE ONE TAB EVERY 12 HOURS FOR 3 DAYS NEEDED pantoprazole 40 mg tablet,delayed release (DR/EC) 40 mg PO BEDTIME levothyroxine 112 mcg tablet 112 mcg PO DAILY magnesium 200 mg Tablet 200 mg PO BEDTIME fluticasone propionate 50 mcg/actuation spray,suspension 1 spray INTRANASAL DAILY Miralax 17 gram/dose Powder 4 g PO DAILY Seroquel 25 mg tablet 12.5 mg PO Q6H PRN (Reason: anxiety) quetiapine 200 mg tablet 200 mg PO BEDTIME Discharge Orders: Discharge ED (Routine); Ordered 05/19/23 Ordered By: Berenice Nash Referrals: Tereza Dolan FNP [Primary Care Provider] - Discharge Diet: Usual diet Discharge Activity: Increase activity as tolerated Patient Instructions: Altered Mental Status (ED), Opioid Safety, Pain Management Coding Level of Care Code ED Technical Support Assistant for Nancie Guzman
[2023-05-19 09:52] LABS: Basophils % 0.2 %; Hematocrit 50.4 % (36-47); Lymphocytes # 1.3 10^3/uL (0.8-4.8); Lymphocytes % 22.1 %; Mean Corpuscular HGB Conc 33.5 g/dL (30-55); Mean Corpuscular Hemoglobin 31.1 pg (27-33); Mean Corpuscular Volume 92.6 fl (85-98); Monocytes # 0.7 10^3/uL (0.2-0.9); Monocytes % 12.6 %; Neutrophils # 3.82 10^3/uL (1.8-7.7); Neutrophils % 64.8 %; Nucleated Red Blood Cells % 0 %; Platelet Count 205 10^3/cmm (157-399); Red Blood Count 5.44 10^6/uL (3.85-5.65); Red Cell Distribution Width 13.1 % (12.1-15.1); White Blood Count 5.89 10^3/uL (3.29-11.43)
--- NOTE | 2023-05-19 10:05 | ECG_ITS ---
[facility] Test Date: 2023-05-19 Pat Name: Viki Roach Department: Room: Gender: Female Client Care Specialist: : 1985 Requested By: Berenice Murphy Order Number: [id number] Cisneros MD: Michael Burger M.D. Measurements Intervals [place] Rate: 95 P: 69 AR: 146 QRS: 45 QRSD: 86 T: 171 QT: 329 QTc: 414 Interpretive Statements SINUS RHYTHM LEFT ATRIAL ENLARGEMENT [-0.15mV P-WAVE IN V1/V2] MODERATE T-WAVE ABNORMALITY, CONSIDER ANTEROLATERAL ISCHEMIA [-0.1+ mV T-WAVE IN V3-V6] MODERATE T-WAVE ABNORMALITY, CONSIDER INFERIOR ISCHEMIA [-0.1+ mV T-WAVE IN II/aVF] Compared to ECG 01/19/2023 12:57:22 Atrial abnormality now present Sinus tachycardia no longer present T-wave abnormality still present Possible ischemia still present Electronically Signed On 05-19-2023 10:32:48 CDT by Michael Burger M.D. [id number] f
[2023-05-19 10:07] LABS: Ketone (Acetest) Serum Negative (Negative)
[2023-05-19 10:14] LABS: Alanine Aminotransferase 21 U/L (0-33); Albumin Level 4.6 g/dL (3.5-5.2); Alkaline Phosphatase 114 U/L (35-105); Aspartate Amino Transferase 16 U/L (0-32); Blood Urea Nitrogen 24 mg/dL (6-20); C Reactive Protein 12.4 mg/L (0.0-4.9); Calcium 9.7 mg/dL (8.5-10.5); Carbon Dioxide 21 mmol/L (22-29); Chloride 101 mmol/L (98-107); Creatinine Clr Calc Pharmacy 141.0937; Globulin 3.6 g/dL (1.3-4.6); Glomerular Filtration Rate 111.3 mL/min (90-130); Glucose 127 mg/dL (65-115); Osmolality Calculated 292 mOsm/kg (285-295); Sodium 138 mmol/L (136-145); Total Bilirubin 0.4 mg/dL (0.15-1.2); Total Protein 8.2 g/dL (6.6-8.7)
[2023-05-19 10:15] LABS: Lactic Sepsis W/Reflex 3.2 mmol/L (0.5-2.2)
[2023-05-19 10:18] VITALS: BP 163/111; PULSE 98; O2SAT 97
[2023-05-19 10:22] LABS: Acetaminophen < 5.0 ug/mL (10-30); Alcohol Level < 10 mg/dL (0-10); Salicylate < 0.3 mg/dL (3-10)
[2023-05-19 10:30] VITALS: BP 165/119; PULSE 95; O2SAT 97
[2023-05-19 10:59] LABS: Amphetamines Screen Urine Positive (Negative); Barbiturates Screen Urine Negative (Negative); Benzodiazepines Screen Urine Negative (Negative); Cocaine Screen Urine Negative (Negative); Opiate Screen Urine Negative (Negative); PCP Screen Urine Negative (Negative); THC Screen Urine Positive (Negative)
[2023-05-19 11:01] VITALS: BP 164/117; PULSE 77; O2SAT 98
[2023-05-19 11:08] LABS: Influenza A by IFA negative (Negative); Influenza B by IFA negative (Negative)
[2023-05-19 11:21] LABS: Bilirubin Urine 1+ (Negative); Blood Urine Neg (Negative); Glucose Urine UA Norm (Normal); Ketones Urine 1+ (Negative); Leukocyte Esterase Urine Negative (Negative); Nitrate Urine Negative (Negative); Protein Urine Neg (Negative); Specific Gravity, Urine 1.025 (1.005-1.030); Urine Appearance Clear (CLEAR); Urine Color Dark Yellow (Yellow); Urobilinogen Urine 4 mg/dL (Negative); pH Urine 6 (5-7)
[2023-05-19 11:23] LABS: Add Urine Culture? No; Bacteria Urine TRACE /hpf; Hyaline Casts Urine 0-4 /lpf; Mucus Urine TRACE /hpf; WBC Urine RARE /hpf (0-5)
[2023-05-19 11:38] LABS: Reflex Lactate Order REFLEX LACTIC ORDERD
[2023-05-19] MEDS: ketorolac 30 mg/mL INJ IVP (12:05)
[2023-05-19] MEDS: sodium chloride 0.9% 1,000 ML 999 ML IV (12:36)
[2023-05-19 12:37] LABS: Adenovirus Not Detected (NOT DETECT); Chlamydia Pneumoniae Not Detected (NOT DETECT); Coronavirus 229E,HKU1,NL63,OC4 Not Detected (NOT DETECT); Human Metapneumovirus Not Detected (NOT DETECT); Human Rhinovirus/Enterovirus Not Detected (NOT DETECT); Influenza A Not Detected (NOT DETECT); Influenza A H1 Not Detected (NOT DETECT); Influenza A H1-2009 Not Detected (NOT DETECT); Influenza A H3 Not Detected (NOT DETECT); Influenza B Not Detected (NOT DETECT); Mycoplasma Pneumoniae Not Detected (NOT DETECT); Parainfluenza Virus Type 1 Not Detected (NOT DETECT); Parainfluenza Virus Type 2 Not Detected (NOT DETECT); Parainfluenza Virus Type 3 Not Detected (NOT DETECT); Parainfluenza Virus Type 4 Not Detected (NOT DETECT); Respiratory Syncytial Virus A Not Detected (NOT DETECT); Respiratory Syncytial Virus B Not Detected (NOT DETECT); SARS-COV-2 Not Detected (NOT DETECT)
[2023-05-19 12:57] LABS: ABG PCO2 34.7 mmHg (35-45); ABG PH Result 7.38 (7.35-7.45); Alveolar-Arterial Oxygen Gradi 1.5 mmHg (5-10); Arterial Blood Gas Hematocrit 49.7 % (37-47); Blood Gas Allen Test Pos; Blood Gas Operator Identificat CAK; Blood Gas Sample Site Radial, left; Blood Gas Sample Type Arterial; Carboxyhemoglobin 0.4 %THgb (0.4-20.1); HCO3 ABG 20.4 mmol/L (22-26); HGB O2 Sat 97.5 % (95-100); Ionized Calcium Level - ABG 1.2 mmol/L (1.1-1.4); Oxygen Device ROOM AIR; Oxygen Saturation ABG 97.9; PO2 ABG 94.9 mmHg (80.0-100.0); PO2 FiO2 Ratio Arterial Blood 0; Potassium Level - ABG 3.5 mmol/L (3.5-5.0); Total Hemoglobin 16.2 g/dL (12-16)
[2023-05-19 14:25] VITALS: PULSE 128; RESP 16; O2SAT 100
== END 2023-05-19 13:53 | disposition home or self-care (01) ==
PROVIDERS: Emergency Provider Emergency Medicine; PCP Nurse Practitioner
DX: R41.0 Disorientation, unspecified (principal); E86.0 Dehydration; F12.90 Cannabis use, unspecified, uncomplicated; Z79.82 Long term (current) use of aspirin; Z11.52 Encounter for screening for COVID-19; Z72.0 Tobacco use
CPT/HCPCS: 36600; 70450; 71045; 80051; 80053; 80306; 80307; 81001; 82009; 82330; 82805; 83605; 85025; 86140; 87635; 87804; 93005; 96374; 99285; J1885; J7030

== ENCOUNTER 2023-06-02 06:51 | Outpatient (CLI) | payer BC, MEDICAID, SELFPAY ==
--- NOTE | 2023-06-02 07:15 | MR_ITS ---
WS: [id number] MRI THORACIC SPINE WITHOUT CONTRAST TECHNIQUE: Sagittal T1, T2 and STIR imaging. Axial T2 imaging. Noncontrast imaging obtained. CLINICAL INFORMATION: back pain COMPARISON: CT chest abdomen pelvis 12/21/2022 FINDINGS: Mild thoracic kyphosis. Mild thoracic curve. Cord signal is normal. No high-grade central c anal stenosis. Small disc protrusions in the upper thoracic spine T2-3 and T3-4 with slight contact o f the thoracic cord. No significant central canal stenosis. Incidental hemangioma at the T2 level. Subacute compression fractures involving the T3 and T4 endplates with mild loss of vertebral body hei ght and mild residual edema. No significant retropulsion. No other acute or chronic compression fract ures. Small T2 hyperintense lesion T7 vertebral body posteriorly likely small atypical hemangioma. Mi ld heterogeneity to the bone marrow can be seen with osteopenia, anemia, and smoking history. Normal paravertebral soft tissues. Normal caliber thoracic aorta. Adrenal glands are normal. Suggestion of a possible tiny syrinx in the cervical cord on the section crews activities clerk imaging. Recommend MRI cervica l spine in further evaluation. IMPRESSION: 1. Suggestion of a possible tiny syrinx in the cervical cord on the section crews activities clerk imaging. Recommend MRI cer vical spine in further evaluation. 2. Mild compression fracture superior end plates T3 and T4 with visualized fracture clefts. Mild res idual edema more prominent at the T3 level. No retropulsion. 3. No other compression fractures. 4. Thoracic cord signal is normal. 5. Tiny central protrusions at T2-3 and T3-4 without significant central canal stenosis.
--- NOTE | 2023-06-02 08:00 | MR_ITS ---
WS: [id number] MRI LUMBAR SPINE NONCONTRAST TECHNIQUE: Sagittal T1, T2 and STIR imaging. Axial T1 and T2 imaging. CLINICAL INFORMATION: back pain COMPARISON: MRI 2020 FINDINGS: Mild lumbar curve. No acute compression. No significant central canal stenosis. Mild annular bulging L4-L5 and L5-S1. Small annular fissure at L5-S1 similar to previous. L1-L2: Mild facet arthropathy. Spinal canal and foramen are patent. L2-L3: Mild facet arthropathy. Spinal canal and foramen are patent. L3-L4: Mild annular bulging. Mild facet arthropathy. Mild RIGHT and no significant LEFT foraminal jaspreet rowing. L4-L5: Mild annular bulging with slight impingement on the LEFT subarticular recess and traversing LE FT L5 nerve root unchanged from previous. Mild LEFT foraminal narrowing. Mild facet arthropathy. L5-S1: Mild disc bulging with a small annular fissure. Slight effacement of the ventral thecal sac. S light contact of the RIGHT greater than LEFT S1 nerve roots unchanged. Spinal canal and foramen are p atent. Mild facet arthropathy. Visualized pelvic bony structures: Normal. Paravertebral soft tissues: Normal. IMPRESSION: Overall no significant changes compared to 2021. 1. Mild lumbar curve. No acute compression. No high-grade central canal stenosis. 2. Mild annular bulging L4-5 impinges the LEFT subarticular recess and traversing LEFT L5 nerve root unchanged. Mild LEFT L4-5 foraminal narrowing. 3. Mild annular bulge L5-S1 with a small annular fissure. Slight encroachment of the traversing S1 n erve roots without significant impingement. Foramen are patent at this level. 4. Mild facet arthropathy described above. 5. Partially visualized nabothian cysts in the cervix. This can be followed up with ultrasound
== END 2023-06-02 06:52 | disposition home or self-care (01) ==
LOC: RAD 06:52
PROVIDERS: PCP Nurse Practitioner; Visit Provider Orthopaedic Surgery
DX: M51.36 Other intervertebral disc degeneration, lumbar region (principal); M54.9 Dorsalgia, unspecified
CPT/HCPCS: 72146; 72148

== ENCOUNTER → 2023-07-05 13:19 | Outpatient (BNVA) | payer BC, MEDICAID, SELFPAY | PROVIDERS: PCP Nurse Practitioner; Visit Provider Internal Medicine Cardiovascular Disease | DX: R07.9 Chest pain, unspecified (principal); R94.39 Abnormal result of other cardiovascular function study; I50.9 Heart failure, unspecified; R06.02 Shortness of breath; Z79.01 Long term (current) use of anticoagulants; I48.91 Unspecified atrial fibrillation; I25.118 Atherosclerotic heart disease of native coronary artery with other forms of angina pectoris; M79.605 Pain in left leg; R07.89 Other chest pain; I50.32 Chronic diastolic (congestive) heart failure; F31.81 Bipolar II disorder | CPT/HCPCS: 36415; 80048; 83880; 85025; 85610; 86850; 86900 ==

== ENCOUNTER 2023-07-07 12:11 | Emergency (ER) | payer BC, MEDICAID, SELFPAY ==
[2023-07-07 12:19] VITALS: BP 117/71; PULSE 84; RESP 16; TEMP 36.7; O2SAT 98; BMI 31.9
--- NOTE | 2023-07-07 12:24 | XR_ITS ---
WS: [id number] Left hip, AP and frog-leg views, AP pelvis, 07/07/2023 Clinical Data: fall, left hip pain. with pelvis Comparison: None. Findings: No fractures or dislocations are seen. The left hip shows no erosion, sclerosis, narrowing, cyst form ation or fragmentation of the left femoral head.. The soft tissues are not remarkable. The adjacent p christiano is normal. The right hip is normal. XR/XR hip LT 2-3V wo/w pel* [id number] Impression: Negative pelvis and left hip. Tonnis classification: grade 0: normal radiographs
--- NOTE | 2023-07-07 12:24 | USCV_ITS ---
Viki Roach Age: 37 Gender: F : 1985 Exam Date: 07/07/2023 12:44 Ordering Phys: Berenice Nash MD Technologist: Volodymyr Rodriguez Exam Location: [facility] [place]_ Indication: Pain HISTORY: Lower extremity pain. PROCEDURES: Venous duplex imaging was performed in only the left lower extremity. The following venous structures were evaluated: common femoral vein, profunda vein, proximal portion of the greater saphenous vein, superficial femoral vein, and the popliteal vein. In addition, the posterior tibial and peroneal trunk were evaluated. Serial compression, augmentation maneuvers, and spectral Doppler flow evaluation were performed. FINDINGS: No evidence of DVT seen in any vessel visualized at this time. CONCLUSIONS No evidence of left lower extremity DVT. Gareth Garcia MD (Electronically Signed) Final Date: 08 Jul 2023 10:30 S
[2023-07-07 12:32] VITALS: PULSE 85; RESP 15; O2SAT 98
--- NOTE | 2023-07-07 13:00 | ED_ITS ---
HPI - Extremity Problem 2 General: Chief complaint: Extremity Injury, Lower Stated complaint: left leg pain Time Seen by Provider: 07/07/23 12:20 History of Present Illness: 37-year-old female with a history of bip olar disorder and she reports congestive heart failure and she says that her audit lead had ordered an ultrasound for DVT but she could not wait for it and she came to the emergency room. She is having pain in her left groin for the last 2 months. She also is requesting an x-ray to rule out muscle strain. No chest pain or shortness of breath. She is not tachycardic or hypoxemic on presentation. Review of Systems 2 Narrative: Constitutional symptoms: Negative except as documented in HPI. Skin symptoms: Negative except as documented in HPI. Eye symptoms: Negative except as documented in HPI. ENMT symptoms: Negative except as documented in HPI. Respiratory symptoms: Negative except as documented in HPI. Cardiovascular symptoms: Negative except as documented in HPI. Gastrointestinal symptoms: Negative except as documented in HPI. Genitourinary symptoms: Negative except as documented in HPI. Musculoskeletal symptoms: Negative except as documented in HPI. Neurologic symptoms: Negative except as documented in HPI. Psychiatric symptoms: Negative except as documented in HPI. Endocrine symptoms: Negative except as documented in HPI. PFSH ED 2 PFSH: Medical History Bipolar 2 disorder, major depressive episode Other snf (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 Psychiatric care History of substance use Bipolar 2 disorder Other snf (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 Surgical History S/P cholecystectomy H/O mastectomy History of appendectomy Social History Smoking and tobacco/nicotine status: current some day tobacco/nicotine user Alcohol intake: never Substance/Drug Use: current Substance/Drug use frequency: few times a month Physical Exam 2 Narrative: EXAM NARRATIVE: General: Alert, no acute distress. Skin: warm and dry Head: Normocephalic Neck: Trachea midline Eye: Extraocular movements are intact. Ears, nose, mouth and throat: Oral mucosa moist Respiratory: Respirations are non-labored Cardiovascular: No obvious calf pain or swelling. No redness. Musculoskeletal: Normal ROM Neurological: Alert and oriented, No focal neurological deficit observed. Psychiatric: Cooperative, appropriate mood & affect. Course 2 Vital Signs: Vital signs: Vital Signs Temperature 98.0 F 07/07/23 12:19 Pulse Rate 85 07/07/23 12:32 Respiratory Rate 15 07/07/23 12:32 Blood Pressure 117/71 07/07/23 12:19 Pulse Oximetry 98 07/07/23 12:32 Oxygen Delivery Me thod Room Air 07/07/23 12:32 MDM - Extremity (Nontraumatic) Medical Decision Making Medical decision making: Differential diagnosis including but not limited to and based on the above HPI, review of systems and physical exam: Patient with pain in her groin and concern for DVT so an ultrasound was ordered. Also x-ray to rule out any kind of bony abnormalities. Basic lab work including inflammatory markers were ordered as well. Orders placed to evaluate differential diagnosis based on the above differential, HPI and physical exam Ultrasound of the lower extremity: No DVT. This was reviewed and interpreted by myself the emergency room physician. I also reviewed the radiology report. Lab Review: Laboratory results were reviewed and interpreted by myself the emergency room physician. Lab work is fairly unremarkable. White count is 6. Hemoglobin is 13.9. BUN and creatinine are 11 and 0.6. Her proBNP is slightly elevated at 400. I reviewed the patient's medical record. Reexamination: Patient remained stable. She is not tearful anymore. No increased work of breathing. No altered mental status. No focal motor deficits. Assessment and plan: Musculoskeletal groin pain -1 p.o. [place] in the emergency room. Home on diclofenac - Discharged home - Discussed plan with patient. Answered any questions. - Evaluation and treatment of this problem were appropriate in the emergency setting. Lab Data 07/07/23 13:10 07/07/23 13:10 Radiology Impressions Hip/Pelvis X-Ray 07/07/23 12:24 Impression: Negative pelvis and left hip. Tonnis classification: grade 0: normal radiographs Laboratory Results WBC 6.78 10^3/uL (3.29-11.43) 07/07/23 13:10 RBC 4.46 10^6/uL (3.85-5.65) 07/07/23 13:10 Hgb 13.90 g/dL (11.27-16.99) 07/07/23 13:10 Hct 42.9 % (36-47) 07/07/23 13:10 MCV 96.2 fl (85-98) 07/07/23 13:10 MCH 31.2 pg (27-33) 07/07/23 13:10 MCHC 32.4 g/dL (30-55) 07/07/23 13:10 RDW 13.0 % (12.1-15.1) 07/07/23 13:10 Plt Count 221 10^3/cmm (157-399) 07/07/23 13:10 MPV 10.0 fL (7.4-10.4) 07/07/23 13:10 Neut % (Auto) 56.8 % 07/07/23 13:10 Lymph % (Auto) 33.6 % 07/07/23 13:10 Pleasants % (Auto) 6.6 % 07/07/23 13:10 Eos % (Auto) 1.9 % 07/07/23 13:10 Baso % (Auto) 0.7 % 07/07/23 13:10 Neut # (Auto) 3.84 10^3/uL (1.8-7.7) 07/07/23 13:10 Lymph # (Auto) 2.3 10^3/uL (0.8-4.8) 07/07/23 13:10 [place]as[place] # (Auto) 0.5 10^3/uL (0.2-0.9) 07/07/23 13:10 Eos # (Auto) 0.1 10^3/uL (0.0-0.8) 07/07/23 13:10 Baso # (Auto) 0.1 10^3/uL (0.0-0.1) 07/07/23 13:10 Nucleated RBC % (auto) 0 % 07/07/23 13:10 Nucleated RBCs # 0.0 /100WBC 07/07/23 13:10 ESR 19 mm/hr (0-15) H 07/07/23 13:10 Sodium 136 mmol/L (136-145) 07/07/23 13:10 Potassium 4.5 mmol/L (3.5-5.1) 07/07/23 13:10 Chloride 103 mmol/L (98-107) 07/07/23 13:10 Carbon Dioxide 22 mmol/L (22-29) 07/07/23 13:10 Anion Gap 15.5 (5-19) 07/07/23 13:10 BUN 11 mg/dL (6-20) 07/07/23 13:10 Creatinine 0.6 mg/dL (0.5-0.9) 07/07/23 13:10 GFR Calculation 111.3 mL/min (90-130) 07/07/23 13:10 Glucose 95 mg/dL (65-115) 07/07/23 13:10 Calculated Osmolality 281 mOsm/kg (285-295) L 07/07/23 13:10 Calcium 8.4 mg/dL (8.5-10.5) L 07/07/23 13:10 Total Bilirubin 0.2 mg/dL (0.15-1.2) 07/07/23 13:10 AST 16 U/L (0-32) 07/07/23 13:10 ALT 15 U/L (0-33) 07/07/23 13:10 Alkaline Phosphatase 126 U/L (35-105) H 07/07/23 13:10 C-Reactive Protein 5.5 mg/L (0.0-4.9) H 07/07/23 13:10 NT-Pro-B Natriuret Pep 435 pg/mL (0-125) H 07/07/23 13:10 Total Protein 7.2 g/dL (6.6-8.7) 07/07/23 13:10 Albumin 4.1 g/dL (3.5-5.2) 07/07/23 13:10 Globulin 3.1 g/dL (1.3-4.6) 07/07/23 13:10 All radiology interpretation(s) finalized by discharge Discharge Plan Discharge Patient Disposition: Home Clinical Impression: Groin pain Condition: Stable Prescriptions: New diclofenac sodium 50 mg tablet,delayed release (DR/EC) 50 mg PO Q12H Qty: 20 0RF No Action topiramate 100 mg tablet 200 mg PO BEDTIME cholecalciferol (vitamin D3) [Vitamin D3] 25 mcg (1,000 unit) capsule 3,000 unit PO DAILY Linzess 290 mcg capsule 290 mcg PO QAM nitroglycerin 0.4 mg tablet, sublingual 0.4 mg sublingual Q5M PRN (Reason: chest pain) 30 Days Qty: 30 3RF Rx Instructions: until response; do not exceed 3 doses per episode Abilify Maintena 400 mg suspension,extended rel recon 400 mg IM Q28D 30 Days Qty: 1 4RF clonazepam 0.5 mg tablet 0.5 mg PO BID 30 Days Qty: 60 3RF propranolol 10 mg tablet 10 mg PO TID PRN (Reason: anxiety) 30 Days Qty: 90 3RF isosorbide mononitrate 60 mg tablet extended release 24 hr 60 mg PO DAILY Qty: 90 3RF furosemide 20 mg tablet 20 mg PO DAILY Qty: 30 0RF potassium chloride 10 mEq capsule, extended release 10 meq PO DAILY Qty: 30 0RF aspirin 81 mg Tablet,Delayed Release (Dr/Ec) 81 mg PO QAM cetirizine [Zyrtec] 10 mg Tablet 10 mg PO QAM PRN (Reason: ALLERGIES) valacyclovir 500 mg tablet See Rx Instructions .ROUTE .COMPLEX PRN (Reason: fever blister) Rx Instructions: FOR OUTBREAKS TAKE ONE TAB EVERY 12 HOURS FOR 3 DAYS NEEDED pantoprazole 40 mg tablet,delayed release (DR/EC) 40 mg PO BEDTIME levothyroxine 112 mcg tablet 112 mcg PO DAILY magnesium 200 mg Tablet 400 mg PO BID pregabalin 75 mg capsule 75 mg PO BID lithium carbonate 300 mg tablet 300 mg PO BEDTIME amitriptyline 100 mg tablet 100 mg PO BEDTIME polyethylene glycol 3350 [Miralax] 17 gram/dose Powder 4 g PO DAILY PRN (Reason: Constipation) Discharge Orders: Discharge ED (Routine); Ordered 07/07/23 Ordered By: Berenice Nash Referrals: Tereza Dolan FNP [Primary Care Provider] - 4-7 days Discharge Diet: Usual diet Discharge Activity: Increase activity as tolerated Patient Instructions: Pain Management Activity Restrictions/Additional Instructions: Thank you for choosing [facility] for your healthcare needs today. Please realize this is an emergency room and that we are providing you with a medical screening exam and this may not be complete and all inclusive of all the testing and or work up that you may need to determine your ailment or severity of your illness. You have been screened and evaluated and felt safe for discharge. Health conditions do change or evolve sometimes and as such it is important that you follow up with your Primary Doctor to be re checked, 3-5 days is a general good time frame for follow up. You are always welcome to return to the ED for re assessment if your symptoms are worsening or you have new concerns Coding Level of Care Code ED Sanitation Tank Washer for Nancie Guzman
[2023-07-07 13:17] LABS: Basophils # 0.1 10^3/uL (0.0-0.1); Basophils % 0.7 %; Eosinophils # 0.1 10^3/uL (0.0-0.8); Eosinophils % 1.9 %; Hematocrit 42.9 % (36-47); Lymphocytes # 2.3 10^3/uL (0.8-4.8); Lymphocytes % 33.6 %; Mean Corpuscular HGB Conc 32.4 g/dL (30-55); Mean Corpuscular Hemoglobin 31.2 pg (27-33); Mean Corpuscular Volume 96.2 fl (85-98); Monocytes # 0.5 10^3/uL (0.2-0.9); Monocytes % 6.6 %; Neutrophils # 3.84 10^3/uL (1.8-7.7); Neutrophils % 56.8 %; Nucleated Red Blood Cells % 0 %; Platelet Count 221 10^3/cmm (157-399); Red Blood Count 4.46 10^6/uL (3.85-5.65); White Blood Count 6.78 10^3/uL (3.29-11.43)
[2023-07-07 13:42] LABS: Erythrocyte Sedimentation Rate 19 mm/hr (0-15)
[2023-07-07 13:44] LABS: Alanine Aminotransferase 15 U/L (0-33); Albumin Level 4.1 g/dL (3.5-5.2); Alkaline Phosphatase 126 U/L (35-105); Anion Gap 15.5 (5-19); Aspartate Amino Transferase 16 U/L (0-32); Blood Urea Nitrogen 11 mg/dL (6-20); C Reactive Protein 5.5 mg/L (0.0-4.9); Calcium 8.4 mg/dL (8.5-10.5); Carbon Dioxide 22 mmol/L (22-29); Chloride 103 mmol/L (98-107); Globulin 3.1 g/dL (1.3-4.6); Glomerular Filtration Rate 111.3 mL/min (90-130); Glucose 95 mg/dL (65-115); NT Pro B Type Natriuretic Pept 435 pg/mL (0-125); Osmolality Calculated 281 mOsm/kg (285-295); Potassium 4.5 mmol/L (3.5-5.1); Sodium 136 mmol/L (136-145); Total Bilirubin 0.2 mg/dL (0.15-1.2); Total Protein 7.2 g/dL (6.6-8.7)
[2023-07-07] MEDS: HYDROcodone-acetaminophen 10-325 mg Tablet 1 TAB PO (14:14)
== END 2023-07-07 14:18 | disposition home or self-care (01) ==
PROVIDERS: Emergency Provider Emergency Medicine; PCP Nurse Practitioner
DX: R10.30 Lower abdominal pain, unspecified (principal); F17.200 Nicotine dependence, unspecified, uncomplicated
CPT/HCPCS: 36415; 73502; 80053; 83880; 85025; 85651; 86140; 93971; 99284

== ENCOUNTER 2023-07-11 14:12 | Outpatient (CLI) | payer BC, MEDICAID, SELFPAY ==
--- NOTE | 2023-07-11 14:20 | XRR_ITS ---
PROCEDURE INFORMATION: Exam: XR Left Femur Exam date and time: 07/11/2023 2:34 PM Age: 37 years old Clinical indication: Pain; Thigh; Left; Patient HX: Hodgkin's lymphoma, breast cancer; Additional info: Left leg pain x 2 months TECHNIQUE: Imaging protocol: Radiologic exam of the left femur. Views: 2 views. COMPARISON: CR XR hip LT 2-3V wo/w pel* [id number] 07/07/2023 12:34 PM FINDINGS: Bones/joints: Unremarkable. No acute fracture. Soft tissues: Unremarkable. XR/XR femur LT min 2V* [id number] IMPRESSION: No acute findings.
== END 2023-07-11 14:13 | disposition home or self-care (01) ==
LOC: RAD 14:16
PROVIDERS: PCP Nurse Practitioner; Visit Provider Nurse Practitioner
DX: M79.605 Pain in left leg (principal)
CPT/HCPCS: 73552

== ENCOUNTER 2023-07-22 06:24 | Outpatient (CLI) | payer BC, MEDICAID, SELFPAY ==
[2023-07-22] MEDS: aspirin 325 mg Tablet PO (06:45)
--- NOTE | 2023-07-22 07:00 | XACV_ITS ---
Ht: 173 cm Wt: 93 kg BSA: 2.14 m2 Gender: Female : 1985 Any Known Allergies: Other Exam Priority: Routine Indication(s): - Chest pain Procedure(s): Procedure Description: Diagnostic procedure Procedure Description: Left Heart Catheterization Procedure Description: Left ventriculography Procedure Description: Coronary Angiography Dmitriy BAEZ; Diagnostic Cath Status: Elective Diagnostic Findings * The left main is a medium caliber short vessel with no significant stenotic lesions. * The left anterior descending artery is a medium caliber vessel which appears to taper off to his LV apex. The artery appears to trifurcated after the second septal motion picture actor. No significant stenotic lesions were noted in these vessels. * The left circumflex artery is a small to medium caliber nondominant vessel which was found to have an elongated tubular narrowing proximally of 60 to 70%, involving the ostium. No other significant stenotic lesions were noted. * The right coronary artery is a medium to large caliber dominant vessel which was found to have around 30% tubular narrowing proximally. No other significant stenotic lesions were noted. Conclusions 1. This is a 37-year-old white female with no significant risk factors for coronary disease, presented with features of congestive heart failure. Subsequent workup relative revealed LV systolic dysfunction with ejection fraction of 48% and an abnormal Myocardial perfusion imaging revealing a small area of fixed and reversible defect in the apical septal region. Because of the patient's increasing episodes of chest pains, in order to further evaluate her coronary status, a cardiac catheterization was recommended. Patient underwent left heart catheterization with left and right coronary angiogram and LV angiogram today. The findings are as follows. 2. 1. Low normal left main. #2 no severe disease in the left anterior descending artery. #3 the left circumflex artery was found to have 60 to 70% long tubular lesion in the proximal segment, involving the ostium. It is a small to medium caliber nondominant vessel. #4 the right coronary artery is a medium to large caliber dominant vessel with a 30% tubular narrowing proximally. The LVEDP was 24 mmHg with an ejection fraction of 55%. 3. I reviewed and discussed the cardiac catheterization data with the Dr. Engel. In view of the location of the circumflex lesion, size of the artery and the area of ischemia by the Perfusion scan being different from the distribution of the circumflex artery, it was decided to treat this patient medically. Patient may be treated with nitrates, aspirin and statins. Continue on the current beta-guilherme.. Diagnostic RX Recommendation: medical therapy and/or counseling LV EDP: 24 mmHg Ventriculography Ejection Fraction: 55.0 % Left Ventriculography Findings: * LV gram was performed the ENRIQUE projection. LV cavity appeared to be of normal size. There is no significant mitral valve prolapse or mitral regurgitations. No filling defects were noted. The overall ejection fraction was around 55%. The LVEDP was 24 mmHg which went up to 27 mmHg after the LV angiogram. Pressures Phase:Rest AO : / ( 0 ) @ 8:43:00 AM 86 / 61 ( 71 ) @ 8:48:00 AM 122 / 83 ( 100 ) @ 9:04:00 AM 122 / 84 ( 100 ) @ 9:04:00 AM LV : 136 / 2 / 24 @ 9:02:00 AM 134 / 4 / 27 @ 9:04:00 AM 133 / 4 / 27 @ 9:04:00 AM Valves Phase:DefaultPhase AV : 11.0 @ 8:16:09 AM 11.0 @ 8:16:09 AM AV Mean Gradient: 9.0 @ 8:16:09 AM Clinical Evaluation EBL: 5mL-10mL Procedural Details Procedure Consent Obtained. Admit Source: Out Patient. Current Diagnosis : Chest Pain. Pre-Procedure Time Out. Identified patient by full name and date of as verbalized by the patient/guarantor. Does the consent match the physician's order: Yes. Accurate & Complete Informed Consent: Yes. Inpatient/Outpatient History & Physical on Chart: Yes. If H&P is completed, is and addenduem needed: No; If yes, is the addendum complete: N/A. Visualize and Verify Site with Patient/Guarantor: N/A. Relevant Radiology Images available: N/A. The risks, benefits, and alternatives of sedation and/or procedure were discussed by physician. The patient agrees to continue. Procedure started. [facility] Clinical Fraility Score: 3: Managing Well. Animal Shelter Manager Indications: CHEST PAIN; ABNORMAL STRESS TEST; ABNORMAL ECHO. Chest Pain Symptom Assessment: Atypical Angina. Cardiovascular Instability: No, stable. Correct patient, site and procedure confirmed by cath team. Current diagnosis: Chest Pain. PERRLA. Strong, equal hand manager of training and development bilaterally. Lungs clear x 5 lobes. IV Site on Arrival: 20 gauge in the right wrist. IV Fluids: 0.9% NaCl at KVO. 3 mL infused prior to cathead worker. Pre Procedural Pulses: bilateral posterior tibial was 2+. Pre Procedural Pulses: bilateral dorsalis pedis was 2+. Pre Procedural Pulses: bilateral radial was 2+. Oxygen started at 3liters/min via nasal canula. right groin was prepped with chloroprep then draped in the usual sterile fashion. right radial was prepped with chloroprep then draped in the usual sterile fashion. Physician notified. Baseline sample Acquired. HR: 96 BPM. Physician arrived. Physician scrubbed in. Immediate Pre-Procedure Time Out. Correct Patient: Yes; Correct Procedure: Yes; Correct Site: Yes; Correct Patient Position: Yes; Correct Supplies: Yes; Dried Flammable Prep: Yes; Blood Products Available: N/A;. Lidocaine 1% infiltrated to the right radial. Arterial access obtained. A 6 moz[place] Roosevelt catheter in over wire. Multiple views taken of left coronary artery. Catheter removed over the exchange wire. A 5 mozambican JR4 catheter in over wire. Multiple views taken of right coronary artery. Catheter removed over the exchange wire. A 5 mozambican Angled Pig catheter in over wire. EDP Sample taken: LV 136/2,24; HR: 96 BPM; SpO2: 96%. LV gram performed in ENRIQUE @ 10 mL/second for a total of 30 mL. Patient EF: Normal. EDP Sample taken: LV 134/4,27; HR: 95 BPM; SpO2: 96%. Pullback taken: LV 133/4,27; AO 122/83(100); Mean: 9mmHg, Peak to Peak: 11mmHg, SEP: 20sec/min; HR: 94 BPM; SpO2: 96%. Catheter removed over the wire. Physician review of films with interventional cardiology. Dr Izaguirre scrubbed out. A TR Band was successful obtaining hemostatsis at the Right Radial artery insertion site. TR band placed. Hemostasis obtained. Post Procedure: Pulses reassessed and unchanged. PERRLA. Strong, equal hand manager of training and development bilaterally. No VTE prophylaxis required. Medication waste Lido- 18 ml Nitro- 49.7 mg Heparin- 1000 units Fentanyl- 25 mcg. Total IV fluids: 270 mL. Fluoro: 7:06. Contrast type used: Omnipaque 300 mgI/mL, 500 mL bottle. Omnipaque 51 ml. Post-op diagnosis: Single Vessel CAD. Complications: None. Estimated blood loss: 5mL-10mL. Responsiveness - Normal response to verbal stimuli; alert and oriented, PERRLA. Airway - Unaffected, no intervention required; spontaneous ventilation. Circulation: W/N/L, pulses unchanged. Nausea/Vomiting: No. Procedure completed. Patient transferred by bed to 1st floor. Vital chart was stopped. Access Site Site: Right Radial artery Sheath Size: 6 Fr Hemostasis Method: TR Band Hemostasis Success: Successful Procedure Medications Start: 7:31 AM Stop: 7:31 AM Medication: Versed 1 mg and Fentanyl 25 mcg Amount: 1 Route: I.V. Start: 7:37 AM Stop: 7:37 AM Medication: Versed 1 mg and Fentanyl 25 mcg Amount: 1 Route: I.V. Start: 7:43 AM Stop: 7:43 AM Medication: 0.9% Saline Amount: 250 ml Route: I.V. bolus Start: 7:45 AM Stop: 7:45 AM Medication: Nitrogylcerin Amount: 200 mcg Route: I.A. Start: 7:45 AM Stop: 7:45 AM Medication: Verapamil Amount: 5 mg Route: I.A. Start: 7:45 AM Stop: 7:45 AM Medication: Fentanyl Amount: 25 mcg Route: I.V. Start: 7:47 AM Stop: 7:47 AM Medication: Heparin Amount: 5000 units Route: I.V. Start: 7:54 AM Stop: 7:54 AM Medication: Nitrogylcerin Amount: 100 mcg Route: I.A. I, the attending physician, have reviewed and verified all procedure medications. Yes, all medications given per verbal order History/Risk Factors Hypertension: No Dyslipidemia: No Peripheral Arterial Disease (PAD): No Myocardial Infarction (MA): No Obesity: Yes Renal Disease: No Tobacco Use: Current/Recent(w/in 1 year) Prior Interventions PCI: No CABG: No Valve Surgery: No Report Signatures Finalized by Dr Colleen Izaguirre MD [facility] on 07/22/2023 08:54 AM
--- NOTE | 2023-07-22 07:02 | W.PM.OPSUD ---
Surgery/Procedure H&P Update DATE OF PROCEDURE: July 22, 2023 DATE H&P PERFORMED: 07/05/23 H&P UPDATE INFORMATION: I have reviewed H&P completed within last 30 days, I have examined patient prior to procedure and No changes to prior documentation PREOP DIAGNOSIS: Possible ASHD PRIMARY INDICATION FOR PROCEDURE: Chest pain, abnormal MPI, abnormal echocardiogram PLANNED PROCEDURE: Operation Date: 07/22/23 07:00 Proposed Procedures p Cardiac Catheterization 20265, R07.9, R94.39, I50.9(Left) - Colleen Izaguirre MD PATIENT REASSESSED PRIOR TO SEDATION, WITH NO CHANGE NOTED: Yes PHYSICAL EXAM: oriented x 3, clear to auscultation bilaterally and regular rate & rhythm AIRWAY EVAL/ANESTHESIA PLAN: see other exam findings, ASA III, Monitored Anesthesia, Local Anesthesia, Risks, benefits & alternatives of sedation and/or procedure discussed and Patient agrees to continue as planned
[2023-07-22 07:10] VITALS: BP 109/89; PULSE 106; RESP 16; TEMP 36.9; O2SAT 98; BMI 31.1
[2023-07-22 07:11] LABS: HCG, Serum Qual Negative (Negative)
[2023-07-22 08:13] VITALS: BP 121/72; PULSE 102; RESP 23; TEMP 36.4; O2SAT 96
[2023-07-22] MEDS: levothyroxine 112 mcg Tablet PO (08:59)
[2023-07-22 09:09] LABS: Basophils # 0.1 10^3/uL (0.0-0.1); Eosinophils # 0.3 10^3/uL (0.0-0.8); Eosinophils % 2.8 %; Lymphocytes # 1.7 10^3/uL (0.8-4.8); Lymphocytes % 18.5 %; Mean Corpuscular HGB Conc 32.9 g/dL (30-55); Mean Corpuscular Hemoglobin 30.7 pg (27-33); Mean Corpuscular Volume 93.5 fl (85-98); Mean Platelet Volume 9.9 fL (7.4-10.4); Monocytes # 0.6 10^3/uL (0.2-0.9); Monocytes % 6.9 %; Neutrophils # 6.08 10^3/uL (1.8-7.7); Neutrophils % 67.3 %; Nucleated Red Blood Cells % 0 %; Platelet Count 307 10^3/cmm (157-399); Red Blood Count 4.49 10^6/uL (3.85-5.65); White Blood Count 9.03 10^3/uL (3.29-11.43)
[2023-07-22 09:29] LABS: Anion Gap 15.9 (5-19); Blood Urea Nitrogen 20 mg/dL (6-20); Calcium 9.2 mg/dL (8.5-10.5); Carbon Dioxide 22 mmol/L (22-29); Chloride 103 mmol/L (98-107); Creatinine Clr Calc Pharmacy 150.1071; Glomerular Filtration Rate 111.3 mL/min (90-130); Glucose 128 mg/dL (65-115); Osmolality Calculated 288 mOsm/kg (285-295); Potassium 3.9 mmol/L (3.5-5.1); Sodium 137 mmol/L (136-145)
--- NOTE | 2023-07-22 10:12 | PC.NURSE ---
received from cardiac cardiac cath tech at 0820,via w/c.report received.pt is alert and awake and oriented x 4.denies pain at present.sr on monitor.right wrist with tr band on and inflated.no hematoma noted.right hand is warm to touch and with brisk capillary refill.palpable pulse noted distal to tr band.pt instructed in activity restrictions s/p radial artery procedure and instructed to notify staff for any bleeding,pain,numbness,sob,or for any concerns at all.pt verb understanding of instructions
[2023-07-22 11:30] VITALS: BP 121/72; PULSE 102; RESP 23; TEMP 36.4; O2SAT 96
[2023-07-22 11:44] VITALS: BP 106/75; PULSE 88; RESP 18; TEMP 36.6; O2SAT 94
--- NOTE | 2023-07-22 12:20 | PC.NURSE ---
discharge instructions given and explained .pt verb understanding of instructions.discharged via w/c to exit at this time.pt's father to drive pt home
== END 2023-07-22 12:22 | disposition home or self-care (01) ==
LOC: CCL 06:25 → CSU 08:52
PROVIDERS: PCP Nurse Practitioner; Visit Provider Internal Medicine Cardiovascular Disease
DX: I25.10 Atherosclerotic heart disease of native coronary artery without angina pectoris (principal); I50.9 Heart failure, unspecified; I95.1 Orthostatic hypotension; Z85.71 Personal history of Hodgkin lymphoma; F19.21 Other psychoactive substance dependence, in remission; F31.81 Bipolar II disorder; E66.9 Obesity, unspecified; Z68.31 Body mass index [BMI] 31.0-31.9, adult; Z79.82 Long term (current) use of aspirin
CPT/HCPCS: 36415; 80048; 84703; 85025; 93458; 96365; 96374; 96375; 99152; 99153; C1769; C1887; C1894; G0378; J1644; J2250; J3010; J3490; J7030; Q9967

== ENCOUNTER → 2023-08-23 09:43 | Outpatient (BNVA) | payer BC, SELFPAY | PROVIDERS: PCP Nurse Practitioner; Visit Provider Psychiatry & Neurology Psychiatry | DX: Z79.899 Other long term (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 (principal); F31.81 Bipolar II disorder; Z87.898 Personal history of other specified conditions; F41.1 Generalized anxiety disorder | CPT/HCPCS: 80053; 80178; 84443 ==

== ENCOUNTER 2024-05-07 09:25 | Observation (INO) | payer BC, MEDICAID, SELFPAY ==
[2024-05-07] VITALS (14 sets, daily range): BP systolic 120–164; BP diastolic 83–125; PULSE 74–112; RESP 15–18; TEMP 36.7–36.9; O2SAT 95–100; BMI 31.3
--- NOTE | 2024-05-07 09:40 | XRR_ITS ---
PROCEDURE INFORMATION: Exam: XR Chest Exam date and time: 05/07/2024 10:14 AM Age: 38 years old Clinical indication: Pain; Angina pectoris; Additional info: Chest pain TECHNIQUE: Imaging protocol: Radiologic exam of the chest. Views: 1 view. COMPARISON: CR XR chest 1V [id number] 05/19/2023 9:56 AM FINDINGS: Lungs: Unremarkable. No consolidation. Pleural spaces: Unremarkable. No pleural effusion. No pneumothorax. Heart/Mediastinum: Surgical clips overlie the right upper axilla compatible with prior lymph node dissection. Bones/joints: Unremarkable. XR/XR chest 1V portable [id number] IMPRESSION: No acute cardiopulmonary disease.
--- NOTE | 2024-05-07 09:40 | ECG_ITS ---
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1985 Requested By: Mario Murphy Order Number: [id number] Reading MD: GWEN ROSE Measurements Intervals [place] Rate: 112 P: 58 IL: 150 QRS: 36 QRSD: 97 T: 123 QT: 323 QTc: 441 Interpretive Statements SINUS TACHYCARDIA NONSPECIFIC ST & T-WAVE ABNORMALITY INTERPRETATION BASED ON A DEFAULT AGE OF 38 YEARS Compared to ECG 05/19/2023 10:05:18 Sinus rhythm no longer present Atrial abnormality no longer present Possible ischemia no longer present T-wave abnormality still present Electronically Signed On 05-07-2024 18:07:35 CDT by GWEN ROSE [email or web address]
[2024-05-07 09:55] LABS: Basophils % 0.4 %; Eosinophils # 0.1 10^3/uL (0.0-0.8); Eosinophils % 1.6 %; Hematocrit 44.8 % (36-47); Lymphocytes # 1.9 10^3/uL (0.8-4.8); Lymphocytes % 25.8 %; Mean Corpuscular HGB Conc 32.8 g/dL (30-55); Mean Corpuscular Hemoglobin 29.9 pg (27-33); Mean Corpuscular Volume 91.1 fl (85-98); Mean Platelet Volume 9.9 fL (7.4-10.4); Monocytes # 0.6 10^3/uL (0.2-0.9); Monocytes % 8.5 %; Neutrophils # 4.77 10^3/uL (1.8-7.7); Neutrophils % 63.4 %; Nucleated Red Blood Cells % 0 %; Platelet Count 230 10^3/cmm (157-399); Red Blood Count 4.92 10^6/uL (3.85-5.65); Red Cell Distribution Width 13.4 % (12.1-15.1); White Blood Count 7.52 10^3/uL (3.29-11.43)
--- NOTE | 2024-05-07 09:58 | W.ED.CHESTPA ---
HPI - Chest Pain General: Chief Complaint: Chest Pain Stated Complaint: chest pain / bad pain in rt arm Time Seen by Provider: 05/07/24 09:28 History of Present Illness: 38-year-old female presents emergency room with with complaints of intermittent chest pain she does get better with nitroglycerin which she has at home. In June 2023 she had an angiogram which showed some disease in her circumflex and the right coronary artery however it did not correspond to the findings of the stress test prior to her cath so after review with Dr. Izaguirre and Dr. Engel they recommended medical management when she has been doing for the last year. Lately she has had episodes where she is needed to take nitro she has had relief of her symptoms with nitro she is also been on other medical management. She has not had any orthopnea. She has had episodes of chest discomfort while at rest and with activity. Associated symptoms: Deny abdominal pain, dyspnea or fever(s) Related Data Home Medications ?Medication ?Instructions ?Recorded ?Confirmed aspirin 81 mg tablet,delayed 81 mg PO QAM 09/18/20 05/07/24 release cholecalciferol (vitamin D3) 25 3,000 unit PO DAILY 10/28/20 05/07/24 mcg (1,000 unit) capsule (Vitamin D3) topiramate 100 mg tablet See Rx Instructions .Route .COMPLEX 03/24/21 05/07/24 cetirizine 10 mg tablet (Zyrtec) 10 mg PO QAM PRN ALLERGIES 09/08/21 05/07/24 valacyclovir 500 mg tablet See Rx Instructions .Route 09/08/21 05/07/24 .COMPLEX PRN fever blister pantoprazole 40 mg tablet,delayed 40 mg PO BEDTIME 10/18/22 05/07/24 release levothyroxine 112 mcg tablet 112 mcg PO DAILY 11/15/22 05/07/24 pregabalin 75 mg capsule 75 mg PO BID 07/07/23 05/07/24 metformin 500 mg tablet 500 mg PO BID 02/27/24 05/07/24 atorvastatin 40 mg tablet 40 mg PO DAILY 05/07/24 05/07/24 Previous Rx's ?Medication ?Instructions ?Recorded aripiprazole 400 mg intramuscular 400 mg IM Q28D 30 days #1 ea 01/03/24 suspension,extended release (Abilifjosh Maintena) empagliflozin 10 mg tablet 10 mg PO DAILY 30 days #30 tabs 02/27/24 (Jardiance) nitroglycerin 0.4 mg sublingual 0.4 mg sublingual Q5M PRN chest 03/29/24 tablet pain 30 days #30 tabs atomoxetine 18 mg capsule 18 mg PO DAILY 30 days #30 caps 04/16/24 amitriptyline 100 mg tablet 100 mg PO BEDTIME #30 tabs 04/20/24 aripiprazole 10 mg tablet (Abilify) 10 mg PO DAILY #30 tabs 04/20/24 clonazepam 0.5 mg tablet 0.5 mg PO BID 30 days #60 tabs 04/20/24 isosorbide mononitrate 60 mg 60 mg PO DAILY #90 tabs 04/26/24 tablet,extended release 24 hr Allergies Allergy/AdvReac Type Severity Reaction Status Date / Time onabotulinumtoxinA (From Allergy Severe botulism Verified 05/07/24 09:37 Botox) diphenhydramine Allergy ADR-Anxiety Verified 05/07/24 09:37 epoxy resin Allergy Unknown Verified 05/07/24 09:37 hydroxyzine (From Vistaril) Allergy ADR-Anxiety Verified 05/07/24 09:37 ondansetron (From Zofran) Allergy ADR-Anxiety Verified 05/07/24 09:37 promethazine (From Phenergan) Allergy ADR-Anxiety Verified 05/07/24 09:37 Review of Systems Const: Denies: fever(s) or chills Card: Denies: chest pain Resp: Denies: dyspnea GI: Denies: abdominal pain : Denies: dysuria, urinary frequency or urinary urgency Musc: Denies: neck pain or back pain Skin/Breast: Denies: rash PFSH ED PFSH: Medical History (Updated 05/07/24 @ 17:11 by Mario Chamberlain DO) Symptomatic cholelithiasis ADD (attention deficit disorder) PARRISH (generalized anxiety disorder) History of Hodgkin's lymphoma Bipolar 2 disorder, major depressive episode Other long-term (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 Psychiatric care History of substance use Bipolar 2 disorder Other long-term (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 Surgical History S/P cholecystectomy H/O mastectomy History of appendectomy Social History Smoking and tobacco/nicotine status: former use of tobacco/nicotine Alcohol intake: never Substance/Drug Use: current Substance/Drug use frequency: few times a month Physical Exam Const: COMMON NORMALS: no acute distress GENERAL APPEARANCE: cooperative and comfortable ORIENTATION/CONSCIOUSNESS: Yes awake, Yes oriented to person, Yes oriented to place and Yes oriented to time HENMT: COMMON NORMALS: normocephalic, atraumatic and hearing grossly normal bilaterally HEAD & SCALP: normocephalic and atraumatic Resp: COMMON NORMALS: normal respiratory effort, No retractions, No use of accessory muscles and clear to auscultation bilaterally AUSCULTATION: clear to auscultation bilaterally Cardio: COMMON NORMALS: regular rate, regular rhythm and No murmurs present (Cardio) RATE: regular rate RHYTHM: regular rhythm GI: COMMON NORMALS: Soft to palpation and No hepatosplenomegaly present AUSCULTATION: Yes normoactive bowel sounds PALPATION: Yes Soft to palpation, No Tenderness to palpation present (GI), No Guarding due to palpation present (GI) and Yes No hepatosplenomegaly present Extremity: COMMON NORMALS: normal to inspection, capillary refill normal, no clubbing, cyanosis or edema, no calf tenderness and no pedal edema Neuro: SENSORIUM/ORIENTATION: Yes oriented to person, Yes oriented to place and Yes oriented to time Skin: COMMON NORMALS: no rashes or lesions noted GENERAL SKIN EXAM: no rashes or lesions noted Course Vital Signs: Vital signs: Vital Signs Temperature 98.0 F 05/07/24 09:28 Pulse Rate 104 H 05/07/24 15:08 Respiratory Rate 17 05/07/24 15:08 Blood Pressure 144/91 05/07/24 15:08 Pulse Oximetry 95 05/07/24 15:08 Oxygen Delivery Me thod Room Air 05/07/24 15:16 MDM - Chest Pain Medical Decision Making Patient still having chest pain. Reviewed her previous angiogram. She was under the impression she had multiple complete blockages reviewed with her and showed her a copy highlighted the important part she has a 60 to 70% narrowing in the circumflex but that was not thought to be the culprit lesion based on the findings from her stress test she had an otherwise normal LAD and left main and RCA had some 20 to 30% irregular areas. She had been advised to be treated medically and she has been managed with that since then. Last several days she has had chest pain with and without exertion she states is improved with nitro discussed Dr. Izaguirre. Patient is very anxious after discussing with the patient and Dr. Izaguirre we decided ultimately to place her on observation consult cardiology for consideration of further evaluation. Discussed with hospitalist orders written Medical Records I reviewed the patient's medical records. Lab Data I reviewed the patient's lab results. 05/07/24 09:47 05/07/24 09:47 Radiology Impressions Chest X-Ray 05/07/24 09:40 IMPRESSION: No acute cardiopulmonary disease. Laboratory Results WBC 7.52 10^3/uL (3.29-11.43) 05/07/24 09:47 RBC 4.92 10^6/uL (3.85-5.65) 05/07/24 09:47 Hgb 14.70 g/dL (11.27-16.99) 05/07/24 09:47 Hct 44.8 % (36-47) 05/07/24 09:47 MCV 91.1 fl (85-98) 05/07/24 09:47 MCH 29.9 pg (27-33) 05/07/24 09:47 MCHC 32.8 g/dL (30-55) 05/07/24 09:47 RDW 13.4 % (12.1-15.1) 05/07/24 09:47 Plt Count 230 10^3/cmm (157-399) 05/07/24 09:47 MPV 9.9 fL (7.4-10.4) 05/07/24 09:47 Neut % (Auto) 63.4 % 05/07/24 09:47 Lymph % (Auto) 25.8 % 05/07/24 09:47 [place] % (Auto) 8.5 % 05/07/24 09:47 Eos % (Auto) 1.6 % 05/07/24 09:47 Baso % (Auto) 0.4 % 05/07/24 09:47 Neut # (Auto) 4.77 10^3/uL (1.8-7.7) 05/07/24 09:47 Lymph # (Auto) 1.9 10^3/uL (0.8-4.8) 05/07/24 09:47 [place] # (Auto) 0.6 10^3/uL (0.2-0.9) 05/07/24 09:47 Eos # (Auto) 0.1 10^3/uL (0.0-0.8) 05/07/24 09:47 Baso # (Auto) 0.0 10^3/uL (0.0-0.1) 05/07/24 09:47 Nucleated RBC % (auto) 0 % 05/07/24 09:47 Nucleated RBCs # 0.0 /100WBC 05/07/24 09:47 Sodium 137 mmol/L (136-145) 05/07/24 09:47 Potassium 4.1 mmol/L (3.5-5.1) 05/07/24 09:47 Chloride 102 mmol/L (98-107) 05/07/24 09:47 Carbon Dioxide 21 mmol/L (22-29) L 05/07/24 09:47 Anion Gap 18.1 (5-19) 05/07/24 09:47 BUN 20 mg/dL (6-20) 05/07/24 09:47 Creatinine 0.8 mg/dL (0.5-0.9) 05/07/24 09:47 GFR Calculation 79.4 mL/min (90-130) L 05/07/24 09:47 Glucose 95 mg/dL (65-115) 05/07/24 09:47 Calculated Osmolality 286 mOsm/kg (285-295) 05/07/24 09:47 Calcium 10.7 mg/dL (8.5-10.5) H 05/07/24 09:47 Total Bilirubin 0.4 mg/dL (0.15-1.2) 05/07/24 09:47 AST 14 U/L (0-32) 05/07/24 09:47 ALT 19 U/L (0-33) 05/07/24 09:47 Alkaline Phosphatase 134 U/L (35-105) H 05/07/24 09:47 Troponin T Baseline 7 ng/L (0-10) 05/07/24 09:47 Troponin T 120 Minute 6.17 ng/L (0-10) 05/07/24 11:38 Delta Troponin T -0.83 ABS# (0-10) L 05/07/24 11:38 Total Protein 7.2 g/dL (6.6-8.7) 05/07/24 09:47 Albumin 4.5 g/dL (3.5-5.2) 05/07/24 09:47 Globulin 2.7 g/dL (1.3-4.6) 05/07/24 09:47 All radiology interpretation(s) finalized by discharge Discharge Plan Discharge Patient Disposition: Admitted As Inpatient Admit Provider: Sergei Klein Clinical Impression: Unstable angina pectoris, History of coronary artery disease Condition: Stable Coding Level of Care Code ED Acet[employer] 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
[2024-05-07] MEDS: aspirin 81 mg Chew Tablet 324 MG PO (10:10)
[2024-05-07 10:12] LABS: Troponin(5th) Baseline 7 ng/L (0-10)
[2024-05-07 10:17] LABS: Alanine Aminotransferase 19 U/L (0-33); Albumin Level 4.5 g/dL (3.5-5.2); Alkaline Phosphatase 134 U/L (35-105); Anion Gap 18.1 (5-19); Aspartate Amino Transferase 14 U/L (0-32); Blood Urea Nitrogen 20 mg/dL (6-20); Calcium 10.7 mg/dL (8.5-10.5); Carbon Dioxide 21 mmol/L (22-29); Chloride 102 mmol/L (98-107); Creatinine Clr Calc Pharmacy 115.3769; Globulin 2.7 g/dL (1.3-4.6); Glomerular Filtration Rate 79.4 mL/min (90-130); Glucose 95 mg/dL (65-115); Osmolality Calculated 286 mOsm/kg (285-295); Potassium 4.1 mmol/L (3.5-5.1); Sodium 137 mmol/L (136-145); Total Bilirubin 0.4 mg/dL (0.15-1.2); Total Protein 7.2 g/dL (6.6-8.7)
--- NOTE | 2024-05-07 11:40 | ECG_ITS ---
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
[2024-05-07 12:08] LABS: Troponin 5 2HR 6.17 ng/L (0-10)
[2024-05-07 12:17] LABS: Troponin 5 2HR Delta -0.83 ABS# (0-10)
[2024-05-07] MEDS: morphine 4 mg/mL SDV 1 mL 2 MG IVP ×3 (13:36→22:02)
[2024-05-07] MEDS: nitroglycerin 1 gm/inch oint Pkt 0.5 INCH TOPICAL (13:38)
--- NOTE | 2024-05-07 15:07 | PC.NURSE ---
Patient transferred from ED to CSU at 1505.
[2024-05-07] MEDS: enoxaparin 40 mg/0.4 mL Syringe SUBCUT (16:01)
[2024-05-07] MEDS: pantoprazole 40 mg SDV IVP (16:02)
[2024-05-07 16:32] LABS: Estmated Average Glucose 111; Hemoglobin A1C 5.5 % (4.0-6.0)
--- NOTE | 2024-05-07 16:54 | PM.HP ---
Providers/Chief Complaint Admitting Physician: Sergei Klein MD Primary Care Provider: ABHINAV Roberto Chief Complaint: chest pain / bad pain in rt arm History of Present Illness Viki Roach is a 38 year old female with past medical history of bipolar disorder, abnormal cardiac stress test, diastolic heart failure, breast cancer post bilateral mastectomy Hodgkin's lymphoma, substance abuse, obesity who follows up with cardiology as an outpatient with last cardiac angiogram in June 2023 where she was found to have mild to moderate coronary artery disease, history of GERD, history of esophageal dilatation done 5 years ago at [place] presents to the ER today from cardiology office because of right-sided spasmodic pain radiating to the back associated with nausea ongoing on and off for last 1-1/2 months pain subsides after she takes nitro. Does complain of occasional difficulty in swallowing. Review of Systems General: Reports: 10 or more systems reviewed and unremarkable except in HPI and below Const: Denies: fever(s), chills, body aches, change in appetite, change in weight, malaise, night sweats, diaphoresis, change in sleep pattern, daytime sleepiness or snoring Eyes: Denies: change in vision, blurry vision, photophobia, eye discomfort or eye discharge ENMT: Denies: throat pain, enlarged tonsils, hoarseness, mouth pain, oral sores, dry mouth, tinnitus, nasal congestion or post nasal drip Card: Denies: chest pain, palpitations, irregular heart rhythm, edema, swelling of feet/ankles, lightheadedness, syncope, pre-syncope, dyspnea on exertion, orthopnea, leg pain with exertion or acrocyanosis Resp: Denies: dyspnea, productive cough, non-productive cough, wheezing, stridor, pain on inspiration, change in phlegm color, hemoptysis or chest congestion GI: Denies: abdominal pain, nausea, vomiting, hematemesis, coffee ground emesis, dysphagia, heartburn, diarrhea, constipation, bloating, GI cramping, change in bowel habits, pain on defecation, hematochezia or melena : Denies: flank pain, dysuria, urinary frequency, urinary urgency, urinary hesitancy, nocturia or hematuria Musc: Denies: neck pain, back pain, extremity pain, joint pain, joint swelling, joint redness, joint stiffness or limited range of motion Neuro: Denies: headache(s), numbness in extremities, weakness in extremities, sensory changes, lack of coordination, difficulty walking, frequent falls, dizziness, vertigo, confusion, Slurred speech present, difficulty communicating thoughts or seizure-like activity Psych: Denies: anxiety, depression, mood swings, panic attacks, hopelessness or irritability Endo: Denies: polyuria, polydipsia, tired all the time, cold intolerance, excessive sweating, flushing or heat intolerance Abraham/Lymph: Denies: easy bruising or easy bleeding All/Imm: Denies: tongue swelling, facial swelling or acute wheezing Medications/Allergies Home Medications ?Medication ?Instructions ?Recorded ?Confirmed ?Last Taken ?Type aspirin 81 mg tablet,delayed 81 mg PO QAM 09/18/20 05/07/24 05/06/24 History release cholecalciferol (vitamin D3) 25 3,000 unit PO DAILY 10/28/20 05/07/24 05/06/24 History mcg (1,000 unit) capsule (Vitamin D3) topiramate 100 mg tablet See Rx Instructions .Route .COMPLEX 03/24/21 05/07/24 05/06/24 History cetirizine 10 mg tablet (Zyrtec) 10 mg PO QAM PRN ALLERGIES 09/08/21 05/07/24 05/06/24 History valacyclovir 500 mg tablet See Rx Instructions .Route 09/08/21 05/07/24 Unknown History .COMPLEX PRN fever blister pantoprazole 40 mg tablet,delayed 40 mg PO BEDTIME 10/18/22 05/07/24 05/06/24 History release levothyroxine 112 mcg tablet 112 mcg PO DAILY 11/15/22 05/07/24 05/06/24 History pregabalin 75 mg capsule 75 mg PO BID 07/07/23 05/07/24 05/06/24 History aripiprazole 400 mg intramuscular 400 mg IM Q28D 30 days #1 ea 01/03/24 05/07/24 Unknown Rx suspension,extended release (Abilifjosh Maintena) empagliflozin 10 mg tablet 10 mg PO DAILY 30 days #30 tabs 02/27/24 05/07/24 05/06/24 Rx (Jardiance) metformin 500 mg tablet 500 mg PO BID 02/27/24 05/07/24 05/06/24 History nitroglycerin 0.4 mg sublingual 0.4 mg sublingual Q5M PRN chest 03/29/24 05/07/24 Unknown Rx tablet pain 30 days #30 tabs atomoxetine 18 mg capsule 18 mg PO DAILY 30 days #30 caps 04/16/24 05/07/24 05/06/24 Rx amitriptyline 100 mg tablet 100 mg PO BEDTIME #30 tabs 04/20/24 05/07/24 05/06/24 Rx aripiprazole 10 mg tablet (Abilify) 10 mg PO DAILY #30 tabs 04/20/24 05/07/24 05/06/24 Rx clonazepam 0.5 mg tablet 0.5 mg PO BID 30 days #60 tabs 04/20/24 05/07/24 05/06/24 Rx isosorbide mononitrate 60 mg 60 mg PO DAILY #90 tabs 04/26/24 05/07/24 05/06/24 Rx tablet,extended release 24 hr atorvastatin 40 mg tablet 40 mg PO DAILY 05/07/24 05/07/24 05/06/24 History Allergies Allergy/AdvReac Type Severity Reaction Status Date / Time onabotulinumtoxinA (From Allergy Severe botulism Verified 05/07/24 09:37 Botox) diphenhydramine Allergy ADR-Anxiety Verified 05/07/24 09:37 epoxy resin Allergy Unknown Verified 05/07/24 09:37 hydroxyzine (From Vistaril) Allergy ADR-Anxiety Verified 05/07/24 09:37 ondansetron (From Zofran) Allergy ADR-Anxiety Verified 05/07/24 09:37 promethazine (From Phenergan) Allergy ADR-Anxiety Verified 05/07/24 09:37 PFSH Acute PFSH: Medical History (Updated 05/07/24 @ 17:11 by Mario Chamberlain DO) Symptomatic cholelithiasis ADD (attention deficit disorder) PARRISH (generalized anxiety disorder) History of Hodgkin's lymphoma Bipolar 2 disorder, major depressive episode Other custodial (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 Psychiatric care History of substance use Bipolar 2 disorder 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 Surgical History S/P cholecystectomy H/O mastectomy History of appendectomy Social History Smoking and tobacco/nicotine status: former use of tobacco/nicotine Alcohol intake: never Substance/Drug Use: current Substance/Drug use frequency: few times a month Vitals/I&O/Wt Last Vital Signs Temp 98.0 F 05/07/24 09:28 Pulse 104 H 05/07/24 15:08 Resp 17 05/07/24 15:08 BP 144/91 05/07/24 15:08 Pulse Ox 95 05/07/24 15:08 O2 Del Method Room Air 05/07/24 15:16 Weight last 48 hrs Weight 97.522 kg Weight 96.162 kg Physical Exam Narrative: General: No acute distress, AO x3 HEENT: PERRLA, pupils bilaterally equal and reactive Chest: Normal vesicular breath sounds, no added sounds, equal good air entry bilaterally CVS: S1-S2 regular, no murmurs, no tachycardia, no gallops, no rubs Abdomen: Soft, nontender, no organomegaly, bowel sounds present Neuro: No focal deficits, no facial deformity, AO x3, power 5/5 in all limbs Data 05/07/24 09:47 05/07/24 09:47 A&P Assessment and plan (1) Chest pain: Atypical chest pain but she does have history of CAD in the past. Could be in setting of esophageal dysmotility. History of positive stress test followed by cardiac angiogram in June 2023 in which she was found to have mild to moderate CAD. Found to have normal left main, no disease in LAD, LCx found to have 60 to 70% long tubular lesion in the proximal segment involving the ostium, RCA medium to large caliber dominant vessel with 30% tubular narrowing proximally. Cycle troponins. Check echocardiogram. Cardiology consulted from the ER. Aspirin 324 mg one-time followed by 81 mg daily, atorvastatin. Start on metoprolol 25 mg twice daily. Will discuss with cardiology regarding possible need for repeat cardiac stress test. Qualifiers: Chest pain type: other chest pain Qualified Code(s): R07.89 - Other chest pain (2) Atherosclerosis of coronary artery of [place] heart without angina pectoris: Qualifiers: Coronary Disease-Associated Artery/Lesion type: [place] artery Qualified Code(s): I25.10 - Atherosclerotic heart disease of [place] coronary artery without angina pectoris (3) Heart failure with mildly reduced ejection fraction (HFmrEF): Currently euvolemic. Last echocardiogram from 2022 showed an EF of 48% with diffuse hypokinesia of septum. Repeat echocardiogram as above. Strict input output charting. (4) Bipolar 2 disorder: Continue home psychotropic medications. (5) History of substance use: Check urine drug screen. Plan History of GERD/history of esophageal dilatation: Used to follow-up with gastroenterology at [place]. Last endoscopy around 5 years ago. Will do barium swallow for further evaluation of esophageal dysmotility versus esophageal narrowing. Full code Cardiac diet, n.p.o. after midnight Protonix for PUD prophylaxis Lovenox for DVT prophylaxis PDMP PDMP Reviewed: Not Reviewed Attestations Medical Necessity Statement*: Admission under observation for management of chest pain in patient with history of CAD. Diagnoses Other chest pain R07.89 Chest pain type: other chest pain Atherosclerosis of [place] coronary artery of [place] heart without angina pectoris I25.10 Coronary Disease-Associated Artery/Lesion type: [place] artery Heart failure with mildly reduced ejection fraction (HFmrEF) I50.22 Bipolar 2 disorder F31.81 History of substance use Z87.898
--- NOTE | 2024-05-07 16:57 | USCV_ITS ---
Viki Roach Age: 38 Gender: F : 1985 Exam Date: 05/07/2024 18:38 Ordering Phys: Sergei Klein MD Technologist: RAVIN Exam Location: [facility] [place] Indication: CAD, chest pain BP: 144 / 91 HR: 105 Rhythm: Sinus Technical Quality: technically difficult c/o ruptured breast implants MEASUREMENTS (Male / Female) Normal Values 2D ECHO LV Diastolic Diameter PLAX 4.2 cm 4.2 - 5.9 / 3.9 - 5.3 cm IVS Diastolic Thickness 1.1 cm 0.6 - 1.0 / 0.6 - 0.9 cm IVS Systolic Thickness 1.1 cm LVPW Diastolic Thickness 0.9 cm 0.6 - 1.0 / 0.6 - 0.9 cm LVPW Systolic Thickness 1.4 cm LVOT Diameter 2.0 cm LV Ejection Fraction 2D Teich 52.3 % LV Ejection Fraction MOD 4C 63.3 % LV Ejection Fraction MOD 2C 75.1 % LV Ejection Fraction 2C AL 75.8 % LA Diameter 2.7 cm Aorta at Sinotubular Diameter 3.1 cm IVC Diameter 1.5 cm M-MODE LA Ao Ratio MM 1.1 AV Cusp Separation MM 1.7 cm DOPPLER AV Peak Velocity 99.0 cm/s LVOT Peak Velocity 69.0 cm/s AV Area Cont Eq vti 3.1 cm squared AV Area Cont Eq pk 2.2 cm squared MV Peak Velocity 62.0 cm/s MV Area PHT 8.5 cm squared Mitral E to A Ratio 0.7 TV Peak E Velocity 59.0 cm/s PV Peak Velocity 77.0 cm/s FINDINGS Left Ventricle Normal LV size with a borderline low ejection fraction of 50 %. The study is technically limited because of the difficult because of pooapical window. Right Ventricle The right ventricle is normal in size and function. Right Atrium The right atrium is normal in size. Left Atrium The left atrium is normal in size. Mitral Valve No gross abnormality noted .trace mitral valve regurgitation. Aortic Valve Minimally thickened aortic valve Tricuspid Valve No gross abnormalities noted Pulmonic Valve Pulmonic valve not well visualized. Pericardium Normal pericardium without effusion. Aorta Normal ascending aorta dimension. IVC The inferior vena cava appears normal. CONCLUSIONS Normal LV size with a borderline low ejection fraction of 50 %. Minimally thickened aortic valve. Trace mitral valve regurgitation. There is no pericardial effusion. There are no intracardiac masses. Suboptimal study because of technical difficulties-no apical windows Dr Colleen Izaguirre MD FAC (Electronically Signed) Final Date: 07 May 2024 20:52 S
[2024-05-07 16:59] LABS: Procalcitonin 0.06 ng/mL (0-0.5); Thyroid Stimulating Hormone 0.68 uIU/mL (0.27-4.20); Vitamin B12 1078 pg/mL (232-1245)
--- NOTE | 2024-05-07 17:00 | ECG_ITS ---
[facility] Test Date: 2024-05-08 Pat Name: Viki Roach Department: Room: 111 Gender: Female Manager Ecommerce: : 1985 Requested By: Sergei Klein Order Number: [id number] Blayne MD: Colleen Izaguirre M.D. Interpretive Statements Lung unchanged pre/post procedure; Intraprocedure shortess of breath; Symptoms resoled by discharge [id number]
[2024-05-07 17:10] LABS: Iron 97 ug/dL (37-145); Percent Saturation 29.3 % (20-50); Total Iron Binding Capacity 330 mcg/dl; Unsaturated Iron Binding 233 ug/dL (112-347)
[2024-05-07] MEDS: CLONazepam 0.5 mg Tablet PO (17:26)
--- NOTE | 2024-05-07 17:55 | PC.NURSE ---
Provider is updated that patient has not been taking her pregabalin since about November. Provider okay'd to discontinue it on her APR.
[2024-05-07 18:37] LABS: Bilirubin Urine Negative (Negative); Blood Urine Negative (Negative); Glucose Urine UA 2+ (Normal); Ketones Urine Negative (Negative); Leukocyte Esterase Urine Trace (Negative); Nitrate Urine Negative (Negative); Protein Urine Negative (Negative); Specific Gravity, Urine 1.012 (1.005-1.030); Urine Appearance Clear (CLEAR); Urine Color Yellow (Yellow); Urobilinogen Urine 0.2 mg/dL (Negative); pH Urine 6.5 (5-7)
[2024-05-07 18:40] LABS: Add Urine Microscopic? YES; Bacteria Urine Trace /hpf; Hyaline Casts Urine 0-4 /lpf; RBC Urine 0-2 /hpf (0-2)
[2024-05-07 18:44] LABS: Amphetamines Screen Urine Negative (Negative); Barbiturates Screen Urine Negative (Negative); Benzodiazepines Screen Urine Negative (Negative); Cocaine Screen Urine Negative (Negative); Opiate Screen Urine Positive (Negative); PCP Screen Urine Negative (Negative); THC Screen Urine Negative (Negative)
--- NOTE | 2024-05-07 19:57 | PM.CONSULT ---
Providers/Reason For Consult Consulting Physician/Specialty*: JOSSUE Izaguirre MD/cardiology Reason for Consult*: Patient with chest pain, history of atherosclerotic heart disease Requesting Physician: Dr. Chamberalin/Dr. Klein Attending Physician: Sergei Klein MD Primary Care Provider: ABHINAV Roberto History of Present Illness History of Present Illness Viki Roach is a 38 year old female with a history of atherosclerotic heart diseas, diastolic heart failure, high blood pressure, orthostatic hypotension, dyslipidemia and multiple other medical problems, presenting with chest pain This patient with a history of atherosclerotic heart disease is presenting with complaints of chest pain for the last a month and a half. She describes this pain as a pressure-like pain radiating across the chest, to the back and also to the right arm usually in the middle of the night, almost every night, which wakes her up from sleep. She takes 1 sublingual nitro that usually relieves the pain. The pain may last very from 2 to 5 minutes. She may have 1 or 2 episodes almost every night. This morning around 4:00 she woke up with pain of similar quality, responded to 1 sublingual nitro. Few hours later, she had another episode of pain. This time also she took 1 sublingual nitro and the pain was relieved. She came to our office this morning with these complaints. At that point, she was sent to the emergency room for further evaluation . She is currently admitted to the hospital for further evaluation management. She had a cardiac arrest in June of last year. She was found to have moderately severe disease in the circumflex artery. She had a Myocardial perfusion imaging prior to this. She had a small area of ischemia in the apical septal region. Since area of ischemia was not coinciding with the coronary artery lesion and also since the lesion was borderline, it was thought to be appropriate to treat him medically. Apparently the patient has been doing okay up until 6 weeks ago when she started having the symptoms. This patient also has a history of non-Hodgkin's lymphoma and breast cancer. She had a bilateral mastectomy. She had breast reconstructive surgery and apparently is planning for another reconstructive surgery.. She also has a history of substance abuse and bipolar disorder. Review of Systems Narrative: CONSTITUTIONAL: No fever or chills. EYES: No blurring of vision or other visual disturbances lately. ENT: No hoarseness of voice, auditory disturbances or sore throat. CARDIOVASCULAR: As mentioned above. RESPIRATORY: No significant cough. GASTROINTESTINAL: No hematemesis or melena. GENITOURINARY: No dysuria or hematuria. INTEGUMENTARY: No skin rashes or history of skin cancer. NEURO: No transient ischemic attacks or amaurosis. PSYCHIATRIC: No history of psychosis or major depression. HEMATOLOGIC: No bleeding disorders or significant anemia. ENDOCRINE: No history of polyuria or polydipsia. MUSCULOSKELETAL: No recent joint pain or swelling. ALLERGY/IMMUNOLOGY: As mentioned above. Medications/Allergies Home Medications ?Medication ?Instructions ?Recorded ?Confirmed ?Last Taken ?Type aspirin 81 mg tablet,delayed 81 mg PO QAM 09/18/20 05/07/24 05/06/24 History release cholecalciferol (vitamin D3) 25 3,000 unit PO DAILY 10/28/20 05/07/24 05/06/24 History mcg (1,000 unit) capsule (Vitamin D3) topiramate 100 mg tablet See Rx Instructions .Route .COMPLEX 03/24/21 05/07/24 05/06/24 History cetirizine 10 mg tablet (Zyrtec) 10 mg PO QAM PRN ALLERGIES 09/08/21 05/07/24 05/06/24 History valacyclovir 500 mg tablet See Rx Instructions .Route 09/08/21 05/07/24 Unknown History .COMPLEX PRN fever blister pantoprazole 40 mg tablet,delayed 40 mg PO BEDTIME 10/18/22 05/07/24 05/06/24 History release levothyroxine 112 mcg tablet 112 mcg PO DAILY 11/15/22 05/07/24 05/06/24 History pregabalin 75 mg capsule 75 mg PO BID 07/07/23 05/07/24 05/06/24 History aripiprazole 400 mg intramuscular 400 mg IM Q28D 30 days #1 ea 01/03/24 05/07/24 Unknown Rx suspension,extended release (Abilifjosh Maintena) empagliflozin 10 mg tablet 10 mg PO DAILY 30 days #30 tabs 02/27/24 05/07/24 05/06/24 Rx (Jardiance) metformin 500 mg tablet 500 mg PO BID 02/27/24 05/07/24 05/06/24 History nitroglycerin 0.4 mg sublingual 0.4 mg sublingual Q5M PRN chest 03/29/24 05/07/24 Unknown Rx tablet pain 30 days #30 tabs atomoxetine 18 mg capsule 18 mg PO DAILY 30 days #30 caps 04/16/24 05/07/24 05/06/24 Rx amitriptyline 100 mg tablet 100 mg PO BEDTIME #30 tabs 04/20/24 05/07/24 05/06/24 Rx aripiprazole 10 mg tablet (Abilify) 10 mg PO DAILY #30 tabs 04/20/24 05/07/24 05/06/24 Rx clonazepam 0.5 mg tablet 0.5 mg PO BID 30 days #60 tabs 04/20/24 05/07/24 05/06/24 Rx isosorbide mononitrate 60 mg 60 mg PO DAILY #90 tabs 04/26/24 05/07/24 05/06/24 Rx tablet,extended release 24 hr atorvastatin 40 mg tablet 40 mg PO DAILY 05/07/24 05/07/24 05/06/24 History Allergies Allergy/AdvReac Type Severity Reaction Status Date / Time onabotulinumtoxinA (From Allergy Severe botulism Verified 05/07/24 09:37 Botox) diphenhydramine Allergy ADR-Anxiety Verified 05/07/24 09:37 epoxy resin Allergy Unknown Verified 05/07/24 09:37 hydroxyzine (From Vistaril) Allergy ADR-Anxiety Verified 05/07/24 09:37 ondansetron (From Zofran) Allergy ADR-Anxiety Verified 05/07/24 09:37 promethazine (From Phenergan) Allergy ADR-Anxiety Verified 05/07/24 09:37 Current Medications Generic Name Dose Route Start Last Admin Trade Name Dkq PRN Reason Stop Dose Admin Clonazepam 0.5 mg 05/07/24 18:00 05/07/24 17:26 Clonazepam 0.5 Mg Tablet PO 0.5 mg BID LAKISHA Administration Docusate Sodium 100 mg 05/07/24 18:00 05/07/24 17:25 Docusate Sodium 100 Mg Capsule PO Not Given BID LAKISHA Enoxaparin Sodium 40 mg 05/07/24 15:30 05/07/24 16:01 Enoxaparin 40 Mg/0.4 Ml Syringe SUBCUT 40 mg Q24H LAKISHA Administration Morphine Sulfate 2 mg 05/07/24 15:24 05/07/24 17:58 Morphine 4 Mg/Ml Sdv 1 Ml IVP 2 mg Q4H PRN Administration SEVERE PAIN Pantoprazole Sodium 40 mg 05/07/24 15:30 05/07/24 16:02 Pantoprazole 40 Mg Sdv IVP 40 mg Q24H LAKISHA Administration PFSH Acute PFSH: Medical History Symptomatic cholelithiasis ADD (attention deficit disorder) PARRISH (generalized anxiety disorder) History of Hodgkin's lymphoma Bipolar 2 disorder, major depressive episode Other residential (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 Psychiatric care History of substance use Bipolar 2 disorder Other residential (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 Surgical History S/P cholecystectomy H/O mastectomy History of appendectomy Social History Smoking and tobacco/nicotine status: former use of tobacco/nicotine Alcohol intake: never Substance/Drug Use: current Substance/Drug use frequency: few times a month Vitals/I&O/Wt Last Vital Signs Temp 98.4 F 05/07/24 16:00 Pulse 106 H 05/07/24 16:00 Resp 17 05/07/24 17:58 BP 120/98 05/07/24 16:00 Pulse Ox 100 05/07/24 17:58 O2 Del Method Room Air 05/07/24 17:11 05/07/24 05/07/24 05/07/24 06:59 14:59 22:59 Intake Total 120 / 120 Output Total 300 / 300 Balance -180 / -180 Weight last 48 hrs Weight 215 lb Weight 212 lb Physical Exam Narrative: GENERAL: The patient is alert and oriented times three. Not in any acute distress. HEENT: No significant pallor, icterus or lymphadenopathy.Oral cavity: There are no mucous membrane lesions. NECK: Trachea appears to be central. No masses noted. No JVD or thyromegaly appreciated. RESPIRATORY: Chest is symmetrical. No intercostals muscle retraction or any accessory muscle activation. There is no chest wall tenderness. Breath sounds are heard bilaterally. No rales or rhonchi heard. No evidence of any consolidation. BREASTS: Deferred. HEART: The heart sounds are normal. No S3 or S4. No significant murmurs. No pericardial rub ABDOMEN: No vessel pulsations or distention. No tenderness. No organomegaly appreciated. Bowel sounds are normally heard. : Deferred. RECTAL: Deferred. LYMPHATIC: No lymphadenopathy noted in the neck. EXTREMITIES: No edema or cyanosis. No clubbing. MUSCULOSKELETAL: No acute joint deformities or swelling SKIN: There are no significant rashes or ecchymosis NEUROPSYCHIATRIC: The patient is alert and oriented x3. Appears to be in a good mood. No tremors or rigidity noted. Data 05/07/24 09:47 05/07/24 09:47 Other Labs: Laboratory Last Values WBC 7.52 10^3/uL (3.29-11.43) 05/07/24 09:47 RBC 4.92 10^6/uL (3.85-5.65) 05/07/24 09:47 Hgb 14.70 g/dL (11.27-16.99) 05/07/24 09:47 Hct 44.8 % (36-47) 05/07/24 09:47 MCV 91.1 fl (85-98) 05/07/24 09:47 MCH 29.9 pg (27-33) 05/07/24 09:47 MCHC 32.8 g/dL (30-55) 05/07/24 09:47 RDW 13.4 % (12.1-15.1) 05/07/24 09:47 Plt Count 230 10^3/cmm (157-399) 05/07/24 09:47 MPV 9.9 fL (7.4-10.4) 05/07/24 09:47 Neut % (Auto) 63.4 % 05/07/24 09:47 Lymph % (Auto) 25.8 % 05/07/24 09:47 [place] % (Auto) 8.5 % 05/07/24 09:47 Eos % (Auto) 1.6 % 05/07/24 09:47 Baso % (Auto) 0.4 % 05/07/24 09:47 Neut # (Auto) 4.77 10^3/uL (1.8-7.7) 05/07/24 09:47 Lymph # (Auto) 1.9 10^3/uL (0.8-4.8) 05/07/24 09:47 [place] # (Auto) 0.6 10^3/uL (0.2-0.9) 05/07/24 09:47 Eos # (Auto) 0.1 10^3/uL (0.0-0.8) 05/07/24 09:47 Baso # (Auto) 0.0 10^3/uL (0.0-0.1) 05/07/24 09:47 Nucleated RBC % (auto) 0 % 05/07/24 09:47 Nucleated RBCs # 0.0 /100WBC 05/07/24 09:47 Sodium 137 mmol/L (136-145) 05/07/24 09:47 Potassium 4.1 mmol/L (3.5-5.1) 05/07/24 09:47 Chloride 102 mmol/L (98-107) 05/07/24 09:47 Carbon Dioxide 21 mmol/L (22-29) L 05/07/24 09:47 Anion Gap 18.1 (5-19) 05/07/24 09:47 BUN 20 mg/dL (6-20) 05/07/24 09:47 Creatinine 0.8 mg/dL (0.5-0.9) 05/07/24 09:47 GFR Calculation 79.4 mL/min (90-130) L 05/07/24 09:47 Glucose 95 mg/dL (65-115) 05/07/24 09:47 Estimat Average Glucose 111 05/07/24 16:05 Hemoglobin A1c 5.5 % (4.0-6.0) 05/07/24 16:05 Calculated Osmolality 286 mOsm/kg (285-295) 05/07/24 09:47 Calcium 10.7 mg/dL (8.5-10.5) H 05/07/24 09:47 Iron 97 ug/dL (37-145) 05/07/24 16:05 TIBC 330 mcg/dl 05/07/24 16:05 % Saturation 29.3 % (20-50) 05/07/24 16:05 Unsat Iron Binding 233 ug/dL (112-347) 05/07/24 16:05 Total Bilirubin 0.4 mg/dL (0.15-1.2) 05/07/24 09:47 AST 14 U/L (0-32) 05/07/24 09:47 ALT 19 U/L (0-33) 05/07/24 09:47 Alkaline Phosphatase 134 U/L (35-105) H 05/07/24 09:47 Troponin T Baseline 7 ng/L (0-10) 05/07/24 09:47 Troponin T 120 Minute 6.17 ng/L (0-10) 05/07/24 11:38 Delta Troponin T -0.83 ABS# (0-10) L 05/07/24 11:38 Total Protein 7.2 g/dL (6.6-8.7) 05/07/24 09:47 Albumin 4.5 g/dL (3.5-5.2) 05/07/24 09:47 Globulin 2.7 g/dL (1.3-4.6) 05/07/24 09:47 Vitamin B12 1078 pg/mL (232-1245) 05/07/24 16:05 Procalcitonin 0.06 ng/mL (0-0.5) 05/07/24 16:05 TSH 0.68 uIU/mL (0.27-4.20) 05/07/24 16:05 Urine Color Yellow (Yellow) 05/07/24 18:11 Urine Appearance Clear (CLEAR) 05/07/24 18:11 Urine pH 6.5 (5-7) 05/07/24 18:11 Ur Specific [place] 1.012 (1.005-1.030) 05/07/24 18:11 Urine Protein Negative (Negative) 05/07/24 18:11 Urine Glucose (UA) 2+ (Normal) H 05/07/24 18:11 Urine Ketones Negative (Negative) 05/07/24 18:11 Urine Blood Negative (Negative) 05/07/24 18:11 Urine Nitrate Negative (Negative) 05/07/24 18:11 Urine Bilirubin Negative (Negative) 05/07/24 18:11 Urine Urobilinogen 0.2 mg/dL (Negative) 05/07/24 18:11 Ur Leukocyte Esterase Trace (Negative) A 05/07/24 18:11 Urine RBC 0-2 /hpf (0-2) 05/07/24 18:11 Urine WBC 6-10 /hpf (0-5) 05/07/24 18:11 Ur Squamous Epith Cells 6-10 /hpf (0-5) 05/07/24 18:11 Amorphous Sediment Not Reportable 05/07/24 18:11 Urine Bacteria Trace /hpf (NONE) 05/07/24 18:11 Hyaline Casts 0-4 /lpf H 05/07/24 18:11 Urine Opiates Screen Positive ng/mL (Negative) H 05/07/24 18:11 Ur Barbiturates Screen Negative ng/mL (Negative) 05/07/24 18:11 Ur Phencyclidine Scrn Negative ng/mL (Negative) 05/07/24 18:11 Ur Amphetamines Screen Negative ng/mL (Negative) 05/07/24 18:11 U Benzodiazepines Scrn Negative ng/mL (Negative) 05/07/24 18:11 Urine Cocaine Screen Negative ng/mL (Negative) 05/07/24 18:11 U Marijuana (THC) Screen Negative ng/mL (Negative) 05/07/24 18:11 Other data: The EKG showed a sinus tachycardia with a rate of [address]-T changes. A&P Assessment and plan (1) Atherosclerotic heart disease of [place] coronary artery with other forms of angina pectoris: Patient chest pain is somewhat atypical. Possibility of worsening of the underlying coronary disease is a consideration. The EKG changes are nonspecific. Compared to the EKG from 2022, there may not be significant change. No evidence of myocardial injury based on the cardiac enzymes. For further evaluation of the patient's symptoms, it may be appropriate to go ahead and do a Myocardial perfusion imaging. (2) Dyslipidemia: May continue on the current medications. (3) Heart failure with mildly reduced ejection fraction (HFmrEF): Currently compensated with no evidence of heart failure (4) Orthostatic hypotension: Clinically seems to be stable with no significant change in the orthostatic vitals. Plan The other problems are as outlined before. Echocardiogram would be helpful to evaluate LV function and rule out any other pathology. Patient is scheduled for a Lexiscan/sestamibi/sestamibi stress test in the morning. She may be continue the current medication for the time being. Currently she is pain-free. Based on the results of the Myocardial perfusion imaging, further recommendations will be made. Thank you for the opportunity to evaluate this patient and make these recommendations PDMP PDMP Reviewed: Not Reviewed Coding Level of Care Code 00763 Diagnoses Atherosclerotic heart disease of [place] coronary artery with other forms of angina pectoris I25.118 Dyslipidemia E78.5 Heart failure with mildly reduced ejection fraction (HFmrEF) I50.22 Orthostatic hypotension I95.1
[2024-05-07] MEDS: amitriptyline 25 mg Tablet 100 MG PO (20:39)
[2024-05-07] MEDS: metoprolol tartrate 25 mg Tablet PO (20:40)
[2024-05-07] MEDS: topiramate 100 mg Tablet 200 MG PO (20:40)
[2024-05-08] VITALS (8 sets, daily range): BP systolic 100–132; BP diastolic 66–85; PULSE 86–99; RESP 13–18; TEMP 36.3–36.9; O2SAT 95–99
[2024-05-08] MEDS: morphine 4 mg/mL SDV 1 mL 2 MG IVP ×3 (02:01→10:56)
[2024-05-08 05:56] LABS: Basophils % 0.5 %; Eosinophils # 0.2 10^3/uL (0.0-0.8); Eosinophils % 2.5 %; Hematocrit 45.2 % (36-47); Lymphocytes # 2.4 10^3/uL (0.8-4.8); Lymphocytes % 37.8 %; Mean Corpuscular HGB Conc 31.9 g/dL (30-55); Mean Corpuscular Hemoglobin 29.6 pg (27-33); Mean Platelet Volume 9.8 fL (7.4-10.4); Monocytes # 0.5 10^3/uL (0.2-0.9); Monocytes % 8.3 %; Neutrophils # 3.19 10^3/uL (1.8-7.7); Neutrophils % 50.6 %; Nucleated Red Blood Cells % 0 %; Platelet Count 231 10^3/cmm (157-399); Red Blood Count 4.86 10^6/uL (3.85-5.65); Red Cell Distribution Width 13.7 % (12.1-15.1)
[2024-05-08 06:03] LABS: HCG, Serum Qual Negative (Negative)
[2024-05-08 06:16] LABS: Chol HDL Ratio 2.95 mg/dL (0.0-4.40); Cholesterol 183 mg/dL (0-200); HDL Cholesterol 62 mg/dL (60-100); LDL Cholesterol Calculated 80 mg/dL (50-129); LDL HDL Ratio 1.29 RATIO (0.00-3.22); Triglycerides 207 mg/dL (0-150)
[2024-05-08 06:22] LABS: Procalcitonin 0.05 ng/mL (0-0.5)
[2024-05-08 06:24] LABS: Alanine Aminotransferase 18 U/L (0-33); Albumin Level 4.1 g/dL (3.5-5.2); Alkaline Phosphatase 119 U/L (35-105); Anion Gap 17.3 (5-19); Aspartate Amino Transferase 14 U/L (0-32); Blood Urea Nitrogen 19 mg/dL (6-20); Calcium 9.6 mg/dL (8.5-10.5); Carbon Dioxide 26 mmol/L (22-29); Chloride 101 mmol/L (98-107); Creatinine Clr Calc Pharmacy 116.4742; Glomerular Filtration Rate 79.4 mL/min (90-130); Glucose 110 mg/dL (65-115); Magnesium 2.1 mg/dL (1.7-2.3); Osmolality Calculated 293 mOsm/kg (285-295); Phosphorus 4.6 mg/dL (2.5-4.5); Potassium 4.3 mmol/L (3.5-5.1); Sodium 140 mmol/L (136-145); Total Bilirubin 0.3 mg/dL (0.15-1.2); Total Protein 7.1 g/dL (6.6-8.7)
[2024-05-08 06:30] LABS: Folate Level 9.8 ng/mL (4.8-37.3)
--- NOTE | 2024-05-08 07:31 | PC.NURSE ---
Patient at stress test at shift change.
[2024-05-08] MEDS: regadenoson 0.4 Mg/5 ml Syringe IVP (07:36)
--- NOTE | 2024-05-08 08:41 | PC.NURSE ---
Patient returned to unit at 0840.
[2024-05-08] MEDS: isosorbide mononitrate ER 60 mg Tablet PO (08:54)
[2024-05-08] MEDS: CLONazepam 0.5 mg Tablet PO (08:55)
[2024-05-08] MEDS: levothyroxine 112 mcg Tablet PO (08:55)
[2024-05-08] MEDS: metoprolol tartrate 25 mg Tablet PO (08:55)
[2024-05-08] MEDS: ARIPiprazole 10 mg Tablet PO (08:55)
[2024-05-08] MEDS: atorvastatin 40 mg Tablet PO (08:55)
--- NOTE | 2024-05-08 08:57 | P.PN_ITS ---
Subjective 2 Subjective: The patient had a Myocardial perfusion imaging this morning. She was found to have no evidence of ischemia, based on the perfusion scan. Currently the patient is chest pain-free. Medications: Medication Review Details: Current Medications Acetaminophen (Acetaminophen 325 Mg Tablet) 650 mg PO Q6H PRN PRN Reason: Mild/Mod Pain Or Temp >/= 101 Aminophylline (Aminophylline 25 Mg/Ml Sdv 20 Ml) 25 mg IVP Q2M PRN PRN Reason: see dose instructions Stop: 05/09/24 06:29 Amitriptyline HCl (Amitriptyline 25 Mg Tablet) 100 mg PO BEDTIME [facility] Last Admin: 05/07/24 20:39 Dose: 100 mg Aripiprazole (Aripiprazole 10 Mg Tablet) 10 mg PO DAILY [facility] Last Admin: 05/08/24 08:55 Dose: 10 mg Aspirin (Aspirin 81 Mg Ec Tablet) 81 mg PO QAM [facility] Last Admin: 05/08/24 06:20 Dose: Not Given Atorvastatin Calcium (Atorvastatin 40 Mg Tablet) 40 mg PO DAILY [facility] Last Admin: 05/08/24 08:55 Dose: 40 mg Clonazepam (Clonazepam 0.5 Mg Tablet) 0.5 mg PO BID [facility] Last Admin: 05/08/24 08:55 Dose: 0.5 mg Docusate Sodium (Docusate Sodium 100 Mg Capsule) 100 mg PO BID [facility] Last Admin: 05/08/24 08:56 Dose: Not Given Enoxaparin Sodium (Enoxaparin 40 Mg/0.4 Ml Syringe) 40 mg SUBCUT Q24H [facility] Last Admin: 05/07/24 16:01 Dose: 40 mg Isosorbide Mononitrate (Isosorbide Mononitrate Er 60 Mg Tablet) 60 mg PO DAILY [facility] Last Admin: 05/08/24 08:54 Dose: 60 mg Lactulose (Lactulose Oral Liq 20 Gm/30 Ml Udc) 10 gm PO DAILY PRN; Protocol PRN Reason: Constipation (see protocol) Levothyroxine Sodium (Levothyroxine 112 Mcg Tablet) 112 mcg PO DAILY [facility] Last Admin: 05/08/24 08:55 Dose: 112 mcg Magnesium Hydroxide (Magnesium Hydroxide 30 Ml Udc) 30 ml PO DAILY PRN; Protocol PRN Reason: Constipation (see protocol) Metoprolol Tartrate (Metoprolol Tartrate 25 Mg Tablet) 25 mg PO BID@0900,2100 [facility] Last Admin: 05/08/24 08:55 Dose: 25 mg Morphine Sulfate (Morphine 4 Mg/Ml Sdv 1 Ml) 2 mg IVP Q4H PRN PRN Reason: SEVERE PAIN Last Admin: 05/08/24 06:48 Dose: 2 mg Nitroglycerin (Nitroglycerin 0.4 Mg Sublingual Tablet) 0.4 mg SUBLINGUAL Q5M PRN PRN Reason: CHEST PAIN Stop: 05/09/24 06:29 Non-Formulary Medication (Atomoxetine) 18 mg PO DAILY [facility] Ondansetron HCl (Ondansetron 2 Mg/Ml Sdv 2 Ml) 4 mg IVP Q2M PRN PRN Reason: NAUSEA Pantoprazole Sodium (Pantoprazole 40 Mg Sdv) 40 mg IVP Q24H [facility] Last Admin: 05/07/24 16:02 Dose: 40 mg Topiramate (Topiramate 100 Mg Tablet) 100 mg PO QAM [facility] Last Admin: 05/08/24 06:20 Dose: Not Given Topiramate (Topiramate 100 Mg Tablet) 200 mg PO BEDTIME [facility] Last Admin: 05/07/24 20:40 Dose: 200 mg Vitals/I&O/Wt Last Vital Signs Temp 98.5 F 05/08/24 08:00 Pulse 96 05/08/24 08:00 Resp 14 05/08/24 08:00 BP 100/66 05/08/24 08:00 Pulse Ox 99 05/08/24 08:00 O2 Del Method Room Air 05/08/24 08:00 05/07/24 05/08/24 05/08/24 22:59 06:59 14:59 Intake Total 570 / 570 100 / 670 Output Total 300 / 300 Balance 270 / 270 100 / 370 Weight last 48 hrs Weight 216 lb 1.6 oz Weight 215 lb Weight 212 lb Physical Exam 2 Narrative: GENERAL: The patient is alert and oriented times three. Not in any acute distress. HEENT: No significant pallor, icterus or lymphadenopathy.Oral cavity: There are no mucous membrane lesions. NECK: Trachea appears to be central. No masses noted. No JVD or thyromegaly appreciated. RESPIRATORY: Chest is symmetrical. No intercostals muscle retraction or any accessory muscle activation. There is no chest wall tenderness. Breath sounds are heard bilaterally. No rales or rhonchi heard. No evidence of any consolidation. BREASTS: Deferred. HEART: The heart sounds are normal. No S3 or S4. No significant murmurs. No pericardial rub ABDOMEN: No vessel pulsations or distention. No tenderness. No organomegaly appreciated. Bowel sounds are normally heard. : Deferred. RECTAL: Deferred. LYMPHATIC: No lymphadenopathy noted in the neck. EXTREMITIES: No edema or cyanosis. No clubbing. MUSCULOSKELETAL: No acute joint deformities or swelling SKIN: There are no significant rashes or ecchymosis NEUROPSYCHIATRIC: The patient is alert and oriented x3. Appears to be in a good mood. No tremors or rigidity noted. Data 05/08/24 05:36 05/08/24 05:36 Other data: Echocardiogram from yesterday Normal LV size with a borderline low ejection fraction of 50 %. Minimally thickened aortic valve. Trace mitral valve regurgitation. There is no pericardial effusion. There are no intracardiac masses. Suboptimal study because of technical difficulties-no apical windows A&P Assessment and plan (1) Atherosclerotic heart disease of [place] coronary artery with other forms of angina pectoris: Patient chest pain is somewhat atypical. Possibility of worsening of the underlying coronary disease is a consideration. The EKG changes are nonspecific. Compared to the EKG from 2022, there may not be significant change. No evidence of myocardial injury based on the cardiac enzymes. For further evaluation of the patient's symptoms, it may be appropriate to go ahead and do a Myocardial perfusion imaging. The myocardial vision scan from this morning reveals no evidence of ischemia. Since the patient remaining stable with no recurrence of chest pain, it might be appropriate not to pursue any further cardiac workup at this point. And noncardiac etiology may need to be looked into. (2) Dyslipidemia: May continue on the current medications. (3) Heart failure with mildly reduced ejection fraction (HFmrEF): Currently compensated with no evidence of heart failure. The LV ejection fraction was found to be around 50% by echocardiogram. The study is a suboptimal quality because of the lack of apical windows. (4) Orthostatic hypotension: Clinically seems to be stable with no significant change in the orthostatic vitals. Plan The other problems are as outlined before. If the patient continues to remain stable, she may be discharged home from a cardiac standpoint. Will see her in the office as scheduled. PDMP PDMP Reviewed: Not Reviewed Attestations 2 Medical Necessity Statement*: Disposition as per the primary Coding Level of Care Code 07210 Diagnoses Atherosclerotic heart disease of [place] coronary artery with other forms of angina pectoris I25.118 Dyslipidemia E78.5 Heart failure with mildly reduced ejection fraction (HFmrEF) I50.22 Orthostatic hypotension I95.1
--- NOTE | 2024-05-08 10:19 | PC.NURSE ---
Provider is updated that patient is refusing the barium swallow.
--- NOTE | 2024-05-08 11:26 | P.DS_ITS ---
Discharge Providers Date of Admission: 05/07/24 15:01 Date of Discharge: May 08, 2024 Attending Provider at Admission: Sergei Klein MD Attending Provider at Discharge: Sergei Klein MD Consults: Cardiology: Dr. 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: Status: Acute (2) Dyslipidemia: Status: Acute (3) Heart failure with mildly reduced ejection fraction (HFmrEF): Status: Acute (4) Orthostatic hypotension: Status: Acute Reason for Visit Reason for Visit: chest pain / bad pain in rt arm Brief History: Viki Roach is a 38 year old female with past medical history of bipolar disorder, abnormal cardiac stress test, diastolic heart failure, breast cancer post bilateral mastectomy Hodgkin's lymphoma, substance abuse, obesity who follows up with cardiology as an outpatient with last cardiac angiogram in June 2023 where she was found to have mild to moderate coronary artery disease, history of GERD, history of esophageal dilatation done 5 years ago at [place] presents to the ER today from cardiology office because of right- sided spasmodic pain radiating to the back associated with nausea ongoing on and off for last 1-1/2 months pain subsides after she takes nitro. Does complain of occasional difficulty in swallowing. Hospital Course Hospital Course Patient was admitted for further evaluation and management of chest pain with concerns for esophageal versus cardiac etiology. Cardiology was consulted from the ER. She underwent Lexiscan stress test on 05/08 which was negative for acute ischemia. Echocardiogram was done which showed EF 50% without regional wall motion abnormality. Given her history of esophageal dilatation and GERD in the past she underwent barium swallow. Patient is advised to follow-up with gastroenterology as an outpatient for further evaluation and possible need for repeat endoscopy. For now she will be on Protonix 40 mg twice daily for next 1 month followed by once daily. Physical Exam Narrative: General: No acute distress, AO x3 HEENT: PERRLA, pupils bilaterally equal and reactive Chest: Normal vesicular breath sounds, no added sounds, equal good air entry bilaterally CVS: S1-S2 regular, no murmurs, no tachycardia, no gallops, no rubs Abdomen: Soft, nontender, no organomegaly, bowel sounds present Neuro: No focal deficits, no facial deformity, AO x3, power 5/5 in all limbs Discharge Data Studies Completed and Pending Completed Studies During Hospitalization Category Date Time Status XR chest 1V portable [id number] Stat Exams 05/07/24 09:40 Completed NM colin perf SPECT r/s* [id number] Routine Nuc Med 05/08/24 17:00 Completed CV. echo complete* [id number] Routine Ultrasound 05/07/24 16:57 Completed Pending at discharge Category Date Time Status FL barium swallow [id number] Routine Exams 05/08/24 17:40 Ordered Sestamibi Stress Test Request Routine Exams 05/07/24 17:00 Ordered Complete Blood Count w/Auto AM LABS Lab 05/09/24 04:00 Ordered Complete Blood Count w/Auto AM LABS Lab 05/10/24 04:00 Ordered Comprehensive Metabolic Panel AM LABS Lab 05/09/24 04:00 Ordered Comprehensive Metabolic Panel AM LABS Lab 05/10/24 04:00 Ordered Magnesium AM LABS Lab 05/09/24 04:00 Ordered Magnesium AM LABS Lab 05/10/24 04:00 Ordered Phosphorus AM LABS Lab 05/09/24 04:00 Ordered Phosphorus AM LABS Lab 05/10/24 04:00 Ordered Radiology Impressions Chest X-Ray 05/07/24 09:40 IMPRESSION: No acute cardiopulmonary disease. Lexiscan stress test PERFUSION FINDINGS Small area of minimal to moderately decreased tracer uptake involving the apical septum and apex with no significant reversibility. FUNCTIONAL RESULTS (calculated via Gated SPECT) Stress Image LV EF (%): 70 Stress EDV (mL):73 TID: 0.87 Stress ESV (mL):22 FUNCTIONAL FINDINGS: Segmental wall motion analysis revealing no gross wall motion abnormalities IMPRESSIONS 1. Myocardial perfusion imaging revealing small area of minimal to moderately decreased tracer uptake with no reversibility suggesting myocardial scarring versus attrition artifact. 2. Normal LV ejection fraction of 70%. 3. LV wall motion analysis revealing no gross wall motion abnormalities. 4. Normal LV volume Low probability for coronary ischemia, based on the above findings Dr Colleen Izaguirre MD [facility] (Electronically Signed) Final Date: 08 May 2024 Echocardiogram: CONCLUSIONS Normal LV size with a borderline low ejection fraction of 50 %. Minimally thickened aortic valve. Trace mitral valve regurgitation. There is no pericardial effusion. There are no intracardiac masses. Suboptimal study because of technical difficulties-no apical windows Dr Colleen Izaguirre MD [facility] (Electronically Signed) Final Date: 07 May 2024 Laboratory Results WBC 6.30 10^3/uL (3.29-11.43) 05/08/24 05:36 RBC 4.86 10^6/uL (3.85-5.65) 05/08/24 05:36 Hgb 14.40 g/dL (11.27-16.99) 05/08/24 05:36 Hct 45.2 % (36-47) 05/08/24 05:36 MCV 93.0 fl (85-98) 05/08/24 05:36 MCH 29.6 pg (27-33) 05/08/24 05:36 MCHC 31.9 g/dL (30-55) 05/08/24 05:36 RDW 13.7 % (12.1-15.1) 05/08/24 05:36 Plt Count 231 10^3/cmm (157-399) 05/08/24 05:36 MPV 9.8 fL (7.4-10.4) 05/08/24 05:36 Neut % (Auto) 50.6 % 05/08/24 05:36 Lymph % (Auto) 37.8 % 05/08/24 05:36 [place] % (Auto) 8.3 % 05/08/24 05:36 Eos % (Auto) 2.5 % 05/08/24 05:36 Baso % (Auto) 0.5 % 05/08/24 05:36 Neut # (Auto) 3.19 10^3/uL (1.8-7.7) 05/08/24 05:36 Lymph # (Auto) 2.4 10^3/uL (0.8-4.8) 05/08/24 05:36 [place] # (Auto) 0.5 10^3/uL (0.2-0.9) 05/08/24 05:36 Eos # (Auto) 0.2 10^3/uL (0.0-0.8) 05/08/24 05:36 Baso # (Auto) 0.0 10^3/uL (0.0-0.1) 05/08/24 05:36 Nucleated RBC % (auto) 0 % 05/08/24 05:36 Nucleated RBCs # 0.0 /100WBC 05/08/24 05:36 Sodium 140 mmol/L (136-145) 05/08/24 05:36 Potassium 4.3 mmol/L (3.5-5.1) 05/08/24 05:36 Chloride 101 mmol/L (98-107) 05/08/24 05:36 Carbon Dioxide 26 mmol/L (22-29) 05/08/24 05:36 Anion Gap 17.3 (5-19) 05/08/24 05:36 BUN 19 mg/dL (6-20) 05/08/24 05:36 Creatinine 0.8 mg/dL (0.5-0.9) 05/08/24 05:36 GFR Calculation 79.4 mL/min (90-130) L 05/08/24 05:36 Glucose 110 mg/dL (65-115) 05/08/24 05:36 Estimat Average Glucose 111 05/07/24 16:05 Hemoglobin A1c 5.5 % (4.0-6.0) 05/07/24 16:05 Calculated Osmolality 293 mOsm/kg (285-295) 05/08/24 05:36 Calcium 9.6 mg/dL (8.5-10.5) 05/08/24 05:36 Phosphorus 4.6 mg/dL (2.5-4.5) H 05/08/24 05:36 Magnesium 2.1 mg/dL (1.7-2.3) 05/08/24 05:36 Iron 97 ug/dL (37-145) 05/07/24 16:05 TIBC 330 mcg/dl 05/07/24 16:05 % Saturation 29.3 % (20-50) 05/07/24 16:05 Unsat Iron Binding 233 ug/dL (112-347) 05/07/24 16:05 Total Bilirubin 0.3 mg/dL (0.15-1.2) 05/08/24 05:36 AST 14 U/L (0-32) 05/08/24 05:36 ALT 18 U/L (0-33) 05/08/24 05:36 Alkaline Phosphatase 119 U/L (35-105) H 05/08/24 05:36 Troponin T Baseline 7 ng/L (0-10) 05/07/24 09:47 Troponin T 120 Minute 6.17 ng/L (0-10) 05/07/24 11:38 Delta Troponin T -0.83 ABS# (0-10) L 05/07/24 11:38 Total Protein 7.1 g/dL (6.6-8.7) 05/08/24 05:36 Albumin 4.1 g/dL (3.5-5.2) 05/08/24 05:36 Globulin 3.0 g/dL (1.3-4.6) 05/08/24 05:36 Triglycerides 207 mg/dL (0-150) H 05/08/24 05:36 Cholesterol 183 mg/dL (0-200) 05/08/24 05:36 LDL Cholesterol, Calc 80 mg/dL (50-129) 05/08/24 05:36 HDL Cholesterol 62 mg/dL (60-100) 05/08/24 05:36 LDL/HDL Ratio 1.29 RATIO (0.00-3.22) 05/08/24 05:36 Cholesterol/HDL Ratio 2.95 mg/dL (0.0-4.40) 05/08/24 05:36 Vitamin B12 1078 pg/mL (232-1245) 05/07/24 16:05 Folate 9.8 ng/mL (4.8-37.3) 05/08/24 05:36 Procalcitonin 0.05 ng/mL (0-0.5) 05/08/24 05:36 TSH 0.68 uIU/mL (0.27-4.20) 05/07/24 16:05 HCG, Qual Negative (Negative) 05/08/24 05:36 Urine Color Yellow (Yellow) 05/07/24 18:11 Urine Appearance Clear (CLEAR) 05/07/24 18:11 Urine pH 6.5 (5-7) 05/07/24 18:11 Ur Specific [place] 1.012 (1.005-1.030) 05/07/24 18:11 Urine Protein Negative (Negative) 05/07/24 18:11 Urine Glucose (UA) 2+ (Normal) H 05/07/24 18:11 Urine Ketones Negative (Negative) 05/07/24 18:11 Urine Blood Negative (Negative) 05/07/24 18:11 Urine Nitrate Negative (Negative) 05/07/24 18:11 Urine Bilirubin Negative (Negative) 05/07/24 18:11 Urine Urobilinogen 0.2 mg/dL (Negative) 05/07/24 18:11 Ur Leukocyte Esterase Trace (Negative) A 05/07/24 18:11 Urine RBC 0-2 /hpf (0-2) 05/07/24 18:11 Urine WBC 6-10 /hpf (0-5) 05/07/24 18:11 Ur Squamous Epith Cells 6-10 /hpf (0-5) 05/07/24 18:11 Amorphous Sediment Not Reportable 05/07/24 18:11 Urine Bacteria Trace /hpf (NONE) 05/07/24 18:11 Hyaline Casts 0-4 /lpf H 05/07/24 18:11 Urine Opiates Screen Positive ng/mL (Negative) H 05/07/24 18:11 Ur Barbiturates Screen Negative ng/mL (Negative) 05/07/24 18:11 Ur Phencyclidine Scrn Negative ng/mL (Negative) 05/07/24 18:11 Ur Amphetamines Screen Negative ng/mL (Negative) 05/07/24 18:11 U Benzodiazepines Scrn Negative ng/mL (Negative) 05/07/24 18:11 Urine Cocaine Screen Negative ng/mL (Negative) 05/07/24 18:11 U Marijuana (THC) Screen Negative ng/mL (Negative) 05/07/24 18:11 Vitals Last Vital Signs Temp 98.5 F 05/08/24 08:00 Pulse 96 05/08/24 08:00 Resp 14 05/08/24 10:56 BP 100/66 05/08/24 08:00 Pulse Ox 99 05/08/24 08:00 O2 Del Method Room Air 05/08/24 08:00 Discharge Plan Discharge Patient Disposition: Home Condition: Stable Prescriptions: Continued topiramate 100 mg tablet See Rx Instructions .ROUTE .COMPLEX Rx Instructions: take 1 tablet by mouth in the morning and take 2 tablets at bedtime cholecalciferol (vitamin D3) [Vitamin D3] 25 mcg (1,000 unit) capsule 3,000 unit PO DAILY metformin 500 mg tablet 500 mg PO BID Jardiance 10 mg tablet 10 mg PO DAILY 30 Days Qty: 30 5RF Abilify Maintena 400 mg suspension,extended rel recon 400 mg IM Q28D 30 Days Qty: 1 4RF nitroglycerin 0.4 mg tablet, sublingual 0.4 mg sublingual Q5M PRN (Reason: chest pain) 30 Days Qty: 30 3RF Rx Instructions: until response; do not exceed 3 doses per episode atomoxetine 18 mg capsule 18 mg PO DAILY 30 Days Qty: 30 3RF amitriptyline 100 mg tablet 100 mg PO BEDTIME Qty: 30 3RF aripiprazole [Abilify] 10 mg tablet 10 mg PO DAILY Qty: 30 3RF clonazepam 0.5 mg tablet 0.5 mg PO BID 30 Days Qty: 60 3RF isosorbide mononitrate 60 mg tablet extended release 24 hr 60 mg PO DAILY Qty: 90 3RF aspirin 81 mg Tablet,Delayed Release (Dr/Ec) 81 mg PO QAM cetirizine [Zyrtec] 10 mg Tablet 10 mg PO QAM PRN (Reason: ALLERGIES) valacyclovir 500 mg tablet See Rx Instructions .ROUTE .COMPLEX PRN (Reason: fever blister) Rx Instructions: FOR OUTBREAKS TAKE ONE TAB EVERY 12 HOURS FOR 3 DAYS NEEDED levothyroxine 112 mcg tablet 112 mcg PO DAILY atorvastatin 40 mg tablet 40 mg PO DAILY Rx Instructions: TAKE ONE TABLET BY MOUTH ONCE DAILY Discontinued pregabalin 75 mg capsule 75 mg PO BID No Action pantoprazole 40 mg tablet,delayed release (DR/EC) 40 mg PO BEDTIME Discharge Orders: Discharge Order (Routine); Ordered 05/08/24 Ordered By: Sergei Klein Referrals: Tereza Dolan FNP [Primary Care Provider] - 05/15/24 3:10 pm Discharge Diet: Cardiac Discharge Activity: Resume usual activity and Increase activity as tolerated Patient Instructions: Angina (DC), Coronary Artery Disease (DC), Low Fat Diet (DC), Chest Pain Stoplight, Opioid Safety Activity Restrictions/Additional Instructions: Take Protonix 40 mg twice daily for next 1 month followed by 40 mg oral daily. Try to avoid caffeinated drinks for now. Follow-up with a counseling case manager at the earliest. Discharge Attestations Time Spent in Discharge Care*: greater than 30 min Specific Discharge Activities: educating patient, discussing with pcp/other providers, discussing with protective services case worker/social workers/dc planners, documenting/other paperwork and evaluating patient/reviewing data Status at Discharge: Cognitive status at discharge: cognitively intact , Behavioral status at discharge: cooperative , Functional status at discharge: independent ambulation , Overall status at discharge: patient is back to baseline Quality Metrics Clinical Quality Measures [ No reported AMI, CVA or VTE this stay] Coding Level of Care Code 40780 Total time (in minutes) for Discharge: 60 Diagnoses 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
--- NOTE | 2024-05-08 17:00 | NMCV_ITS ---
NM colin perf SPECT r/s* [id number] Viki Roach Age: 38 Gender: F : 1985 Exam Date: 05/08/2024 17:00 Ordering Phys: Sergei Klein MD Technologist: SHASTA Monk Exam Location: [facility] Indications: CP STRESS TEST Please see separate stress test report in [facility] for full findings IMAGE PROTOCOL Rest/Stress 1 Lexiscan Day Radiopharmaceutical Dose (mCi) Administration Site Administered by Rest: Tc-99m 11 IV SHASTA Monk Sestamibi Stress:Tc-99m 32.8 IV SHASTA Wyatt Sestamibi Rest: 08-May-2024 60 Discovery 630 Stress: 08-May-2024 30 Discovery 630 0.4mg Lexiscan. Images obtained in supine and prone position. SPECT RESULTS Technical Quality: Good Raw Data Analysis: Normal Image Corrections: No attenuation or motion correction applied Summed Stress Score: 3 Summed Rest Score: 4 Summed Difference Score: 0 PERFUSION FINDINGS Small area of minimal to moderately decreased tracer uptake involving the apical septum and apex with no significant reversibility. FUNCTIONAL RESULTS (calculated via Gated SPECT) Stress Image LV EF (%): 70 Stress EDV (mL):73 TID: 0.87 Stress ESV (mL):22 FUNCTIONAL FINDINGS: Segmental wall motion analysis revealing no gross wall motion abnormalities IMPRESSIONS 1. Myocardial perfusion imaging revealing small area of minimal to moderately decreased tracer uptake with no reversibility suggesting myocardial scarring versus attrition artifact. 2. Normal LV ejection fraction of 70%. 3. LV wall motion analysis revealing no gross wall motion abnormalities. 4. Normal LV volume Low probability for coronary ischemia, based on the above findings Dr Colleen Izaguirre MD [facility] (Electronically Signed) Final Date: 08 May 2024 09:24 S
--- NOTE | 2024-05-08 17:40 | FL_ITS ---
WS: [id number] ESOPHAGRAM TECHNIQUE: Double contrast examination was performed with thin and thick barium. Upright and ENRIQUE images were obtained. CLINICAL INFORMATION: Concerns for esophageal spasms, H/o esophageal dilation FINDINGS: Swallowing: Normal. Esophagus: Mild esophageal dysmotility. No high-grade stricture or obstructing mass. Evidence of reflux esophagitis in the distal esophagus. Gastroesophageal reflux: Prominent reflux is visualized to the upper thoracic esophagus in the supine position. This reproduces some of the patient's symptoms. Recommend follow-up surveillance endoscopy. No significant esophageal hiatal hernia. Prominent cricopharyngeus. No obstruction. Fluoroscopy time: 3min [id number] # of spot films: 0 FL/FL barium swallow [id number] IMPRESSION: 1. Mild esophageal dysmotility. 2. Reflux esophagitis in the distal esophagus with prominent reflux visualized to the upper thoracic esophagus. This reproduces patient's symptoms. 3. Recommend follow-up surveillance endoscopy. 4. Prominent cricopharyngeus. 5. No significant hiatal hernia visualized.
== END 2024-05-08 14:47 | disposition home or self-care (01) ==
LOC: ER 09:58 → CSU 17:11
PROVIDERS: Admitting Provider Student in an Organized Health Care Education/Training Program; Emergency Provider Family Medicine; PCP Nurse Practitioner; Visit Provider Student in an Organized Health Care Education/Training Program
DX: I25.118 Atherosclerotic heart disease of native coronary artery with other forms of angina pectoris (principal); E78.5 Hyperlipidemia, unspecified; I95.1 Orthostatic hypotension; Z85.3 Personal history of malignant neoplasm of breast; E66.9 Obesity, unspecified; Z68.31 Body mass index [BMI] 31.0-31.9, adult; K21.9 Gastro-esophageal reflux disease without esophagitis; Z79.82 Long term (current) use of aspirin; I11.0 Hypertensive heart disease with heart failure; I50.40 Unspecified combined systolic (congestive) and diastolic (congestive) heart failure; Z85.72 Personal history of non-Hodgkin lymphomas; Z79.84 Long term (current) use of oral hypoglycemic drugs; Z87.891 Personal history of nicotine dependence; F19.90 Other psychoactive substance use, unspecified, uncomplicated
CPT/HCPCS: 36415; 71045; 74220; 78452; 80053; 80061; 80306; 81001; 82607; 82746; 83036; 83540; 83550; 83735; 84100; 84145; 84443; 84484; 84703; 85025; 93005; 93017; 93306; 94664; 96372; 96374; 96375; 96376; 99285; A9270; A9500; G0378; J1650; J2270; J2470; J2785; J9999

== ENCOUNTER → 2024-07-12 10:36 | Outpatient (BNVA) | payer BC, MEDICAID, SELFPAY | PROVIDERS: PCP Nurse Practitioner; Visit Provider Internal Medicine Cardiovascular Disease | DX: R07.9 Chest pain, unspecified (principal); R00.0 Tachycardia, unspecified; R93.1 Abnormal findings on diagnostic imaging of heart and coronary circulation | CPT/HCPCS: 93005 ==

== ENCOUNTER 2024-07-14 04:56 | Emergency (ER) | payer BC, MEDICAID, SELFPAY ==
--- NOTE | 2024-07-14 05:00 | XRR_ITS ---
PROCEDURE INFORMATION: Exam: XR Chest Exam date and time: 07/14/2024 5:02 AM Age: 38 years old Clinical indication: Chest pressure; Prior surgery; Surgery date: 6+ months; Surgery type: Mastectomy. Gb. C/O chest pain. History of breast cancer. ; Additional info: Cp TECHNIQUE: Imaging protocol: Radiologic exam of the chest. Views: 1 view. COMPARISON: CR XR chest 1V portable [id number] 05/07/2024 10:14 AM FINDINGS: Lungs: Hypoinflation with bronchovascular crowding. No consolidation. Pleural spaces: Unremarkable. No pleural effusion. No pneumothorax. Heart/Mediastinum: See Soft tissues finding. Bones/joints: Unremarkable. Soft tissues: Right axillary soft tissues surgical change consistent with lymph node dissection. Organs: Status post cholecystectomy. XR/XR chest 1V portable [id number] IMPRESSION: No acute cardiopulmonary findings.
--- NOTE | 2024-07-14 05:00 | ECG_ITS ---
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1985 Requested By: Yasmany Law Order Number: [id number] Blayne MD: GWEN ROSE Measurements Intervals [place] Rate: 106 P: 79 WA: 171 QRS: 75 QRSD: 97 T: -50 QT: 328 QTc: 436 Interpretive Statements SINUS TACHYCARDIA POSSIBLE RIGHT ATRIAL ENLARGEMENT [0.25mV P-WAVE] ST DEVIATION AND MODERATE T-WAVE ABNORMALITY, CONSIDER ANTEROLATERAL ISCHEMIA [-0.1+ mV T-WAVE IN V3-V6] ST DEVIATION AND MODERATE T-WAVE ABNORMALITY, CONSIDER INFERIOR ISCHEMIA [-0.1+ mV T-WAVE IN II/aVF] Compared to ECG 07/12/2024 10:42:44 No significant changes Electronically Signed On 07-16-2024 19:06:45 CDT by GWEN ROSE [email or web address]
[2024-07-14 05:03] VITALS: BP 130/89; PULSE 110; RESP 18; TEMP 36.4; O2SAT 99; BMI 30.4
[2024-07-14 05:12] LABS: Basophils % 0.7 %; Eosinophils # 0.1 10^3/uL (0.0-0.8); Eosinophils % 2.1 %; Hematocrit 45.6 % (36-47); Lymphocytes # 2.5 10^3/uL (0.8-4.8); Lymphocytes % 43.4 %; Mean Corpuscular Hemoglobin 29.8 pg (27-33); Mean Corpuscular Volume 93.1 fl (85-98); Mean Platelet Volume 11.2 fL (7.4-10.4); Monocytes # 0.5 10^3/uL (0.2-0.9); Monocytes % 8.6 %; Neutrophils # 2.54 10^3/uL (1.8-7.7); Neutrophils % 44.8 %; Nucleated Red Blood Cells % 0 %; Platelet Count 227 10^3/cmm (157-399); Red Cell Distribution Width 14.1 % (12.1-15.1); White Blood Count 5.67 10^3/uL (3.29-11.43)
--- NOTE | 2024-07-14 05:17 | W.ED.CHESTPA ---
Documented by User: Yasmany Foster DO 07/14/24 05:58 HPI - Chest Pain General: Chief Complaint: Chest Pain Stated Complaint: CP going into back and down R arm Time Seen by Provider: 07/14/24 05:00 History of Present Illness: The patient, with a history of congestive heart failure, presents to the emergency department with chest pain. The patient reports experiencing severe chest pain last night and again tonight, which has been unresponsive to nitroglycerin. The patient describes the chest pain as really, really hurting, localized to a specific area (pointing to chest), radiating down the arm and straight to the back. The pain has been occurring since last night, with the patient taking 3 nitroglycerin pills last night and 2 tonight without relief. The patient reports living 45 minutes away from the hospital, which initially deterred them from seeking immediate care last night despite the severity of symptoms. The patient recently saw their process safety engineer, Dr. Izaguirre, on due to concerns raised by their pharmacist about excessive nitroglycerin use. During this appointment, an EKG was performed, revealing findings that concerned Dr. Izaguirre. As a result, an emergency angiogram was scheduled for Tuesday (previously scheduled for yester but postponed due to the patient being on antibiotics). The patient was advised to avoid strenuous activities and seek emergency care if issues arose. The patient reports being recently started on Ranexa, having only taken 3 doses so far. They acknowledge that this medication likely hasn't had enough time to take effect. The patient expresses frustration that nitroglycerin, which they were advised to use less frequently, has been the only intervention providing relief, though it has been ineffective since last night. No shortness of breath, sweating, or other associated symptoms were reported when specifically asked. The patient denies any recent changes in blood pressure, noting it was normal but a little on the low side during 's appointment with Dr. Izaguirre. Related Data Home Medications ?Medication ?Instructions ?Recorded ?Confirmed aspirin 81 mg tablet,delayed 81 mg PO QAM 09/18/20 07/12/24 release cholecalciferol (vitamin D3) 25 3,000 unit PO DAILY 10/28/20 07/12/24 mcg (1,000 unit) capsule (Vitamin D3) topiramate 100 mg tablet See Rx Instructions .Route .COMPLEX 03/24/21 07/12/24 cetirizine 10 mg tablet (Zyrtec) 10 mg PO QAM PRN ALLERGIES 09/08/21 07/12/24 valacyclovir 500 mg tablet See Rx Instructions .Route 09/08/21 07/12/24 .COMPLEX PRN fever blister levothyroxine 112 mcg tablet 112 mcg PO DAILY 11/15/22 07/12/24 metformin 500 mg tablet 500 mg PO BID 02/27/24 07/12/24 atorvastatin 40 mg tablet 40 mg PO DAILY 05/07/24 07/12/24 tirzepatide (weight loss) 2.5 mg SUBCUT .Weekly 06/15/24 07/12/24 mg/0.5 mL subcutaneous pen injector (Zepbound) Previous Rx's ?Medication ?Instructions ?Recorded empagliflozin 10 mg tablet 10 mg PO DAILY 30 days #30 tabs 02/27/24 (Jardiance) isosorbide mononitrate 60 mg 60 mg PO DAILY #90 tabs 04/26/24 tablet,extended release 24 hr pantoprazole 40 mg tablet,delayed 40 mg PO BEDTIME #60 tabs 05/08/24 release nitroglycerin 0.4 mg sublingual 0.4 mg sublingual Q5M PRN chest 05/22/24 tablet pain 30 days #30 tabs aripiprazole 400 mg intramuscular 400 mg IM Q28D 30 days #1 ea 05/31/24 suspension,extended release (Abilify Maintena) amitriptyline 100 mg tablet 100 mg PO BEDTIME #30 tabs 06/15/24 aripiprazole 10 mg tablet (Abilify) 10 mg PO DAILY #30 tabs 06/15/24 atomoxetine 18 mg capsule 18 mg PO DAILY 30 days #30 caps 06/15/24 clonazepam 0.5 mg tablet 0.5 mg PO BID 30 days #60 tabs 06/15/24 ranolazine 500 mg tablet,extended 500 mg PO BID 60 days #120 tabs 07/12/24 release,12 hr Allergies Allergy/AdvReac Type Severity Reaction Status Date / Time onabotulinumtoxinA (From Allergy Severe botulism Verified 07/12/24 09:51 Botox) diphenhydramine Allergy ADR-Anxiety Verified 07/12/24 09:51 epoxy resin Allergy Unknown Verified 07/12/24 09:51 hydroxyzine (From Vistaril) Allergy ADR-Anxiety Verified 07/12/24 09:51 ondansetron (From Zofran) Allergy ADR-Anxiety Verified 07/12/24 09:51 promethazine (From Phenergan) Allergy ADR-Anxiety Verified 07/12/24 09:51 Review of Systems General: Reports: 10 or more systems reviewed and unremarkable except in HPI and below PFSH ED PFSH: Medical History Symptomatic cholelithiasis ADD (attention deficit disorder) PARRISH (generalized anxiety disorder) History of Hodgkin's lymphoma Bipolar 2 disorder, major depressive episode Other [facility] (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 Psychiatric care History of substance use Bipolar 2 disorder Other [facility] (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 Surgical History S/P cholecystectomy H/O mastectomy History of appendectomy Social History Smoking and tobacco/nicotine status: former use of tobacco/nicotine Alcohol intake: never Substance/Drug Use: current Substance/Drug use frequency: few times a month Physical Exam Const: COMMON NORMALS: no acute distress, patient oriented x3, healthy appearing, alert and well nourished HENMT: COMMON NORMALS: normocephalic HEAD & SCALP: normocephalic Eye: COMMON NORMALS: EOMs intact bilaterally Neck/C-Spine: COMMON NORMALS: full ROM and supple Resp: COMMON NORMALS: normal respiratory effort, No retractions and clear to auscultation bilaterally AUSCULTATION: clear to auscultation bilaterally Cardio: COMMON NORMALS: regular rate, regular rhythm, No gallops present (Cardio) and No murmurs present (Cardio) RATE: regular rate RHYTHM: regular rhythm GI: COMMON NORMALS: Soft to palpation and non-tender PALPATION: Yes Soft to palpation Extremity: GENERAL: Yes normal exam except as noted Neuro: COMMON NORMALS: patient oriented x3 SENSORIUM/ORIENTATION: Yes alert Skin: COMMON NORMALS: no rashes or lesions noted GENERAL SKIN EXAM: no rashes or lesions noted Course Vital Signs: Vital signs: Vital Signs Temperature 97.5 F L 07/14/24 05:03 Pulse Rate 97 07/14/24 05:44 Respiratory Rate 16 07/14/24 06:18 Blood Pressure 111/76 07/14/24 05:44 Pulse Oximetry 98 07/14/24 05:44 MDM - Chest Pain Medical Decision Making 38-year-old female with past medical history of heart failure and recent chest pain. Patient was supposed to go to [facility] yesterday but was not able to secondary to infection. Patient's EKG had nonspecific ST changes. Her initial Trope is negative. Awaiting 2-hour Trope. Case checked out to Dr. Arrieta. Lab Data 07/14/24 05:07 07/14/24 05:38 Radiology Impressions Chest X-Ray 07/14/24 05:00 IMPRESSION: No acute cardiopulmonary findings. Laboratory Results WBC 5.67 10^3/uL (3.29-11.43) 07/14/24 05:07 RBC 4.90 10^6/uL (3.85-5.65) 07/14/24 05:07 Hgb 14.60 g/dL (11.27-16.99) 07/14/24 05:07 Hct 45.6 % (36-47) 07/14/24 05:07 MCV 93.1 fl (85-98) 07/14/24 05:07 MCH 29.8 pg (27-33) 07/14/24 05:07 MCHC 32.0 g/dL (30-55) 07/14/24 05:07 RDW 14.1 % (12.1-15.1) 07/14/24 05:07 Plt Count 227 10^3/cmm (157-399) 07/14/24 05:07 MPV 11.2 fL (7.4-10.4) H 07/14/24 05:07 Neut % (Auto) 44.8 % 07/14/24 05:07 Lymph % (Auto) 43.4 % 07/14/24 05:07 Borden % (Auto) 8.6 % 07/14/24 05:07 Eos % (Auto) 2.1 % 07/14/24 05:07 Baso % (Auto) 0.7 % 07/14/24 05:07 Neut # (Auto) 2.54 10^3/uL (1.8-7.7) 07/14/24 05:07 Lymph # (Auto) 2.5 10^3/uL (0.8-4.8) 07/14/24 05:07 Borden # (Auto) 0.5 10^3/uL (0.2-0.9) 07/14/24 05:07 Eos # (Auto) 0.1 10^3/uL (0.0-0.8) 07/14/24 05:07 Baso # (Auto) 0.0 10^3/uL (0.0-0.1) 07/14/24 05:07 Nucleated RBC % (auto) 0 % 07/14/24 05:07 Nucleated RBCs # 0.0 /100WBC 07/14/24 05:07 Sodium 138 mmol/L (136-145) 07/14/24 05:38 Potassium 3.9 mmol/L (3.5-5.1) 07/14/24 05:38 Chloride 101 mmol/L (98-107) 07/14/24 05:38 Carbon Dioxide 24 mmol/L (22-29) 07/14/24 05:38 Anion Gap 16.9 (5-19) 07/14/24 05:38 BUN 20 mg/dL (6-20) 07/14/24 05:38 Creatinine 0.9 mg/dL (0.5-0.9) 07/14/24 05:38 GFR Calculation 69.3 mL/min (90-130) L 07/14/24 05:38 Glucose 75 mg/dL (65-115) 07/14/24 05:38 Calculated Osmolality 287 mOsm/kg (285-295) 07/14/24 05:38 Calcium 8.9 mg/dL (8.5-10.5) 07/14/24 05:38 Total Bilirubin 0.4 mg/dL (0.15-1.2) 07/14/24 05:38 AST 19 U/L (0-32) 07/14/24 05:38 ALT 28 U/L (0-33) 07/14/24 05:38 Alkaline Phosphatase 96 U/L (35-105) 07/14/24 05:38 Troponin T Baseline 8 ng/L (0-10) 07/14/24 05:07 Troponin T 120 Minute 7.75 ng/L (0-10) 07/14/24 06:36 NT-Pro-B Natriuret Pep 182 pg/mL (0-125) H 07/14/24 05:38 Total Protein 7.0 g/dL (6.6-8.7) 07/14/24 05:38 Albumin 4.4 g/dL (3.5-5.2) 07/14/24 05:38 Globulin 2.6 g/dL (1.3-4.6) 07/14/24 05:38 Urine Color Yellow (Yellow) 07/14/24 06:24 Urine Appearance Clear (CLEAR) 07/14/24 06:24 Urine pH 7.0 (5-7) 07/14/24 06:24 Ur Specific Buena 1.011 (1.005-1.030) 07/14/24 06:24 Urine Protein Negative (Negative) 07/14/24 06:24 Urine Glucose (UA) 1+ (Normal) H 07/14/24 06:24 Urine Ketones Negative (Negative) 07/14/24 06:24 Urine Blood Negative (Negative) 07/14/24 06:24 Urine Nitrate Negative (Negative) 07/14/24 06:24 Urine Bilirubin Negative (Negative) 07/14/24 06:24 Urine Urobilinogen 0.2 mg/dL (Negative) 07/14/24 06:24 Ur Leukocyte Esterase Negative (Negative) 07/14/24 06:24 Urine RBC 0-2 /hpf (0-2) 07/14/24 06:24 Urine WBC 0-5 /hpf (0-5) 07/14/24 06:24 Ur Squamous Epith Cells 0-5 /hpf (0-5) 07/14/24 06:24 Amorphous Sediment Not Reportable 07/14/24 06:24 Urine Bacteria None seen /hpf (NONE) 07/14/24 06:24 Hyaline Casts 1.21 /lpf 07/14/24 06:24 Urine Opiates Screen Negative ng/mL (Negative) 07/14/24 06:24 Ur Barbiturates Screen Negative ng/mL (Negative) 07/14/24 06:24 Ur Phencyclidine Scrn Negative ng/mL (Negative) 07/14/24 06:24 Ur Amphetamines Screen Negative ng/mL (Negative) 07/14/24 06:24 U Benzodiazepines Scrn Negative ng/mL (Negative) 07/14/24 06:24 Urine Cocaine Screen Negative ng/mL (Negative) 07/14/24 06:24 U Marijuana (THC) Screen Negative ng/mL (Negative) 07/14/24 06:24 All radiology interpretation(s) finalized by discharge Discharge Plan Discharge Patient Disposition: Home Clinical Impression: Chest pain Qualifiers: Chest pain type: other chest pain Qualified Code(s): R07.89 - Other chest pain Condition: Stable Prescriptions: No Action topiramate 100 mg tablet See Rx Instructions .ROUTE .COMPLEX Rx Instructions: take 1 tablet by mouth in the morning and take 2 tablets at bedtime cholecalciferol (vitamin D3) [Vitamin D3] 25 mcg (1,000 unit) capsule 3,000 unit PO DAILY metformin 500 mg tablet 500 mg PO BID Jardiance 10 mg tablet 10 mg PO DAILY 30 Days Qty: 30 5RF Zepbound 2.5 mg/0.5 mL pen injector SUBCUT .Weekly amitriptyline 100 mg tablet 100 mg PO BEDTIME Qty: 30 3RF aripiprazole [Abilify] 10 mg tablet 10 mg PO DAILY Qty: 30 3RF atomoxetine 18 mg capsule 18 mg PO DAILY 30 Days Qty: 30 3RF clonazepam 0.5 mg tablet 0.5 mg PO BID 30 Days Qty: 60 3RF ranolazine 500 mg tablet extended release 12 hr 500 mg PO BID 60 Days Qty: 120 5RF isosorbide mononitrate 60 mg tablet extended release 24 hr 60 mg PO DAILY Qty: 90 3RF nitroglycerin 0.4 mg tablet, sublingual 0.4 mg sublingual Q5M PRN (Reason: chest pain) 30 Days Qty: 30 3RF Rx Instructions: until response; do not exceed 3 doses per episode Abilify Maintena 400 mg suspension,extended rel recon 400 mg IM Q28D 30 Days Qty: 1 4RF aspirin 81 mg Tablet,Delayed Release (Dr/Ec) 81 mg PO QAM cetirizine [Zyrtec] 10 mg Tablet 10 mg PO QAM PRN (Reason: ALLERGIES) valacyclovir 500 mg tablet See Rx Instructions .ROUTE .COMPLEX PRN (Reason: fever blister) Rx Instructions: FOR OUTBREAKS TAKE ONE TAB EVERY 12 HOURS FOR 3 DAYS NEEDED levothyroxine 112 mcg tablet 112 mcg PO DAILY atorvastatin 40 mg tablet 40 mg PO DAILY Rx Instructions: TAKE ONE TABLET BY MOUTH ONCE DAILY pantoprazole 40 mg tablet,delayed release (DR/EC) 40 mg PO BEDTIME Qty: 60 0RF Rx Instructions: BID for next 4 weeks, then once daily Discharge Orders: Discharge ED (Routine); Ordered 07/14/24 Ordered By: Papa Arrieta Referrals: Tereza Dolan, FISHING WORKER [Primary Care Provider, Family Practice] Discharge Diet: Advance as tolerated Discharge Activity: Resume usual activity Patient Instructions: Chest Pain (ED) Print Language: Turkmen Coding Level of Care Code ED Light Industrial Supervisor for Chg Fwd Documented by User: Papa Arrieta MD 07/14/24 07:05 HPI - Chest Pain General: Chief Complaint: Chest Pain Stated Complaint: CP going into back and down R arm Time Seen by Provider: 07/14/24 05:00 Related Data Home Medications ?Medication ?Instructions ?Recorded ?Confirmed aspirin 81 mg tablet,delayed 81 mg PO QAM 09/18/20 07/12/24 release cholecalciferol (vitamin D3) 25 3,000 unit PO DAILY 10/28/20 07/12/24 mcg (1,000 unit) capsule (Vitamin D3) topiramate 100 mg tablet See Rx Instructions .Route .COMPLEX 03/24/21 07/12/24 cetirizine 10 mg tablet (Zyrtec) 10 mg PO QAM PRN ALLERGIES 09/08/21 07/12/24 valacyclovir 500 mg tablet See Rx Instructions .Route 09/08/21 07/12/24 .COMPLEX PRN fever blister levothyroxine 112 mcg tablet 112 mcg PO DAILY 11/15/22 07/12/24 metformin 500 mg tablet 500 mg PO BID 02/27/24 07/12/24 atorvastatin 40 mg tablet 40 mg PO DAILY 05/07/24 07/12/24 tirzepatide (weight loss) 2.5 mg SUBCUT .Weekly 04/25/25 05/22/25 mg/0.5 mL subcutaneous pen injector (Zepbound) Previous Rx's ?Medication ?Instructions ?Recorded empagliflozin 10 mg tablet 10 mg PO DAILY 30 days #30 tabs 02/27/24 (Jardiance) isosorbide mononitrate 60 mg 60 mg PO DAILY #90 tabs 04/26/24 tablet,extended release 24 hr pantoprazole 40 mg tablet,delayed 40 mg PO BEDTIME #60 tabs 05/08/24 release nitroglycerin 0.4 mg sublingual 0.4 mg sublingual Q5M PRN chest 05/22/24 tablet pain 30 days #30 tabs aripiprazole 400 mg intramuscular 400 mg IM Q28D 30 days #1 ea 05/31/24 suspension,extended release (Abilify Maintena) amitriptyline 100 mg tablet 100 mg PO BEDTIME #30 tabs 06/15/24 aripiprazole 10 mg tablet (Abilify) 10 mg PO DAILY #30 tabs 06/15/24 atomoxetine 18 mg capsule 18 mg PO DAILY 30 days #30 caps 06/15/24 clonazepam 0.5 mg tablet 0.5 mg PO BID 30 days #60 tabs 06/15/24 ranolazine 500 mg tablet,extended 500 mg PO BID 60 days #120 tabs 07/12/24 release,12 hr Allergies Allergy/AdvReac Type Severity Reaction Status Date / Time onabotulinumtoxinA (From Allergy Severe botulism Verified 07/12/24 09:51 Botox) diphenhydramine Allergy ADR-Anxiety Verified 07/12/24 09:51 epoxy resin Allergy Unknown Verified 07/12/24 09:51 hydroxyzine (From Vistaril) Allergy ADR-Anxiety Verified 07/12/24 09:51 ondansetron (From Zofran) Allergy ADR-Anxiety Verified 07/12/24 09:51 promethazine (From Phenergan) Allergy ADR-Anxiety Verified 07/12/24 09:51 PFSH ED PFSH: Medical History Symptomatic cholelithiasis ADD (attention deficit disorder) PARRISH (generalized anxiety disorder) History of Hodgkin's lymphoma Bipolar 2 disorder, major depressive episode Other [facility] (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 Psychiatric care History of substance use Bipolar 2 disorder 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 Patient was supposed to go to [facility] yesterday but was not able to secondary to infection. Patient's EKG had nonspecific ST changes. Her initial Trope is negative. Awaiting 2-hour Trope. Case checked out to Dr. Arrieta. Patient presents here chest pain pains improved here troponins are negative she has an angiogram scheduled for Tuesday no signs of acute ACS she stable for discharge follow-up with process safety engineer as scheduled return if worsening she understands agrees plan Lab Data 07/14/24 05:07 07/14/24 05:38 Radiology Impressions Chest X-Ray 07/14/24 05:00 IMPRESSION: No acute cardiopulmonary findings. Laboratory Results WBC 5.67 10^3/uL (3.29-11.43) 07/14/24 05:07 RBC 4.90 10^6/uL (3.85-5.65) 07/14/24 05:07 Hgb 14.60 g/dL (11.27-16.99) 07/14/24 05:07 Hct 45.6 % (36-47) 07/14/24 05:07 MCV 93.1 fl (85-98) 07/14/24 05:07 MCH 29.8 pg (27-33) 07/14/24 05:07 MCHC 32.0 g/dL (30-55) 07/14/24 05:07 RDW 14.1 % (12.1-15.1) 07/14/24 05:07 Plt Count 227 10^3/cmm (157-399) 07/14/24 05:07 MPV 11.2 fL (7.4-10.4) H 07/14/24 05:07 Neut % (Auto) 44.8 % 07/14/24 05:07 Lymph % (Auto) 43.4 % 07/14/24 05:07 Borden % (Auto) 8.6 % 07/14/24 05:07 Eos % (Auto) 2.1 % 07/14/24 05:07 Baso % (Auto) 0.7 % 07/14/24 05:07 Neut # (Auto) 2.54 10^3/uL (1.8-7.7) 07/14/24 05:07 Lymph # (Auto) 2.5 10^3/uL (0.8-4.8) 07/14/24 05:07 Borden # (Auto) 0.5 10^3/uL (0.2-0.9) 07/14/24 05:07 Eos # (Auto) 0.1 10^3/uL (0.0-0.8) 07/14/24 05:07 Baso # (Auto) 0.0 10^3/uL (0.0-0.1) 07/14/24 05:07 Nucleated RBC % (auto) 0 % 07/14/24 05:07 Nucleated RBCs # 0.0 /100WBC 07/14/24 05:07 Sodium 138 mmol/L (136-145) 07/14/24 05:38 Potassium 3.9 mmol/L (3.5-5.1) 07/14/24 05:38 Chloride 101 mmol/L (98-107) 07/14/24 05:38 Carbon Dioxide 24 mmol/L (22-29) 07/14/24 05:38 Anion Gap 16.9 (5-19) 07/14/24 05:38 BUN 20 mg/dL (6-20) 07/14/24 05:38 Creatinine 0.9 mg/dL (0.5-0.9) 07/14/24 05:38 GFR Calculation 69.3 mL/min (90-130) L 07/14/24 05:38 Glucose 75 mg/dL (65-115) 07/14/24 05:38 Calculated Osmolality 287 mOsm/kg (285-295) 07/14/24 05:38 Calcium 8.9 mg/dL (8.5-10.5) 07/14/24 05:38 Total Bilirubin 0.4 mg/dL (0.15-1.2) 07/14/24 05:38 AST 19 U/L (0-32) 07/14/24 05:38 ALT 28 U/L (0-33) 07/14/24 05:38 Alkaline Phosphatase 96 U/L (35-105) 07/14/24 05:38 Troponin T Baseline 8 ng/L (0-10) 07/14/24 05:07 Troponin T 120 Minute 7.75 ng/L (0-10) 07/14/24 06:36 NT-Pro-B Natriuret Pep 182 pg/mL (0-125) H 07/14/24 05:38 Total Protein 7.0 g/dL (6.6-8.7) 07/14/24 05:38 Albumin 4.4 g/dL (3.5-5.2) 07/14/24 05:38 Globulin 2.6 g/dL (1.3-4.6) 07/14/24 05:38 Urine Color Yellow (Yellow) 07/14/24 06:24 Urine Appearance Clear (CLEAR) 07/14/24 06:24 Urine pH 7.0 (5-7) 07/14/24 06:24 Ur Specific Buena 1.011 (1.005-1.030) 07/14/24 06:24 Urine Protein Negative (Negative) 07/14/24 06:24 Urine Glucose (UA) 1+ (Normal) H 07/14/24 06:24 Urine Ketones Negative (Negative) 07/14/24 06:24 Urine Blood Negative (Negative) 07/14/24 06:24 Urine Nitrate Negative (Negative) 07/14/24 06:24 Urine Bilirubin Negative (Negative) 07/14/24 06:24 Urine Urobilinogen 0.2 mg/dL (Negative) 07/14/24 06:24 Ur Leukocyte Esterase Negative (Negative) 07/14/24 06:24 Urine RBC 0-2 /hpf (0-2) 07/14/24 06:24 Urine WBC 0-5 /hpf (0-5) 07/14/24 06:24 Ur Squamous Epith Cells 0-5 /hpf (0-5) 07/14/24 06:24 Amorphous Sediment Not Reportable 07/14/24 06:24 Urine Bacteria None seen /hpf (NONE) 07/14/24 06:24 Hyaline Casts 1.21 /lpf 07/14/24 06:24 Urine Opiates Screen Negative ng/mL (Negative) 07/14/24 06:24 Ur Barbiturates Screen Negative ng/mL (Negative) 07/14/24 06:24 Ur Phencyclidine Scrn Negative ng/mL (Negative) 07/14/24 06:24 Ur Amphetamines Screen Negative ng/mL (Negative) 07/14/24 06:24 U Benzodiazepines Scrn Negative ng/mL (Negative) 07/14/24 06:24 Urine Cocaine Screen Negative ng/mL (Negative) 07/14/24 06:24 U Marijuana (THC) Screen Negative ng/mL (Negative) 07/14/24 06:24 Discharge Plan Discharge Patient Disposition: Home Clinical Impression: Chest pain Qualifiers: Chest pain type: other chest pain Qualified Code(s): R07.89 - Other chest pain Condition: Stable Prescriptions: No Action topiramate 100 mg tablet See Rx Instructions .ROUTE .COMPLEX Rx Instructions: take 1 tablet by mouth in the morning and take 2 tablets at bedtime cholecalciferol (vitamin D3) [Vitamin D3] 25 mcg (1,000 unit) capsule 3,000 unit PO DAILY metformin 500 mg tablet 500 mg PO BID Jardiance 10 mg tablet 10 mg PO DAILY 30 Days Qty: 30 5RF Zepbound 2.5 mg/0.5 mL pen injector SUBCUT .Weekly amitriptyline 100 mg tablet 100 mg PO BEDTIME Qty: 30 3RF aripiprazole [Abilify] 10 mg tablet 10 mg PO DAILY Qty: 30 3RF atomoxetine 18 mg capsule 18 mg PO DAILY 30 Days Qty: 30 3RF clonazepam 0.5 mg tablet 0.5 mg PO BID 30 Days Qty: 60 3RF ranolazine 500 mg tablet extended release 12 hr 500 mg PO BID 60 Days Qty: 120 5RF isosorbide mononitrate 60 mg tablet extended release 24 hr 60 mg PO DAILY Qty: 90 3RF nitroglycerin 0.4 mg tablet, sublingual 0.4 mg sublingual Q5M PRN (Reason: chest pain) 30 Days Qty: 30 3RF Rx Instructions: until response; do not exceed 3 doses per episode Abilify Maintena 400 mg suspension,extended rel recon 400 mg IM Q28D 30 Days Qty: 1 4RF aspirin 81 mg Tablet,Delayed Release (Dr/Ec) 81 mg PO QAM cetirizine [Zyrtec] 10 mg Tablet 10 mg PO QAM PRN (Reason: ALLERGIES) valacyclovir 500 mg tablet See Rx Instructions .ROUTE .COMPLEX PRN (Reason: fever blister) Rx Instructions: FOR OUTBREAKS TAKE ONE TAB EVERY 12 HOURS FOR 3 DAYS NEEDED levothyroxine 112 mcg tablet 112 mcg PO DAILY atorvastatin 40 mg tablet 40 mg PO DAILY Rx Instructions: TAKE ONE TABLET BY MOUTH ONCE DAILY pantoprazole 40 mg tablet,delayed release (DR/EC) 40 mg PO BEDTIME Qty: 60 0RF Rx Instructions: BID for next 4 weeks, then once daily Discharge Orders: Discharge ED (Routine); Ordered 07/14/24 Ordered By: Papa Arrieta Referrals: Tereza Dolan FNP [Primary Care Provider, Family Practice] Discharge Diet: Advance as tolerated Discharge Activity: Resume usual activity Patient Instructions: Chest Pain (ED) Print Language: Turkmen Coding Level of Care Code ED Light Industrial Supervisor for Nancie Guzman
[2024-07-14 05:31] LABS: Troponin(5th) Baseline 8 ng/L (0-10)
[2024-07-14 05:44] VITALS: BP 111/76; PULSE 97; O2SAT 98
[2024-07-14 06:11] LABS: Alanine Aminotransferase 28 U/L (0-33); Albumin Level 4.4 g/dL (3.5-5.2); Alkaline Phosphatase 96 U/L (35-105); Anion Gap 16.9 (5-19); Aspartate Amino Transferase 19 U/L (0-32); Blood Urea Nitrogen 20 mg/dL (6-20); Calcium 8.9 mg/dL (8.5-10.5); Carbon Dioxide 24 mmol/L (22-29); Chloride 101 mmol/L (98-107); Creatinine Clr Calc Pharmacy 97.8906; Globulin 2.6 g/dL (1.3-4.6); Glomerular Filtration Rate 69.3 mL/min (90-130); Glucose 75 mg/dL (65-115); Osmolality Calculated 287 mOsm/kg (285-295); Potassium 3.9 mmol/L (3.5-5.1); Sodium 138 mmol/L (136-145); Total Bilirubin 0.4 mg/dL (0.15-1.2)
[2024-07-14 06:15] LABS: NT Pro B Type Natriuretic Pept 182 pg/mL (0-125)
[2024-07-14 06:18] VITALS: RESP 16
[2024-07-14] MEDS: morphine 4 mg/mL SDV 1 mL IVP (06:18)
[2024-07-14 06:48] LABS: Bilirubin Urine Negative (Negative); Blood Urine Negative (Negative); Glucose Urine UA 1+ (Normal); Ketones Urine Negative (Negative); Leukocyte Esterase Urine Negative (Negative); Nitrate Urine Negative (Negative); Protein Urine Negative (Negative); Specific Gravity, Urine 1.011 (1.005-1.030); Urine Appearance Clear (CLEAR); Urine Color Yellow (Yellow); Urobilinogen Urine 0.2 mg/dL (Negative)
[2024-07-14 06:53] LABS: Add Urine Microscopic? YES; Bacteria Urine None Seen /hpf; Hyaline Casts Urine 1.21 /lpf; RBC Urine 0-2 /hpf (0-2); Squamous Epithelial Cell Urine 0-5 /hpf (0-5); WBC Urine 0-5 /hpf (0-5)
[2024-07-14 06:55] LABS: Amphetamines Screen Urine Negative (Negative); Barbiturates Screen Urine Negative (Negative); Benzodiazepines Screen Urine Negative (Negative); Cocaine Screen Urine Negative (Negative); Opiate Screen Urine Negative (Negative); PCP Screen Urine Negative (Negative); THC Screen Urine Negative (Negative)
[2024-07-14 07:00] LABS: Troponin 5 2HR 7.75 ng/L (0-10)
[2024-07-14 07:10] LABS: Troponin 5 2HR Delta -0.25 ABS# (0-10)
[2024-07-14 07:12] VITALS: BP 99/68; PULSE 94; O2SAT 98
== END 2024-07-14 07:13 | disposition home or self-care (01) ==
PROVIDERS: General Practice; Emergency Provider Emergency Medicine; PCP Nurse Practitioner
DX: R07.89 Other chest pain (principal); I50.9 Heart failure, unspecified; Z79.82 Long term (current) use of aspirin; Z79.899 Other long term (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; Z79.85 Long-term (current) use of injectable non-insulin antidiabetic drugs; Z79.84 Long term (current) use of oral hypoglycemic drugs; Z79.890 Hormone replacement therapy; Z87.891 Personal history of nicotine dependence
CPT/HCPCS: 71045; 80053; 80306; 81001; 83880; 84484; 85025; 93005; 96374; 99285; J2270

== ENCOUNTER 2024-07-18 05:48 | Outpatient (CLI) | payer BC, MEDICAID, SELFPAY ==
[2024-07-18] VITALS (24 sets, daily range): BP systolic 87–122; BP diastolic 58–81; PULSE 94–103; RESP 6–27; TEMP 36.4–36.7; O2SAT 95–97; BMI 29.5
--- NOTE | 2024-07-18 06:00 | XACV_ITS ---
Exam Room: 2 Ht: 175 cm Wt: 91 kg BSA: 2.12 m2 Gender: Female : 1985 Any Known Allergies: Other Exam Priority: Routine Procedure(s): Procedure Description: Diagnostic procedure Procedure Description: PCI procedure Procedure Description: Coronary IVUS Procedure Description: Drug Eluting Coronary Stent Procedure Description: PTCA Procedure Description: Miscellaneous Procedure Description: ACT Procedure Description: Coronary Angiography Dmitriy BAEZ; Diagnostic Cath Status: Elective Diagnostic Findings * INDICATION: Worsening angina. * Left Main has moderate disease. * Proximal Left Anterior Descending: severe 80% stenosis, NIYA: 3 flow. * Ostial Right Coronary Artery: minimal 30% stenosis, NIYA: 3 flow. * Proximal Circumflex: Diffuse disease, obstructive 70% stenosis, NIYA: 3 flow. * Coronary angiography shows right dominance. PCI Status: Elective Interventional Findings * Procedure detail: We engaged left main artery with XB 3.0 guide catheter. IV heparin was administered to maintain anticoagulation. Run-through wire was used to cross the proximal LAD stenosis. We performed IVUS to size the stent. PCI of proximal LAD was performed with 3.0 x 18 mm resolute Pelham drug-eluting stent. Proximal circumflex artery has diffuse disease with relatively focal 70% stenosis. It is a small sized vessel. We performed balloon angioplasty with 2.25 x 15 mm semicompliant balloon. At this time final angiogram was performed that showed excellent stent expansion and no residual stenosis. Guidewire and guide catheter were removed. Patient left the Adjunct Latin Professor in stable condition.. * Proximal Left Anterior Descendin% stenosis treated with a MDT R ROMIE 3.0X18 CHARLIE. 0% residual stenosis, NIYA: 3 flow. * Proximal Circumflex: 70% stenosis treated with a AB TREK 2.25X15 RX BALLOON. 0% residual stenosis, NIYA: 3 flow. Conclusions 1. Severe proximal LAD stenosis status post successful revascularization with 1 stent. Significant proximal circumflex artery stenosis status post balloon angioplasty. Smaller size vessel with ostial disease, stent not placed.. 2. Proximal Left Anterior Descending was treated with a Drug Eluting Stent. 3. Proximal Circumflex was treated with a Balloon. Recommendations * Dual antiplatelet therapy with aspirin and plavix. * High intensity statin therapy. * Outpatient cardiology follow up in 2 weeks. Interventional RX Recommendation: PCI w/o planned CABG Diagnostic RX Recommendation: PCI w/o planned CABG Anticoagulation: Heparin Pressures Phase:Rest AO : 80 / 69 ( 75 ) @ 9:05:00 AM 95 / 75 ( 85 ) @ 9:35:00 AM Clinical Evaluation EBL: 5mL-10mL Procedural Details Procedure Consent Obtained. Pre-Procedure Time Out. Identified patient by full name and date of as verbalized by the patient/guarantor. Does the consent match the physician's order: Yes. Accurate & Complete Informed Consent: Yes. Inpatient/Outpatient History & Physical on Chart: No. If H&P is completed, is and addenduem needed: No. Visualize and Verify Site with Patient/Guarantor: N/A. Relevant Radiology Images available: Yes. The risks, benefits, and alternatives of sedation and/or procedure were discussed by physician. The patient agrees to continue. Procedure started. [facility] Clinical Fraility Score: 3: Managing Well. Adjunct Latin Professor Indications: Other: Abnormal stress test, ASHD. Chest Pain Symptom Assessment: Typical Angina Symptoms. Cardiovascular Instability: No. Correct patient, site and procedure confirmed by cath team. PERRLA. Strong, equal hand capture manager bilaterally. Lungs clear x 5 lobes. IV Site on Arrival: 20 gauge in the right forearm. IV Fluids: 0.9% NaCl at KVO. 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 Pre Procedural Pulses: bilateral dorsalis pedis was 3+. Pre Procedural Pulses: bilateral posterior tibial was 2+. Pre Procedural Pulses: bilateral radial was 1+. Oxygen started at 2liters/min via nasal canula. right groin was prepped with chloroprep then draped in the usual sterile fashion. right radial was prepped with chloroprep then draped in the usual sterile fashion. Physician notified. Patient's father is wating outside in his vehicle. The patient requests that Dr. Burger call when the procedure is completed. Equipment: 6F - Radial. Cardiac Cath Pack. ACIST Manifold Kit Model BT 2000. Heparinized Saline (2 units/mL), 1000 mL bag. Baseline sample Acquired. HR: 93 BPM. Physician arrived. Physician scrubbed in. Immediate Pre-Procedure Time Out. Correct Patient: Yes; Correct Procedure: Yes; Correct Site: Yes; Correct Patient Position: Yes; Correct Supplies: Yes; Dried Flammable Prep: Yes; Blood Products Available: N/A;. Lidocaine 1% infiltrated to the right radial. Arterial access obtained. Lidocaine 1% infiltrated to the right radial. A 5 central african TIG catheter in over the exchange J wire. Multiple views taken of right coronary artery. Catheter redirected to the LCA. Catheter removed over the exchange J wire. A 5 central african JL3.5 catheter in over the exchange J wire. Catheter removed over the exchange J wire. A TR Band was successful obtaining hemostatsis at the Right Radial artery insertion site. Lidocaine 1% infiltrated to the right groin. Arterial access obtained using ultrasound. A 5 central african JL3.5 catheter in over the exchange J wire. Multiple views taken of left coronary artery. Catheter removed over the exchange J wire. 6 central african XB 3 guide catheter was inserted over the exchange J wire. Runthrough guidewire was advanced through the guide catheter to lesion in the prox LAD. IVUS catheter in OTW. IVUS of the Proximal LAD performed. IVUS catheter out OTW. Inflation Number : 1 Shawanda Phillips ROMIE 3.0X18 CHARLIE -Lot Number# [id number] was prepped and advanced across the Prox LAD. The stent was deployed at 12 AGUILAR for 0:16 seconds. Stent balloon out over wire. Baseline sample Acquired. HR: 90 BPM. Results checked. IVUS catheter in OTW. IVUS of the Proximal LAD performed. IVUS catheter out OTW. Results checked. ACT drawn. Results out of range HI. Will redraw. Runthrough wire redirected down the circumflex artery. Inflation number : 1 A AB TREK 2.25X15 RX BALLOON was prepped and advanced across the Prox CX , then inflated to 12 AGUILAR for 0:12 seconds. Balloon out. Wire out. Results checked. ACT drawn. Results out of rang HI. Will redraw. Guide catheter out over the exchange J wire. A Right femoral angiogram was performed to determine safe placement of closure device. A Suture was successful obtaining hemostatsis at the Right Femoral artery insertion site. Sheath(s) sutured into position with 2-0 silk and sterile 4x4's and Op-site applied over the site. No oozing or signs and symptoms of hematoma noted. Arterial sheath flushed and connected to tranducer and pressure bag with heparinized saline. Post Procedure: Pulses reassessed and unchanged. PERRLA. Strong, equal hand capture manager bilaterally. No VTE prophylaxis required. Medication's Wasted: Lidocaine 1% = 10 mL. Medication's Wasted: Other = Fentanyl 50 mcg. Medication's Wasted: Nitro = 49.6 mg. Medication's Wasted: Heparin = 1000 units. ACT drawn. Results 323 seconds. Therapeutic limits - pre-heparin administration 90-150 seconds and monitoring heparin during a vascular procedure >250 seconds. Total IV fluids: 500 mL. PCI Indication: CAD (without ischemic symptoms). Post-op diagnosis: CHARLIE x 1 to Prox LAD, POBA of the proximal Circumflex. Complications: none. Estimated blood loss: 5mL-10mL. Responsiveness - Normal response to verbal stimuli; alert and oriented, PERRLA. Airway - Unaffected, no intervention required; spontaneous ventilation. Circulation: W/N/L, pulses unchanged. Nausea/Vomiting: No. Procedure completed. Vital chart was stopped. Patient transferred by bed to 1st floor. Access Site Site: Right Radial artery Sheath Size: 6 Fr Hemostasis Method: TR Band Hemostasis Success: Successful Site: Right Femoral artery Sheath Size: 6 Fr Hemostasis Method: Suture Hemostasis Success: Successful Procedure Medications Start: 7:56 AM Stop: 7:56 AM Medication: Versed Amount: 1 mg Route: I.V. Start: 7:57 AM Stop: 7:57 AM Medication: Fentanyl Amount: 25 mcg Route: I.V. Start: 8:01 AM Stop: 8:01 AM Medication: Versed Amount: 0.5 mg Route: I.V. Start: 8:01 AM Stop: 8:01 AM Medication: Fentanyl Amount: 25 mcg Route: I.V. Start: 8:03 AM Stop: 8:03 AM Medication: Nitrogylcerin Amount: 200 mcg Route: I.A. Start: 8:03 AM Stop: 8:03 AM Medication: Versed Amount: 0.5 mg Route: I.V. Start: 8:03 AM Stop: 8:03 AM Medication: Fentanyl Amount: 25 mcg Route: I.V. Start: 8:04 AM Stop: 8:04 AM Medication: Heparin Amount: 5000 units Route: I.V. Start: 8:19 AM Stop: 8:19 AM Medication: Fentanyl Amount: 25 mcg Route: I.V. Start: 8:19 AM Stop: 8:19 AM Medication: Versed Amount: 1 mg Route: I.V. Start: 8:24 AM Stop: 8:24 AM Medication: 0.9% Saline Amount: 250 ml Route: I.V. bolus Start: 8:27 AM Stop: 8:27 AM Medication: Heparin Amount: 3000 units Route: I.V. Start: 8:28 AM Stop: 8:28 AM Medication: Versed Amount: 1 mg Route: I.V. Start: 8:35 AM Stop: 8:35 AM Medication: Fentanyl Amount: 25 mcg Route: I.V. Start: 8:39 AM Stop: 8:39 AM Medication: Nitrogylcerin Amount: 200 mcg Route: I.C. Start: 8:44 AM Stop: 8:44 AM Medication: 0.9% Saline Amount: 250 ml Route: I.V. bolus Start: 8:49 AM Stop: 8:49 AM Medication: Fentanyl Amount: 25 mcg Route: I.V. Start: 8:55 AM Stop: 8:55 AM Medication: Plavix Amount: 600 mg Route: P.O. I, the attending physician, have reviewed and verified all procedure medications. Yes, all medications given per verbal order History/Risk Factors Hypertension: No Dyslipidemia: Yes Peripheral Arterial Disease (PAD): No Myocardial Infarction (ID): No Obesity: Yes Renal Disease: No Tobacco Use: Former Prior Interventions PCI: No CABG: No Valve Surgery: No Report Signatures Finalized by Michael Burger MD on 08/04/2024 02:45 PM
--- NOTE | 2024-07-18 07:54 | W.PM.OPSUD ---
Surgery/Procedure H&P Update DATE OF PROCEDURE: July 18, 2024 DATE H&P PERFORMED: 07/12/24 H&P UPDATE INFORMATION: I have reviewed H&P completed within last 30 days, I have examined patient prior to procedure and No changes to prior documentation PREOP DIAGNOSIS: Worsening angina PRIMARY INDICATION FOR PROCEDURE: Worsening angina PLANNED PROCEDURE: Operation Date: 07/18/24 07:00 Proposed Procedures p Cardiac Catheterization(Left) - Michael Burger M.D Possible PCI PATIENT REASSESSED PRIOR TO SEDATION, WITH NO CHANGE NOTED: Yes PHYSICAL EXAM: alert, oriented x 3, clear to auscultation bilaterally and regular rate & rhythm AIRWAY EVAL/ANESTHESIA PLAN: normal airway, ASA III, Local Anesthesia, Risks, benefits & alternatives of sedation and/or procedure discussed and Patient agrees to continue as planned ADDITIONAL INFORMATION: Moderate sedation
--- NOTE | 2024-07-18 08:59 | P.PCN_ITS ---
Procedure Note: Date of procedure: 07/18/24 Pre-procedure diagnosis: Worsening angina Post-procedure diagnosis: other (Severe proximal LAD stenosis s/p PCI with 1 stent. Balloon angioplasty of proximal left circumflex artery) Procedure: Proximal LAD has severe stenosis status post successful revascularization with 1 stent. Proximal circumflex artery has borderline significant disease however small caliber vessel. Status post balloon angioplasty. Dual antiplatelet therapy with aspirin and plavix High intensity statin therapy Outpatient cardiology follow up in 2 weeks Performing Provider: Michael Burger Estimated blood loss (mL): 10 Complications: None Condition: stable Disposition: floor Coding Level of Care Code Acute Code for [facility]
--- NOTE | 2024-07-18 09:21 | PC.NURSE ---
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 TR band in place to right wrist and sheath to right femoral attached to pressure bag. Both sites are free from bleeding or hematoma formation at this time. Instructed patient on site care and restrictions. Patient verbalized complete understanding. Will continue to monitor.
[2024-07-18] MEDS: sodium chloride 0.9% 1,000 ML 100 ML IV (09:49)
[2024-07-18] MEDS: ALPRAZolam 0.5 mg Tablet 0.25 MG PO (09:50)
[2024-07-18] MEDS: acetaminophen 325 mg Tablet 650 MG PO (09:50)
--- NOTE | 2024-07-18 11:43 | ECG_ITS ---
[employer] Test Date: 2024-07-18 Pat Name: Viki Roach Department: Room: 111 Gender: Female Legal Project Manager: : 1985 Requested By: Yumiko Lopez Order Number: [id number] Blayne MD: GWEN ROSE Measurements Intervals Agency Rate: 96 P: 55 MD: 171 QRS: 30 QRSD: 104 T: 119 QT: 365 QTc: 463 Interpretive Statements SINUS RHYTHM ST DEVIATION AND MODERATE T-WAVE ABNORMALITY, CONSIDER LATERAL ISCHEMIA [-0.1+ mV T-WAVE IN I/aVL/V5/V6] Compared to ECG 07/14/2024 05:02:49 Sinus tachycardia no longer present T-wave abnormality still present Possible ischemia still present Electronically Signed On 07-25-2024 22:47:09 CDT by GWEN ROSE [email or web address]
--- NOTE | 2024-07-18 11:57 | PC.NURSE ---
Informed Yumiko Lopez of patient's aching chest pain 08/30. Nitro and tylenol have been tried. Received order for EKG which has been done.
[2024-07-18] MEDS: fentaNYL 50 mcg/mL INJ 2mL IVP ×2 (12:29→14:28)
[2024-07-18 12:44] LABS: Partial Thromboplastin Time 104.1 SECONDS (23.9-36.7)
--- NOTE | 2024-07-18 14:59 | PC.NURSE ---
Patient pre-medicated for sheath removal as documented. Initiated sheath removal per protocol at 1430. Hemostasis achieved immediately. Maintained pressure for 20mi. No s/s of bleeding or hematoma formation observed. Covered site with 2x2 and bio-occlusive dressing. Initiated TR band removal at 1000 removing 1-2ml of air every 15-20min. TR band removed at this time. No s/s of bleeding or hematoma formation observed. Instructed patient on site care and restrictions for both sites. Patient verbalized complete understanding.
[2024-07-18] MEDS: temazepam 15 mg Capsule PO (22:01)
[2024-07-19 00:33] VITALS: BP 117/74; PULSE 99; RESP 17; TEMP 36.3
[2024-07-19 03:59] VITALS: BP 104/87; PULSE 101; RESP 16; TEMP 36.8
[2024-07-19 04:41] LABS: Basophils % 0.5 %; Eosinophils # 0.2 10^3/uL (0.0-0.8); Eosinophils % 3.5 %; Hematocrit 39.9 % (36-47); Lymphocytes # 1.5 10^3/uL (0.8-4.8); Lymphocytes % 24.6 %; Mean Corpuscular HGB Conc 31.3 g/dL (30-55); Mean Corpuscular Hemoglobin 30.1 pg (27-33); Mean Corpuscular Volume 96.1 fl (85-98); Mean Platelet Volume 10.8 fL (7.4-10.4); Monocytes # 0.5 10^3/uL (0.2-0.9); Monocytes % 8.4 %; Neutrophils # 3.79 10^3/uL (1.8-7.7); Neutrophils % 62.7 %; Nucleated Red Blood Cells % 0 %; Platelet Count 172 10^3/cmm (157-399); Red Blood Count 4.15 10^6/uL (3.85-5.65); Red Cell Distribution Width 14.5 % (12.1-15.1); White Blood Count 6.05 10^3/uL (3.29-11.43)
[2024-07-19 05:02] LABS: Anion Gap 13.9 (5-19); Blood Urea Nitrogen 14 mg/dL (6-20); Calcium 8.6 mg/dL (8.5-10.5); Carbon Dioxide 23 mmol/L (22-29); Chloride 106 mmol/L (98-107); Creatinine Clr Calc Pharmacy 128.1867; Glomerular Filtration Rate 92.7 mL/min (90-130); Glucose 100 mg/dL (65-115); Osmolality Calculated 289 mOsm/kg (285-295); Potassium 3.9 mmol/L (3.5-5.1); Sodium 139 mmol/L (136-145)
[2024-07-19 07:51] VITALS: BP 113/69; PULSE 91; RESP 16; TEMP 36.4; O2SAT 97
[2024-07-19] MEDS: clopidogrel 75 mg Tablet PO (08:23)
[2024-07-19] MEDS: aspirin 81 mg EC Tablet PO (08:23)
--- NOTE | 2024-07-19 09:13 | PC.NURSE ---
Patient discharged to home. Instruction provided regarding follow up appt, new medications and site care with restrictions. Patient verbalized complete understanding. Patient denies pain or needs. Patient taken to surgical services to wait for transportation. Dressing to right wrist and right groin remain c,d,i without s/s of bleeding or hematoma formation observed.
--- NOTE | 2024-07-19 14:21 | P.DS_ITS ---
<Statement entered by Michael Burger M.D - 07/21/24 13:43> Patient was evaluated and cared for in conjunction with an advanced practice practitioner.? I personally examined the patient and reviewed the chart and all pertinent data including imaging, telemetry, and laboratory results.? I discussed the patient in detail with the advanced practice practitioner.? Please see? their note for complete discharge summary, testing results and agreed upon plan of care for the patient. Patient had PCI of proximal LAD last night with balloon angioplasty of left circumflex artery yesterday, Doing well. No chest pain or access site complications. GENERAL: Patient is alert, awake and oriented x3. HEART: Regular S1 and S2 LUNGS: Clear to auscultate bilaterally. CENTRAL NERVOUS SYSTEM: Grossly nonfocal. EXTREMITIES: Lower extremities without edema bilaterally. Discharge Providers Date of Admission: 07/18/2024 Date of Discharge: July 19, 2024 Attending Provider at Admission: Michael Burger MD Attending Provider at Discharge: Michael Burger MD Primary Care Provider: ABHINAV Roberto Reason for Visit Reason for Visit: I25.119 Brief History: Patient is a 38-year-old female with past medical history of CAD diastolic CHF, dyslipidemia, orthostatic hypotension, Hodgkin's lymphoma, breast cancer status post bilateral mastectomy, bipolar 2 disorder. She had been experiencing episodes of chest tightness, heaviness and weakness limiting her activities. Hospital Course Hospital Course She was brought for coronary angiogram yesterday, revealing severe proximal LAD stenosis treated with CHARLIE x 1 and proximal left circumflex stenosis treated with balloon angioplasty due to small caliber vessel. She will be kept on aspirin Plavix, high intensity statin. No complications with right radial cath site. She has not had any chest pain overnight. Renal function normal this morning. Will discharge home today, follow-up with cardiology clinic in 7 to 10 days. Physical Exam Const: COMMON NORMALS: no acute distress and patient oriented x3 GENERAL APPEARANCE: cooperative ORIENTATION/CONSCIOUSNESS: Yes awake, Yes oriented to person, Yes oriented to place and Yes oriented to time Chest: COMMONS NORMALS: normal inspection of the chest and normal palpation of entire chest wall CHEST: Yes Symmetrical chest wall rise Resp: COMMON NORMALS: normal respiratory effort, No retractions, No use of accessory muscles and clear to auscultation bilaterally AUSCULTATION: clear to auscultation bilaterally Cardio: COMMON NORMALS: regular rate, regular rhythm, S1 normal heart sound present, S2 normal heart sound present, No gallops present (Cardio), No clicks present (Cardio), No murmurs present (Cardio) and No rub (Cardio) RATE: regular rate RHYTHM: regular rhythm HEART SOUNDS: S1 normal heart sound present and S2 normal heart sound present PERIPHERAL PULSES: radial pulses present positive right 2+ and femoral pulses present positive right 2+ Neuro: COMMON NORMALS: patient oriented x3 and moves all extremities SENSORIUM/ORIENTATION: Yes oriented to person, Yes oriented to place and Yes oriented to time Skin: WOUNDS: Yes surgical site (no hematoma palpable) Details: no odor Discharge Data Studies Completed and Pending Pending at discharge Category Date Time Status BUSINESS 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 request for service Routine Exams 07/18/24 06:00 Taken Laboratory Results WBC 6.05 10^3/uL (3.29-11.43) 07/19/24 03:53 RBC 4.15 10^6/uL (3.85-5.65) 07/19/24 03:53 Hgb 12.50 g/dL (11.27-16.99) 07/19/24 03:53 Hct 39.9 % (36-47) 07/19/24 03:53 MCV 96.1 fl (85-98) 07/19/24 03:53 MCH 30.1 pg (27-33) 07/19/24 03:53 MCHC 31.3 g/dL (30-55) 07/19/24 03:53 RDW 14.5 % (12.1-15.1) 07/19/24 03:53 Plt Count 172 10^3/cmm (157-399) 07/19/24 03:53 MPV 10.8 fL (7.4-10.4) H 07/19/24 03:53 Neut % (Auto) 62.7 % 07/19/24 03:53 Lymph % (Auto) 24.6 % 07/19/24 03:53 [place] % (Auto) 8.4 % 07/19/24 03:53 Eos % (Auto) 3.5 % 07/19/24 03:53 Baso % (Auto) 0.5 % 07/19/24 03:53 Neut # (Auto) 3.79 10^3/uL (1.8-7.7) 07/19/24 03:53 Lymph # (Auto) 1.5 10^3/uL (0.8-4.8) 07/19/24 03:53 [place] # (Auto) 0.5 10^3/uL (0.2-0.9) 07/19/24 03:53 Eos # (Auto) 0.2 10^3/uL (0.0-0.8) 07/19/24 03:53 Baso # (Auto) 0.0 10^3/uL (0.0-0.1) 07/19/24 03:53 Nucleated RBC % (auto) 0 % 07/19/24 03:53 Nucleated RBCs # 0.0 /100WBC 07/19/24 03:53 APTT 104.1 SECONDS (23.9-36.7) H 07/18/24 12:12 Sodium 139 mmol/L (136-145) 07/19/24 03:53 Potassium 3.9 mmol/L (3.5-5.1) 07/19/24 03:53 Chloride 106 mmol/L (98-107) 07/19/24 03:53 Carbon Dioxide 23 mmol/L (22-29) 07/19/24 03:53 Anion Gap 13.9 (5-19) 07/19/24 03:53 BUN 14 mg/dL (6-20) 07/19/24 03:53 Creatinine 0.7 mg/dL (0.5-0.9) 07/19/24 03:53 GFR Calculation 92.7 mL/min (90-130) 07/19/24 03:53 Glucose 100 mg/dL (65-115) 07/19/24 03:53 Calculated Osmolality 289 mOsm/kg (285-295) 07/19/24 03:53 Calcium 8.6 mg/dL (8.5-10.5) 07/19/24 03:53 Vitals Last Vital Signs Temp 97.6 F 07/19/24 07:51 Pulse 91 07/19/24 07:51 Resp 16 07/19/24 07:51 BP 113/69 07/19/24 07:51 Pulse Ox 97 07/19/24 07:51 O2 Del Method Room Air 07/19/24 03:59 Discharge Plan Discharge Patient Disposition: Home Prescriptions: New clopidogrel 75 mg Tablet 75 mg PO DAILY Qty: 90 3RF Continued topiramate 100 mg tablet See Rx Instructions .ROUTE .COMPLEX Rx Instructions: take 1 tablet by mouth in the morning and take 2 tablets at bedtime cholecalciferol (vitamin D3) [Vitamin D3] 25 mcg (1,000 unit) capsule 3,000 unit PO DAILY metformin 500 mg tablet 500 mg PO BID Jardiance 10 mg tablet 10 mg PO DAILY 30 Days Qty: 30 5RF Zepbound 2.5 mg/0.5 mL pen injector 2.5 mg SUBCUT .Weekly amitriptyline 100 mg tablet 100 mg PO BEDTIME Qty: 30 3RF aripiprazole [Abilify] 10 mg tablet 10 mg PO DAILY Qty: 30 3RF atomoxetine 18 mg capsule 18 mg PO DAILY 30 Days Qty: 30 3RF clonazepam 0.5 mg tablet 0.5 mg PO BID 30 Days Qty: 60 3RF ranolazine 500 mg tablet extended release 12 hr 500 mg PO BID 60 Days Qty: 120 5RF isosorbide mononitrate 60 mg tablet extended release 24 hr 60 mg PO DAILY Qty: 90 3RF nitroglycerin 0.4 mg tablet, sublingual 0.4 mg sublingual Q5M PRN (Reason: chest pain) 30 Days Qty: 30 3RF Rx Instructions: until response; do not exceed 3 doses per episode Abilify Maintena 400 mg suspension,extended rel recon 400 mg IM Q28D 30 Days Qty: 1 4RF aspirin 81 mg Tablet,Delayed Release (Dr/Ec) 81 mg PO QAM cetirizine [Zyrtec] 10 mg Tablet 10 mg PO QAM PRN (Reason: ALLERGIES) valacyclovir 500 mg tablet See Rx Instructions .ROUTE .COMPLEX PRN (Reason: fever blister) Rx Instructions: FOR OUTBREAKS TAKE ONE TAB EVERY 12 HOURS FOR 3 DAYS NEEDED levothyroxine 112 mcg tablet 112 mcg PO DAILY atorvastatin 40 mg tablet 40 mg PO DAILY Rx Instructions: TAKE ONE TABLET BY MOUTH ONCE DAILY pantoprazole 40 mg tablet,delayed release (DR/EC) 40 mg PO BEDTIME Qty: 60 0RF Rx Instructions: BID for next 4 weeks, then once daily Discharge Orders: Discharge Order (Routine); Ordered 07/19/24 Ordered By: Yumiko Lopez Referrals: Yumiko Lopez FNP [Nurse Practitioner, Cardiology] - 07/26/24 1:30 pm Tereza Dolan FNP [Primary Care Provider, Family Practice] - 08/01/24 3:00 pm Diet: Advance as tolerated Activity: Increase activity as tolerated Patient Instructions: Aspirin (By mouth), Clopidogrel (By mouth) (Plavix), Coronary Angioplasty (DC), Chest Pain Stoplight, Post Angiogram Home Care Instructions Activity Restrictions/Additional Instructions: No lifting over 5 pounds for the next 4 days Print Language: Cape Verdean Discharge Date/Time: 07/19/24 09:05 Discharge Attestations Time Spent in Discharge Care*: less than 30 min Status at Discharge: Cognitive status at discharge: cognitively intact , Behavioral status at discharge: cooperative , Quality Metrics Clinical Quality Measures [ No reported AMI, CVA or VTE this stay] Coding Level of Care Code Acute Code for [facility]
== END 2024-07-19 09:05 | disposition home or self-care (01) ==
LOC: CCL 05:48 → CSU 09:55
PROVIDERS: Internal Medicine; Nurse Practitioner Family; PCP Nurse Practitioner; Visit Provider Internal Medicine Cardiovascular Disease
DX: I25.119 Atherosclerotic heart disease of native coronary artery with unspecified angina pectoris (principal); E78.5 Hyperlipidemia, unspecified; I95.1 Orthostatic hypotension; Z86.79 Personal history of other diseases of the circulatory system; Z79.84 Long term (current) use of oral hypoglycemic drugs; Z79.82 Long term (current) use of aspirin; K21.9 Gastro-esophageal reflux disease without esophagitis; E66.9 Obesity, unspecified; Z68.29 Body mass index [BMI] 29.0-29.9, adult; Z87.891 Personal history of nicotine dependence
CPT/HCPCS: 36415; 80048; 85025; 85347; 85730; 92920; 92978; 93005; 93454; 96374; 99152; 99153; C1725; C1753; C1769; C1874; C1887; C1894; C9600; J1644; J2250; J3010; J3490; J7030; J9999; Q9967

== ENCOUNTER → 2024-07-30 15:18 | Outpatient (BNVA) | payer BC, MEDICAID, SELFPAY | PROVIDERS: PCP Nurse Practitioner; Visit Provider Nurse Practitioner Family | DX: I50.32 Chronic diastolic (congestive) heart failure (principal) | CPT/HCPCS: 93005 ==

== ENCOUNTER 2024-11-26 15:42 | Outpatient (CLI) | payer BC, MEDICAID, SELFPAY ==
[2024-11-26 17:57] LABS: Hematocrit 39.5 % (36-47); Hemoglobin 13.00 g/dL (11.27-16.99); Mean Corpuscular HGB Conc 32.9 g/dL (30-55); Mean Corpuscular Hemoglobin 31.7 pg (27-33); Mean Corpuscular Volume 96.3 fl (85-98); Nucleated Red Blood Cells % 0 %; Platelet Count 277 10^3/cmm (157-399); Red Blood Count 4.10 10^6/uL (3.85-5.65); White Blood Count 5.77 10^3/uL (3.29-11.43)
[2024-11-26 18:14] LABS: INR 0.80 (0.8-1.2); Prothrombin Time 11.70 SECONDS (12.1-14.9)
[2024-11-26 18:15] LABS: Alanine Aminotransferase 30 U/L (0-33); Albumin Level 4.4 g/dL (3.5-5.2); Alkaline Phosphatase 84 U/L (35-105); Globulin 2.9 g/dL (1.3-4.6); Total Protein 7.3 g/dL (6.6-8.7)
[2024-11-26 19:11] LABS: Aspartate Amino Transferase 21 U/L (0-32)
== END 2024-11-26 15:43 | disposition home or self-care (01) ==
PROVIDERS: PCP Nurse Practitioner; Visit Provider Internal Medicine Cardiovascular Disease
DX: I48.91 Unspecified atrial fibrillation (principal); Z79.01 Long term (current) use of anticoagulants; E78.5 Hyperlipidemia, unspecified
CPT/HCPCS: 36415; 80076; 85025; 85610

== ENCOUNTER → 2024-12-26 14:45 | Outpatient (BNVA) | payer BC, MEDICAID, SELFPAY | PROVIDERS: PCP Nurse Practitioner; Visit Provider Internal Medicine Cardiovascular Disease | DX: R94.31 Abnormal electrocardiogram [ECG] [EKG] (principal); R07.9 Chest pain, unspecified | CPT/HCPCS: 93005 ==